=== PATIENT | female | born 1985 | race Caucasian/White ===

== ENCOUNTER 2016-10-22 12:42 | Emergency (ER) | payer OTHER ==
[2016-10-22 13:06] LABS: Hematocrit 39 % (35-47); Hemoglobin 13.3 g/dl (12.0-16.0); Mean Corpuscular HGB Conc 34 g/dl (31-36); Mean Corpuscular Hemoglobin 30 pg (27-31); Mean Corpuscular Volume 87 fL (80-97); Mean Platelet Volume 8 um3 (7.4-10.4); Red Blood Count 4.52 10^6/ul (4.0-5.4); Red Cell Distribution Width 13 % (10.5-15); White Blood Count 6.5 10^3/ul (3.5-10.8)
[2016-10-22 13:23] LABS: ALT 41 U/L (7-52); Albumin 3.9 g/dL (3.2-5.2); Alkaline Phosphatase 49 U/L (34-104); CO2 Carbon Dioxide 25 mmol/L (22-32); Calcium 8.9 mg/dL (8.6-10.3); Chloride 107 mmol/L (101-111); EGFR African American 103.1 (>60); EGFR Non-African American 80.2 (>60); Globulin 3.5 g/dL (2-4); Glucose 86 mg/dL (70-100); Sodium 139 mmol/L (133-145); Total Protein 7.4 g/dL (6.4-8.9)
[2016-10-22 13:35] LABS: Urine Bacteria Absent (Absent); Urine Bilirubin Negative (Negative); Urine Glucose Negative (Negative); Urine Nitrite Negative (Negative)
[2016-10-22 13:41] LABS: Acetaminophen < 15 mcg/mL; Alcohol < 10 mg/dL (<10); Salicylate < 2.50 mg/dL (<30)
[2016-10-22 13:42] LABS: Benzodiazepine Urine Screen None Detected (None Detect)
[2016-10-22 13:51] LABS: TSH (Thyroid Stimulating Horm) 2.15 mcIU/mL (0.34-5.60)
[2016-10-22 14:25] LABS: BUN/Creatinine Ratio 15.5 (8-20); Blood Urea Nitrogen 13 mg/dL (6-24)
[2016-10-22 14:26] LABS: AST 26 U/L (13-39); Anion Gap 7 mmol/L (2-11); Potassium 3.8 mmol/L (3.5-5.0)
--- NOTE | 2016-10-22 14:29 | ED ---
Isis Kyle Matthew, scribed for Uzair Mullen MD on 10/22/16 at 1401 . Altered Mental Status - HPI Summary HPI Summary: A 31 y/o female presents to the ED with altered mental status since last night. She states that she has suicidal ideation and attempted to overdose last night by taking approximately 50 Tylenol and 30 ibuprofen. She was sent by EMS from [facility]. The patient states that her SI stems from flash backs she's having during her hospitalizations at [place]. - History Of Current Complaint Stated Complaint: 945 Time Seen by Provider: 10/22/16 12:47 Hx Obtained From: Patient Hx Last Menstrual Period: irregular, no menses in September Onset/Duration: Still Present Timing: Constant Severity Initially: Moderate Severity Currently: Moderate Aggravating Factor(s): Unknown Alleviating Factor(s): Unknown Associated Signs And Symptoms: Positive: Recently Depressed Has Suicidal: Thoughts, With A Plan, Has Prior Attempt(s) - Allergies/Home Medications Allergies/Adverse Reactions: Allergies Allergy/AdvReac Type Severity Reaction Status Date / Time Haloperidol [From Haldol] Allergy Agitation Verified 03/06/16 22:37 PMH/Surg Hx/FS Hx/Imm Hx GI History: Reports: Hx Irritable Bowel Psychiatric History: Reports: Hx Depression, Hx Post Traumatic Stress Disorder, Hx Inpatient Treatment, Hx Suicide Attempt Denies: Hx Anxiety, Hx Attention Deficit Hyperactivity Disorder, Hx Eating Disorder, Hx Panic Disorder, Hx Community Mental Health Tx, Hx Schizophrenia, Hx Bipolar Disorder, Hx of Violent Episodes Against Others, Hx Substance Abuse, Other Psychiatric Issues/Disorders - Family History Family History: FHx of depression, anxiety disorders, bipolar disorders, mood disorders - Social History Alcohol Use: None Hx Substance Use: No Substance Use Type: Reports: None Hx Tobacco Use: No Smoking Status (MU): Never Smoked Tobacco Review of Systems Constitutional: Negative Negative: Fever, Chills Eyes: Negative Negative: Erythema ENT: Negative Negative: Sore Throat Cardiovascular: Negative Negative: Chest Pain Respiratory: Negative Negative: Shortness Of Breath, Cough Gastrointestinal: Negative Negative: Vomiting, Diarrhea, Nausea Genitourinary: Negative Negative: no symptoms reported, dysuria Musculoskeletal: Negative Negative: Myalgia, Edema Skin: Negative Negative: Rash Neurological: Negative Psychological: Other - SI, Overdose Positive: Depressed All Other Systems Reviewed And Are Negative: Yes Physical Exam Triage Information Reviewed: Yes Vital Signs On Initial Exam: Temp Pulse Resp BP Pulse Ox 97.5 F 75 20 116/74 99 10/22/16 13:21 10/22/16 13:21 10/22/16 13:21 10/22/16 13:21 10/22/16 13:21 Vital Signs Reviewed: Yes Appearance: Positive: Well-Appearing, No Pain Distress Skin: Positive: Warm, Dry Head/Face: Positive: Other - IMPRESSION: RIGHT FRONTAL SCALP HEMATOMA. NO ACUTE INTRACRANIAL PATHOLOGY. Eyes: Positive: Conjunctiva Clear Dental: Negative: Cervical Lymphadenopathy Neck: Positive: Supple, No Lymphadenopathy, Other: - Musculoskeletal ROM normal neck; No JVD Respiratory/Lung Sounds: Positive: Clear to Auscultation, Breath Sounds Present , Other - Normal Effort. Negative: Rales, Rhonchi, Stridor, Tracheal Deviation Cardiovascular: Positive: RRR, Other - Heart sounds normal; Intact distal pulses ; The pedal pulses are 2+ and symmetric. Radial pulses are 2+ and symmetric. Negative: Murmur Abdomen Description: Positive: Nontender, Soft, Other: - No Rebound. Negative: Distended, Guarding Musculoskeletal: Negative: Edema Left, Edema Right Neurological: Positive: Alert, Oriented to Person Place, Time Psychiatric: Positive: Affect/Mood Appropriate Diagnostics - Vital Signs Vital Signs Temp Pulse Resp BP Pulse Ox 10/22/16 13:21 36.4 C 75 20 116/74 99 - Laboratory Lab Results: Lab Results 10/22/16 10/22/16 10/22/16 Range/Units 12:50 12:50 13:05 WBC 6.5 (3.5-10.8) 10^3/ul RBC 4.52 (4.0-5.4) 10^6/ul Hgb 13.3 (12.0-16.0) g/dl Hct 39 (35-47) % MCV 87 (80-97) fL MCH 30 (27-31) pg MCHC 34 (31-36) g/dl RDW 13 (10.5-15) % Plt Count 206 (150-450) 10^3/ul MPV 8 (7.4-10.4) um3 Neut % (Auto) 55.4 (38-83) % Lymph % (Auto) 32.4 (25-47) % [place] % (Auto) 10.1 H (1-9) % Eos % (Auto) 1.5 (0-6) % Baso % (Auto) 0.6 (0-2) % Absolute Neuts (auto) 3.6 (1.5-7.7) 10^3/ul Absolute Lymphs (auto) 2.1 (1.0-4.8) 10^3/ul Absolute Monos (auto) 0.7 (0-0.8) 10^3/ul Absolute Eos (auto) 0.1 (0-0.6) 10^3/ul Absolute Basos (auto) 0 (0-0.2) 10^3/ul Absolute Nucleated RBC 0.02 10^3/ul Nucleated RBC % 0.2 Sodium 139 (133-145) mmol/L Potassium Pending Chloride 107 (101-111) mmol/L Carbon Dioxide 25 (22-32) mmol/L Anion Gap Pending BUN 13 (6-24) mg/dL Creatinine 0.84 (0.51-0.95) mg/dL Est GFR ( Amer) 103.1 (>60) Est GFR (Non-Af Amer) 80.2 (>60) BUN/Creatinine Ratio 15.5 (8-20) Glucose 86 (70-100) mg/dL Calcium 8.9 (8.6-10.3) mg/dL Total Bilirubin 0.40 (0.2-1.0) mg/dL AST Pending ALT 41 (7-52) U/L Alkaline Phosphatase 49 (34-104) U/L Total Protein 7.4 (6.4-8.9) g/dL Albumin 3.9 (3.2-5.2) g/dL Globulin 3.5 (2-4) g/dL Albumin/Globulin Ratio 1.1 (1-3) TSH 2.15 (0.34-5.60) mcIU/mL Urine Color Yellow Urine Appearance Cloudy Urine pH 5.0 (5-9) Ur Specific [place] 1.026 (1.010-1.030) Urine Protein Negative (Negative) Urine Ketones Negative (Negative) Urine Blood Negative (Negative) Urine Nitrate Negative (Negative) Urine Bilirubin Negative (Negative) Urine Urobilinogen Negative (Negative) Ur Leukocyte Esterase 1+ H (Negative) Urine WBC (Auto) 1+(6-10/hpf) H (Absent) Urine RBC (Auto) Absent (Absent) Ur Squamous Epith Cells Present H (Absent) Urine Bacteria Absent (Absent) Urine Glucose Negative (Negative) Salicylates < 2.50 (<30) mg/dL Urine Opiates Screen (None Detect) Acetaminophen < 15 mcg/mL Ur Barbiturates Screen (None Detect) Ur Phencyclidine Scrn (None Detect) Ur Amphetamines Screen (None Detect) U Benzodiazepines Scrn (None Detect) Urine Cocaine Screen (None Detect) U Cannabinoids Screen (None Detect) Serum Alcohol < 10 (<10) mg/dL 10/22/16 Range/Units 13:05 WBC (3.5-10.8) 10^3/ul RBC (4.0-5.4) 10^6/ul Hgb (12.0-16.0) g/dl Hct (35-47) % MCV (80-97) fL MCH (27-31) pg MCHC (31-36) g/dl RDW (10.5-15) % Plt Count (150-450) 10^3/ul MPV (7.4-10.4) um3 Neut % (Auto) (38-83) % Lymph % (Auto) (25-47) % [place] % (Auto) (1-9) % Eos % (Auto) (0-6) % Baso % (Auto) (0-2) % Absolute Neuts (auto) (1.5-7.7) 10^3/ul Absolute Lymphs (auto) (1.0-4.8) 10^3/ul Absolute Monos (auto) (0-0.8) 10^3/ul Absolute Eos (auto) (0-0.6) 10^3/ul Absolute Basos (auto) (0-0.2) 10^3/ul Absolute Nucleated RBC 10^3/ul Nucleated RBC % Sodium (133-145) mmol/L Potassium Chloride (101-111) mmol/L Carbon Dioxide (22-32) mmol/L Anion Gap BUN (6-24) mg/dL Creatinine (0.51-0.95) mg/dL Est GFR ( Amer) (>60) Est GFR (Non-Af Amer) (>60) BUN/Creatinine Ratio (8-20) Glucose (70-100) mg/dL Calcium (8.6-10.3) mg/dL Total Bilirubin (0.2-1.0) mg/dL AST ALT (7-52) U/L Alkaline Phosphatase (34-104) U/L Total Protein (6.4-8.9) g/dL Albumin (3.2-5.2) g/dL Globulin (2-4) g/dL Albumin/Globulin Ratio (1-3) TSH (0.34-5.60) mcIU/mL Urine Color Urine Appearance Urine pH (5-9) Ur Specific [place] (1.010-1.030) Urine Protein (Negative) Urine Ketones (Negative) Urine Blood (Negative) Urine Nitrate (Negative) Urine Bilirubin (Negative) Urine Urobilinogen (Negative) Ur Leukocyte Esterase (Negative) Urine WBC (Auto) (Absent) Urine RBC (Auto) (Absent) Ur Squamous Epith Cells (Absent) Urine Bacteria (Absent) Urine Glucose (Negative) Salicylates (<30) mg/dL Urine Opiates Screen None detected (None Detect) Acetaminophen mcg/mL Ur Barbiturates Screen None detected (None Detect) Ur Phencyclidine Scrn None detected (None Detect) Ur Amphetamines Screen None detected (None Detect) U Benzodiazepines Scrn None detected (None Detect) Urine Cocaine Screen None detected (None Detect) U Cannabinoids Screen None detected (None Detect) Serum Alcohol (<10) mg/dL Result Diagrams: 10/22/16 12:50 10/22/16 12:50 Lab Statement: Any lab studies that have been ordered have been reviewed, and results considered in the medical decision making process. Altered Mental Statu Course/Dx - Diagnoses Discharge Diagnoses: Suicidal behavior Discharge - Discharge Plan Condition: Guarded Disposition: OTHER Discharge Disposition Comment: SIGNED OUT The documentation as recorded by the Isis pino Matthew accurately reflects the service I personally performed and the decisions made by , Uzair Mullen MD.
[2016-10-22 15:08] VITALS: BP 132/82
== END 2016-10-22 16:57 | disposition home or self-care (01) ==
LOC: ED 12:42
DX: R45.851 Suicidal ideations (principal)
CPT/HCPCS: 36415; 80053; 80307; 80320; 80329; 81003; 81015; 84443; 85025; 87086; 99285; G0480

== ENCOUNTER 2017-03-25 11:52 | Inpatient (IN) | payer OTHER ==
[2017-03-25 13:03] LABS: Hematocrit 38 % (35-47); Hemoglobin 12.8 g/dl (12.0-16.0); Mean Corpuscular HGB Conc 34 g/dl (31-36); Mean Corpuscular Hemoglobin 30 pg (27-31); Mean Corpuscular Volume 90 fL (80-97); Mean Platelet Volume 8 um3 (7.4-10.4); Red Blood Count 4.24 10^6/ul (4.0-5.4); Red Cell Distribution Width 13 % (10.5-15)
[2017-03-25 13:03] LABS: Urine Bilirubin Negative (Negative); Urine Glucose Negative (Negative); Urine Nitrite Negative (Negative)
[2017-03-25 13:17] LABS: ALT 52 U/L (7-52); AST 26 U/L (13-39); Albumin 4.2 g/dL (3.2-5.2); Alkaline Phosphatase 51 U/L (34-104); Anion Gap 8 mmol/L (2-11); BUN/Creatinine Ratio 14.1 (8-20); Blood Urea Nitrogen 12 mg/dL (6-24); CO2 Carbon Dioxide 23 mmol/L (22-32); Calcium 9.3 mg/dL (8.6-10.3); Chloride 106 mmol/L (101-111); EGFR African American 101.7 (>60); EGFR Non-African American 79.1 (>60); Globulin 3.1 g/dL (2-4); Glucose 93 mg/dL (70-100); Potassium 3.4 mmol/L (3.5-5.0); Sodium 137 mmol/L (133-145); Total Protein 7.3 g/dL (6.4-8.9)
[2017-03-25 13:21] LABS: Benzodiazepine Urine Screen None Detected (None Detect)
[2017-03-25 13:41] LABS: Acetaminophen < 15 mcg/mL; Alcohol < 10 mg/dL (<10); Salicylate < 2.50 mg/dL (<30)
--- NOTE | 2017-03-25 13:41 | ED ---
Psychiatric Complaint - HPI Summary HPI Summary: Patient presents after recent discharge from [facility] for suicidal ideations with continuing ideation and plan. She has attempted in the past with OD without success. She takes multiple medications for her depression and other psych history, but continues to have these thoughts. Denies HI. Denies pain or health problems. She has felt increasing stress, and PTSD related to her last stay in [facility]. Upon arrival she is requesting a hospital stay for her own safety. Denies ETOH or drug use. She states while she had suicidal thoughts, she did not act upon them today. She is closely followed by therapist and psychiatrist. - History Of Current Complaint Chief Complaint: EDMentalHealth Time Seen by Provider: 03/25/17 12:16 Hx Obtained From: Patient Hx Last Menstrual Period: irregular, no menses in September ?: No Onset/Duration: Gradual Onset Timing: Constant Severity Initially: Severe Severity Currently: Severe Character: Depressed, Fearful, Anxious Aggravating Factor(s): Recent Stress Alleviating Factor(s): Nothing Associated Signs And Symptoms: Positive: Social Withdrawal, Social Isolation Related History: Positive For: Prior Psychiatric Issues Has Suicidal: Reports: Thoughts, With A Plan, Has Prior Attempt(s) - OD - Risk Factor(s) Completed Suicide Risk Factors: Negative - Allergies/Home Medications Allergies/Adverse Reactions: Allergies Allergy/AdvReac Type Severity Reaction Status Date / Time Haloperidol [From Haldol] Allergy Agitation Verified 03/06/16 22:37 Home Medications: Home Medications hydrOXYzine HCL TAB* [Atarax 25 MG TAB*] 75 mg PO BEDTIME 03/25/17 [History Confirmed 03/25/17] PMH/Surg Hx/FS Hx/Imm Hx Previously Healthy: Yes GI History: Reports: Hx Irritable Bowel Psychiatric History: Reports: Hx Depression, Hx Post Traumatic Stress Disorder, Hx Inpatient Treatment, Hx Suicide Attempt Denies: Hx Anxiety, Hx Attention Deficit Hyperactivity Disorder, Hx Eating Disorder, Hx Panic Disorder, Hx Community Mental Health Tx, Hx Schizophrenia, Hx Bipolar Disorder, Hx of Violent Episodes Against Others, Hx Substance Abuse, Other Psychiatric Issues/Disorders - Immunization History Hx Pertussis Vaccination: No Immunizations Up to Date: Unable to Obtain/Confirm Infectious Disease History: No Infectious Disease History: Denies: Traveled Outside the [place] in Last 30 Days - Family History Known Family History: Positive: None Family History: FHx of depression, anxiety disorders, bipolar disorders, mood disorders - Social History Occupation: Unemployed Lives: With Family Alcohol Use: None Hx Substance Use: No Substance Use Type: Reports: None Hx Tobacco Use: No Smoking Status (MU): Never Smoked Tobacco Review of Systems Constitutional: Negative Eyes: Negative Cardiovascular: Negative Respiratory: Negative Positive: no symptoms reported, see HPI Musculoskeletal: Negative Neurological: Negative Positive: Anxious, Depressed All Other Systems Reviewed And Are Negative: Yes Physical Exam Triage Information Reviewed: Yes Vital Signs On Initial Exam: Initial Vitals Temp Pulse Resp BP Pulse Ox 99.1 F 68 18 124/77 95 03/25/17 12:22 03/25/17 12:22 03/25/17 12:22 03/25/17 12:22 03/25/17 12:22 Vital Signs Reviewed: Yes Appearance: Positive: Well-Appearing, Well-Nourished Skin: Positive: Warm, Skin Color Reflects Adequate Perfusion Neck: Positive: Supple, No Lymphadenopathy Respiratory/Lung Sounds: Positive: Clear to Auscultation, Breath Sounds Present Cardiovascular: Positive: Normal, RRR, Pulses are Symmetrical in both Upper and Lower Extremities Musculoskeletal: Positive: Normal, Strength/ROM Intact Neurological: Positive: Sensory/Motor Intact, Alert, Oriented to Person Place, Time Psychiatric: Positive: Anxious, Depressed AVPU Assessment: Alert Diagnostics - Vital Signs Vital Signs Temp Pulse Resp BP Pulse Ox 03/25/17 12:22 99.1 F 68 18 124/77 95 - Laboratory Lab Results: Lab Results 03/25/17 03/25/17 03/25/17 Range/Units 12:10 12:10 12:40 WBC 9.0 (3.5-10.8) 10^3/ul RBC 4.24 (4.0-5.4) 10^6/ul Hgb 12.8 (12.0-16.0) g/dl Hct 38 (35-47) % MCV 90 (80-97) fL MCH 30 (27-31) pg MCHC 34 (31-36) g/dl RDW 13 (10.5-15) % Plt Count 261 (150-450) 10^3/ul MPV 8 (7.4-10.4) um3 Neut % (Auto) 66.0 (38-83) % Lymph % (Auto) 24.6 L (25-47) % [place] % (Auto) 7.8 (1-9) % Eos % (Auto) 1.2 (0-6) % Baso % (Auto) 0.4 (0-2) % Absolute Neuts (auto) 5.9 (1.5-7.7) 10^3/ul Absolute Lymphs (auto) 2.2 (1.0-4.8) 10^3/ul Absolute Monos (auto) 0.7 (0-0.8) 10^3/ul Absolute Eos (auto) 0.1 (0-0.6) 10^3/ul Absolute Basos (auto) 0 (0-0.2) 10^3/ul Absolute Nucleated RBC 0 10^3/ul Nucleated RBC % 0 Sodium (133-145) mmol/L Potassium (3.5-5.0) mmol/L Chloride (101-111) mmol/L Carbon Dioxide (22-32) mmol/L Anion Gap (2-11) mmol/L BUN (6-24) mg/dL Creatinine (0.51-0.95) mg/dL Est GFR ( Amer) (>60) Est GFR (Non-Af Amer) (>60) BUN/Creatinine Ratio (8-20) Glucose (70-100) mg/dL Calcium (8.6-10.3) mg/dL Total Bilirubin (0.2-1.0) mg/dL AST (13-39) U/L ALT (7-52) U/L Alkaline Phosphatase (34-104) U/L Total Protein (6.4-8.9) g/dL Albumin (3.2-5.2) g/dL Globulin (2-4) g/dL Albumin/Globulin Ratio (1-3) TSH Urine Color Yellow Urine Appearance Clear Urine pH 6.0 (5-9) Ur Specific [place] 1.015 (1.010-1.030) Urine Protein Negative (Negative) Urine Ketones Negative (Negative) Urine Blood Negative (Negative) Urine Nitrate Negative (Negative) Urine Bilirubin Negative (Negative) Urine Urobilinogen Negative (Negative) Ur Leukocyte Esterase Negative (Negative) Urine Glucose Negative (Negative) Salicylates Urine Opiates Screen None detected (None Detect) Acetaminophen Ur Barbiturates Screen None detected (None Detect) Ur Phencyclidine Scrn None detected (None Detect) Ur Amphetamines Screen None detected (None Detect) U Benzodiazepines Scrn None detected (None Detect) Urine Cocaine Screen None detected (None Detect) U Cannabinoids Screen None detected (None Detect) Serum Alcohol 03/25/17 Range/Units 12:40 WBC (3.5-10.8) 10^3/ul RBC (4.0-5.4) 10^6/ul Hgb (12.0-16.0) g/dl Hct (35-47) % MCV (80-97) fL MCH (27-31) pg MCHC (31-36) g/dl RDW (10.5-15) % Plt Count (150-450) 10^3/ul MPV (7.4-10.4) um3 Neut % (Auto) (38-83) % Lymph % (Auto) (25-47) % [place] % (Auto) (1-9) % Eos % (Auto) (0-6) % Baso % (Auto) (0-2) % Absolute Neuts (auto) (1.5-7.7) 10^3/ul Absolute Lymphs (auto) (1.0-4.8) 10^3/ul Absolute Monos (auto) (0-0.8) 10^3/ul Absolute Eos (auto) (0-0.6) 10^3/ul Absolute Basos (auto) (0-0.2) 10^3/ul Absolute Nucleated RBC 10^3/ul Nucleated RBC % Sodium 137 (133-145) mmol/L Potassium 3.4 L (3.5-5.0) mmol/L Chloride 106 (101-111) mmol/L Carbon Dioxide 23 (22-32) mmol/L Anion Gap 8 (2-11) mmol/L BUN 12 (6-24) mg/dL Creatinine 0.85 (0.51-0.95) mg/dL Est GFR ( Amer) 101.7 (>60) Est GFR (Non-Af Amer) 79.1 (>60) BUN/Creatinine Ratio 14.1 (8-20) Glucose 93 (70-100) mg/dL Calcium 9.3 (8.6-10.3) mg/dL Total Bilirubin 0.70 (0.2-1.0) mg/dL AST 26 (13-39) U/L ALT 52 (7-52) U/L Alkaline Phosphatase 51 (34-104) U/L Total Protein 7.3 (6.4-8.9) g/dL Albumin 4.2 (3.2-5.2) g/dL Globulin 3.1 (2-4) g/dL Albumin/Globulin Ratio 1.4 (1-3) TSH Pending Urine Color Urine Appearance Urine pH (5-9) Ur Specific [place] (1.010-1.030) Urine Protein (Negative) Urine Ketones (Negative) Urine Blood (Negative) Urine Nitrate (Negative) Urine Bilirubin (Negative) Urine Urobilinogen (Negative) Ur Leukocyte Esterase (Negative) Urine Glucose (Negative) Salicylates Pending Urine Opiates Screen (None Detect) Acetaminophen Pending Ur Barbiturates Screen (None Detect) Ur Phencyclidine Scrn (None Detect) Ur Amphetamines Screen (None Detect) U Benzodiazepines Scrn (None Detect) Urine Cocaine Screen (None Detect) U Cannabinoids Screen (None Detect) Serum Alcohol Pending Result Diagrams: 03/25/17 12:40 03/25/17 12:40 Lab Statement: Any lab studies that have been ordered have been reviewed, and results considered in the medical decision making process. Course/Dx - Course Course Of Treatment: Patient cleared for MHU. See HPI. Here for SI. No other complaints. - Differential Dx/Clinical Impression Differential Diagnosis/HQI/PQRI: Positive: Suicide Attempt, Suicidal Ideation, Suicidal Gesture Provider Diagnosis: Suicidal ideation Discharge - Discharge Plan Condition: Stable Disposition: OTHER Discharge Disposition Comment: Patient cleared for MHU at 1:45pm
[2017-03-25 13:50] LABS: TSH (Thyroid Stimulating Horm) 1.67 mcIU/mL (0.34-5.60)
[2017-03-25] MEDS ORDERED: Nicotine Inhaler* 10 MG AMP INH PRN (15:07)
[2017-03-25] MEDS ORDERED: Nicotine GUM* 2 MG PO PRN (15:07)
[2017-03-25] MEDS ORDERED: Al Hydrox/Mg Hydrox/Simet LIQ* 30 ML UDC PO PRN (15:07)
[2017-03-25] MEDS: Prazosin CAP* 1 MG PO SCH (19:09)
[2017-03-25] MEDS: ARIPiprazole TAB* 5 MG PO SCH (19:09)
[2017-03-25] MEDS ORDERED: Nicotine Patch Removal NOTE PATCH OFF SCH (21:00)
[2017-03-25] MEDS: hydrOXYzine HCL TAB* 25 MG PO SCH (21:21)
[2017-03-25] MEDS: Mirtazapine TAB* 15 MG PO SCH (21:21)
[2017-03-25] MEDS: Zolpidem TAB* 5 MG PO PRN (21:23)
[2017-03-26] MEDS ORDERED: Nicotine PATCH 7 MG/24 HR* PATCH TRANSDERM SCH (08:00)
[2017-03-26] MEDS ORDERED: Nicotine PATCH 14 MG/24 HR* PATCH TRANSDERM SCH (08:00)
[2017-03-26] MEDS ORDERED: Nicotine PATCH 21 MG/24 HR* PATCH TRANSDERM SCH (08:00)
[2017-03-26] MEDS: ARIPiprazole TAB* 5 MG PO SCH (09:54)
[2017-03-26] MEDS: Prazosin CAP* 1 MG PO SCH (09:54)
[2017-03-26] MEDS: Omeprazole CAP* 20 MG PO SCH (09:54)
[2017-03-26] MEDS: Vitamin THERAPEUTIC TAB PO SCH (09:54)
[2017-03-26] MEDS: FLUoxetine CAP* 20 MG PO SCH (09:54)
[2017-03-26] MEDS: Acetaminophen TAB* 325 MG PO PRN (12:50)
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
[2017-03-26] MEDS: hydrOXYzine HCL TAB* 25 MG PO SCH (21:52)
[2017-03-26] MEDS: Mirtazapine TAB* 15 MG PO SCH (21:52)
[2017-03-26] MEDS: Zolpidem TAB* 5 MG PO PRN (21:54)
[2017-03-27] MEDS: Omeprazole CAP* 20 MG PO SCH (09:46)
[2017-03-27] MEDS: Prazosin CAP* 1 MG PO SCH (09:46)
[2017-03-27] MEDS: ARIPiprazole TAB* 5 MG PO SCH (09:46)
[2017-03-27] MEDS: FLUoxetine CAP* 20 MG PO SCH (09:46)
[2017-03-27] MEDS: Vitamin THERAPEUTIC TAB PO SCH (09:46)
[2017-03-27] MEDS: hydrOXYzine HCL TAB* 25 MG PO SCH (20:20)
[2017-03-27] MEDS: Mirtazapine TAB* 15 MG PO SCH (20:20)
[2017-03-27] MEDS: Zolpidem TAB* 5 MG PO PRN (20:21)
[2017-03-28] MEDS: ARIPiprazole TAB* 5 MG PO SCH (10:05)
[2017-03-28] MEDS: Omeprazole CAP* 20 MG PO SCH (10:05)
[2017-03-28] MEDS: FLUoxetine CAP* 20 MG PO SCH (10:05)
[2017-03-28] MEDS: Vitamin THERAPEUTIC TAB PO SCH (10:06)
[2017-03-28] MEDS: hydrOXYzine HCL TAB* 50 MG PO PRN ×2 (10:06→17:06)
[2017-03-28] MEDS: Prazosin CAP* 1 MG PO SCH ×2 (10:06→21:34)
--- NOTE | 2017-03-28 13:51 | PN ---
[facility]: Group Therapy Note - Service Type Service Type: 54353 Group Psychotherapy - Cognitive Behavioral Group Therapy ( CBT):Patient was attentive and participatory in CBT programming this morning, and remained in good behavioral control. Patient expressed positive insights regarding relevant treatment interventions and goals.
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
[2017-03-28] MEDS: Mirtazapine TAB* 15 MG PO SCH (21:34)
[2017-03-28] MEDS: hydrOXYzine HCL TAB* 25 MG PO SCH (21:34)
[2017-03-28] MEDS: Zolpidem TAB* 5 MG PO PRN (21:35)
[2017-03-29] MEDS: Omeprazole CAP* 20 MG PO SCH (10:09)
[2017-03-29] MEDS: hydrOXYzine HCL TAB* 50 MG PO PRN (10:09)
[2017-03-29] MEDS: Vitamin THERAPEUTIC TAB PO SCH (10:09)
[2017-03-29] MEDS: ARIPiprazole TAB* 15 MG PO SCH (10:09)
[2017-03-29] MEDS: FLUoxetine CAP* 20 MG PO SCH (10:09)
--- NOTE | 2017-03-29 12:27 | PN ---
Subjective - Subjective Service Type: 00393 Hosp care 25 min moderate complexity Subjective: Patient's , Maikol, called and lead technical writer returned call at [phone]. He reports "serious concerns" in regards to patient's mental health. He states that he is concerned due to 18 hospitalizations in the last 3 years and that last week was her 5th overdose attempt. He states concern that her lethality is worsening. He reports that her OD attempts have been with mildly lethal substances such as motrin or tylenol. He confirms that she only has a week supply of prescribed medications. He states that he also concerned that she is "obsessed with having another child" and has been discussing this for several years. Maikol states he told his on Tuesday during visiting hours that he does not think she is in a stable mental health condition to have a child, if ever. He also expressed concern to her about continuing their marriage. He states that he would like her to be honest with him and others about her self- harm thoughts and urges. Maikol goes on to describe that he sees her actions as manipulative for attention or sympathy. He has done research on dissociative disorder and that she meets criteria for this as well as borderline personality d/o. Maikol states that Saul's hospitalizations and mental health have impacted him and their son's relationships. He denies active concern for Florin' s well-being. [facility]. She is writing in a notebook and states she is working on a "family tree assignment" given to her by staff. She reports her mood this morning is "pretty good." She is dysphoric with flat affect, good eye contact, speech soft and articulate. She states she is having thoughts of SIB but denies doing so since last evening. She states these thoughts are more infrequent. She reports sleep was difficult in that she awoke once and felt "out of it" and saw people standing around her. She states she coped with this by "banging my head a lot" then returning to sleep for a couple more hours. She states her discussion with her on Tuesday was stressful. She recalls that she "jumped to the conclusion that we wouldn't be together" in regards to him not wanting to have more children and he does. Saul denies side effects of increase in aripiprazole. She states she has taken prn hydroxyzine twice with good effect. She noticed she is able to calm more quickly in the context of triggers, such as security present on the unit for other patients. Objective - Appearance Appearance: Well Developed/Nourished, Obese Dysmorphic Features: Yes Hygiene: Normal Grooming: Disheveled - Behavior Psychomotor Activities: Normal Exhibits Abnormal Movement: No - Attitude and Relatedness Attitude and Relatedness: Cooperative Eye Contact: Good - Speech Quality: Unpressured Latencies: Normal Quantity: Appropriate - Mood Patient's Decription of Mood: "Good" - Affect Observed Affect: Depressed Affect Consistent with: Dysphoria - Thought Process Patient's Thought Process: Coherent, Goal Directed Thought Content: Yes Passive Wish, Yes Suicidal Planning, No Homicidal Ideation, No Paranoid Ideation - Sensorium Experiencing Hallucinations: Yes Type of Hallucinations: Visual: Yes - see above, Auditory: No, Command: No - Level of Consciousness Level of Consciousness: Alert Orientation: Yes Intact, Yes Orientated to Time, Yes Orientated to Place, Yes Orientated to Person - Impulse Control Impulse Control: Tenuous - Insight and Judgement Insight and Judgement: Fair - Medication Management Medication Management Adherence: Yes Assessment - Assessment Merits Inpatient Hospitalization: For Immediate Safety, For Stabilization, Pending Safe DC Plan Inpatient DSM-IV Dx: major depressive d/o; PTSD; borderline personality d/o Clinical Impression: 31yo female with active suicidal ideation and SIB urges who presented to [facility] less than one week after discharge from another hospital. She has an extensive trauma history and reports recent triggers. Will continue increase in antipsychotic and increase fluoxetine for improved PTSD symptoms. Encouraged increase in group and milieu presence. Plan - Plan Treatment Plan: Name: SAUL UGARTE Birthdate: 1985 [id number] Saul continues to endorse risk for self harm and active intrusive thoughts. She is agreeable to medication changes and participation in therapeutic milieu. Discharge planning will include family involvement. Continued Medication Management: Different Medication Medications: Current Medications Acetaminophen (Tylenol Tab*) 650 mg PO Q4H PRN PRN Reason: for pain; or Temp >101 F Last Admin: 03/26/17 12:50 Dose: 650 mg Al Hydrox/Mg Hydrox/Simethicone (Maalox Plus*) 30 ml PO Q4H PRN PRN Reason: INDIGESTION Aripiprazole (Abilify Tab*) 15 mg PO DAILY MARYA Last Admin: 03/29/17 10:09 Dose: 15 mg Fluoxetine HCl (Prozac Cap*) 60 mg PO DAILY MARYA Last Admin: 03/29/17 10:09 Dose: 60 mg Hydroxyzine HCl (Atarax Tab*) 75 mg PO BEDTIME MARYA Last Admin: 03/28/17 21:34 Dose: 75 mg Hydroxyzine HCl (Atarax Tab*) 50 mg PO Q6H PRN PRN Reason: ANXIETY/ AGITATION Last Admin: 03/29/17 10:09 Dose: 50 mg Mirtazapine (Remeron Tab*) 15 mg PO BEDTIME MARYA Last Admin: 03/28/17 21:34 Dose: 15 mg Multivitamins (Theragran Tab*) 1 tab PO DAILY MARYA Last Admin: 03/29/17 10:09 Dose: 1 tab Nicotine (Nicotine Inhaler*) 10 mg INH Q2H PRN PRN Reason: CRAVING Nicotine Polacrilex (Nicotine Gum*) 2 mg PO Q2H PRN PRN Reason: CRAVING Omeprazole (Prilosec Cap*) 20 mg PO DAILY MARYA Last Admin: 03/29/17 10:09 Dose: 20 mg Prazosin HCl (Minipress Cap*) 3 mg PO BEDTIME MARYA Last Admin: 03/28/17 21:34 Dose: 3 mg Zolpidem Tartrate (Ambien Tab*) 5 mg PO BEDTIME PRN PRN Reason: SLEEP Last Admin: 03/28/17 21:35 Dose: 5 mg - Discharge Plan Discharge Plan: Outpatient Follow Up Outpatient Program: [facility]
[2017-03-29] MEDS: Mirtazapine TAB* 15 MG PO SCH (22:04)
[2017-03-29] MEDS: hydrOXYzine HCL TAB* 25 MG PO SCH (22:04)
[2017-03-29] MEDS: Prazosin CAP* 1 MG PO SCH (22:04)
[2017-03-29] MEDS: Zolpidem TAB* 5 MG PO PRN (22:05)
[2017-03-30 09:17] LABS: HDL Cholesterol 30.1 mg/dL
[2017-03-30] MEDS: Omeprazole CAP* 20 MG PO SCH (10:05)
[2017-03-30] MEDS: ARIPiprazole TAB* 15 MG PO SCH (10:05)
[2017-03-30] MEDS: FLUoxetine CAP* 20 MG PO SCH (10:05)
[2017-03-30] MEDS: Vitamin THERAPEUTIC TAB PO SCH (10:05)
--- NOTE | 2017-03-30 12:42 | PN ---
Subjective - Subjective Service Type: 75132 Hosp care 15 min low complexity Subjective: Saul presents as dysphoric with blunted affect. She states "I'm not having suicidal thoughts." She expresses confusion as to why she has not been allowed to change into her own clothing. She states she expected to do so as she expressed herself to staff when upset last evening. She recalls engaging in head-banging on the overnight shift. Patient is notified of behavioral intervention plan to promote safety. She agrees to items and states that she is motivated to be able to wear her own clothing. She states she would prefer not to have access to toiletry/personal items due to temptation to self harm. Patient agrees to family meeting for discharge planning. She states she wants to be able to return to outpatient counseling and Seeking Safety group. She is planning to be able to arrange her work schedule in able to do so. Objective - Appearance Appearance: Obese Dysmorphic Features: Yes Hygiene: Normal Grooming: Disheveled - Behavior Psychomotor Activities: Normal Exhibits Abnormal Movement: No - Attitude and Relatedness Attitude and Relatedness: Withdrawn Eye Contact: Good - Speech Quality: Unpressured Latencies: Normal Quantity: Appropriate - Mood Patient's Decription of Mood: "confused" - Affect Observed Affect: Depressed Affect Consistent with: Euthymia - Thought Process Patient's Thought Process: Coherent, Impoverished Thought Content: No Passive Wish, No Suicidal Planning, No Homicidal Ideation, No Paranoid Ideation - Sensorium Experiencing Hallucinations: No, Sensorium is Clear Type of Hallucinations: Visual: No, Auditory: No, Command: No - Level of Consciousness Level of Consciousness: Alert Orientation: Yes Intact, Yes Orientated to Time, Yes Orientated to Place, Yes Orientated to Person - Impulse Control Impulse Control: Impaired - Insight and Judgement Insight and Judgement: Fair - Group Participation Particating in Group Activities: Yes - Medication Management Medication Management Adherence: Yes Assessment - Assessment Merits Inpatient Hospitalization: For Immediate Safety, For Stabilization, Pending Safe DC Plan Inpatient DSM-IV Dx: major depressive d/o; PTSD; borderline personality d/o Clinical Impression: 31yo female with active suicidal ideation and SIB urges who presented to [facility] less than one week after discharge from another hospital. She has an extensive trauma history and reports recent triggers. Will continue increase in antipsychotic and fluoxetine for improved PTSD symptoms. Encouraged increase in group and milieu presence. Fasting Lipid panel and [id number] obtained, WNL. Behavior modification plan implemented to promote safety and healthy coping skills. Plan - Plan Treatment Plan: Name: SAUL UGARTE Birthdate: 1985 [id number] Saul continues to endorse risk for self harm. She denies suicidal ideation. She is agreeable to behavior modification plan and participation in therapeutic milieu. Discharge planning will include family involvement and increase in outpatient treatment, including group therapy. Continued Medication Management: Continue Outpt Medication Medications: Current Medications Acetaminophen (Tylenol Tab*) 650 mg PO Q4H PRN PRN Reason: for pain; or Temp >101 F Last Admin: 03/26/17 12:50 Dose: 650 mg Al Hydrox/Mg Hydrox/Simethicone (Maalox Plus*) 30 ml PO Q4H PRN PRN Reason: INDIGESTION Aripiprazole (Abilify Tab*) 15 mg PO DAILY [facility] Last Admin: 03/30/17 10:05 Dose: 15 mg Fluoxetine HCl (Prozac Cap*) 80 mg PO DAILY MARYA Last Admin: 03/30/17 10:05 Dose: 80 mg Hydroxyzine HCl (Atarax Tab*) 75 mg PO BEDTIME MARYA Last Admin: 03/29/17 22:04 Dose: 75 mg Hydroxyzine HCl (Atarax Tab*) 50 mg PO Q6H PRN PRN Reason: ANXIETY/ AGITATION Last Admin: 03/29/17 10:09 Dose: 50 mg Mirtazapine (Remeron Tab*) 15 mg PO BEDTIME MARYA Last Admin: 03/29/17 22:04 Dose: 15 mg Multivitamins (Theragran Tab*) 1 tab PO DAILY MARYA Last Admin: 03/30/17 10:05 Dose: 1 tab Nicotine (Nicotine Inhaler*) 10 mg INH Q2H PRN PRN Reason: CRAVING Nicotine Polacrilex (Nicotine Gum*) 2 mg PO Q2H PRN PRN Reason: CRAVING Omeprazole (Prilosec Cap*) 20 mg PO DAILY [facility] Last Admin: 03/30/17 10:05 Dose: 20 mg Prazosin HCl (Minipress Cap*) 3 mg PO BEDTIME MARYA Last Admin: 03/29/17 22:04 Dose: 3 mg Zolpidem Tartrate (Ambien Tab*) 5 mg PO BEDTIME PRN PRN Reason: SLEEP Last Admin: 03/29/17 22:05 Dose: 5 mg - Discharge Plan Discharge Plan: Outpatient Follow Up Outpatient Program: [facility]
[2017-03-30] MEDS: hydrOXYzine HCL TAB* 25 MG PO SCH (21:16)
[2017-03-30] MEDS: Mirtazapine TAB* 15 MG PO SCH (21:16)
[2017-03-30] MEDS: Prazosin CAP* 1 MG PO SCH (21:17)
[2017-03-30] MEDS: Zolpidem TAB* 5 MG PO PRN (21:17)
[2017-03-31] MEDS: Acetaminophen TAB* 325 MG PO PRN ×2 (09:42→19:27)
[2017-03-31] MEDS: FLUoxetine CAP* 20 MG PO SCH (09:42)
[2017-03-31] MEDS: Vitamin THERAPEUTIC TAB PO SCH (09:43)
[2017-03-31] MEDS: ARIPiprazole TAB* 15 MG PO SCH (09:43)
[2017-03-31] MEDS: Omeprazole CAP* 20 MG PO SCH (09:43)
--- NOTE | 2017-03-31 13:38 | PN ---
Subjective - Subjective Service Type: 16437 Hosp care 15 min low complexity Subjective: Patient presents as dysphoric with blunted affect. She is sitting on the floor in the corner of her room. She states "I was doing good until a couple minutes ago." She endorses racing thoughts about memories of recent hospitalization at [facility]. She states she also misses her horse who was euthanized 6-8 years ago. She states that has had thoughts of wanting to head bang but denies self harm in the past 24 hours. She has been participating in programming and completed a behavioral chain analysis in regards to SIB the previous night. She is completing ADLs, eating meals and reports sleeping well through the night. Patient reports she spoke with both her and her mother via phone last evening and that these were positive interactions. She reports desire to "come up with ways to be safe and feel safe" when home. She has utilized books from for researching this. She denies suicidal ideation. Objective - Appearance Appearance: Well Developed/Nourished, Obese Dysmorphic Features: Yes Hygiene: Normal Grooming: Well Kept - Behavior Psychomotor Activities: Normal Exhibits Abnormal Movement: Yes - Attitude and Relatedness Attitude and Relatedness: Cooperative Eye Contact: Good - Speech Quality: Unpressured Latencies: Normal Quantity: Appropriate - Mood Patient's Decription of Mood: "Sad" - Affect Observed Affect: Depressed Affect Consistent with: Euthymia - Thought Process Patient's Thought Process: Coherent, Goal Directed Thought Content: No Passive Wish, No Suicidal Planning, No Homicidal Ideation, No Paranoid Ideation - Sensorium Experiencing Hallucinations: No, Sensorium is Clear Type of Hallucinations: Visual: No, Auditory: No, Command: No - Level of Consciousness Level of Consciousness: Alert Orientation: Yes Intact, Yes Orientated to Time, Yes Orientated to Place, Yes Orientated to Person - Impulse Control Impulse Control: Intact - Insight and Judgement Insight and Judgement: Fair - Group Participation Particating in Group Activities: Yes - Medication Management Medication Management Adherence: Yes Assessment - Assessment Merits Inpatient Hospitalization: For Immediate Safety, Pending Safe DC Plan Inpatient DSM-IV Dx: major depressive d/o; PTSD; borderline personality d/o Clinical Impression: 31yo female with improved suicidal ideation and SIB urges. She presented to [facility] less than one week after discharge from another hospital. She has an extensive trauma history and reports recent triggers. Will continue current medications and group and milieu presence. Behavior modification plan intact. Discharge planning will include family involvement. Plan - Plan Treatment Plan: Name: LULY UGARTE Birthdate: 1985 [id number] Luly continues to endorse risk for self harm. She denies suicidal ideation. She is agreeable to behavior modification plan and participation in therapeutic milieu. Discharge planning will include family involvement and increase in outpatient treatment, including group therapy. Continued Medication Management: Continue Outpt Medication Medications: Current Medications Acetaminophen (Tylenol Tab*) 650 mg PO Q4H PRN PRN Reason: for pain; or Temp >101 F Last Admin: 03/31/17 09:42 Dose: 650 mg Al Hydrox/Mg Hydrox/Simethicone (Maalox Plus*) 30 ml PO Q4H PRN PRN Reason: INDIGESTION Aripiprazole (Abilify Tab*) 15 mg PO DAILY [facility] Last Admin: 03/31/17 09:43 Dose: 15 mg Fluoxetine HCl (Prozac Cap*) 80 mg PO DAILY [facility]ARYA Last Admin: 03/31/17 09:42 Dose: 80 mg Hydroxyzine HCl (Atarax Tab*) 75 mg PO BEDTIME MARYA Last Admin: 03/30/17 21:16 Dose: 75 mg Hydroxyzine HCl (Atarax Tab*) 50 mg PO Q6H PRN PRN Reason: ANXIETY/ AGITATION Last Admin: 03/29/17 10:09 Dose: 50 mg Mirtazapine (Remeron Tab*) 15 mg PO BEDTIME MARYA Last Admin: 03/30/17 21:16 Dose: 15 mg Multivitamins (Theragran Tab*) 1 tab PO DAILY MARYA Last Admin: 03/31/17 09:43 Dose: 1 tab Nicotine (Nicotine Inhaler*) 10 mg INH Q2H PRN PRN Reason: CRAVING Nicotine Polacrilex (Nicotine Gum*) 2 mg PO Q2H PRN PRN Reason: CRAVING Omeprazole (Prilosec Cap*) 20 mg PO DAILY MARYA Last Admin: 03/31/17 09:43 Dose: 20 mg Prazosin HCl (Minipress Cap*) 3 mg PO BEDTIME MARYA Last Admin: 03/30/17 21:17 Dose: 3 mg Zolpidem Tartrate (Ambien Tab*) 5 mg PO BEDTIME PRN PRN Reason: SLEEP Last Admin: 03/30/17 21:17 Dose: 5 mg - Discharge Plan Discharge Plan: Outpatient Follow Up Outpatient Program: [facility]
[2017-03-31] MEDS ORDERED: chlorproMAZINE TAB* 50 MG PO ONE (17:38)
[2017-03-31] MEDS ORDERED: chlorproMAZINE TAB* 50 MG ONE (17:39)
[2017-03-31] MEDS: Zolpidem TAB* 5 MG PO PRN (21:12)
[2017-03-31] MEDS: Mirtazapine TAB* 15 MG PO SCH (21:12)
[2017-03-31] MEDS: hydrOXYzine HCL TAB* 25 MG PO SCH (21:12)
[2017-03-31] MEDS: Prazosin CAP* 1 MG PO SCH (21:13)
[2017-04-01] MEDS: FLUoxetine CAP* 20 MG PO SCH ×2 (10:02→13:42)
[2017-04-01] MEDS: Vitamin THERAPEUTIC TAB PO SCH ×2 (10:02→13:43)
[2017-04-01] MEDS: Omeprazole CAP* 20 MG PO SCH ×2 (10:02→13:42)
[2017-04-01] MEDS: ARIPiprazole TAB* 15 MG PO SCH ×2 (10:02→13:42)
--- NOTE | 2017-04-01 13:47 | PN ---
Subjective - Subjective Service Type: 02700 Hosp care 15 min low complexity Subjective: Saul presents as dysphoric with blunted affect. She has refused her morning medications and states "What's the point?" She has been group compliant and showered this morning. 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 No other apparent self injury. She endorses SI, hopelessness and urges of SIB. We review the family meeting and Saul's perception of events. She states fear of not seeing her son, not reuniting with Maikol. She agrees to continue prn thorazine over the weekend for severe agitation/ anxiety and prn hydroxyzine for mild/moderate anxiety. Objective - Appearance Appearance: Well Developed/Nourished Dysmorphic Features: Yes Hygiene: Normal Grooming: Well Kept - Behavior Psychomotor Activities: Normal Exhibits Abnormal Movement: No - Attitude and Relatedness Attitude and Relatedness: Needy Eye Contact: Good - Speech Quality: Unpressured Latencies: Normal Quantity: Appropriate - Mood Patient's Decription of Mood: "not the greatest" - Affect Observed Affect: Depressed Affect Consistent with: Dysphoria - Thought Process Patient's Thought Process: Coherent, Circumstantial Thought Content: Yes Passive Wish, Yes Suicidal Planning, No Homicidal Ideation, No Paranoid Ideation - Sensorium Experiencing Hallucinations: No, Sensorium is Clear Type of Hallucinations: Visual: No, Auditory: No, Command: No - Level of Consciousness Level of Consciousness: Alert Orientation: Yes Intact, Yes Orientated to Time, Yes Orientated to Place, Yes Orientated to Person - Impulse Control Impulse Control: Poor - Group Participation Particating in Group Activities: Yes - Medication Management Medication Management Adherence: Partial - took am medications after prompting from provider Assessment - Assessment Inpatient DSM-IV Dx: major depressive d/o; PTSD; borderline personality d/o Clinical Impression: 31yo female with improved suicidal ideation and SIB urges. She presented to [facility] less than one week after discharge from another hospital. She has an extensive trauma history and reports recent triggers. Will continue current medications and group and milieu presence. Behavior modification plan intact. Discharge planning will include family involvement. Plan - Plan Treatment Plan: Name: SAUL UGARTE Birthdate: 1985 [id number] Saul continues to endorse risk for self harm. She denies suicidal ideation. She is agreeable to behavior modification plan and participation in therapeutic milieu. Discharge planning will include family involvement and increase in outpatient treatment, including group therapy. Medications: Current Medications Acetaminophen (Tylenol Tab*) 650 mg PO Q4H PRN PRN Reason: for pain; or Temp >101 F Last Admin: 03/31/17 19:27 Dose: 650 mg Al Hydrox/Mg Hydrox/Simethicone (Maalox Plus*) 30 ml PO Q4H PRN PRN Reason: INDIGESTION Aripiprazole (Abilify Tab*) 15 mg PO DAILY MARYA Last Admin: 04/01/17 10:02 Dose: Not Given Fluoxetine HCl (Prozac Cap*) 80 mg PO DAILY MARYA Last Admin: 04/01/17 10:02 Dose: Not Given Hydroxyzine HCl (Atarax Tab*) 75 mg PO BEDTIME MARYA Last Admin: 03/31/17 21:12 Dose: 75 mg Hydroxyzine HCl (Atarax Tab*) 50 mg PO Q6H PRN PRN Reason: ANXIETY/ AGITATION Last Admin: 03/29/17 10:09 Dose: 50 mg Mirtazapine (Remeron Tab*) 15 mg PO BEDTIME MARYA Last Admin: 03/31/17 21:12 Dose: 15 mg Multivitamins (Theragran Tab*) 1 tab PO DAILY MARYA Last Admin: 04/01/17 10:02 Dose: Not Given Nicotine (Nicotine Inhaler*) 10 mg INH Q2H PRN PRN Reason: CRAVING Nicotine Polacrilex (Nicotine Gum*) 2 mg PO Q2H PRN PRN Reason: CRAVING Omeprazole (Prilosec Cap*) 20 mg PO DAILY MARYA Last Admin: 04/01/17 10:02 Dose: Not Given Prazosin HCl (Minipress Cap*) 3 mg PO BEDTIME MARYA Last Admin: 03/31/17 21:13 Dose: 3 mg Zolpidem Tartrate (Ambien Tab*) 5 mg PO BEDTIME PRN PRN Reason: SLEEP Last Admin: 03/31/17 21:12 Dose: 5 mg
[2017-04-01] MEDS: Mirtazapine TAB* 15 MG PO SCH (21:56)
[2017-04-01] MEDS: hydrOXYzine HCL TAB* 25 MG PO SCH (21:56)
[2017-04-01] MEDS: Prazosin CAP* 1 MG PO SCH (21:56)
[2017-04-01] MEDS: Zolpidem TAB* 5 MG PO PRN (21:57)
[2017-04-02] MEDS: Vitamin THERAPEUTIC TAB PO SCH (09:30)
[2017-04-02] MEDS: Omeprazole CAP* 20 MG PO SCH (09:30)
[2017-04-02] MEDS: FLUoxetine CAP* 20 MG PO SCH (09:30)
[2017-04-02] MEDS: ARIPiprazole TAB* 15 MG PO SCH (09:30)
[2017-04-02] MEDS: hydrOXYzine HCL TAB* 50 MG PO PRN (13:50)
[2017-04-02] MEDS: hydrOXYzine HCL TAB* 25 MG PO SCH (20:41)
[2017-04-02] MEDS: Mirtazapine TAB* 15 MG PO SCH (20:41)
[2017-04-02] MEDS: Prazosin CAP* 1 MG PO SCH (20:41)
[2017-04-02] MEDS: Zolpidem TAB* 5 MG PO PRN (20:42)
[2017-04-03] MEDS: ARIPiprazole TAB* 15 MG PO SCH (09:06)
[2017-04-03] MEDS: Omeprazole CAP* 20 MG PO SCH (09:06)
[2017-04-03] MEDS: Vitamin THERAPEUTIC TAB PO SCH (09:06)
[2017-04-03] MEDS: FLUoxetine CAP* 20 MG PO SCH (09:06)
[2017-04-03] MEDS: Mirtazapine TAB* 15 MG PO SCH (20:28)
[2017-04-03] MEDS: hydrOXYzine HCL TAB* 25 MG PO SCH (20:28)
[2017-04-03] MEDS: Prazosin CAP* 1 MG PO SCH (20:28)
[2017-04-03] MEDS: Zolpidem TAB* 5 MG PO PRN (20:29)
[2017-04-04 07:39] VITALS: BP 123/72
[2017-04-04] MEDS: ARIPiprazole TAB* 15 MG PO SCH (08:51)
[2017-04-04] MEDS: Vitamin THERAPEUTIC TAB PO SCH (08:51)
[2017-04-04] MEDS: Acetaminophen TAB* 325 MG PO PRN (08:51)
[2017-04-04] MEDS: FLUoxetine CAP* 20 MG PO SCH (08:51)
[2017-04-04] MEDS: Omeprazole CAP* 20 MG PO SCH (08:51)
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
== END 2017-04-04 16:18 | disposition home or self-care (01) | DRG 882 ==
LOC: ED 11:52 → BSU 15:07
PROVIDERS: ADMIT Psychiatry & Neurology Psychiatry; ATTEND Psychiatry & Neurology Psychiatry
PROC: GZHZZZZ Group Psychotherapy (ICD-10-PCS; principal; 2017-03-28)
DX: F43.10 Post-traumatic stress disorder, unspecified (principal); F33.2 Major depressive disorder, recurrent severe without psychotic features; F60.3 Borderline personality disorder; E66.9 Obesity, unspecified; F41.9 Anxiety disorder, unspecified; Z88.8 Allergy status to other drugs, medicaments and biological substances; K58.9 Irritable bowel syndrome, unspecified; Z81.8 Family history of other mental and behavioral disorders; Z91.5 Personal history of self-harm; Z62.810 Personal history of physical and sexual abuse in childhood; K21.9 Gastro-esophageal reflux disease without esophagitis; Z68.38 Body mass index [BMI] 38.0-38.9, adult
CPT/HCPCS: 36415; 80053; 80061; 80307; 80320; 80329; 81003; 83036; 84443; 85025; 90853; 99222; 99231; 99232; 99238; A9270-GY; G0480

== ENCOUNTER 2018-05-30 12:27 | Inpatient (IN) | payer OTHER ==
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
[2018-05-30] MEDS ORDERED: ACETYLCYSTEINE IVPB ONE ×5 (12:45→18:00)
[2018-05-30] MEDS ORDERED: D5W IVPB ONE ×5 (12:45→18:00)
[2018-05-30] MEDS ORDERED: Ziprasidone IM INJ* 20 MG/ML VIAL IM ONE (13:03)
[2018-05-30] MEDS ORDERED: LORazepam INJ* 2 MG/ML 1 ML VIAL IM ONE (13:03)
[2018-05-30] MEDS ORDERED: diPHENhydraMINE IV* 50 MG/ML 1 ml VIAL (BENADRYL) IM ONE (13:03)
[2018-05-30] MEDS ORDERED: D5W 250 ML BAG* 250 ML ONE (13:04)
[2018-05-30] MEDS ORDERED: Ziprasidone IM INJ* 20 MG/ML VIAL ONE (13:52)
[2018-05-30 14:20] LABS: ABS Basophils 0 10^3/ul (0-0.2); ABS Eosinophils 0 10^3/ul (0-0.6); ABS Lymphocytes 1.6 10^3/ul (1.0-4.8); ABS Monocytes 0.5 10^3/ul (0-0.8); ABS Nucleated RBC 0 10^3/ul; Eosinophil % 0.4 % (0-6); Hematocrit 40 % (35-47); Hemoglobin 13.7 g/dl (12.0-16.0); Mean Corpuscular HGB Conc 34 g/dl (31-36); Mean Corpuscular Hemoglobin 30 pg (27-31); Mean Corpuscular Volume 88 fL (80-97); Mean Platelet Volume 7.4 um3 (7.4-10.4); Nucleated Red Blood Cells % 0.1; Platelet Count 282 10^3/ul (150-450); Red Blood Count 4.58 10^6/ul (4.00-5.40); Red Cell Distribution Width 13 % (10.5-15); White Blood Count 7.2 10^3/ul (3.5-10.8)
[2018-05-30 14:43] LABS: EGFR Non-African American 65.9 (>60)
[2018-05-30] MEDS ORDERED: LORazepam INJ* 2 MG/ML 1 ML VIAL IV ONE (16:15)
[2018-05-30] MEDS ORDERED: LORazepam INJ* 2 MG/ML 1 ML VIAL ONE (16:17)
--- NOTE | 2018-05-30 16:21 | ED ---
Progress - Results/Orders Results/Orders: EKG at 17:00 NSR at [address], no ectopy, no STEMI. Course/Dx - Diagnoses Provider Diagnoses: Overdose - Provider Notifications Discussed Care Of Patient With: Brisa Trejo Time Discussed With Above Provider: 17:00 Instructed by Provider To: Admit As Inpatient Discharge - Sign-Out/Discharge Documenting (check all that apply): Patient Departure - admit patient - Discharge Plan Condition: Stable Disposition: ADMITTED TO [facility] - Billing Disposition and Condition Condition: STABLE Disposition: Admitted to [facility] - Attestation Statements Document Initiated by Scribe: Yes Documenting Scribe: Ainsley Sanderson Provider For Whom Scribe is Documenting (Include Credential): Hermilo Long MD Scribe Attestation: Ainsley Kyle, scribed for Hermilo Long MD on 05/30/18 at 2002. Scribe Documentation Reviewed: Yes Provider Attestation: The documentation as recorded by the scribeAinsley accurately reflects the service I personally performed and the decisions made by Hermilo king MD
[2018-05-30 17:14] LABS: Urine Appearance Clear; Urine Blood Negative (Negative); Urine Color Yellow; Urine Ketones 2+ (Negative); Urine Protein Negative (Negative); Urine Specific Gravity 1.025 (1.010-1.030); Urine Urobilinogen Negative (Negative)
[2018-05-30] MEDS ORDERED: LORazepam INJ* 2 MG/ML 1 ML VIAL IV PUSH PRN (19:26)
--- NOTE | 2018-05-31 01:31 | HP ---
CC: Dr. Maikol Izaguirre * HISTORY AND PHYSICAL: DATE OF ADMISSION: 05/30/18 PRIMARY CARE PROVIDER: Dr. Maikol Izaguirre. ATTENDING PHYSICIAN: Dr. Tiffanie Harmon * (dictated by Prisca Nelson NP). CHIEF COMPLAINT: Intentional Tylenol overdose. HISTORY OF PRESENT ILLNESS: Ms. Peralta is a 32-year-old female with past medical history significant for depression, PTSD, OCD, IBS, GERD, and previous suicide attempt who presented to the emergency room after an intentional Tylenol overdose. The patient states that she has been feeling suicidal and depressed for approximately 6 days due to life circumstances. She is unwilling to elaborate on these issues. She states that she has been also cutting, this is not a new action for her. She presented to [facility] where she reported her overdose and was brought to the emergency room as a 9.49. While in the emergency room, the patient was agitated and received Ativan, Benadryl, and Geodon. Poison Control was contacted. She was started on the Mucomyst protocol. Initially, the patient was not admitting to how much Tylenol she took or when she took it, but upon my evaluation, she reports taking 70 to 80 tablets around 9 a.m. Per the emergency room staff, they talked with her who states that it is unusual for her to take Tylenol during the day. She generally takes Tylenol at night. He also reports that she has a significant mental health history and has had numerous hospitalizations. The patient reports cutting on her right wrist, but at this time is declining on my examination of the area. Due to her Tylenol overdose, the hospitalists were asked to evaluate the patient for admission. PAST MEDICAL HISTORY: 1. Depression. 2. PTSD. 3. OCD. 4. IBS. 5. GERD. PAST SURGICAL HISTORY: None. MEDICATIONS: Home Medications include: 1. Prozac 60 mg oral every morning. 2. Abilify 10 mg oral daily in the morning. 3. Hydroxyzine 25 mg oral 3 times daily as needed for anxiety. 4. Norethindrone 0.35 mg oral daily. ALLERGIES: HALDOL causes agitation. Silver. FAMILY HISTORY: She denies any family history of coronary artery disease, diabetes, or cancer. Her mother has a history of factor V deficiency. SOCIAL HISTORY: She denies tobacco or recreational drug use. She occasionally drinks alcohol. Her , Maikol Peralta will be her surrogate decision maker in the event she is unable to make decisions for herself. REVIEW OF SYSTEMS: I performed an 11-point review of systems. All the pertinent positives and negatives are mentioned in the history of present illness, remaining review of systems are negative. PHYSICAL EXAMINATION GENERAL APPEARANCE: The patient is alert, pleasant, and appears to be in no acute distress. VITAL SIGNS: Temperature 98.4, heart rate 82, respiratory rate 20, O2 sat 98% on room air, blood pressure 115/84. HEENT: Normocephalic and atraumatic. Pupils are equal and reactive to light. Extraocular movements are intact. RESPIRATORY: There is no accessory muscles use. The lungs are clear to auscultation bilaterally. CARDIOVASCULAR: Regular rate and rhythm. S1 and S2 present. There are no murmurs, rubs, or gallops heard. ABDOMEN: Soft and nondistended. She has some tenderness in her right upper quadrant. Bowel sounds present x4. EXTREMITIES: No lower extremity edema. DP and PT pulses 2+ and symmetric. MUSCULOSKELETAL: There is no clubbing or cyanosis noted. The patient exhibits good strength in all extremities. NEUROLOGIC: The patient is alert and oriented x4. Cranial nerves II through XII are grossly intact. PSYCHOLOGICAL: The patient is calm and cooperative at this time. SKIN: There are no rashes or abnormalities seen. DIAGNOSTIC STUDIES/LABORATORY DATA: Sodium 139, potassium 3.6, chloride 107, CO2 of 19, BUN 13, creatinine 0.99, glucose 111. White blood cell count 7.2, hemoglobin 13.7, hematocrit 40, platelet count 282. Acetaminophen level 65. EtOH less than 10. AST 17, ALT 23. Toxicology negative. IMPRESSION: Ms. Peralta is a 32-year-old female with past medical history significant for depression, posttraumatic stress disorder, obsessive compulsive disorder, irritable bowel syndrome, and gastroesophageal reflux disease who presents to the emergency room after an intentional acetaminophen overdose. She will be admitted as an inpatient for intentional overdose and suicidal ideation. ASSESSMENT/PLAN: 1. Intentional acetaminophen overdose with suicidal ideation. At this time, the patient's acetaminophen level is 63. Poison Control has been contacted. She was placed on a Mucomyst protocol. We will repeat liver function tests 8 hours after the initial ones and follow directions per Poison Control's recommendation. The patient will be on a one-to- one. We will ask Psychiatry to see her. I presume she will potentially need a behavioral service admission due to her continued active suicidal ideations. 2. Depression and Posttraumatic stress disorder. I am going to hold the patient's Prozac, Abilify, and hydroxyzine until she is seen by Psychiatry and they can adjust her meds accordingly. 3. Morbid obesity. BMI approximately 38. 4. Fluids, electrolytes, and nutrition. The patient will be on a regular diet. 5. Code status. Full code. 6. DVT prophylaxis. She is at low risk. Will be encouraged to ambulate. 7. Disposition. Inpatient. TIME SPENT: Time for this admission was approximately 60 minutes, greater than half of that was spent with the patient discussing medications, past medical history, events leading to arrival today, performing the physical examination. The case has been reviewed with the attending, Dr. Harmon, who agrees with the plan of care. Reviewed by LISSY SEAY 05/31/18 1514 [id number]/[facility] #: [id number] NUNU
[2018-05-31] MEDS ORDERED: hydrOXYzine HCL TAB* 25 MG PO PRN (09:25)
--- NOTE | 2018-05-31 13:16 | DS ---
CC: Dr. Harmon; Dr. Hermilo Long; Dr. Huizar; Dr. Almanza; Dr. Jack Olivia; Dr. Montalvo * DATE OF ADMISSION: 05/30/2018. DATE OF DISCHARGE: 05/31/2018. DISCHARGE DIAGNOSES: 1. Intentional Tylenol overdose. 2. Depression with suicidal attempt and ideation. 3. Morbid obesity. HISTORY OF PRESENT ILLNESS/HOSPITAL COURSE: The patient is a 32-year-old, lady with a history of depression, PTSD, and OCD who has had a previous suicide attempt in the past who presented to the emergency room on after an intentional Tylenol overdose. She mentions that she has been feeling suicidal and depressed for approximately six days due to her life circumstances, but did not want to elaborate on this issue, both during admission and during my visit on discharge. She mentions that she has already spoken to her psychiatrist earlier on. She mentioned that she took 70 to 80 tabs of [id number]-[id number] Tylenol a few hours prior to her admission. She was admitted and was found to have an elevated Tylenol level of 63. The therapeutic concentration being less than 50 and the toxic concentration considered to be greater than 120. During her admission, Poison Control was consulted who recommended Mucomyst which she has just recently finished. The following morning, her review of systems is otherwise unremarkable. Her LFT's were found to be normal. She was hemodynamically stable and her Tylenol level is now less than 15. She will be discharged upon evaluation to the Psychiatry team to the [facility]. She has been advised to follow-up and recall her PCP within three days post discharge from the [facility]. She was informed that she will be going to the [facility]. She has been advised to take her medications as prescribed and to refrain from using excessive amounts of Tylenol as this can lead to liver damage, failure, and/or cirrhosis if not . REVIEW OF SYSTEMS: The patient denied any recent headaches, dizziness, fevers, chills, nausea, vomiting, chest pain, shortness of breath, increased cough nor sputum production, abdominal pain, diarrhea, constipation, pain and/or increased frequency on urination, myalgias, arthralgias, throat pain or new skin lesions. The rest of the 14 point review of systems are otherwise unremarkable. PHYSICAL EXAMINATION: General appearance: The patient is awake and oriented with a blunt affect. Vital Signs reveal a blood pressure of 105/66, saturating at 100 percent at room air, a heart rate of 100 per minute, respiratory rate of 17 per minute. HEENT: Normocephalic, atraumatic. PERRLA. Extraocular muscles intact. Negative for icterus. Moist oral mucosa. Negative throat erythema. Neck: Soft, subtle with no cervical lymphadenopathy. No JVD. Heart: S1, S2 within normal limits. Regular rate and rhythm. No murmurs, rubs, or gallops. Chest: Clear to auscultation bilaterally. Good air entry. No wheezes, rales or rhonchi. Abdomen: Soft, nondistended, nontender. Normoactive bowel sounds times four. Extremities: No cyanosis, clubbing, or edema. Psychiatric: No active psychoses. She is depressed with recent suicidal ideation and suicidal attempt as discussed. No homicidal intent. Meds on D/C: Will defer re-starting psychiatric meds to inpatient psych Dept The total time spent evaluating the patient, reviewing the pertinent data, and appropriate documentation is 40 minutes. [id number]/[facility] #: [id number] MTDD
[2018-05-31 14:14] VITALS: BP 111/80
== END 2018-05-31 12:35 | DRG 918 ==
LOC: ED 12:27 → ICU 16:54
PROVIDERS: ADMIT Internal Medicine; ATTEND Student in an Organized Health Care Education/Training Program
DX: T39.1X2A Poisoning by 4-Aminophenol derivatives, intentional self-harm, initial encounter (principal); F32.9 Major depressive disorder, single episode, unspecified; E66.01 Morbid (severe) obesity due to excess calories; F43.10 Post-traumatic stress disorder, unspecified; F42.9 Obsessive-compulsive disorder, unspecified; R78.89 Finding of other specified substances, not normally found in blood; K58.9 Irritable bowel syndrome, unspecified; F41.9 Anxiety disorder, unspecified; Y92.009 Unspecified place in unspecified non-institutional (private) residence as the place of occurrence of the external cause; Z68.38 Body mass index [BMI] 38.0-38.9, adult; Z91.5 Personal history of self-harm; Z88.8 Allergy status to other drugs, medicaments and biological substances; Z91.048 Other nonmedicinal substance allergy status; Z83.2 Family history of diseases of the blood and blood-forming organs and certain disorders involving the immune mechanism; Z72.89 Other problems related to lifestyle; Z81.8 Family history of other mental and behavioral disorders
CPT/HCPCS: 36415; 80053; 80307; 80320; 80329; 81003; 84443; 85025; 87641; 93005; 99285; A9270-GY; G0480; J0132; J1200; J2060; J3486; J7060

== ENCOUNTER 2018-05-31 11:47 | Inpatient (IN) | payer OTHER ==
[2018-05-31] MEDS ORDERED: Al Hydrox/Mg Hydrox/Simet LIQ* 30 ML UDC PO PRN (12:17)
[2018-05-31] MEDS ORDERED: Acetaminophen TAB* 325 MG PO PRN (12:17)
[2018-05-31] MEDS ORDERED: FLUoxetine CAP* 20 MG PO SCH ×3 (14:00→15:48)
--- OUTSIDE RECORDS SUMMARY | 2018-05-31 14:46 | XMS REPORT ---
:1985 External Reference #:[id number] Demographics Phone Unavailable Preferred Language Unknown Marital Status Unknown Adventist Affiliation Unknown Race Unknown Ethnic Group Unknown Author Organization [facility] Address [address] [place] [id number] Phone [phone] Care Team Providers Name Role Phone Cristian Wills M.D. Care Team Information Inspector [employer]ating [employer] Unavailable Problems Description No Information Social History Description No Information Available Allergies, Adverse Reactions, Alerts Description No Information Medications Description No Information Results Description No Information Procedures Description No Information Plan of Care No Information Available
[2018-05-31] MEDS: ARIPiprazole TAB* 5 MG PO SCH (16:32)
[2018-05-31] MEDS: FLUoxetine CAP* 20 MG PO SCH (16:33)
[2018-05-31] MEDS: hydrOXYzine HCL TAB* 25 MG PO SCH (22:24)
[2018-05-31] MEDS: Mirtazapine TAB* 15 MG PO SCH (22:25)
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
[2018-06-01] MEDS: ARIPiprazole TAB* 5 MG PO SCH (09:45)
[2018-06-01] MEDS: PTO:Norethindrone (NF) 0.35 MG TAB PO SCH (09:45)
[2018-06-01] MEDS: Vitamin THERAPEUTIC TAB PO SCH (09:46)
[2018-06-01] MEDS: FLUoxetine CAP* 20 MG PO SCH (09:46)
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
[2018-06-01] MEDS: Mirtazapine TAB* 15 MG PO SCH (20:28)
[2018-06-01] MEDS: Prazosin CAP* 1 MG PO SCH (20:28)
[2018-06-01] MEDS: hydrOXYzine HCL TAB* 25 MG PO SCH (20:28)
[2018-06-02] MEDS: Ibuprofen TAB* 600 MG PO PRN (04:13)
[2018-06-02] MEDS: ARIPiprazole TAB* 5 MG PO SCH (10:09)
[2018-06-02] MEDS: FLUoxetine CAP* 20 MG PO SCH (10:09)
[2018-06-02] MEDS: Vitamin THERAPEUTIC TAB PO SCH (10:09)
[2018-06-02] MEDS: PTO:Norethindrone (NF) 0.35 MG TAB PO SCH (10:12)
[2018-06-02] MEDS: chlorproMAZINE TAB* 50 MG PO PRN (21:00)
[2018-06-02] MEDS: hydrOXYzine HCL TAB* 25 MG PO SCH (21:01)
[2018-06-02] MEDS: Mirtazapine TAB* 15 MG PO SCH (21:01)
[2018-06-02] MEDS: Prazosin CAP* 1 MG PO SCH (21:01)
--- NOTE | 2018-06-02 23:56 | PN ---
Subjective - Subjective Date of Service: 06/02/18 Service Type: [id number] Hosp care 25 min moderate complexity Subjective: Patient spoke with her over the phone last evening. After the call, Maikol called the nursing station to notify staff that she may be upset. She was overheard banging head and was receptive to therapeutic interventions. Today, patient is participating in programming. She reports that Maikol told her "if I can't gurantee that I won't [attempt suicide] again, then we won't be together. " Patient states that this is difficult as she cannot completely predict suicidality. Patient wants both she and her to identify realistic expectations. She expresses fear that she will not be able to function without her . Patient states that a behavior modification plan would assist in refraining from self harm while hospitalized. Objective - Appearance Appearance: Well Developed/Nourished Dysmorphic Features: Yes Hygiene: Normal Grooming: Well Kept - Behavior Psychomotor Activities: Normal Exhibits Abnormal Movement: No - Attitude and Relatedness Attitude and Relatedness: Cooperative Eye Contact: Good - Speech Quality: Unpressured Latencies: Short Quantity: Appropriate - Mood Patient's Decription of Mood: "Anxious" - Affect Observed Affect: Depressed Affect Consistent with: Dysphoria - Thought Process Patient's Thought Process: Coherent, Goal Directed, Circumstantial Thought Content: Yes Passive Wish, No Suicidal Planning, No Homicidal Ideation, No Paranoid Ideation - Sensorium Experiencing Hallucinations: No, Sensorium is Clear Type of Hallucinations: Visual: No, Auditory: No, Command: No - Level of Consciousness Level of Consciousness: Alert Orientation: Yes Intact, Yes Orientated to Time, Yes Orientated to Place, Yes Orientated to Person - Impulse Control Impulse Control: Tenuous - Insight and Judgement Insight and Judgement: Fair - Group Participation Particating in Group Activities: Yes - Medication Management Medication Management Adherence: Yes Assessment - Assessment Merits Inpatient Hospitalization: For Immediate Safety, For Stabilization Inpatient DSM-V Dx: F43.12 - PTSD Clinical Impression: 32yo female with known PTSD, MDD and Borderline PD. She presented to ED from [facility] after disclosing intentional Tylenol overdose. While in the ED, she was agitated and chemically restrained. She was admitted to ICU for mucomyst IV and while there, attempted to dislodge IV due to wish. She continues to endorse SI. She merits hospitalization for immediate safety and stabilization. Plan - Plan Treatment Plan: Name: SAUL UGARTE Birthdate: 1985 [id number] continue acute intensive psychiatric treatment. increase abilify to 15mg daily. utilize behavior modification contract for self harm behaviors. Continued Medication Management: Continue Outpt Medication Medications: Current Medications Al Hydrox/Mg Hydrox/Simethicone (Maalox Plus*) 30 ml PO Q4H PRN PRN Reason: INDIGESTION Aripiprazole (Abilify Tab*) 10 mg PO DAILY [facility] Last Admin: 06/02/18 10:09 Dose: 10 mg Chlorpromazine HCl (Thorazine Tab*) 50 mg PO Q6H PRN PRN Reason: AGITATION Last Admin: 06/02/18 21:00 Dose: 50 mg Fluoxetine HCl (Prozac Cap*) 60 mg PO QAM MARYA Last Admin: 06/02/18 10:09 Dose: 60 mg Hydroxyzine HCl (Atarax Tab*) 50 mg PO TID PRN PRN Reason: ANXIETY Hydroxyzine HCl (Atarax Tab*) 75 mg PO BEDTIME [facility] Last Admin: 06/02/18 21:01 Dose: 75 mg Ibuprofen (Motrin Tab*) 600 mg PO Q4H PRN PRN Reason: PAIN Last Admin: 06/02/18 04:13 Dose: 600 mg Mirtazapine (Remeron Tab*) 15 mg PO BEDTIME MARYA Last Admin: 06/02/18 21:01 Dose: 15 mg Multivitamins (Theragran Tab*) 1 tab PO DAILY [facility]ARYA Last Admin: 06/02/18 10:09 Dose: 1 tab Norethindrone (Shannon (Nf)) 0.35 mg PO DAILY MARYA Last Admin: 06/02/18 10:12 Dose: 0.35 mg Prazosin HCl (Minipress Cap*) 3 mg PO BEDTIME MARYA Last Admin: 06/02/18 21:01 Dose: 3 mg - Discharge Plan Discharge Plan: Outpatient Follow Up Outpatient Program: [facility]
[2018-06-03] MEDS: FLUoxetine CAP* 20 MG PO SCH (09:52)
[2018-06-03] MEDS: ARIPiprazole TAB* 15 MG PO SCH (09:52)
[2018-06-03] MEDS: Vitamin THERAPEUTIC TAB PO SCH (09:52)
[2018-06-03] MEDS: PTO:Norethindrone (NF) 0.35 MG TAB PO SCH (09:53)
[2018-06-03] MEDS: Prazosin CAP* 1 MG PO SCH (21:04)
[2018-06-03] MEDS: hydrOXYzine HCL TAB* 25 MG PO SCH (21:04)
[2018-06-03] MEDS: Mirtazapine TAB* 15 MG PO SCH (21:05)
[2018-06-04] MEDS: FLUoxetine CAP* 20 MG PO SCH (09:00)
[2018-06-04] MEDS: ARIPiprazole TAB* 15 MG PO SCH (09:00)
[2018-06-04] MEDS: Vitamin THERAPEUTIC TAB PO SCH (09:00)
[2018-06-04] MEDS: PTO:Norethindrone (NF) 0.35 MG TAB PO SCH (09:01)
[2018-06-04] MEDS: hydrOXYzine HCL TAB* 50 MG PO PRN ×2 (11:48→23:24)
--- NOTE | 2018-06-04 18:31 | PN ---
Subjective - Subjective Date of Service: 06/04/18 Service Type: [id number] Hosp care 15 min low complexity Subjective: Saul continues to report depression and suicidal ideation and a plan to strangulate self with bed sheet. Nursing was alerted and patient placed on constant obs. Objective - Appearance Appearance: Healthy Appearing, Obese Dysmorphic Features: No Hygiene: Normal Grooming: Fairly Well Kept - Behavior Psychomotor Activities: Abnormal-Decreased Exhibits Abnormal Movement: No - Attitude and Relatedness Attitude and Relatedness: Cooperative Eye Contact: Fair - Speech Quality: Unpressured Latencies: Normal Quantity: Appropriate - Mood Patient's Decription of Mood: "Sad" - Affect Observed Affect: Depressed Affect Consistent with: Dysphoria - Thought Process Patient's Thought Process: Coherent, Goal Directed Thought Content: Yes Passive Wish, Yes Suicidal Planning, No Homicidal Ideation, No Paranoid Ideation - Sensorium Experiencing Hallucinations: No, Sensorium is Clear Type of Hallucinations: Visual: No, Auditory: No, Command: No - Level of Consciousness Level of Consciousness: Alert Orientation: Yes Intact, Yes Orientated to Time, Yes Orientated to Place, Yes Orientated to Person - Impulse Control Impulse Control: Impaired - Insight and Judgement Insight and Judgement: Impaired - Group Participation Particating in Group Activities: No - Medication Management Medication Management Adherence: Yes Assessment - Assessment Merits Inpatient Hospitalization: For Immediate Safety, For Stabilization, Pending Safe DC Plan Inpatient DSM-V Dx: F43.12 - PTSD Clinical Impression: 32yo female with known PTSD, MDD and Borderline PD. She presented to ED from [facility] after disclosing intentional Tylenol overdose. While in the ED, she was agitated and chemically restrained. She was admitted to ICU for mucomyst IV and while there, attempted to dislodge IV due to wish. She continues to endorse SI. She merits hospitalization for immediate safety and stabilization. Plan - Plan Treatment Plan: Name: SAUL UGARTE Birthdate: 1985 [id number] Continued Medication Management: Continue Outpt Medication Medications: Current Medications Al Hydrox/Mg Hydrox/Simethicone (Maalox Plus*) 30 ml PO Q4H PRN PRN Reason: INDIGESTION Aripiprazole (Abilify Tab*) 15 mg PO DAILY [facility]A Last Admin: 06/04/18 09:00 Dose: 15 mg Chlorpromazine HCl (Thorazine Tab*) 50 mg PO Q6H PRN PRN Reason: AGITATION Last Admin: 06/02/18 21:00 Dose: 50 mg Fluoxetine HCl (Prozac Cap*) 60 mg PO QAM MARYA Last Admin: 06/04/18 09:00 Dose: 60 mg Hydroxyzine HCl (Atarax Tab*) 50 mg PO TID PRN PRN Reason: ANXIETY Last Admin: 06/04/18 11:48 Dose: 50 mg Hydroxyzine HCl (Atarax Tab*) 75 mg PO BEDTIME [facility]ARYA Last Admin: 06/03/18 21:04 Dose: 75 mg Ibuprofen (Motrin Tab*) 600 mg PO Q4H PRN PRN Reason: PAIN Last Admin: 06/02/18 04:13 Dose: 600 mg Mirtazapine (Remeron Tab*) 15 mg PO BEDTIME [facility]ARYA Last Admin: 06/03/18 21:05 Dose: 15 mg Multivitamins (Theragran Tab*) 1 tab PO DAILY [facility] Last Admin: 06/04/18 09:00 Dose: 1 tab Norethindrone (Shannon (Nf)) 0.35 mg PO DAILY [facility]ARYA Last Admin: 06/04/18 09:01 Dose: 0.35 mg Prazosin HCl (Minipress Cap*) 3 mg PO BEDTIME [facility]ARYA Last Admin: 06/03/18 21:04 Dose: 3 mg - Discharge Plan Discharge Plan: Outpatient Follow Up Outpatient Program: Maurizio Aceves [facility]
[2018-06-04] MEDS: Mirtazapine TAB* 15 MG PO SCH (21:08)
[2018-06-04] MEDS: hydrOXYzine HCL TAB* 25 MG PO SCH (21:08)
[2018-06-04] MEDS: Prazosin CAP* 1 MG PO SCH (21:09)
[2018-06-05] MEDS: ARIPiprazole TAB* 15 MG PO SCH (08:50)
[2018-06-05] MEDS: PTO:Norethindrone (NF) 0.35 MG TAB PO SCH (08:51)
[2018-06-05] MEDS: FLUoxetine CAP* 20 MG PO SCH (08:51)
[2018-06-05] MEDS: Vitamin THERAPEUTIC TAB PO SCH (08:51)
--- NOTE | 2018-06-05 16:39 | PN ---
Subjective - Subjective Date of Service: 06/05/18 Service Type: 67017 Hosp care 25 min moderate complexity Subjective: Patient states that the weekend was "rough" and that she had difficulty with emotional regulation. She states she was triggered by peers, a group and a movie on each day. She states she "freaked out" and went to her room to engage in headbanging and scratching self with lotion bottle. Patient identifies that head-banging helps to numb her emotions, as well as reorient to reality during dissociative episodes. We discuss ways to reward her when she asks for prn medications or utilizes healthy tools when upset. She states that use of comfort room and staff pass are mildly motivating. Vp Delivery proposes starting with a more immediate reward and patient identifies that she likes caffeinated beverages. Patient states she is "worried" about pending family meeting. Notified of scheduled time, tomorrow at 2pm. Patient is encouraged to journal bullet points she would like to discuss. Objective - Appearance Appearance: Obese Dysmorphic Features: Yes Hygiene: Normal Grooming: Fairly Well Kept - Behavior Psychomotor Activities: Abnormal-Decreased Exhibits Abnormal Movement: Yes - Attitude and Relatedness Attitude and Relatedness: Regressed Eye Contact: Good - Speech Quality: Unpressured Latencies: Short Quantity: Appropriate - Mood Patient's Decription of Mood: "worried" - Affect Observed Affect: Depressed Affect Consistent with: Dysphoria - Thought Process Patient's Thought Process: Circumstantial, Impoverished Thought Content: Yes Passive Wish, No Suicidal Planning, No Homicidal Ideation, No Paranoid Ideation - Sensorium Experiencing Hallucinations: No, Sensorium is Clear Type of Hallucinations: Visual: No, Auditory: No, Command: No - Level of Consciousness Level of Consciousness: Alert Orientation: Yes Intact, Yes Orientated to Time, Yes Orientated to Place, Yes Orientated to Person - Impulse Control Impulse Control: Impaired - Insight and Judgement Insight and Judgement: Poor - Group Participation Particating in Group Activities: Yes - Medication Management Medication Management Adherence: Yes Assessment - Assessment Merits Inpatient Hospitalization: For Immediate Safety, For Stabilization Inpatient DSM-V Dx: F43.12 - PTSD Clinical Impression: 32yo female with known PTSD, MDD and Borderline PD. She presented to ED from [facility] after disclosing intentional Tylenol overdose. While in the ED, she was agitated and chemically restrained. She was admitted to ICU for mucomyst IV and while there, attempted to dislodge IV due to wish. She continues to endorse SI and engages in self harm behaviors. She merits hospitalization for immediate safety and stabilization. Plan - Plan Treatment Plan: Name: SAUL UGARTE Birthdate: 1985 [id number] continue acute intensive psychiatric treatment. continue medications. utilize behavior modification contract for self harm behaviors. family meeting scheduled for 06/06/18 at 2pm. Continued Medication Management: Different Medication Medications: Current Medications Al Hydrox/Mg Hydrox/Simethicone (Maalox Plus*) 30 ml PO Q4H PRN PRN Reason: INDIGESTION Aripiprazole (Abilify Tab*) 15 mg PO DAILY [facility] Last Admin: 06/05/18 08:50 Dose: 15 mg Chlorpromazine HCl (Thorazine Tab*) 50 mg PO Q6H PRN PRN Reason: AGITATION Last Admin: 06/02/18 21:00 Dose: 50 mg Fluoxetine HCl (Prozac Cap*) 60 mg PO QAM MARYA Last Admin: 06/05/18 08:51 Dose: 60 mg Hydroxyzine HCl (Atarax Tab*) 50 mg PO TID PRN PRN Reason: ANXIETY Last Admin: 06/04/18 23:24 Dose: 50 mg Hydroxyzine HCl (Atarax Tab*) 75 mg PO BEDTIME MARYA Last Admin: 06/04/18 21:08 Dose: 75 mg Ibuprofen (Motrin Tab*) 600 mg PO Q4H PRN PRN Reason: PAIN Last Admin: 06/02/18 04:13 Dose: 600 mg Mirtazapine (Remeron Tab*) 15 mg PO BEDTIME MARYA Last Admin: 06/04/18 21:08 Dose: 15 mg Multivitamins (Theragran Tab*) 1 tab PO DAILY [facility]ARYA Last Admin: 06/05/18 08:51 Dose: 1 tab Norethindrone (Shannon (Nf)) 0.35 mg PO DAILY [facility]ARYA Last Admin: 06/05/18 08:51 Dose: 0.35 mg Prazosin HCl (Minipress Cap*) 3 mg PO BEDTIME [facility]ARYA Last Admin: 06/04/18 21:09 Dose: 3 mg - Discharge Plan Discharge Plan: Outpatient Follow Up Outpatient Program: [facility]
[2018-06-05] MEDS: hydrOXYzine HCL TAB* 50 MG PO PRN (18:17)
[2018-06-05] MEDS: hydrOXYzine HCL TAB* 25 MG PO SCH (20:38)
[2018-06-05] MEDS: Prazosin CAP* 1 MG PO SCH (20:39)
[2018-06-05] MEDS: Mirtazapine TAB* 15 MG PO SCH (20:39)
[2018-06-06] MEDS: PTO:Norethindrone (NF) 0.35 MG TAB PO SCH (09:01)
[2018-06-06] MEDS: hydrOXYzine HCL TAB* 50 MG PO PRN (09:01)
[2018-06-06] MEDS: FLUoxetine CAP* 20 MG PO SCH (09:01)
[2018-06-06] MEDS: Vitamin THERAPEUTIC TAB PO SCH (09:01)
[2018-06-06] MEDS: ARIPiprazole TAB* 15 MG PO SCH (09:01)
[2018-06-06] MEDS: chlorproMAZINE TAB* 50 MG PO PRN (14:55)
--- NOTE | 2018-06-06 15:25 | PN ---
Subjective - Subjective Date of Service: 06/06/18 Service Type: [id number] Hosp care 35 min high complexity Subjective: Family meeting held with patient, her , lyric writer and Joanne Sol LMSW. Maikol discussed that he is pursuing separation and that he needs to focus on his and their son's well-being. He validate's Saul's efforts at therapy. He is clear that he is not upset or angry with her. He states that his mental health is affected by Saul's multiple hospitalizations and overdose attempts. He iterates that he wants to continue to work together to co-parent and be as supportive as he can. During conversation, Saul presents as flat and despondent. She states her perception of the above is "It's done." She is unable to vocabalize anything further. Meeting was adjourned and Joanne escorted Maikol to exit. Molder Labels sat with patient in her room and provided therapeutic presence. She periodically banged her head on wall a few times in a row. Patient accepted offer of prn thorazine. She was increasingly verbal and stated "I've lost the one thing I had to live for." After more time and discussion, patient asked to go for a walk. Molder Labels paced with her while she talked. She reported feeling tired and requested to lie down. Staff observed until she fell asleep. Objective - Appearance Appearance: Obese Dysmorphic Features: Yes Hygiene: Normal Grooming: Fairly Well Kept - Behavior Psychomotor Activities: Normal Exhibits Abnormal Movement: No - Attitude and Relatedness Attitude and Relatedness: Guarded Eye Contact: Fair - Speech Quality: Unpressured Latencies: Long Quantity: Terse - Mood Patient's Decription of Mood: "not safe" - Affect Observed Affect: Depressed Affect Consistent with: Dysphoria - Thought Process Patient's Thought Process: Impoverished Thought Content: Yes Passive Wish, No Suicidal Planning, No Homicidal Ideation, No Paranoid Ideation - Sensorium Experiencing Hallucinations: No, Sensorium is Clear Type of Hallucinations: Visual: No, Auditory: No, Command: No - Level of Consciousness Level of Consciousness: Alert Orientation: Yes Intact, Yes Orientated to Time, Yes Orientated to Place, Yes Orientated to Person - Impulse Control Impulse Control: Impaired - Insight and Judgement Insight and Judgement: Impaired - Group Participation Particating in Group Activities: Yes - Medication Management Medication Management Adherence: Yes Assessment - Assessment Merits Inpatient Hospitalization: For Immediate Safety, For Stabilization, Pending Safe DC Plan Inpatient DSM-V Dx: F43.12 - PTSD Clinical Impression: 32yo female with known PTSD, MDD and Borderline PD. She presented to ED from [facility] after disclosing intentional Tylenol overdose. While in the ED, she was agitated and chemically restrained. She was admitted to ICU for mucomyst IV and while there, attempted to dislodge IV due to wish. Since admission, her notified her of plan to pursue separation. She continues to endorse SI and engages in self harm behaviors. She merits hospitalization for immediate safety and stabilization. Plan - Plan Treatment Plan: Name: SAUL UGARTE Birthdate: 1985 [id number] continue acute intensive psychiatric treatment. continue medications. Offer prn thorazine for agitation and self harm. utilize behavior modification contract for self harm behaviors. Medications: Current Medications Al Hydrox/Mg Hydrox/Simethicone (Maalox Plus*) 30 ml PO Q4H PRN PRN Reason: INDIGESTION Aripiprazole (Abilify Tab*) 15 mg PO DAILY [facility] Last Admin: 06/06/18 09:01 Dose: 15 mg Chlorpromazine HCl (Thorazine Tab*) 50 mg PO Q6H PRN PRN Reason: AGITATION Last Admin: 06/06/18 14:55 Dose: 50 mg Fluoxetine HCl (Prozac Cap*) 60 mg PO QAM MARYA Last Admin: 06/06/18 09:01 Dose: 60 mg Hydroxyzine HCl (Atarax Tab*) 50 mg PO TID PRN PRN Reason: ANXIETY Last Admin: 06/06/18 09:01 Dose: 50 mg Hydroxyzine HCl (Atarax Tab*) 75 mg PO BEDTIME [facility]ARYA Last Admin: 06/05/18 20:38 Dose: 75 mg Ibuprofen (Motrin Tab*) 600 mg PO Q4H PRN PRN Reason: PAIN Last Admin: 06/02/18 04:13 Dose: 600 mg Mirtazapine (Remeron Tab*) 15 mg PO BEDTIME [facility]ARYA Last Admin: 06/05/18 20:39 Dose: 15 mg Multivitamins (Theragran Tab*) 1 tab PO DAILY [facility]A Last Admin: 06/06/18 09:01 Dose: 1 tab Norethindrone (Shannon (Nf)) 0.35 mg PO DAILY [facility] Last Admin: 06/06/18 09:01 Dose: 0.35 mg Prazosin HCl (Minipress Cap*) 3 mg PO BEDTIME [facility] Last Admin: 06/05/18 20:39 Dose: 3 mg - Discharge Plan Discharge Plan: Outpatient Follow Up Outpatient Program: Maurizio Aceves [facility]
[2018-06-06] MEDS: Mirtazapine TAB* 15 MG PO SCH (21:58)
[2018-06-06] MEDS: Prazosin CAP* 1 MG PO SCH (21:58)
[2018-06-06] MEDS: hydrOXYzine HCL TAB* 25 MG PO SCH (21:58)
[2018-06-07] MEDS: Vitamin THERAPEUTIC TAB PO SCH (12:27)
[2018-06-07] MEDS: FLUoxetine CAP* 20 MG PO SCH (12:27)
[2018-06-07] MEDS: PTO:Norethindrone (NF) 0.35 MG TAB PO SCH (12:27)
[2018-06-07] MEDS: ARIPiprazole TAB* 15 MG PO SCH (12:27)
--- NOTE | 2018-06-07 16:44 | PN ---
[facility]: Group Therapy Note - Service Type Service Type: [id number] Group Psychotherapy - Medication Education Group: Patient attended group and presented with flat affect that did not vary with discussion. Although responsive to direct prompts to respond to questions, patient did not engage in spontaneous conversation.
[2018-06-08] MEDS: Mirtazapine TAB* 15 MG PO SCH ×2 (02:56→19:35)
[2018-06-08] MEDS: hydrOXYzine HCL TAB* 25 MG PO SCH ×2 (02:56→19:35)
[2018-06-08] MEDS: Prazosin CAP* 1 MG PO SCH ×2 (02:56→19:35)
[2018-06-08] MEDS: PTO:Norethindrone (NF) 0.35 MG TAB PO SCH (10:35)
[2018-06-08] MEDS: Vitamin THERAPEUTIC TAB PO SCH (10:35)
[2018-06-08] MEDS: ARIPiprazole TAB* 15 MG PO SCH (10:35)
[2018-06-08] MEDS: FLUoxetine CAP* 20 MG PO SCH (10:35)
[2018-06-08] MEDS: chlorproMAZINE TAB* 50 MG PO PRN (12:42)
--- NOTE | 2018-06-08 13:57 | PN ---
Subjective - Subjective Date of Service: 06/08/18 Service Type: [id number] Hosp care 25 min moderate complexity Subjective: Patient reports much distress today. She states that she wakes up and realizes that she is not dreaming and reality of separation is startling. Patient continues to engage in head-banging and superficial scratching. She states that she is dissociating when doing so. With prompting, patient identifies that she would be receptive to a light shoulder touch or asking to "walk and talk." Patient has been declining scheduled medications and meals. She states "i don't know why people don't let me ." She inquires about being sent to [facility]. Director Of [employer] informs her that could be an option if she needs further stabilization, and that she is empowered to be the lead in regard to discharge planning. Assessment - Assessment Merits Inpatient Hospitalization: For Immediate Safety, For Stabilization Inpatient DSM-V Dx: F43.12 - PTSD Clinical Impression: 32yo female with known PTSD, MDD and Borderline PD. She presented to ED from [facility] after disclosing intentional Tylenol overdose. While in the ED, she was agitated and chemically restrained. She was admitted to ICU for mucomyst IV and while there, attempted to dislodge IV due to wish. Since admission, her notified her of plan to pursue separation. She continues to endorse SI and engages in self harm behaviors. She merits hospitalization for immediate safety and stabilization. Plan - Plan Treatment Plan: Name: SAUL UGARTE Birthdate: 1985 [id number] continue acute intensive psychiatric treatment. continue medications. Offer prn thorazine for agitation and self harm. utilize behavior modification contract for self harm behaviors. consider state referral if no improvement. Continued Medication Management: Different Medication Medications: Current Medications Al Hydrox/Mg Hydrox/Simethicone (Maalox Plus*) 30 ml PO Q4H PRN PRN Reason: INDIGESTION Aripiprazole (Abilify Tab*) 15 mg PO DAILY [facility] Last Admin: 06/08/18 10:35 Dose: Not Given Chlorpromazine HCl (Thorazine Tab*) 50 mg PO Q6H PRN PRN Reason: AGITATION Last Admin: 06/08/18 12:42 Dose: 50 mg Fluoxetine HCl (Prozac Cap*) 60 mg PO QAM [facility] Last Admin: 06/08/18 10:35 Dose: Not Given Hydroxyzine HCl (Atarax Tab*) 50 mg PO TID PRN PRN Reason: ANXIETY Last Admin: 06/06/18 09:01 Dose: 50 mg Hydroxyzine HCl (Atarax Tab*) 75 mg PO BEDTIME MARYA Last Admin: 06/08/18 02:56 Dose: Not Given Ibuprofen (Motrin Tab*) 600 mg PO Q4H PRN PRN Reason: PAIN Last Admin: 06/02/18 04:13 Dose: 600 mg Mirtazapine (Remeron Tab*) 15 mg PO BEDTIME MARYA Last Admin: 06/08/18 02:56 Dose: Not Given Multivitamins (Theragran Tab*) 1 tab PO DAILY [facility]ARYA Last Admin: 06/08/18 10:35 Dose: Not Given Norethindrone (Shannon (Nf)) 0.35 mg PO DAILY MARYA Last Admin: 06/08/18 10:35 Dose: Not Given Prazosin HCl (Minipress Cap*) 3 mg PO BEDTIME MARYA Last Admin: 06/08/18 02:56 Dose: Not Given - Discharge Plan Discharge Plan: Outpatient Follow Up Outpatient Program: [facility]io Aceves [facility]
[2018-06-08] MEDS: hydrOXYzine HCL TAB* 50 MG PO PRN (18:19)
[2018-06-08] MEDS: Ibuprofen TAB* 600 MG PO PRN (21:49)
[2018-06-09] MEDS: hydrOXYzine HCL TAB* 50 MG PO PRN (04:57)
[2018-06-09] MEDS: ARIPiprazole TAB* 15 MG PO SCH (08:25)
[2018-06-09] MEDS: Vitamin THERAPEUTIC TAB PO SCH (08:25)
[2018-06-09] MEDS: FLUoxetine CAP* 20 MG PO SCH (08:26)
[2018-06-09] MEDS: PTO:Norethindrone (NF) 0.35 MG TAB PO SCH (08:27)
--- NOTE | 2018-06-09 14:44 | PN ---
Subjective - Subjective Date of Service: 06/09/18 Service Type: 07156 Hosp care 25 min moderate complexity Subjective: Patient presents as dysphoric with blunted affect. She states she slept for approx 5 hours, which is an improvement. However, she woke due to nightmares. She endorses flashbacks and rumination of being restrained in the ED and is working diligently on journaling about this. Patient states she is not ready to process marital separation yet. She asks if she should read the separation papers. After some discussion, display card writer offered to make copy available in nursing station for patient to read then return to staff. Patient praised for taking medications and refraining from self injury. We discussed behavior modification plan and rewards such as comfort room and staff pass. Objective - Appearance Appearance: Well Developed/Nourished, Obese Dysmorphic Features: Yes Hygiene: Normal Grooming: Fairly Well Kept - Behavior Psychomotor Activities: Normal Exhibits Abnormal Movement: No - Attitude and Relatedness Attitude and Relatedness: Guarded Eye Contact: Fair - Speech Quality: Unpressured Latencies: Short Quantity: Appropriate - Mood Patient's Decription of Mood: "Okay" - Affect Observed Affect: Depressed Affect Consistent with: Dysphoria - Thought Process Patient's Thought Process: Circumstantial, Impoverished Thought Content: Yes Passive Wish, No Suicidal Planning, No Homicidal Ideation, No Paranoid Ideation - Sensorium Experiencing Hallucinations: No, Sensorium is Clear Type of Hallucinations: Visual: No, Auditory: No, Command: No - Level of Consciousness Level of Consciousness: Alert Orientation: Yes Intact, Yes Orientated to Time, Yes Orientated to Place, Yes Orientated to Person - Impulse Control Impulse Control: Tenuous - Insight and Judgement Insight and Judgement: Poor - Group Participation Particating in Group Activities: Yes - Medication Management Medication Management Adherence: Yes Assessment - Assessment Merits Inpatient Hospitalization: For Immediate Safety, For Stabilization, Consolidate Improvements Inpatient DSM-V Dx: F43.12 - PTSD Clinical Impression: 32yo female with known PTSD, MDD and Borderline PD. She presented to ED from [facility] after disclosing intentional Tylenol overdose. While in the ED, she was agitated and chemically restrained. She was admitted to ICU for mucomyst IV and while there, attempted to dislodge IV due to wish. Since admission, her notified her of plan to pursue separation. She continues to endorse SI and engages in self harm behaviors. She merits hospitalization for immediate safety and stabilization. Plan - Plan Treatment Plan: Name: SAUL UGARTE Birthdate: 1985 [id number] continue acute intensive psychiatric treatment. increase prazosin to 5mg, continue other medications. Offer prn thorazine for agitation and self harm. utilize behavior modification contract for self harm behaviors. consider state referral if no improvement. Continued Medication Management: Consider Medication Medications: Current Medications Al Hydrox/Mg Hydrox/Simethicone (Maalox Plus*) 30 ml PO Q4H PRN PRN Reason: INDIGESTION Aripiprazole (Abilify Tab*) 15 mg PO DAILY MARYA Last Admin: 06/09/18 08:25 Dose: 15 mg Chlorpromazine HCl (Thorazine Tab*) 50 mg PO Q6H PRN PRN Reason: AGITATION Last Admin: 06/08/18 12:42 Dose: 50 mg Fluoxetine HCl (Prozac Cap*) 60 mg PO QAM MARYA Last Admin: 06/09/18 08:26 Dose: 60 mg Hydroxyzine HCl (Atarax Tab*) 50 mg PO TID PRN PRN Reason: ANXIETY Last Admin: 06/09/18 04:57 Dose: 50 mg Hydroxyzine HCl (Atarax Tab*) 75 mg PO BEDTIME MARYA Last Admin: 06/08/18 19:35 Dose: 75 mg Ibuprofen (Motrin Tab*) 600 mg PO Q4H PRN PRN Reason: PAIN Last Admin: 06/08/18 21:49 Dose: 600 mg Mirtazapine (Remeron Tab*) 15 mg PO BEDTIME MARYA Last Admin: 06/08/18 19:35 Dose: 15 mg Multivitamins (Theragran Tab*) 1 tab PO DAILY MARYA Last Admin: 06/09/18 08:25 Dose: 1 tab Norethindrone (Shannon (Nf)) 0.35 mg PO DAILY MARYA Last Admin: 06/09/18 08:27 Dose: 0.35 mg Prazosin HCl (Minipress Cap*) 5 mg PO BEDTIME MARYA Last Admin: 06/08/18 19:35 Dose: 3 mg - Discharge Plan Discharge Plan: Outpatient Follow Up Outpatient Program: [facility]
[2018-06-09] MEDS: Prazosin CAP* 5 MG PO SCH (20:42)
[2018-06-09] MEDS: Mirtazapine TAB* 15 MG PO SCH (20:43)
[2018-06-09] MEDS: hydrOXYzine HCL TAB* 25 MG PO SCH (20:43)
[2018-06-09] MEDS: Ibuprofen TAB* 600 MG PO PRN (23:05)
[2018-06-10] MEDS: PTO:Norethindrone (NF) 0.35 MG TAB PO SCH (09:01)
[2018-06-10] MEDS: Vitamin THERAPEUTIC TAB PO SCH (09:01)
[2018-06-10] MEDS: ARIPiprazole TAB* 15 MG PO SCH (09:01)
[2018-06-10] MEDS: FLUoxetine CAP* 20 MG PO SCH (09:01)
[2018-06-10] MEDS: hydrOXYzine HCL TAB* 50 MG PO PRN ×2 (13:52→17:56)
[2018-06-10] MEDS: Mirtazapine TAB* 15 MG PO SCH (19:59)
[2018-06-10] MEDS: hydrOXYzine HCL TAB* 25 MG PO SCH (19:59)
[2018-06-10] MEDS: Prazosin CAP* 5 MG PO SCH (20:15)
[2018-06-10] MEDS: chlorproMAZINE TAB* 50 MG PO PRN (23:56)
[2018-06-11] MEDS: hydrOXYzine HCL TAB* 50 MG PO PRN (03:57)
[2018-06-11] MEDS: PTO:Norethindrone (NF) 0.35 MG TAB PO SCH (08:53)
[2018-06-11] MEDS: FLUoxetine CAP* 20 MG PO SCH (08:54)
[2018-06-11] MEDS: ARIPiprazole TAB* 15 MG PO SCH (08:54)
[2018-06-11] MEDS: Vitamin THERAPEUTIC TAB PO SCH (08:55)
[2018-06-11] MEDS: Mirtazapine TAB* 15 MG PO SCH (20:25)
[2018-06-11] MEDS: hydrOXYzine HCL TAB* 25 MG PO SCH (20:25)
[2018-06-11] MEDS: Prazosin CAP* 5 MG PO SCH (20:26)
[2018-06-12] MEDS: hydrOXYzine HCL TAB* 50 MG PO PRN (02:11)
[2018-06-12] MEDS: FLUoxetine CAP* 20 MG PO SCH (08:57)
[2018-06-12] MEDS: ARIPiprazole TAB* 15 MG PO SCH (08:57)
[2018-06-12] MEDS: Vitamin THERAPEUTIC TAB PO SCH (08:58)
[2018-06-12] MEDS: PTO:Norethindrone (NF) 0.35 MG TAB PO SCH (08:58)
--- NOTE | 2018-06-12 13:58 | PN ---
MHU: Group Therapy Note - Service Type Service Type: [id number] Group Psychotherapy - Cognitive Behavioral Group Therapy ( CBT):Patient was attentive and participatory in CBT programming this morning, and remained in good behavioral control. Patient expressed positive insights regarding relevant treatment interventions and goals.
[2018-06-12] MEDS ORDERED: hydrOXYzine HCL TAB* 25 MG PO PRN (14:55)
--- NOTE | 2018-06-12 16:07 | PN ---
Subjective - Subjective Date of Service: 06/12/18 Service Type: 40140 Hosp care 25 min moderate complexity Subjective: Patient reports mentally processing much over the weekend. She endorses guilt that she isn't helping with moving her belongings to her mother's home. She read the separation papers and called Maikol to discuss changing visitation times. She states it was difficult to close the phone conversation with something other than "I love you." She reports utilizing the comfort room, which is triggering due to multiple prior family meetings. Patient states she was able to use the comfort room and is proud of herself. She states her mood is less fragile. She reports frequent waking and inquires about ambien, which has been effective in the past. She brightens when discussing a conversation she had with her son over the weekend. Pharmacy Director phoned patient's mother, Reema, and arranged for a family/potential discharge meeting for 06/14 at 1pm. Objective - Appearance Appearance: Obese Dysmorphic Features: No Hygiene: Normal Grooming: Well Kept - Behavior Psychomotor Activities: Normal Exhibits Abnormal Movement: No - Attitude and Relatedness Attitude and Relatedness: Cooperative Eye Contact: Good - Speech Quality: Unpressured Latencies: Normal Quantity: Appropriate - Mood Patient's Decription of Mood: "Good" - Affect Observed Affect: Good Affect Consistent with: Euthymia - Thought Process Patient's Thought Process: Coherent, Goal Directed, Circumstantial Thought Content: No Passive Wish, No Suicidal Planning, No Homicidal Ideation, No Paranoid Ideation - Sensorium Experiencing Hallucinations: No, Sensorium is Clear Type of Hallucinations: Visual: No, Auditory: No, Command: No - Level of Consciousness Level of Consciousness: Alert Orientation: Yes Intact, Yes Orientated to Time, Yes Orientated to Place, Yes Orientated to Person - Impulse Control Impulse Control: Tenuous - Insight and Judgement Insight and Judgement: Fair - Group Participation Particating in Group Activities: Yes - Medication Management Medication Management Adherence: Yes Assessment - Assessment Merits Inpatient Hospitalization: For Immediate Safety, For Stabilization, Consolidate Improvements, For Discharge Planning Inpatient DSM-V Dx: F43.12 - PTSD Clinical Impression: 32yo female with known PTSD, MDD and Borderline PD. She presented to ED from [facility] after disclosing intentional Tylenol overdose. While in the ED, she was agitated and chemically restrained. She was admitted to ICU for mucomyst IV and while there, attempted to dislodge IV due to wish. Since admission, her notified her of plan to pursue separation. She continues to endorse urges for self harm behaviors. She merits hospitalization for immediate safety and stabilization. Plan - Plan Treatment Plan: Name: SAUL UGARTE Birthdate: 1985 [id number] continue acute intensive psychiatric treatment. continue q30min observation, allow computer use and staff pass per RN discretion. change hydroxyzine HS dose to prn, trial zolpidem. continue other medications. discharge tentative for 06/14/18 after meeting with patient's mother. Continued Medication Management: Start Medication Medications: Current Medications Al Hydrox/Mg Hydrox/Simethicone (Maalox Plus*) 30 ml PO Q4H PRN PRN Reason: INDIGESTION Aripiprazole (Abilify Tab*) 15 mg PO DAILY MARYA Last Admin: 06/12/18 08:57 Dose: 15 mg Chlorpromazine HCl (Thorazine Tab*) 50 mg PO Q6H PRN PRN Reason: AGITATION Last Admin: 06/10/18 23:56 Dose: 50 mg Fluoxetine HCl (Prozac Cap*) 60 mg PO QAM MARYA Last Admin: 06/12/18 08:57 Dose: 60 mg Hydroxyzine HCl (Atarax Tab*) 50 mg PO TID PRN PRN Reason: ANXIETY Last Admin: 06/12/18 02:11 Dose: 50 mg Hydroxyzine HCl (Atarax Tab*) 75 mg PO BEDTIME PRN PRN Reason: INSOMNIA Ibuprofen (Motrin Tab*) 600 mg PO Q4H PRN PRN Reason: PAIN Last Admin: 06/09/18 23:05 Dose: 600 mg Mirtazapine (Remeron Tab*) 15 mg PO BEDTIME MARYA Last Admin: 06/11/18 20:25 Dose: 15 mg Multivitamins (Theragran Tab*) 1 tab PO DAILY MARYA Last Admin: 06/12/18 08:58 Dose: 1 tab Norethindrone (Shannon (Nf)) 0.35 mg PO DAILY MARYA Last Admin: 06/12/18 08:58 Dose: 0.35 mg Prazosin HCl (Minipress Cap*) 5 mg PO BEDTIME MARYA Last Admin: 09/30/18 20:26 Dose: 5 mg Zolpidem Tartrate (Ambien Tab*) 5 mg PO BEDTIME PRN PRN Reason: INSOMNIA - Discharge Plan Discharge Plan: Outpatient Follow Up Outpatient Program: [facility]
[2018-06-12] MEDS: Mirtazapine TAB* 15 MG PO SCH (20:31)
[2018-06-12] MEDS: Zolpidem TAB* 5 MG PO PRN (20:31)
[2018-06-12] MEDS: Prazosin CAP* 5 MG PO SCH (20:31)
[2018-06-13] MEDS: PTO:Norethindrone (NF) 0.35 MG TAB PO SCH (08:19)
[2018-06-13] MEDS: FLUoxetine CAP* 20 MG PO SCH (08:19)
[2018-06-13] MEDS: Vitamin THERAPEUTIC TAB PO SCH (08:19)
[2018-06-13] MEDS: ARIPiprazole TAB* 15 MG PO SCH (08:19)
[2018-06-13] MEDS: hydrOXYzine HCL TAB* 50 MG PO PRN (12:15)
--- NOTE | 2018-06-13 14:18 | PN ---
MHU: Group Therapy Note - Service Type Service Type: [id number] Group Psychotherapy - Cognitive Behavioral Group Therapy ( CBT):Patient was attentive and participatory in CBT programming this morning, and remained in good behavioral control. Patient expressed positive insights regarding relevant treatment interventions and goals.
[2018-06-13] MEDS: chlorproMAZINE TAB* 50 MG PO PRN (17:34)
[2018-06-13] MEDS: Mirtazapine TAB* 15 MG PO SCH (20:22)
[2018-06-13] MEDS: Zolpidem TAB* 5 MG PO PRN (20:22)
[2018-06-13] MEDS: Prazosin CAP* 5 MG PO SCH (20:22)
[2018-06-14] MEDS: FLUoxetine CAP* 20 MG PO SCH (08:30)
[2018-06-14] MEDS: hydrOXYzine HCL TAB* 50 MG PO PRN (08:31)
[2018-06-14 08:46] VITALS: BP 109/74
[2018-06-14] MEDS: Vitamin THERAPEUTIC TAB PO SCH (09:08)
[2018-06-14] MEDS: PTO:Norethindrone (NF) 0.35 MG TAB PO SCH (09:08)
[2018-06-14] MEDS: ARIPiprazole TAB* 15 MG PO SCH (09:08)
--- NOTE | 2018-06-15 08:39 | DS ---
CC: [facility]; Maikol Izaguirre MD * DISCHARGE SUMMARY: DATE OF ADMISSION: 05/31/18 DATE OF DISCHARGE: 06/14/18 SUPERVISING PSYCHIATRIST: Tarik Montalvo MD * (DICTATED BY AMELIA RAPHAEL NP) DISCHARGE DIAGNOSES: 1. Posttraumatic stress disorder. 2. Borderline personality disorder. CONDITION AT THE TIME OF DISCHARGE: Improved. The patient is euthymic with bright affect. She reports mild anxiety in regards to being discharged from the hospital. This is validated and normalized. The patient met with her mother , this rewriter, and nursing home social worker, Joanne Sol to discuss discharge and safety planning. Mother reports she has firearms in the home, but is going to remove these and does not have ammunition. We discussed medication safety including having limited supplies of medications available to the patient. The patient reports her mood is good and she is agreeable to discharge plan. She intends to stay with her mother and continue separation from her . The patient speaks of looking forward to spending time with her son and eventually returning to work when she feels ready to do so. MENTAL STATUS EXAM: Luly is a 32-year-old white female, who appears stated age. She is well groomed and wearing her own clothing. She is euthymic with bright affect upon approach. She is alert and oriented x3. Good eye contact. Speech is soft and articulate. Her mood is good with some anxiety. Thought process is logical, goal directed and coherent. Thought content is negative for SI or SIB urges, negative for paranoia or passive wish. She denies urges for self harm. Insight and judgment are good. Her fund of knowledge is good. INSTRUCTIONS GIVEN TO THE PATIENT: A. Medications: 1. Aripiprazole 15 mg p.o. daily. 2. Thorazine 50 mg p.o. daily p.r.n. agitation. 3. Fluoxetine 60 mg p.o. q.a.m. 4. Hydroxyzine 50 mg p.o. t.i.d. p.r.n. anxiety. 5. Mirtazapine 15 mg p.o. q.h.s. 6. Prazosin 5 mg p.o. q.h.s. 7. Zolpidem 5 mg p.o. q.h.s. p.r.n. insomnia. B. Diet: Regular. C: Activity: Ambulation as tolerated. Tobacco cessation is not applicable. There are no pending labs or diagnostic studies at the time of discharge. D. Followup care: The patient will follow up with [facility] and has an appointment with her therapist, Yaritza lee and has an appointment with psychiatrist, Dr. Baldwin on June 20. She can follow up with her primary care provider as needed. E. Substance use followup: Not applicable. Multiple antipsychotic justification. The patient is utilizing Thorazine as a p.r.n. medication for agitation and urges for self-harm. She will likely use this sparingly and only temporarily. HOSPITAL COURSE: Part A: Reason for admission: The patient presented to the emergency department after an appointment with her therapist in which she disclosed attempting an overdose on Tylenol earlier in the day. She was admitted to ICU and treated for Tylenol overdose. While in the ER in ICU, she was agitated and refusing medical treatment. She made statements that she just wants people to let her . She was medically stabilized and admitted to the Adult Behavioral Services Unit on status. Part B: Psychiatric treatment rendered. The patient was admitted to the Adult Behavioral Services Unit on May 31. She presented as dysphoric, agitated, and engaged frequently in head banging and superficial scratching. The patient reported periods of dissociation and was receptive to therapeutic suggestions including behavior modification contract. While on the unit, the patient's notified her of plans for separation. Initially, the patient was unable to discuss this and focused on the memory of "being held down" in the emergency department. The patient continued to endorse passive wish. She refused medications and made statements that "we would just let her ". However, the patient was receptive to staff intervention and therapeutic presence. She engaged in assignments given to her by rec therapist among other staff members. She was encouraged to restart taking medications and she did so. The patient started to read the separation papers and journal about the ending of her marriage. She was increasingly euthymic and did not engage in self-injurious behavior. The patient's mother was helpful in discharge planning. She helped the patient's pack her belongings and move them to her own home. The patient and her mother have also been in contact with the patient's in regards to sharing custody of their son. The patient denies suicidal, homicidal or violent ideation. She has shown much improvement in mood and thought content. She has utilized hospitalization fully. She states understanding of ways to contact this unit crisis line or to return to the ED if not feeling safe. During family meeting as mentioned above, we discussed ways that she can express the need for assistance and being safe with her mother. Generally, Luly has been a pleasure to work with and has shown great motivation in treating mental health. We wish her the very best and I hope that she chooses to utilize us again if need be. AMELIA RAPHAEL, SILVIA [id number]/CPS #: [id number] NUNU
== END 2018-06-14 15:15 | disposition home or self-care (01) | DRG 755 ==
LOC: BSU 13:00
PROVIDERS: ADMIT Psychiatry & Neurology Psychiatry; ATTEND Psychiatry & Neurology Psychiatry
PROC: GZHZZZZ Group Psychotherapy (ICD-10-PCS; principal; 2018-06-07)
DX: F43.12 Post-traumatic stress disorder, chronic (principal); F32.2 Major depressive disorder, single episode, severe without psychotic features; R45.851 Suicidal ideations; F60.3 Borderline personality disorder; Z62.810 Personal history of physical and sexual abuse in childhood; K58.9 Irritable bowel syndrome, unspecified; K21.9 Gastro-esophageal reflux disease without esophagitis; F32.9 Major depressive disorder, single episode, unspecified; E66.9 Obesity, unspecified; Z68.35 Body mass index [BMI] 35.0-35.9, adult; Z91.5 Personal history of self-harm; Z88.8 Allergy status to other drugs, medicaments and biological substances; Z81.8 Family history of other mental and behavioral disorders
CPT/HCPCS: 36415; 80061; 83036; 90853; 99222; 99231; 99232; 99233; 99238; A9270-GY

== ENCOUNTER 2018-06-22 17:00 | Inpatient (IN) | payer OTHER ==
[2018-06-22] MEDS ORDERED: NS 0.9% 1000 ML* 1,000 ML IV ONE (17:05)
--- NOTE | 2018-06-22 17:11 | ED ---
Substance Abuse/Use - HPI Summary HPI Summary: 32 y/o female brought in by ambulance to the ED c/o SI for several days. SI attempt today - pt took one full bottle of extra strength Tylenol - pt states she took close to the whole bottle, which was 100x 500mg tablets at around 11: 00 this morning. Pt states her left her a couple of weeks ago. Pt c/o sleep disturbance. - History Of Current Complaint Stated Complaint: 941 Time Seen by Provider: 06/22/18 17:05 Hx Obtained From: Patient Hx Last Menstrual Period: irregular, no menses in September Ingestion History: Type/Name Of Drug - Tylenol Overdose Characteristics: Oral Aggravating Factor(s): Recent Stress - left her Alleviating Factor(s): Nothing Associated Signs And Symptoms: Sleep Disturbance Related Hx: Suicidal - Allergies/Home Medications Allergies/Adverse Reactions: Allergies Allergy/AdvReac Type Severity Reaction Status Date / Time haloperidol Allergy Agitation Verified 05/30/18 13:15 silver Allergy Hives/Diff. Verified 05/31/18 21:06 Breathing/I tching PMH/Surg Hx/FS Hx/Imm Hx Previously Healthy: No Endocrine/Hematology History: Denies: Hx Diabetes, Hx Anemia Cardiovascular History: Denies: Hx Hypertension, Hx Pacemaker/ICD Respiratory History: Denies: Hx Asthma, Hx Chronic Bronchitis, Hx Pneumonia, Hx Pulmonary Embolism GI History: Reports: Hx Irritable Bowel Denies: Hx Crohn's Disease, Hx Diverticulosis History: Denies: Hx Acute Renal Failure, Hx Kidney Stones Musculoskeletal History: Reports: Hx Scoliosis Denies: Hx Arthritis Comment Only: Other Musculoskeletal History - Right sprained ankle Sensory History: Reports: Hx Contacts or Glasses Denies: Hx Hearing Aid Opthamlomology History: Reports: Hx Contacts or Glasses Neurological History: Denies: Hx Headaches, Hx Seizures Psychiatric History: Reports: Hx Anxiety, Hx Depression, Hx Post Traumatic Stress Disorder, Hx [place] [facility], Hx Community Mental Health Tx, Hx Suicide Attempt Denies: Hx Attention Deficit Hyperactivity Disorder, Hx Eating Disorder, Hx Panic Disorder, Hx Schizophrenia, Hx Bipolar Disorder, Hx of Violent Episodes Against Others, Hx Substance Abuse, Other Psychiatric Issues/Disorders - Family History Known Family History: Positive: Other Family History: FHx of depression, anxiety disorders, bipolar disorders, mood disorders - Social History Alcohol Use: Rare Alcohol Amount: unable to assess. pt unwilling to state. Hx Substance Use: No Substance Use Type: Reports: None Hx Tobacco Use: No Smoking Status (MU): Former Smoker Type: Cigarettes Review of Systems Constitutional: Negative Eyes: Negative ENT: Negative Cardiovascular: Negative Respiratory: Negative Gastrointestinal: Negative Genitourinary: Negative Musculoskeletal: Negative Skin: Negative Neurological: Negative Positive: Depressed - SI, Other - sleep disturbance All Other Systems Reviewed And Are Negative: Yes Physical Exam - Summary Physical Exam Summary: VITAL SIGNS: Reviewed. GENERAL: Patient is an obese female who is lying comfortable in the stretcher. Patient is not in any acute respiratory distress. HEAD AND FACE: No signs of trauma. No ecchymosis, hematomas or skull depressions. No sinus tenderness. EYES: PERRLA, EOMI x 2, No injected conjunctiva, no nystagmus. EARS: Hearing grossly intact. Ear canals and tympanic membranes are within normal limits. MOUTH: Oropharynx within normal limits. NECK: Supple, trachea is midline, no adenopathy, no JVD, no carotid bruit, no c- spine tenderness, neck with full ROM. CHEST: Symmetric, no tenderness at palpation LUNGS: Clear to auscultation bilaterally. No wheezing or crackles. CVS: Regular rate and rhythm, S1 and S2 present, no murmurs or gallops appreciated. ABDOMEN: Soft, non-tender. No signs of distention. No rebound no guarding, and no masses palpated. Bowel sounds are normal. EXTREMITIES: FROM in all major joints, no edema, no cyanosis or clubbing. NEURO: Alert and oriented x 3. No acute neurological deficits. Speech is normal and follows commands. SKIN: Dry and warm PSYCH: Stoic, soft-spoken, and sad. Triage Information Reviewed: Yes Vital Signs Reviewed: Yes Diagnostics - Laboratory Result Diagrams: 06/23/18 04:38 06/23/18 04:38 Lab Statement: Any lab studies that have been ordered have been reviewed, and results considered in the medical decision making process. - Radiology CXR Xray Interpretation: No Acute Changes - No radiographic evidence for acute cardiopulmonary abnormality on this portable x-ray. Radiology Interpretation Completed By: Radiologist - ed physician reviews and agrees - EKG 1 EKG Interpretation: SR @ [address] elevations, normal axis. Course/Dx - Course Assessment/Plan: 32 y/o female brought in by ambulance to the ED c/o SI for several days. SI attempt today - pt took one full bottle of extra strength Tylenol - pt states she took close to the whole bottle, which was 100x 500mg tablets at around 11:00 this morning. Pt states her left her a couple of weeks ago. Pt c/o sleep disturbance. Blood test results without any significant abnormality except for carbon dioxide of 20 and a lap is 12 and glucose 102. EKG without any significant abnormality. No ST elevations. Poison control was contacted by the nurse and they recommend the Tylenol level and after the results were called back for further recommendation. Initially the patient was not cooperative, did not allow us to do any blood work therefore the patient was given Geodon and Ativan. IV access was obtained, the patient is in the electronic device monitor pain she is hemodynamically stable. At this time is awaiting for the acetaminophen level. The patient was signed out to Dr. Scanlon at shift change. He will follow-up the acetaminophen level, and further assessment and disposition for this patient. - Diagnoses Provider Diagnoses: Tylenol toxicity Discharge - Sign-Out/Discharge Documenting (check all that apply): Sign-Out Patient Signing out patient TO: Chavez Scanlon Receiving patient FROM: Donal Rowe - Discharge Plan Disposition: ADMITTED TO [facility] - Attestation Statements Document Initiated by Sherin: Yes Documenting Scribe: Ravindra Vaughan Provider For Whom Sherin is Documenting (Include Credential): Donal Rowe MD Scribe Attestation: Ravindra Kyle, scribed for Donal Rowe MD on 06/23/18 at 0728. Scribe Documentation Reviewed: Yes Provider Attestation: The documentation as recorded by the Ravindra pino accurately reflects the service I personally performed and the decisions made by me, Donal Rowe MD
[2018-06-22] MEDS ORDERED: LORazepam TAB(*) 1 MG PO ONE (17:25)
[2018-06-22] MEDS ORDERED: Ziprasidone IM INJ* 20 MG/ML VIAL IM ONE (17:25)
[2018-06-22] MEDS ORDERED: LORazepam INJ* 2 MG/ML 1 ML VIAL IV PUSH ONE (17:26)
--- NOTE | 2018-06-22 17:35 | RAD ---
INDICATION: Drug overdose COMPARISON: Chest x-ray November 17, 2006 TECHNIQUE: Single AP portable view of the chest was obtained. FINDINGS: Image quality is compromised due to the relative inferiority of a portable chest x-ray. The heart and mediastinum exhibit normal size and contour. The lungs are grossly clear. There is no evidence of a large pleural effusion. Visualized bones are normal for the patient's age. IMPRESSION: No radiographic evidence for acute cardiopulmonary abnormality on this portable chest x-ray.
[2018-06-22] MEDS ORDERED: LORazepam INJ* 2 MG/ML 1 ML VIAL ONE (17:51)
[2018-06-22] MEDS ORDERED: LORazepam INJ* 2 MG/ML 1 ML VIAL IM ONE (18:10)
[2018-06-22 18:17] LABS: ABS Basophils 0 10^3/ul (0-0.2); ABS Eosinophils 0.1 10^3/ul (0-0.6); ABS Monocytes 0.7 10^3/ul (0-0.8); ABS Neutrophils 5.3 10^3/ul (1.5-7.7); ABS Nucleated RBC 0 10^3/ul; Hematocrit 41 % (35-47); Hemoglobin 13.6 g/dl (12.0-16.0); Lymphocyte % 24.3 % (25-47); Mean Corpuscular HGB Conc 33 g/dl (31-36); Mean Corpuscular Hemoglobin 30 pg (27-31); Mean Corpuscular Volume 89 fL (80-97); Mean Platelet Volume 7.5 um3 (7.4-10.4); Nucleated Red Blood Cells % 0.1; Platelet Count 283 10^3/ul (150-450); Red Blood Count 4.59 10^6/ul (4.00-5.40); Red Cell Distribution Width 13 % (10.5-15); White Blood Count 8.1 10^3/ul (3.5-10.8)
[2018-06-22 18:35] LABS: EGFR Non-African American 64.4 (>60)
--- NOTE | 2018-06-22 19:24 | ED ---
Progress - Progress Note Progress Note: Patient was signed out from Dr. Rowe to Dr. Scanlon upon physician shift change pending mental health evaluation and toxicology. Course/Dx - Course Course Of Treatment: Patient was signed out from Dr. Rowe to Dr. Scanlon pending MHE and toxicology results. Test results with no significant abnormalities except for elevated tylenol levels. Hospitalist was paged at 19:20. Patient care was discussed with Dr. Jones at 19:52 and patient [place] be [place] [facility] - Diagnoses Provider Diagnoses: Tylenol toxicity - Provider Notifications Discussed Care Of Patient With: Brittany Jones Time Discussed With Above Provider: 19:52 Instructed by Provider To: Admit As Inpatient Discharge - Sign-Out/Discharge Documenting (check all that apply): Patient Departure - admission Receiving patient FROM: Donal Rowe - Discharge Plan Disposition: ADMITTED TO [facility] Referrals: Maikol Izaguirre MD [Primary Care Provider] - - Attestation Statements Document Initiated by Scribe: Yes Documenting Scribe: Ainsley Sanderson Provider For Whom Scribe is Documenting (Include Credential): Chavez Scanlon MD Scribe Attestation: Ainsley Kyle, scribed for Chavez Scanlon MD on 06/22/18 at 2005.
[2018-06-22] MEDS ORDERED: D5W 250 ML BAG* 250 ML ONE (19:25)
[2018-06-22 19:32] LABS: Urine Appearance Cloudy; Urine Blood 1+ (Negative); Urine Color Yellow; Urine Ketones Negative (Negative); Urine Protein Negative (Negative); Urine Red Blood Cell Trace(0-2/hpf) (Absent); Urine Specific Gravity 1.023 (1.010-1.030); Urine Urobilinogen Negative (Negative); Urine White Blood Cell Trace(0-5/hpf) (Absent)
[2018-06-22] MEDS ORDERED: Acetylcysteine IV* 15,000 MG in D5W 250 ML BAG* 200 ML IVPB ONE (20:00)
[2018-06-22] MEDS ORDERED: Ondansetron INJ* 2 MG/ML VIAL IV PRN (20:52)
[2018-06-22] MEDS ORDERED: Pantoprazole TAB (NF) 40 MG TAB PO ONE (21:00)
[2018-06-22] MEDS ORDERED: Acetylcysteine IV* 5,000 MG in D5W 500 ML BAG* 500 ML IVPB ONE (21:00)
[2018-06-22 21:12] LABS: Hematocrit 38 % (35-47); Hemoglobin 12.7 g/dl (12.0-16.0); Mean Corpuscular HGB Conc 34 g/dl (31-36); Mean Corpuscular Hemoglobin 30 pg (27-31); Mean Corpuscular Volume 89 fL (80-97); Mean Platelet Volume 7.6 um3 (7.4-10.4); Platelet Count 261 10^3/ul (150-450); Red Blood Count 4.26 10^6/ul (4.00-5.40); Red Cell Distribution Width 13 % (10.5-15); White Blood Count 7.6 10^3/ul (3.5-10.8)
[2018-06-22] MEDS ORDERED: Zolpidem TAB* 5 MG PO PRN (21:12)
[2018-06-22] MEDS ORDERED: hydrOXYzine HCL TAB* 50 MG PO PRN (21:12)
[2018-06-22 21:28] LABS: EGFR Non-African American 77.5 (>60)
[2018-06-22] MEDS ORDERED: ACETYLCYSTEINE IVPB SCH (22:00)
[2018-06-22] MEDS ORDERED: D5W IVPB SCH (22:00)
[2018-06-23] MEDS ORDERED: Acetylcysteine IV* 10,000 MG in D5W 1000 ML BAG* 1,000 ML IVPB ONE ×2 (01:00→01:15)
[2018-06-23 04:57] LABS: ABS Basophils 0 10^3/ul (0-0.2); ABS Eosinophils 0.1 10^3/ul (0-0.6); ABS Lymphocytes 2.2 10^3/ul (1.0-4.8); ABS Monocytes 0.8 10^3/ul (0-0.8); ABS Nucleated RBC 0 10^3/ul; Hematocrit 41 % (35-47); Hemoglobin 13.8 g/dl (12.0-16.0); Lymphocyte % 23.8 % (25-47); Mean Corpuscular HGB Conc 34 g/dl (31-36); Mean Corpuscular Hemoglobin 30 pg (27-31); Mean Corpuscular Volume 88 fL (80-97); Mean Platelet Volume 7.6 um3 (7.4-10.4); Nucleated Red Blood Cells % 0; Platelet Count 277 10^3/ul (150-450); Red Blood Count 4.64 10^6/ul (4.00-5.40); Red Cell Distribution Width 13 % (10.5-15); White Blood Count 9.1 10^3/ul (3.5-10.8)
[2018-06-23 05:08] LABS: EGFR Non-African American 75.4 (>60)
[2018-06-23] MEDS: FLUoxetine CAP* 20 MG PO SCH (08:15)
[2018-06-23] MEDS: Multivitamins/Minerals TAB PO SCH (08:15)
[2018-06-23] MEDS: Thiamine TAB* 100 MG TAB PO SCH (08:15)
[2018-06-23] MEDS: ARIPiprazole TAB* 15 MG PO SCH (08:15)
[2018-06-23] MEDS: Folic Acid TAB* 1 MG PO SCH (08:15)
[2018-06-23] MEDS: Norethindrone (NF) 0.35 MG TAB PO SCH (08:22)
[2018-06-23] MEDS ORDERED: NS 0.9% 1000 ML* 1,000 ML IV SCH (09:00)
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
--- NOTE | 2018-06-23 14:38 | PN ---
Subjective Date of Service: 06/23/18 Interval History: HOSPITALIST PROGRESS NOTE Patient seen and examined at bedside. Care reviewed and d/w Nidia Dozier RN. She's very depressed, speaking in a very soft voice, flat affect. Confirms she still has SI. Gets teary eyed when asked about motive and doesn't want to talk about it. Family History: Unchanged from Admission Social History: Unchanged from Admission Past Medical History: Unchanged from Admission Objective Active Medications: Aripiprazole (Abilify Tab*) 15 mg PO DAILY [facility] Last Admin: 06/23/18 08:15 Dose: 15 mg Fluoxetine HCl (Prozac Cap*) 60 mg PO QAM [facility] Last Admin: 06/23/18 08:15 Dose: 60 mg Folic Acid (Folvite Tab*) 1 mg PO DAILY [facility] Last Admin: 06/23/18 08:15 Dose: 1 mg Heparin Sodium (Porcine) (Heparin Vial(*)) 5,000 units SUBCUT Q8HR [facility] Hydroxyzine HCl (Atarax Tab*) 50 mg PO TID PRN PRN Reason: ANXIETY Acetylcysteine 10,000 mg/ (Dextrose) 1,050 mls @ 65.625 mls/hr IVPB ONCE ONE Stop: 06/23/18 17:14 Last Admin: 06/23/18 01:01 Dose: 65.625 mls/hr Sodium Chloride (Ns 0.9% 1000 Ml*) 1,000 mls @ 100 mls/hr IV PER RATE [facility] Last Admin: 06/23/18 10:01 Dose: 100 mls/hr Mirtazapine (Remeron Tab*) 15 mg PO BEDTIME [facility] Multivitamins/Minerals (Theragran/Minerals Tab*) 1 tab PO DAILY [facility] Last Admin: 06/23/18 08:15 Dose: 1 tab Norethindrone (Shannon (Nf)) 0.35 mg PO DAILY [facility] Last Admin: 06/23/18 08:22 Dose: Not Given Ondansetron HCl (Zofran Inj*) 4 mg IV Q4H PRN PRN Reason: NAUSEA/VOMITING Thiamine HCl (Vitamin B-1 Tab*) 100 mg PO DAILY [facility] Last Admin: 06/23/18 08:15 Dose: 100 mg Vital Signs - 8 hr 10/12/18 10/12/18 10/12/18 07:00 07:51 08:00 Temperature 98.0 F Pulse Rate 70 69 Respiratory 17 20 Rate Blood Pressure 104/74 (mmHg) O2 Sat by Pulse 94 95 Oximetry 06/23/18 06/23/18 06/23/18 09:00 09:02 09:04 Temperature Pulse Rate 76 65 Respiratory 23 23 13 Rate Blood Pressure 124/87 (mmHg) O2 Sat by Pulse 96 95 Oximetry 06/23/18 06/23/18 06/23/18 10:00 10:24 11:00 Temperature Pulse Rate 101 83 Respiratory 19 21 Rate Blood Pressure 113/93 119/79 (mmHg) O2 Sat by Pulse 96 96 Oximetry 06/23/18 06/23/18 12:00 13:00 Temperature Pulse Rate 84 75 Respiratory 13 21 Rate Blood Pressure 112/72 129/90 (mmHg) O2 Sat by Pulse 95 94 Oximetry Oxygen Devices in Use Now: None Appearance: Young obese lady lying in bed in NAD. Eyes: No Scleral Icterus Ears/Nose/Mouth/Throat: Mucous Membranes Moist Neck: Trachea Midline Respiratory: Symmetrical Chest Expansion and Respiratory Effort, Clear to Auscultation Cardiovascular: NL Sounds; No Murmurs; No JVD, RRR Neurological: Alert and Oriented x 3, NL Muscle Strength and Tone Result Diagrams: 06/23/18 04:38 06/23/18 04:38 Assess/Plan/Problems-Billing Assessment: Mrs Peralta is a 32 yo F with PMH of PTSD, depression, who presented to ED as 945 for intentional Tylenol OD. - Patient Problems (1) Acetaminophen overdose Comment: - Patient confirms suicidal ideation. - APAP level continues to trend down. If 1500 level is lower, will complete Acetodate infusion and transfer to medical floor. - Psych evaluation appreciated - plan to transfer to [facility] when stable. - Continue 1:1. (2) Depressive disorder Comment: - Continue Abilify, Fluoxetine, Remeron. (3) DVT prophylaxis Comment: - SQ heparin. (4) Full code status Status and Disposition: Inpatient.
[2018-06-23] MEDS: Heparin VIAL(*) 5000 UNITS/ML VIAL (FIVE THOUSAND) SUBCUT SCH ×2 (15:48→21:21)
[2018-06-23] MEDS ORDERED: Mirtazapine TAB* 15 MG PO SCH (21:00)
[2018-06-23] MEDS ORDERED: PRAZOSIN 5 MG PO SCH (21:00)
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
[2018-06-24] MEDS: Heparin VIAL(*) 5000 UNITS/ML VIAL (FIVE THOUSAND) SUBCUT SCH ×2 (06:06→14:40)
[2018-06-24] MEDS: Norethindrone (NF) 0.35 MG TAB PO SCH (08:19)
--- NOTE | 2018-06-24 09:08 | PN ---
Subjective Date of Service: 06/24/18 Interval History: HOSPITALIST PROGRESS NOTE Patient seen and examined at bedside. Care reviewed and d/w Tre Lopez RN. She offers no complaints. Was able to sleep a little last night, had breakfast, although appetite is still poor. Family History: Unchanged from Admission Social History: Unchanged from Admission Past Medical History: Unchanged from Admission Objective Active Medications: Aripiprazole (Abilify Tab*) 15 mg PO DAILY [facility] Last Admin: 06/23/18 08:15 Dose: 15 mg Fluoxetine HCl (Prozac Cap*) 60 mg PO QAM [facility] Last Admin: 06/23/18 08:15 Dose: 60 mg Folic Acid (Folvite Tab*) 1 mg PO DAILY [facility] Last Admin: 06/23/18 08:15 Dose: 1 mg Heparin Sodium (Porcine) (Heparin Vial(*)) 5,000 units SUBCUT Q8HR [facility] Last Admin: 06/24/18 06:06 Dose: 5,000 units Hydroxyzine HCl (Atarax Tab*) 50 mg PO TID PRN PRN Reason: ANXIETY Sodium Chloride (Ns 0.9% 1000 Ml*) 1,000 mls @ 100 mls/hr IV PER RATE [facility] Last Admin: 06/23/18 10:01 Dose: 100 mls/hr Mirtazapine (Remeron Tab*) 15 mg PO BEDTIME [facility] Last Admin: 06/23/18 21:21 Dose: 15 mg Multivitamins/Minerals (Theragran/Minerals Tab*) 1 tab PO DAILY [facility] Last Admin: 06/23/18 08:15 Dose: 1 tab Norethindrone (Shannon (Nf)) 0.35 mg PO DAILY [facility] Last Admin: 06/24/18 08:19 Dose: Not Given Ondansetron HCl (Zofran Inj*) 4 mg IV Q4H PRN PRN Reason: NAUSEA/VOMITING Thiamine HCl (Vitamin B-1 Tab*) 100 mg PO DAILY [facility] Last Admin: 06/23/18 08:15 Dose: 100 mg Vital Signs - 8 hr 06/24/18 06/24/18 01:58 03:34 Temperature 98.0 F Pulse Rate 89 Respiratory 15 16 Rate Blood Pressure 122/76 (mmHg) O2 Sat by Pulse 96 Oximetry Oxygen Devices in Use Now: None Appearance: Young lady lying in bed in NAD Eyes: No Scleral Icterus Ears/Nose/Mouth/Throat: Mucous Membranes Moist Neck: Trachea Midline Neurological: Alert and Oriented x 3, NL Muscle Strength and Tone Result Diagrams: 06/23/18 04:38 06/23/18 04:38 Assess/Plan/Problems-Billing Assessment: Mrs Peralta is a 32 yo F with PMH of PTSD, depression, who presented to ED as 945 for intentional Tylenol OD. - Patient Problems (1) Acetaminophen overdose Comment: - Patient confirms suicidal ideation. - APAP level is negative and Acetadote infusion was completed. - Psych evaluation appreciated - stable to transfer to [facility]. - Continue 1:1. (2) Depressive disorder Comment: - Continue Abilify, Fluoxetine, Remeron. (3) DVT prophylaxis Comment: - SQ heparin. (4) Full code status Status and Disposition: Inpatient.
[2018-06-24] MEDS: Multivitamins/Minerals TAB PO SCH (09:16)
[2018-06-24] MEDS: Folic Acid TAB* 1 MG PO SCH (09:16)
[2018-06-24] MEDS: ARIPiprazole TAB* 15 MG PO SCH (09:16)
[2018-06-24] MEDS: Thiamine TAB* 100 MG TAB PO SCH (09:16)
[2018-06-24] MEDS: FLUoxetine CAP* 20 MG PO SCH (09:16)
[2018-06-24] MEDS ORDERED: LORazepam INJ* 2 MG/ML 1 ML VIAL IV PUSH PRN (10:04)
[2018-06-24 16:54] VITALS: BP 117/72
--- NOTE | 2018-06-26 04:55 | TRS ---
CC: Dr. Maikol Izaguirre; Dr. Perez, Mental Health Unit TRANSFER SUMMARY: DATE OF ADMISSION: 06/22/18 DATE OF TRANSFER: To the mental health unit, 06/24/18. PRIMARY CARE PROVIDER: Dr. Maikol Izaguirre. DISCHARGE DIAGNOSIS: Intentional acetaminophen overdose with suicidal ideation. SECONDARY DIAGNOSES: 1. Posttraumatic stress disorder. 2. Depression. MEDICATIONS AT THE TIME OF TRANSFER: 1. Maalox Plus 30 mL p.o. q.4 hours p.r.n. indigestion. 2. Abilify 15 mg p.o. daily. 3. Junel one tablet p.o. daily. 4. Fluoxetine 60 mg p.o. daily. 5. Hydroxyzine 50 mg p.o. t.i.d. as needed for anxiety. 6. Ibuprofen 400 mg p.o. q.6 hours p.r.n. pain. 7. Multivitamin 1 tablet p.o. daily. 8. Prazosin 5 mg p.o. at bedtime. HOSPITAL COURSE: Ms. Peralta is a 32-year-old lady with past medical history as stated above that presented to the emergency room as a 9.45 for intentional acetaminophen overdose. The patient was admitted to the intensive care unit initially with acetaminophen level of 94. She was started on Acetadote infusion, her acetaminophen levels decreased until they became negative. Her LFTs were normal throughout. The patient was seen in consultation by Psychiatry (Ramona Lares NP) and her impression is that the patient has a known history of depression, PTSD, borderline personality disorder, presented to ED under 9.45 with same presentation as most recent admission. The patient additionally overdosed on acetaminophen as well as hydroxyzine and Thorazine, being treated for acetaminophen toxicity in the ICU. Her recommendation was for the patient to be admitted to the adult behavioral services unit on a 9.27 status. The patient was thought to be medically stable and transferred to the unit on . DIET: Regular diet. ACTIVITIES: As tolerated. DISPOSITION: To the mental health unit. STATUS IN THE HOSPITAL: Inpatient. Please keep in mind that this is a summarized version of this patient's hospital stay. If you need more information, please feel free to call me at [phone] or please obtain the full medical records. TIME SPENT: Approximately 40 minutes was spent to complete this discharge. [id number]/CPS #: [id number]
== END 2018-06-24 18:04 | DRG 812 ==
LOC: ED 17:00 → ICU 20:52 → MED 06-23 16:37
PROVIDERS: ADMIT Internal Medicine; ATTEND Internal Medicine
DX: T39.1X2A Poisoning by 4-Aminophenol derivatives, intentional self-harm, initial encounter (principal); F33.2 Major depressive disorder, recurrent severe without psychotic features; T43.592A Poisoning by other antipsychotics and neuroleptics, intentional self-harm, initial encounter; T43.3X2A Poisoning by phenothiazine antipsychotics and neuroleptics, intentional self-harm, initial encounter; F43.10 Post-traumatic stress disorder, unspecified; Z62.810 Personal history of physical and sexual abuse in childhood; F60.3 Borderline personality disorder; E66.9 Obesity, unspecified; K58.9 Irritable bowel syndrome, unspecified; K21.9 Gastro-esophageal reflux disease without esophagitis; Y92.9 Unspecified place or not applicable; Z79.899 Other long term (current) drug therapy; Z68.37 Body mass index [BMI] 37.0-37.9, adult; Z88.8 Allergy status to other drugs, medicaments and biological substances; Z91.048 Other nonmedicinal substance allergy status; Z81.8 Family history of other mental and behavioral disorders
CPT/HCPCS: 36415; 71045; 80053; 80061; 80307; 80320; 80329; 81003; 81015; 82248; 82550; 83605; 83735; 84100; 84443; 84450; 84460; 84702; 85025; 85027; 87086; 87641; 90686; 93005; 99285; A9270-GY; G0480; J0132; J1644; J2060; J3486; J7060

== ENCOUNTER 2018-06-24 18:10 | Inpatient (IN) | payer OTHER ==
[2018-06-24] MEDS ORDERED: Al Hydrox/Mg Hydrox/Simet LIQ* 30 ML UDC PO PRN (21:01)
[2018-06-24] MEDS: hydrOXYzine HCL TAB* 50 MG PO PRN (21:10)
[2018-06-24] MEDS: Prazosin CAP* 5 MG PO SCH (21:31)
[2018-06-25] MEDS ORDERED: Ibuprofen TAB* 400 MG ONE (03:26)
[2018-06-25] MEDS: FLUoxetine CAP* 20 MG PO SCH (10:52)
[2018-06-25] MEDS: Vitamin THERAPEUTIC TAB PO SCH (10:53)
[2018-06-25] MEDS: ARIPiprazole TAB* 15 MG PO SCH (10:53)
[2018-06-25] MEDS: NORETHINDRONE PO SCH (10:54)
[2018-06-25] MEDS: ETH EST PO SCH (10:54)
--- NOTE | 2018-06-25 20:25 | PN ---
Subjective - Subjective Date of Service: 06/25/18 Service Type: [id number] Hosp care 15 min low complexity Subjective: Saul was transferred from medical floor Last evening. She continues to verbalize depression with ongoing suicidal ideation and plan to hang herself if she gets a chance. She stays in her room laying on the floor, her yes closed. Extremely flat with moderate psychomotor retardation. Please refer to H&P done by Ramona for details. Objective - Appearance Appearance: Obese Dysmorphic Features: No Hygiene: Mal-odorous Grooming: Disheveled - Behavior Psychomotor Activities: Abnormal-Decreased Exhibits Abnormal Movement: No - Attitude and Relatedness Attitude and Relatedness: Appropriate Eye Contact: Fair - Speech Quality: Unpressured Latencies: Long Quantity: Terse - Mood Patient's Decription of Mood: "Terrible" - Affect Observed Affect: Depressed Affect Consistent with: Dysphoria - Thought Process Patient's Thought Process: Coherent, Goal Directed Thought Content: Yes Passive Wish, Yes Suicidal Planning - Hanging, No Homicidal Ideation, No Paranoid Ideation - Sensorium Experiencing Hallucinations: No, Sensorium is Clear Type of Hallucinations: Visual: No, Auditory: No, Command: No - Level of Consciousness Level of Consciousness: Alert Orientation: Yes Intact, Yes Orientated to Time, Yes Orientated to Place, Yes Orientated to Person - Impulse Control Impulse Control: Poor - Insight and Judgement Insight and Judgement: Impaired - Group Participation Particating in Group Activities: No - Medication Management Medication Management Adherence: Yes Assessment - Assessment Merits Inpatient Hospitalization: For Immediate Safety, For Stabilization, For Discharge Planning Clinical Impression: Patient is extremely depressed and suicidal. High risk for discharge at this time. Consider ECT. Patient is agreable. Plan - Plan Treatment Plan: Name: SAUL UGARTE Birthdate: 1985 [id number] Continued Medication Management: Continue Outpt Medication Medications: Current Medications Al Hydrox/Mg Hydrox/Simethicone (Maalox Plus*) 30 ml PO Q4H PRN PRN Reason: INDIGESTION Aripiprazole (Abilify Tab*) 15 mg PO DAILY [facility] Last Admin: 06/25/18 10:53 Dose: 15 mg Ethinyl Estradiol/Norethindrone ( (Nf)) 1 tab PO DAILY [facility] Last Admin: 06/25/18 10:54 Dose: Not Given Fluoxetine HCl (Prozac Cap*) 60 mg PO DAILY [facility] Last Admin: 06/25/18 10:52 Dose: 60 mg Hydroxyzine HCl (Atarax Tab*) 50 mg PO TID PRN PRN Reason: ANXIETY Last Admin: 06/24/18 21:10 Dose: 50 mg Ibuprofen (Motrin Tab*) 400 mg PO Q6H PRN PRN Reason: PAIN Multivitamins (Theragran Tab*) 1 tab PO DAILY [facility] Last Admin: 06/25/18 10:53 Dose: 1 tab Prazosin HCl (Minipress Cap*) 5 mg PO BEDTIME [facility] Last Admin: 06/24/18 21:31 Dose: 5 mg - Discharge Plan Discharge Plan: Consider Longer Term Tx - Consider ECT Outpatient [facility]
[2018-06-25] MEDS: hydrOXYzine HCL TAB* 50 MG PO PRN (21:13)
[2018-06-25] MEDS: Prazosin CAP* 5 MG PO SCH (21:13)
[2018-06-26] MEDS: FLUoxetine CAP* 20 MG PO SCH (08:50)
[2018-06-26] MEDS: Vitamin THERAPEUTIC TAB PO SCH (08:50)
[2018-06-26] MEDS: ARIPiprazole TAB* 15 MG PO SCH (08:50)
[2018-06-26] MEDS: ETH EST PO SCH (09:05)
[2018-06-26] MEDS: NORETHINDRONE PO SCH (09:05)
--- NOTE | 2018-06-26 15:52 | PN ---
Subjective - Subjective Date of Service: 06/26/18 Service Type: [id number] Hosp care 15 min low complexity Subjective: Saul is feeling depressed. She says it feels like being sucked down. She believes if she were at home, she would be overdosing or cutting herself. Her most recent overdose was accompanied by some cutting. She worries about [facility] and ECT and what the plan going forward is. Objective - Appearance Appearance: Obese Dysmorphic Features: No Hygiene: Normal Grooming: Well Kept - Behavior Psychomotor Activities: Normal Exhibits Abnormal Movement: No - Attitude and Relatedness Attitude and Relatedness: Needy Eye Contact: Good - Speech Quality: Unpressured Latencies: Short Quantity: Terse - Mood Patient's Decription of Mood: "Sad" - Affect Observed Affect: Depressed Affect Consistent with: Dysphoria - Thought Process Patient's Thought Process: Coherent Thought Content: Yes Passive Wish, Yes Suicidal Planning, No Homicidal Ideation, No Paranoid Ideation - Sensorium Experiencing Hallucinations: No, Sensorium is Clear Type of Hallucinations: Visual: No, Auditory: No, Command: No - Level of Consciousness Level of Consciousness: Alert Orientation: Yes Intact, Yes Orientated to Time, Yes Orientated to Place, Yes Orientated to Person - Impulse Control Impulse Control: Poor - Insight and Judgement Insight and Judgement: Impaired - Group Participation Particating in Group Activities: Yes - Medication Management Medication Management Adherence: Yes - Additional Observations Comments: Saul is doing her best to adhere to treatment guidelines. She is also absorbed in thoughts of suicide and plans. Assessment - Assessment Merits Inpatient Hospitalization: For Immediate Safety Clinical Impression: Patient is extremely depressed and suicidal. High risk for discharge at this time. When asked what she would be doing if she were at home, she states, "Probably things I shouldn't be doing." She remains a high risk for discharge. Plan - Plan Treatment Plan: Name: SAUL UGARTE Birthdate: 1985 [id number] Medications: Current Medications Al Hydrox/Mg Hydrox/Simethicone (Maalox Plus*) 30 ml PO Q4H PRN PRN Reason: INDIGESTION Aripiprazole (Abilify Tab*) 15 mg PO DAILY [facility] Last Admin: 06/26/18 08:50 Dose: 15 mg Ethinyl Estradiol/Norethindrone ( (Nf)) 1 tab PO DAILY [facility] Last Admin: 06/26/18 09:05 Dose: Not Given Fluoxetine HCl (Prozac Cap*) 60 mg PO DAILY [facility] Last Admin: 06/26/18 08:50 Dose: 60 mg Hydroxyzine HCl (Atarax Tab*) 50 mg PO TID PRN PRN Reason: ANXIETY Last Admin: 06/25/18 21:13 Dose: 50 mg Ibuprofen (Motrin Tab*) 400 mg PO Q6H PRN PRN Reason: PAIN Multivitamins (Theragran Tab*) 1 tab PO DAILY [facility] Last Admin: 06/26/18 08:50 Dose: 1 tab Prazosin HCl (Minipress Cap*) 5 mg PO BEDTIME [facility] Last Admin: 06/25/18 21:13 Dose: 5 mg - Discharge Plan Additional Comments: Dr. Perez discussed ECT with her. Martha Acevedo will be supplying Saul with DVDs about ECT. Saul would like to know what the next plan will be and does not know what her future will hold, which is causing some anxiety.
[2018-06-26] MEDS: hydrOXYzine HCL TAB* 50 MG PO PRN (20:10)
[2018-06-26] MEDS: Prazosin CAP* 5 MG PO SCH (20:10)
[2018-06-27] MEDS: Vitamin THERAPEUTIC TAB PO SCH (08:39)
[2018-06-27] MEDS: ARIPiprazole TAB* 15 MG PO SCH (08:39)
[2018-06-27] MEDS: FLUoxetine CAP* 20 MG PO SCH (08:39)
[2018-06-27] MEDS: ETH EST PO SCH (08:40)
[2018-06-27] MEDS: NORETHINDRONE PO SCH (08:40)
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
[2018-06-27] MEDS: hydrOXYzine HCL TAB* 50 MG PO PRN ×3 (16:43→20:44)
[2018-06-27] MEDS: Prazosin CAP* 5 MG PO SCH (20:44)
[2018-06-28] MEDS: Ibuprofen TAB* 400 MG PO PRN (02:46)
[2018-06-28] MEDS: FLUoxetine CAP* 20 MG PO SCH (08:29)
[2018-06-28] MEDS: NORETHINDRONE PO SCH (08:29)
[2018-06-28] MEDS: Vitamin THERAPEUTIC TAB PO SCH (08:29)
[2018-06-28] MEDS: ARIPiprazole TAB* 15 MG PO SCH (08:29)
[2018-06-28] MEDS: ETH EST PO SCH (08:29)
[2018-06-28] MEDS: LORazepam TAB(*) 0.5 MG PO PRN (13:29)
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
[2018-06-28] MEDS: Prazosin CAP* 5 MG PO SCH (20:23)
[2018-06-28] MEDS: hydrOXYzine HCL TAB* 50 MG PO PRN (20:24)
[2018-06-29] MEDS: Vitamin THERAPEUTIC TAB PO SCH (08:42)
[2018-06-29] MEDS: ETH EST PO SCH (08:42)
[2018-06-29] MEDS: NORETHINDRONE PO SCH (08:42)
[2018-06-29] MEDS: FLUoxetine CAP* 20 MG PO SCH (08:43)
[2018-06-29] MEDS: ARIPiprazole TAB* 15 MG PO SCH (08:43)
--- NOTE | 2018-06-29 15:30 | PN ---
Subjective - Subjective Date of Service: 06/29/18 Service Type: [id number] Hosp care 25 min moderate complexity Subjective: Patient reports waking in the middle of night and utilized pacing, journaling and talking with staff. She states her mood today is "not good." She expresses frustration that she may not be appropriate for ECT treatment. She states that she now feels hopeless. Computer Operations Specialist explained rationale and potential other options such as state hospitalization. Patient reports some relief. She endorses frequent agitation with peer who is manic. With prompting, patient identifies grounding techniques she can attempt. Objective - Appearance Appearance: Obese Dysmorphic Features: Yes Hygiene: Normal Grooming: Well Kept - Behavior Psychomotor Activities: Normal Exhibits Abnormal Movement: No - Attitude and Relatedness Attitude and Relatedness: Withdrawn Eye Contact: Good - Speech Quality: Unpressured Latencies: Long Quantity: Terse - Mood Patient's Decription of Mood: "not good" - Affect Observed Affect: Depressed Affect Consistent with: Dysphoria - Thought Process Patient's Thought Process: Impoverished Thought Content: Yes Passive Wish, No Suicidal Planning, No Homicidal Ideation, No Paranoid Ideation - Sensorium Experiencing Hallucinations: No, Sensorium is Clear Type of Hallucinations: Visual: No, Auditory: No, Command: No - Level of Consciousness Level of Consciousness: Alert Orientation: Yes Intact, Yes Orientated to Time, Yes Orientated to Place, Yes Orientated to Person - Impulse Control Impulse Control: Poor - Insight and Judgement Insight and Judgement: Poor - Group Participation Particating in Group Activities: Yes - Medication Management Medication Management Adherence: Yes Assessment - Assessment Merits Inpatient Hospitalization: For Immediate Safety, For Stabilization Inpatient DSM-V Dx: F33.2 - MDD, severe w/o psychotic features Clinical Impression: 32yo white female, , domiciled with known history of PTSD, MDD and borderline personality d/o who presented to ED after intentional overdose with hydroxyzine, thorazine and acetaminophen. She was admitted one month ago with similar presentation, during which her notified her of plans for separation. Patient continues to struggle with suicidality, passive wish , self injurious behavior and emotional dysregulation. Patient merits hospitalization for immediate safety and stabilization. Plan - Plan Treatment Plan: Name: SAUL UGARTE Birthdate: 1985 [id number] continue acute intensive psychiatric treatment. convert to voluntary status. remain on q15min observation due to SI and SIB urges. referred for ECT, pending. continue lorazepam prn anxiety/agitation Continued Medication Management: Different Medication Medications: Current Medications Al Hydrox/Mg Hydrox/Simethicone (Maalox Plus*) 30 ml PO Q4H PRN PRN Reason: INDIGESTION Aripiprazole (Abilify Tab*) 15 mg PO DAILY [facility] Last Admin: 06/29/18 08:43 Dose: 15 mg Ethinyl Estradiol/Norethindrone (Junel (Nf)) 1 tab PO DAILY [facility] Last Admin: 06/29/18 08:42 Dose: 1 tab Fluoxetine HCl (Prozac Cap*) 60 mg PO DAILY [facility] Last Admin: 06/29/18 08:43 Dose: 60 mg Hydroxyzine HCl (Atarax Tab*) 50 mg PO TID PRN PRN Reason: ANXIETY Last Admin: 06/28/18 20:24 Dose: 50 mg Ibuprofen (Motrin Tab*) 400 mg PO Q6H PRN PRN Reason: PAIN Last Admin: 06/28/18 02:46 Dose: 400 mg Lorazepam (Ativan Tab(*)) 0.5 mg PO Q6H PRN PRN Reason: Anxiety/agitation Last Admin: 06/28/18 13:29 Dose: 0.5 mg Multivitamins (Theragran Tab*) 1 tab PO DAILY [facility] Last Admin: 06/29/18 08:42 Dose: 1 tab Prazosin HCl (Minipress Cap*) 5 mg PO BEDTIME [facility] Last Admin: 06/28/18 20:23 Dose: 5 mg - Discharge Plan Discharge Plan: Consider Longer Term Tx
[2018-06-29] MEDS: hydrOXYzine HCL TAB* 50 MG PO PRN (20:11)
[2018-06-29] MEDS: Prazosin CAP* 5 MG PO SCH (20:12)
[2018-06-30] MEDS: hydrOXYzine HCL TAB* 50 MG PO PRN (09:10)
[2018-06-30] MEDS: NORETHINDRONE PO SCH (09:11)
[2018-06-30] MEDS: ETH EST PO SCH (09:11)
[2018-06-30] MEDS: Vitamin THERAPEUTIC TAB PO SCH (09:11)
[2018-06-30] MEDS: FLUoxetine CAP* 20 MG PO SCH (09:12)
[2018-06-30] MEDS: ARIPiprazole TAB* 15 MG PO SCH (09:12)
--- NOTE | 2018-06-30 15:44 | PN ---
Subjective - Subjective Date of Service: 06/30/18 Service Type: [id number] Hosp care 25 min moderate complexity Subjective: Patient continues to have difficulty with hopelessness, passive wish and urges for self harm. She reports waking early, approx 0415 and inability to fall asleep. We review an entry on her thought log and cognitive distortions. Patient met with principal technical writer and Joanne Sol LMSW and informed of plan to convert legal status to 2PC to refer for state hospitalization. Objective - Appearance Appearance: Obese Dysmorphic Features: Yes Hygiene: Normal Grooming: Well Kept - Behavior Psychomotor Activities: Normal Exhibits Abnormal Movement: No - Attitude and Relatedness Attitude and Relatedness: Cooperative Eye Contact: Good - Speech Quality: Unpressured Latencies: Long Quantity: Terse - Mood Patient's Decription of Mood: "not good" - Affect Observed Affect: Depressed Affect Consistent with: Dysphoria - Thought Process Patient's Thought Process: Circumstantial, Impoverished Thought Content: Yes Passive Wish, No Suicidal Planning, No Homicidal Ideation, No Paranoid Ideation - Sensorium Experiencing Hallucinations: No, Sensorium is Clear Type of Hallucinations: Visual: No, Auditory: No, Command: No - Level of Consciousness Level of Consciousness: Alert Orientation: Yes Intact, Yes Orientated to Time, Yes Orientated to Place, Yes Orientated to Person - Impulse Control Impulse Control: Tenuous - Insight and Judgement Insight and Judgement: Poor - Group Participation Particating in Group Activities: Yes - Medication Management Medication Management Adherence: Yes Assessment - Assessment Merits Inpatient Hospitalization: For Immediate Safety, For Stabilization, Consolidate Improvements, For Discharge Planning Inpatient DSM-V Dx: F33.2 - MDD, severe w/o psychotic features Clinical Impression: 32yo white female, , domiciled with known history of PTSD, MDD and borderline personality d/o who presented to ED after intentional overdose with hydroxyzine, thorazine and acetaminophen. She was admitted one month ago with similar presentation, during which her notified her of plans for separation. Patient continues to struggle with suicidality, passive wish , self injurious behavior and emotional dysregulation. Patient merits hospitalization for immediate safety and stabilization. Plan - Plan Treatment Plan: Name: SAUL UGARTE Birthdate: 1985 [id number] continue acute intensive psychiatric treatment. convert to 2pc. remain on q15min observation due to SI and SIB urges. allow staff pass and may use computer per RN discretion medication changes: increase aripiprazole, add mirtazipine 15mg qhs. refer to [facility]. Continued Medication Management: Start Medication Medications: Current Medications Al Hydrox/Mg Hydrox/Simethicone (Maalox Plus*) 30 ml PO Q4H PRN PRN Reason: INDIGESTION Aripiprazole (Abilify Tab*) 20 mg PO DAILY [facility] Ethinyl Estradiol/Norethindrone ( (Nf)) 1 tab PO DAILY [facility] Last Admin: 06/30/18 09:11 Dose: 1 tab Fluoxetine HCl (Prozac Cap*) 60 mg PO DAILY [facility] Last Admin: 06/30/18 09:12 Dose: 60 mg Hydroxyzine HCl (Atarax Tab*) 50 mg PO TID PRN PRN Reason: ANXIETY Last Admin: 06/30/18 09:10 Dose: 50 mg Ibuprofen (Motrin Tab*) 400 mg PO Q6H PRN PRN Reason: PAIN Last Admin: 06/28/18 02:46 Dose: 400 mg Lorazepam (Ativan Tab(*)) 0.5 mg PO Q6H PRN PRN Reason: Anxiety/agitation Last Admin: 06/28/18 13:29 Dose: 0.5 mg Mirtazapine (Remeron Tab*) 15 mg PO BEDTIME [facility]ARYA Multivitamins (Theragran Tab*) 1 tab PO DAILY [facility] Last Admin: 06/30/18 09:11 Dose: 1 tab Prazosin HCl (Minipress Cap*) 5 mg PO BEDTIME [facility] Last Admin: 06/29/18 20:12 Dose: 5 mg - Discharge Plan Discharge Plan: Consider Longer Term Tx
[2018-06-30] MEDS: LORazepam TAB(*) 0.5 MG PO PRN (19:44)
[2018-06-30] MEDS: Prazosin CAP* 5 MG PO SCH (21:02)
[2018-06-30] MEDS: Mirtazapine TAB* 15 MG PO SCH (21:02)
[2018-07-01] MEDS: ARIPiprazole TAB* 20 MG PO SCH (08:34)
[2018-07-01] MEDS: FLUoxetine CAP* 20 MG PO SCH (08:35)
[2018-07-01] MEDS: Vitamin THERAPEUTIC TAB PO SCH (08:35)
[2018-07-01] MEDS: NORETHINDRONE PO SCH (08:36)
[2018-07-01] MEDS: ETH EST PO SCH (08:36)
[2018-07-01] MEDS: Prazosin CAP* 5 MG PO SCH (20:34)
[2018-07-01] MEDS: Mirtazapine TAB* 15 MG PO SCH (20:34)
[2018-07-01] MEDS: hydrOXYzine HCL TAB* 50 MG PO PRN (20:34)
[2018-07-02] MEDS: Vitamin THERAPEUTIC TAB PO SCH (09:16)
[2018-07-02] MEDS: NORETHINDRONE PO SCH (09:16)
[2018-07-02] MEDS: ARIPiprazole TAB* 20 MG PO SCH (09:16)
[2018-07-02] MEDS: FLUoxetine CAP* 20 MG PO SCH (09:16)
[2018-07-02] MEDS: ETH EST PO SCH (09:16)
[2018-07-02] MEDS: hydrOXYzine HCL TAB* 50 MG PO PRN (20:29)
[2018-07-02] MEDS: Prazosin CAP* 5 MG PO SCH (20:29)
[2018-07-02] MEDS: Mirtazapine TAB* 15 MG PO SCH (20:29)
[2018-07-02] MEDS: Nystatin TOP POWDER* 15 GM BTL TOPICAL PRN (20:55)
[2018-07-03] MEDS: ETH EST PO SCH (09:26)
[2018-07-03] MEDS: FLUoxetine CAP* 20 MG PO SCH (09:26)
[2018-07-03] MEDS: NORETHINDRONE PO SCH (09:26)
[2018-07-03] MEDS: ARIPiprazole TAB* 20 MG PO SCH (09:26)
[2018-07-03] MEDS: Vitamin THERAPEUTIC TAB PO SCH (09:26)
--- NOTE | 2018-07-03 13:42 | PN ---
[facility]: Group Therapy Note - Service Type Service Type: [id number] Group Psychotherapy - Cognitive Behavioral Group Therapy ( CBT):Patient was attentive and participatory in CBT programming this morning, and remained in good behavioral control. Patient expressed positive insights regarding relevant treatment interventions and goals.
[2018-07-03] MEDS: LORazepam TAB(*) 0.5 MG PO PRN ×2 (14:11→20:12)
[2018-07-03] MEDS: hydrOXYzine HCL TAB* 50 MG PO PRN ×2 (18:27→21:45)
[2018-07-03] MEDS: Prazosin CAP* 5 MG PO SCH (20:05)
[2018-07-03] MEDS: Mirtazapine TAB* 15 MG PO SCH (20:05)
[2018-07-04] MEDS: LORazepam TAB(*) 0.5 MG PO PRN (01:45)
[2018-07-04] MEDS: Ibuprofen TAB* 400 MG PO PRN (04:04)
[2018-07-04] MEDS: hydrOXYzine HCL TAB* 50 MG PO PRN ×2 (04:30→20:14)
[2018-07-04] MEDS: NORETHINDRONE PO SCH (09:13)
[2018-07-04] MEDS: ETH EST PO SCH (09:13)
[2018-07-04] MEDS: Vitamin THERAPEUTIC TAB PO SCH (09:13)
[2018-07-04] MEDS: FLUoxetine CAP* 20 MG PO SCH (09:13)
[2018-07-04] MEDS: ARIPiprazole TAB* 20 MG PO SCH (09:13)
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
[2018-07-04] MEDS: Nystatin TOP POWDER* 15 GM BTL TOPICAL PRN (18:01)
[2018-07-04] MEDS: Mirtazapine TAB* 15 MG PO SCH (20:12)
[2018-07-04] MEDS: Prazosin CAP* 5 MG PO SCH (20:12)
[2018-07-05] MEDS: Ibuprofen TAB* 400 MG PO PRN (05:20)
[2018-07-05] MEDS: Vitamin THERAPEUTIC TAB PO SCH (09:02)
[2018-07-05] MEDS: FLUoxetine CAP* 20 MG PO SCH (09:02)
[2018-07-05] MEDS: ARIPiprazole TAB* 20 MG PO SCH (09:02)
[2018-07-05] MEDS: NORETHINDRONE PO SCH (09:03)
[2018-07-05] MEDS: ETH EST PO SCH (09:03)
--- NOTE | 2018-07-05 15:04 | PN ---
MHU: Group Therapy Note - Service Type Service Type: 01051 Group Psychotherapy - Medication Education Group: Patient was attentive and participatory in group, and remained in good behavioral control. Patient expressed positive insights regarding relevant treatment interventions. Patient stated understanding of material discussed and had appropriate questions.
[2018-07-05] MEDS ORDERED: Lithium Carbonate CAP 150 MG ** CAPSULE PO SCH (21:00)
[2018-07-05] MEDS: Prazosin CAP* 5 MG PO SCH (21:03)
[2018-07-05] MEDS: Mirtazapine TAB* 15 MG PO SCH (21:03)
[2018-07-05] MEDS: Nystatin TOP POWDER* 15 GM BTL TOPICAL PRN (22:12)
[2018-07-06] MEDS: FLUoxetine CAP* 20 MG PO SCH (08:36)
[2018-07-06] MEDS: ARIPiprazole TAB* 20 MG PO SCH (08:36)
[2018-07-06] MEDS: Vitamin THERAPEUTIC TAB PO SCH (08:36)
[2018-07-06] MEDS: NORETHINDRONE PO SCH (08:38)
[2018-07-06] MEDS: ETH EST PO SCH (08:38)
--- NOTE | 2018-07-06 11:00 | PN ---
MHU: Group Therapy Note - Service Type Service Type: 09918 Group Psychotherapy - Cognitive Behavioral Group Therapy ( CBT):Patient was attentive and participatory in CBT programming this morning, and remained in good behavioral control. Patient expressed positive insights regarding relevant treatment interventions and goals.
--- NOTE | 2018-07-06 13:26 | PN ---
Subjective - Subjective Date of Service: 07/06/18 Service Type: 01892 Hosp care 15 min low complexity Subjective: Patient tolerated initial dose of lithium, denies sedation or side effects. She reports having a phone call with her son last night and endorses personalizing his brevity. She is receptive to suggestions of reframing. She inquires about information re: effects of PTSD on brain. She is given a workbook for trauma-informed activities to choose assignments from. Objective - Appearance Appearance: Well Developed/Nourished Dysmorphic Features: Yes Hygiene: Normal Grooming: Well Kept - Behavior Psychomotor Activities: Normal Exhibits Abnormal Movement: No - Attitude and Relatedness Attitude and Relatedness: Regressed Eye Contact: Good - Speech Quality: Unpressured Latencies: Normal Quantity: Appropriate - Mood Patient's Decription of Mood: "Upset" - Affect Observed Affect: Expansive - Thought Process Patient's Thought Process: Circumstantial Thought Content: Yes Passive Wish, Yes Paranoid Ideation, No Suicidal Planning, No Homicidal Ideation - Sensorium Experiencing Hallucinations: No, Sensorium is Clear Type of Hallucinations: Visual: No, Auditory: No, Command: No - Level of Consciousness Level of Consciousness: Alert Orientation: Yes Intact, Yes Orientated to Time, Yes Orientated to Place, Yes Orientated to Person - Impulse Control Impulse Control: Poor - Insight and Judgement Insight and Judgement: Poor - Group Participation Particating in Group Activities: Yes - Medication Management Medication Management Adherence: Yes Assessment - Assessment Merits Inpatient Hospitalization: For Immediate Safety, For Stabilization Inpatient DSM-V Dx: F33.2 - MDD, severe w/o psychotic features Clinical Impression: 32yo white female, , domiciled with known history of PTSD, MDD and borderline personality d/o who presented to ED after intentional overdose with hydroxyzine, thorazine and acetaminophen. She was admitted one month ago with similar presentation. Patient continues to struggle with suicidality, passive wish, self injurious behavior and emotional dysregulation. Patient merits hospitalization for immediate safety and stabilization. Plan - Plan Treatment Plan: Name: SAUL UGARTE Birthdate: 1985 [id number] continue acute intensive psychiatric treatment. convert to 2pc. may decrease to q30min observation and allow unit privileges per RN discretion. titrate lithium and monitor level in 3-5 days. refer to [facility]. Continued Medication Management: Start Medication Medications: Current Medications Al Hydrox/Mg Hydrox/Simethicone (Maalox Plus*) 30 ml PO Q4H PRN PRN Reason: INDIGESTION Aripiprazole (Abilify Tab*) 20 mg PO DAILY MARYA Last Admin: 07/06/18 08:36 Dose: 20 mg Ethinyl Estradiol/Norethindrone (Junel (Nf)) 1 tab PO DAILY MARYA Last Admin: 07/06/18 08:38 Dose: 1 tab Fluoxetine HCl (Prozac Cap*) 60 mg PO DAILY MARYA Last Admin: 07/06/18 08:36 Dose: 60 mg Hydroxyzine HCl (Atarax Tab*) 50 mg PO TID PRN PRN Reason: ANXIETY Last Admin: 07/04/18 20:14 Dose: 50 mg Ibuprofen (Motrin Tab*) 400 mg PO Q6H PRN PRN Reason: PAIN Last Admin: 07/05/18 05:20 Dose: 400 mg [place] Carbonate ([place] Carbonate Er Tab*) 450 mg PO BEDTIME MARYA Lorazepam (Ativan Tab(*)) 0.5 mg PO Q6H PRN PRN Reason: Anxiety/agitation Last Admin: 07/04/18 01:45 Dose: 0.5 mg Mirtazapine (Remeron Tab*) 15 mg PO BEDTIME MARYA Last Admin: 07/05/18 21:03 Dose: 15 mg Multivitamins (Theragran Tab*) 1 tab PO DAILY MARYA Last Admin: 07/06/18 08:36 Dose: 1 tab Nystatin (Nystatin Top Powder*) 1 applic TOPICAL TID PRN PRN Reason: BREAST REDNESS Last Admin: 07/05/18 22:12 Dose: 1 applic Prazosin HCl (Minipress Cap*) 5 mg PO BEDTIME MARYA Last Admin: 07/05/18 21:03 Dose: 5 mg - Discharge Plan Discharge Plan: Consider Longer Term Tx
[2018-07-06] MEDS: Nystatin TOP POWDER* 15 GM BTL TOPICAL PRN (15:33)
[2018-07-06] MEDS: LORazepam TAB(*) 0.5 MG PO PRN (18:39)
[2018-07-06] MEDS: hydrOXYzine HCL TAB* 50 MG PO PRN (20:33)
[2018-07-06] MEDS: Prazosin CAP* 5 MG PO SCH (20:33)
[2018-07-06] MEDS: Mirtazapine TAB* 15 MG PO SCH (20:33)
[2018-07-06] MEDS: Lithium Carbonate ER* 450 MG TAB.ER PO SCH (20:33)
[2018-07-07] MEDS: NORETHINDRONE PO SCH (08:35)
[2018-07-07] MEDS: ETH EST PO SCH (08:35)
[2018-07-07] MEDS: Ibuprofen TAB* 400 MG PO PRN ×2 (08:36→20:30)
[2018-07-07] MEDS: ARIPiprazole TAB* 20 MG PO SCH (08:36)
[2018-07-07] MEDS: FLUoxetine CAP* 20 MG PO SCH (08:37)
[2018-07-07] MEDS: Vitamin THERAPEUTIC TAB PO SCH (08:37)
--- NOTE | 2018-07-07 13:45 | PN ---
Subjective - Subjective Date of Service: 07/07/18 Service Type: 78630 Hosp care 15 min low complexity Subjective: Patient reports feeling "non-existent" in her son's life due to change in family dynamics. She states frustration that her son's father is not taking Aren to hockey practices because of his automobile detailer duties. We discuss emotions and thoughts that are triggered and ways to reframe. Patient states her mother is marrying her longtime boyfriend on july 21, when his brother is here from [place]. She acknowledges conflicting emotions. Granite Cutter encourages patient to start to address emotions/thoughts r/t marital separation. She agrees she has been avoidant of doing so. Objective - Appearance Appearance: Well Developed/Nourished Dysmorphic Features: Yes Hygiene: Normal Grooming: Well Kept - Behavior Psychomotor Activities: Normal Exhibits Abnormal Movement: No - Attitude and Relatedness Attitude and Relatedness: Cooperative Eye Contact: Good - Speech Quality: Unpressured Latencies: Short Quantity: Appropriate - Mood Patient's Decription of Mood: "Upset" - Affect Observed Affect: Expansive Affect Consistent with: Dysphoria - Thought Process Patient's Thought Process: Circumstantial, Impoverished Thought Content: Yes Passive Wish, No Suicidal Planning, No Homicidal Ideation, No Paranoid Ideation - Sensorium Experiencing Hallucinations: No, Sensorium is Clear Type of Hallucinations: Visual: No, Auditory: No, Command: No - Level of Consciousness Level of Consciousness: Alert Orientation: Yes Intact, Yes Orientated to Time, Yes Orientated to Place, Yes Orientated to Person - Impulse Control Impulse Control: Impaired - Insight and Judgement Insight and Judgement: Poor - Group Participation Particating in Group Activities: Yes - Medication Management Medication Management Adherence: Yes Assessment - Assessment Merits Inpatient Hospitalization: For Immediate Safety, For Stabilization, For Ongoing Evaluation Inpatient DSM-V Dx: F33.2 - MDD, severe w/o psychotic features Clinical Impression: 32yo white female, , domiciled with known history of PTSD, MDD and borderline personality d/o who presented to ED after intentional overdose with hydroxyzine, thorazine and acetaminophen. She was admitted one month ago with similar presentation. Patient continues to struggle with suicidality, passive wish, self injurious behavior and emotional dysregulation. Patient merits hospitalization for immediate safety and stabilization. Plan - Plan Treatment Plan: Name: SAUL UGARTE Birthdate: 1985 [id number] continue acute intensive psychiatric treatment. convert to 2pc. may decrease to q30min observation and allow unit privileges per RN discretion. continue lithium and monitor trough level on 07/09/18. pending acceptance to [facility]. Continued Medication Management: Start Medication Medications: Current Medications Al Hydrox/Mg Hydrox/Simethicone (Maalox Plus*) 30 ml PO Q4H PRN PRN Reason: INDIGESTION Aripiprazole (Abilify Tab*) 20 mg PO DAILY MARYA Last Admin: 07/07/18 08:36 Dose: 20 mg Ethinyl Estradiol/Norethindrone (Junel (Nf)) 1 tab PO DAILY MARYA Last Admin: 07/07/18 08:35 Dose: 1 tab Fluoxetine HCl (Prozac Cap*) 60 mg PO DAILY MARYA Last Admin: 07/07/18 08:37 Dose: 60 mg Hydroxyzine HCl (Atarax Tab*) 50 mg PO TID PRN PRN Reason: ANXIETY Last Admin: 07/06/18 20:33 Dose: 50 mg Ibuprofen (Motrin Tab*) 400 mg PO Q6H PRN PRN Reason: PAIN Last Admin: 07/07/18 08:36 Dose: 400 mg [place] Carbonate ([place] Carbonate Er Tab*) 450 mg PO BEDTIME MARYA Last Admin: 07/06/18 20:33 Dose: 450 mg Lorazepam (Ativan Tab(*)) 0.5 mg PO Q6H PRN PRN Reason: Anxiety/agitation Last Admin: 07/06/18 18:39 Dose: 0.5 mg Mirtazapine (Remeron Tab*) 15 mg PO BEDTIME MARYA Last Admin: 07/06/18 20:33 Dose: 15 mg Multivitamins (Theragran Tab*) 1 tab PO DAILY MARYA Last Admin: 07/07/18 08:37 Dose: 1 tab Nystatin (Nystatin Top Powder*) 1 applic TOPICAL TID PRN PRN Reason: BREAST REDNESS Last Admin: 07/06/18 15:33 Dose: 1 applic Prazosin HCl (Minipress Cap*) 5 mg PO BEDTIME MARYA Last Admin: 07/06/18 20:33 Dose: 5 mg - Discharge Plan Discharge Plan: Consider Longer Term Tx
[2018-07-07] MEDS: LORazepam TAB(*) 0.5 MG PO PRN (18:34)
[2018-07-07] MEDS: hydrOXYzine HCL TAB* 50 MG PO PRN ×2 (18:34→20:31)
[2018-07-07] MEDS: Lithium Carbonate ER* 450 MG TAB.ER PO SCH (20:30)
[2018-07-07] MEDS: Prazosin CAP* 5 MG PO SCH (20:31)
[2018-07-07] MEDS: Mirtazapine TAB* 15 MG PO SCH (20:31)
[2018-07-08] MEDS: ARIPiprazole TAB* 20 MG PO SCH (08:31)
[2018-07-08] MEDS: Vitamin THERAPEUTIC TAB PO SCH (08:33)
[2018-07-08] MEDS: NORETHINDRONE PO SCH (08:33)
[2018-07-08] MEDS: FLUoxetine CAP* 20 MG PO SCH (08:33)
[2018-07-08] MEDS: ETH EST PO SCH (08:33)
[2018-07-08] MEDS: Ibuprofen TAB* 400 MG PO PRN (17:40)
[2018-07-08] MEDS: LORazepam TAB(*) 0.5 MG PO PRN (21:03)
[2018-07-08] MEDS: Lithium Carbonate ER* 450 MG TAB.ER PO SCH (21:04)
[2018-07-08] MEDS: Mirtazapine TAB* 15 MG PO SCH (21:04)
[2018-07-08] MEDS: Prazosin CAP* 5 MG PO SCH (21:04)
[2018-07-08] MEDS: hydrOXYzine HCL TAB* 50 MG PO PRN (21:06)
[2018-07-09] MEDS: ARIPiprazole TAB* 20 MG PO SCH (08:46)
[2018-07-09] MEDS: FLUoxetine CAP* 20 MG PO SCH (08:47)
[2018-07-09] MEDS: NORETHINDRONE PO SCH (08:47)
[2018-07-09] MEDS: ETH EST PO SCH (08:47)
[2018-07-09] MEDS: Vitamin THERAPEUTIC TAB PO SCH (08:48)
[2018-07-09] MEDS: Ibuprofen TAB* 400 MG PO PRN ×2 (10:54→17:53)
[2018-07-09] MEDS: hydrOXYzine HCL TAB* 50 MG PO PRN (17:53)
[2018-07-09] MEDS: Mirtazapine TAB* 15 MG PO SCH (20:43)
[2018-07-09] MEDS: Lithium Carbonate ER* 450 MG TAB.ER PO SCH (20:43)
[2018-07-09] MEDS: Prazosin CAP* 5 MG PO SCH (20:44)
[2018-07-09] MEDS: LORazepam TAB(*) 0.5 MG PO PRN (20:44)
[2018-07-10] MEDS: Ibuprofen TAB* 400 MG PO PRN ×2 (06:40→12:42)
[2018-07-10] MEDS: NORETHINDRONE PO SCH (08:43)
[2018-07-10] MEDS: ETH EST PO SCH (08:43)
[2018-07-10] MEDS: ARIPiprazole TAB* 20 MG PO SCH (08:43)
[2018-07-10] MEDS: FLUoxetine CAP* 20 MG PO SCH (08:44)
[2018-07-10] MEDS: Vitamin THERAPEUTIC TAB PO SCH (08:44)
[2018-07-10] MEDS: hydrOXYzine HCL TAB* 50 MG PO PRN ×2 (11:05→20:25)
[2018-07-10] MEDS ORDERED: Ibuprofen TAB* 400 MG PO PRN (12:45)
[2018-07-10] MEDS ORDERED: Ibuprofen TAB* 400 MG PO ONE (12:45)
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
[2018-07-10] MEDS: Ibuprofen TAB* 600 MG PO PRN ×2 (16:47→21:13)
[2018-07-10] MEDS: Prazosin CAP* 5 MG PO SCH (20:25)
[2018-07-10] MEDS: Mirtazapine TAB* 15 MG PO SCH (20:25)
[2018-07-10] MEDS: Lithium Carbonate ER* 450 MG TAB.ER PO SCH (22:14)
[2018-07-11] MEDS: Ibuprofen TAB* 600 MG PO PRN ×3 (06:35→14:36)
[2018-07-11] MEDS: NORETHINDRONE PO SCH (08:56)
[2018-07-11] MEDS: FLUoxetine CAP* 20 MG PO SCH (08:56)
[2018-07-11] MEDS: Vitamin THERAPEUTIC TAB PO SCH (08:56)
[2018-07-11] MEDS: ETH EST PO SCH (08:56)
[2018-07-11] MEDS: ARIPiprazole TAB* 20 MG PO SCH (08:56)
[2018-07-11] MEDS: hydrOXYzine HCL TAB* 50 MG PO PRN ×2 (14:36→20:17)
[2018-07-11] MEDS: Lithium Carbonate ER* 450 MG TAB.ER PO SCH (20:16)
[2018-07-11] MEDS: Prazosin CAP* 5 MG PO SCH (20:16)
[2018-07-11] MEDS: Mirtazapine TAB* 15 MG PO SCH (20:17)
[2018-07-11] MEDS: Nystatin TOP POWDER* 15 GM BTL TOPICAL PRN (20:19)
[2018-07-12] MEDS: Ibuprofen TAB* 600 MG PO PRN ×4 (06:25→20:26)
[2018-07-12] MEDS: ARIPiprazole TAB* 20 MG PO SCH (08:32)
[2018-07-12] MEDS: Vitamin THERAPEUTIC TAB PO SCH (08:32)
[2018-07-12] MEDS: FLUoxetine CAP* 20 MG PO SCH (08:32)
[2018-07-12] MEDS: ETH EST PO SCH (08:34)
[2018-07-12] MEDS: NORETHINDRONE PO SCH (08:34)
[2018-07-12] MEDS: Nystatin TOP POWDER* 15 GM BTL TOPICAL PRN (10:13)
[2018-07-12] MEDS: hydrOXYzine HCL TAB* 50 MG PO PRN (11:05)
--- NOTE | 2018-07-12 11:30 | PN ---
MHU: Group Therapy Note - Service Type Service Type: [id number] Group Psychotherapy - Cognitive Behavioral Group Therapy ( CBT):Patient was attentive and participatory in CBT programming this morning, and remained in good behavioral control. Patient expressed positive insights regarding relevant treatment interventions and goals.
--- NOTE | 2018-07-12 14:03 | PN ---
Subjective - Subjective Date of Service: 07/12/18 Service Type: 92089 Hosp care 15 min low complexity Subjective: Patient continues to have difficulty with SIB urges and SI. She reports foot pain, which is likely due to exorbitant amount of pacing. Encouraged to continue to exercise utilizing equipment and to ask family to bring sneakers. Bradley Linebacker Crewmember left message with [facility] to inquire about status of referral. Objective - Appearance Appearance: Well Developed/Nourished Dysmorphic Features: Yes Hygiene: Normal Grooming: Well Kept - Behavior Psychomotor Activities: Normal - Attitude and Relatedness Attitude and Relatedness: Guarded Eye Contact: Good - Speech Quality: Unpressured Latencies: Normal Quantity: Appropriate - Mood Patient's Decription of Mood: "Anxious" - Affect Observed Affect: Tense Affect Consistent with: Dysphoria - Thought Process Patient's Thought Process: Circumstantial, Impoverished Thought Content: Yes Passive Wish, Yes Suicidal Planning, No Homicidal Ideation, No Paranoid Ideation - Sensorium Experiencing Hallucinations: No, Sensorium is Clear Type of Hallucinations: Visual: No, Auditory: No, Command: No - Level of Consciousness Level of Consciousness: Alert Orientation: Yes Intact, Yes Orientated to Time, Yes Orientated to Place, Yes Orientated to Person - Impulse Control Impulse Control: Impaired - Insight and Judgement Insight and Judgement: Impaired - Group Participation Particating in Group Activities: Yes - Medication Management Medication Management Adherence: Yes Assessment - Assessment Merits Inpatient Hospitalization: For Immediate Safety, For Stabilization Inpatient DSM-V Dx: F33.2 - MDD, severe w/o psychotic features Clinical Impression: 32yo white female, , domiciled with known history of PTSD, MDD and borderline personality d/o who presented to ED after intentional overdose with hydroxyzine, thorazine and acetaminophen. She was admitted one month ago with similar presentation. Patient continues to struggle with suicidality, passive wish, self injurious behavior and emotional dysregulation. Patient merits hospitalization for immediate safety and stabilization. MHU: Problem List - Patient Problems (1) PTSD (post-traumatic stress disorder) Current Visit: No Status: Chronic Priority: High Onset Date: 01/13/16 Code(s): F43.10 - POST-TRAUMATIC STRESS DISORDER, UNSPECIFIED SNOMED Code(s): 70759377 Comment: continue to utilize trauma-informed interventions (2) Borderline personality disorder Current Visit: No Status: Acute Code(s): F60.3 - BORDERLINE PERSONALITY DISORDER SNOMED Code(s): 68058221 Comment: continue DBT education and skills practice Plan - Plan Treatment Plan: Name: SAUL UGARTE Birthdate: 1985 [id number] continue acute intensive psychiatric treatment. convert to 2pc. may decrease to q30min observation and allow unit privileges per RN discretion. continue medications. pending acceptance to [facility]. Medications: Current Medications Al Hydrox/Mg Hydrox/Simethicone (Maalox Plus*) 30 ml PO Q4H PRN PRN Reason: INDIGESTION Aripiprazole (Abilify Tab*) 20 mg PO DAILY MARYA Last Admin: 07/12/18 08:32 Dose: 20 mg Ethinyl Estradiol/Norethindrone (Junel (Nf)) 1 tab PO DAILY MARYA Last Admin: 07/12/18 08:34 Dose: 1 tab Fluoxetine HCl (Prozac Cap*) 60 mg PO DAILY MARYA Last Admin: 07/12/18 08:32 Dose: 60 mg Hydroxyzine HCl (Atarax Tab*) 50 mg PO TID PRN PRN Reason: ANXIETY Last Admin: 07/12/18 11:05 Dose: 50 mg Ibuprofen (Motrin Tab*) 600 mg PO Q4HR PRN PRN Reason: Pain Last Admin: 07/12/18 11:05 Dose: 600 mg [place] Carbonate ([place] Carbonate Er Tab*) 450 mg PO BEDTIME MARYA Last Admin: 07/11/18 20:16 Dose: 450 mg Lorazepam (Ativan Tab(*)) 0.5 mg PO Q6H PRN PRN Reason: Anxiety/agitation Last Admin: 07/09/18 20:44 Dose: 0.5 mg Mirtazapine (Remeron Tab*) 15 mg PO BEDTIME MARYA Last Admin: 07/11/18 20:17 Dose: 15 mg Multivitamins (Theragran Tab*) 1 tab PO DAILY MARYA Last Admin: 07/12/18 08:32 Dose: 1 tab Nystatin (Nystatin Top Powder*) 1 applic TOPICAL TID PRN PRN Reason: BREAST REDNESS Last Admin: 07/12/18 10:13 Dose: 1 applic Prazosin HCl (Minipress Cap*) 5 mg PO BEDTIME MARYA Last Admin: 07/11/18 20:16 Dose: 5 mg - Discharge Plan Discharge Plan: Consider Longer Term Tx
--- NOTE | 2018-07-12 16:13 | PN ---
MHU: Group Therapy Note - Service Type Service Type: [id number] Group Psychotherapy - Group Participation Patient Participating in Group: Yes Level of Group Participation: Attentive, Spontaneously Participate Relatedness to Group: Well Related - Luly participated well and was pleasant during group. She offered on-topic answers that furthered the group and encouraged others to participate.
[2018-07-12] MEDS: LORazepam TAB(*) 0.5 MG PO PRN (17:06)
[2018-07-12] MEDS: Lithium Carbonate ER* 450 MG TAB.ER PO SCH (20:29)
[2018-07-12] MEDS: Mirtazapine TAB* 15 MG PO SCH (20:30)
[2018-07-12] MEDS: Prazosin CAP* 5 MG PO SCH (22:41)
[2018-07-13] MEDS: Ibuprofen TAB* 600 MG PO PRN ×5 (00:36→20:08)
[2018-07-13] MEDS: Prazosin CAP* 5 MG PO SCH ×3 (00:44→20:22)
[2018-07-13] MEDS: Vitamin THERAPEUTIC TAB PO SCH (08:30)
[2018-07-13] MEDS: FLUoxetine CAP* 20 MG PO SCH (08:30)
[2018-07-13] MEDS: ARIPiprazole TAB* 20 MG PO SCH (08:30)
[2018-07-13] MEDS: ETH EST PO SCH (08:31)
[2018-07-13] MEDS: NORETHINDRONE PO SCH (08:31)
[2018-07-13] MEDS: hydrOXYzine HCL TAB* 50 MG PO PRN ×3 (10:55→20:08)
[2018-07-13] MEDS: Lithium Carbonate ER* 450 MG TAB.ER PO SCH (20:08)
[2018-07-13] MEDS: Mirtazapine TAB* 15 MG PO SCH (20:08)
[2018-07-14] MEDS: Ibuprofen TAB* 600 MG PO PRN ×5 (04:50→21:09)
[2018-07-14] MEDS: FLUoxetine CAP* 20 MG PO SCH (08:46)
[2018-07-14] MEDS: Vitamin THERAPEUTIC TAB PO SCH (08:46)
[2018-07-14] MEDS: ARIPiprazole TAB* 20 MG PO SCH (08:46)
[2018-07-14] MEDS: ETH EST PO SCH (08:48)
[2018-07-14] MEDS: NORETHINDRONE PO SCH (08:48)
--- NOTE | 2018-07-14 11:40 | PN ---
Subjective - Subjective Date of Service: 07/14/18 Service Type: [id number] Hosp care 25 min moderate complexity Subjective: Patient reports SIB urges and passive wish. She shared journal entry with telegraphic typewriter installer, denoting interpersonal conflict with peers. She is also working diligently on trauma-informed assignments. Patient reports increased lethargy and depressed mood, attributes this to lithium. She agrees to decrease dose versus discontinue, to target suicidality and self-harm. Patient reports talking with her mother and son, Florin, last evening. Per telegraphic typewriter installer 's instruction, they discussed plans to bring Florin for visits and obtained Florin' s father's permission. Objective - Appearance Appearance: Well Developed/Nourished Dysmorphic Features: Yes Hygiene: Normal Grooming: Well Kept - Behavior Psychomotor Activities: Normal Exhibits Abnormal Movement: No - Attitude and Relatedness Attitude and Relatedness: Cooperative Eye Contact: Good - Speech Quality: Unpressured Latencies: Short Quantity: Appropriate - Mood Patient's Decription of Mood: "Anxious" - Affect Affect Consistent with: Dysphoria - Thought Process Patient's Thought Process: Coherent, Circumstantial Thought Content: Yes Passive Wish, No Suicidal Planning, No Homicidal Ideation, No Paranoid Ideation - Sensorium Experiencing Hallucinations: No, Sensorium is Clear Type of Hallucinations: Visual: No, Auditory: No, Command: No - Level of Consciousness Level of Consciousness: Alert Orientation: Yes Intact, Yes Orientated to Time, Yes Orientated to Place, Yes Orientated to Person - Impulse Control Impulse Control: Impaired - Insight and Judgement Insight and Judgement: Poor - Group Participation Particating in Group Activities: Yes - Medication Management Medication Management Adherence: Yes Assessment - Assessment Merits Inpatient Hospitalization: For Immediate Safety, For Stabilization Inpatient DSM-V Dx: F33.2 - MDD, severe w/o psychotic features Clinical Impression: 32yo white female, , domiciled with known history of PTSD, MDD and borderline personality d/o who presented to ED after intentional overdose with hydroxyzine, thorazine and acetaminophen. She was admitted one month ago with similar presentation. Patient continues to struggle with suicidality, passive wish, self injurious behavior and emotional dysregulation. Patient merits hospitalization for immediate safety and stabilization. MHU: Problem List - Patient Problems (1) PTSD (post-traumatic stress disorder) Current Visit: No Status: Chronic Priority: High Onset Date: 01/13/16 Code(s): F43.10 - POST-TRAUMATIC STRESS DISORDER, UNSPECIFIED SNOMED Code(s): 58026468 Comment: continue to utilize trauma-informed interventions (2) Borderline personality disorder Current Visit: No Status: Acute Code(s): F60.3 - BORDERLINE PERSONALITY DISORDER SNOMED Code(s): 46636664 Comment: continue DBT education and skills practice Plan - Plan Treatment Plan: Name: SAUL UGARTE Birthdate: 1985 [id number] continue acute intensive psychiatric treatment. convert to 2pc. may decrease to q30min observation and allow unit privileges per RN discretion. decrease lithium dose. obtain Left foot XR due to pain pending acceptance to [facility]. Continued Medication Management: Different Medication Medications: Current Medications Al Hydrox/Mg Hydrox/Simethicone (Maalox Plus*) 30 ml PO Q4H PRN PRN Reason: INDIGESTION Aripiprazole (Abilify Tab*) 20 mg PO DAILY [facility] Last Admin: 07/14/18 08:46 Dose: 20 mg Ethinyl Estradiol/Norethindrone (Junel (Nf)) 1 tab PO DAILY MARYA Last Admin: 07/14/18 08:48 Dose: 1 tab Fluoxetine HCl (Prozac Cap*) 60 mg PO DAILY MARYA Last Admin: 07/14/18 08:46 Dose: 60 mg Hydroxyzine HCl (Atarax Tab*) 50 mg PO TID PRN PRN Reason: ANXIETY Last Admin: 07/13/18 20:08 Dose: 50 mg Ibuprofen (Motrin Tab*) 600 mg PO Q4HR PRN PRN Reason: Pain Last Admin: 07/14/18 08:46 Dose: 600 mg [place] Carbonate ([place] Carbonate Tab*) 300 mg PO BEDTIME MARYA Lorazepam (Ativan Tab(*)) 0.5 mg PO Q6H PRN PRN Reason: Anxiety/agitation Last Admin: 07/12/18 17:06 Dose: 0.5 mg Mirtazapine (Remeron Tab*) 15 mg PO BEDTIME MARYA Last Admin: 07/13/18 20:08 Dose: 15 mg Multivitamins (Theragran Tab*) 1 tab PO DAILY [facility] Last Admin: 07/14/18 08:46 Dose: 1 tab Nystatin (Nystatin Top Powder*) 1 applic TOPICAL TID PRN PRN Reason: BREAST REDNESS Last Admin: 07/12/18 10:13 Dose: 1 applic Prazosin HCl (Minipress Cap*) 5 mg PO BEDTIME MARYA Last Admin: 07/13/18 20:22 Dose: 5 mg - Discharge Plan Discharge Plan: Consider Longer Term Tx
--- NOTE | 2018-07-14 12:08 | RAD ---
Indication: Left foot pain. 2 views of left foot demonstrates no fracture or dislocation. No other bone or joint abnormality is identified. IMPRESSION: No fracture of the left foot is identified.
[2018-07-14] MEDS: Nystatin TOP POWDER* 15 GM BTL TOPICAL PRN (12:55)
[2018-07-14] MEDS: hydrOXYzine HCL TAB* 50 MG PO PRN (17:57)
[2018-07-14] MEDS: Lithium Carbonate TAB* 300 MG PO SCH (20:22)
[2018-07-14] MEDS: LORazepam TAB(*) 0.5 MG PO PRN (20:22)
[2018-07-14] MEDS: Mirtazapine TAB* 15 MG PO SCH (20:22)
[2018-07-14] MEDS: Prazosin CAP* 5 MG PO SCH (20:22)
[2018-07-15] MEDS: Ibuprofen TAB* 600 MG PO PRN ×5 (00:42→20:18)
[2018-07-15] MEDS: hydrOXYzine HCL TAB* 50 MG PO PRN ×4 (01:35→20:18)
[2018-07-15] MEDS: LORazepam TAB(*) 0.5 MG PO PRN (01:45)
[2018-07-15] MEDS: NORETHINDRONE PO SCH (08:06)
[2018-07-15] MEDS: ARIPiprazole TAB* 20 MG PO SCH (08:06)
[2018-07-15] MEDS: FLUoxetine CAP* 20 MG PO SCH (08:06)
[2018-07-15] MEDS: ETH EST PO SCH (08:06)
[2018-07-15] MEDS: Vitamin THERAPEUTIC TAB PO SCH (08:06)
[2018-07-15] MEDS ORDERED: Fluconazole 100 MG TAB* TAB PO ONE (20:00)
[2018-07-15] MEDS: Mirtazapine TAB* 15 MG PO SCH (20:18)
[2018-07-15] MEDS: Lithium Carbonate TAB* 300 MG PO SCH (20:18)
[2018-07-15] MEDS: Prazosin CAP* 5 MG PO SCH (20:18)
[2018-07-16] MEDS: Ibuprofen TAB* 600 MG PO PRN ×6 (01:10→21:40)
[2018-07-16] MEDS: LORazepam TAB(*) 0.5 MG PO PRN ×3 (02:27→21:40)
[2018-07-16] MEDS: ETH EST PO SCH (08:43)
[2018-07-16] MEDS: NORETHINDRONE PO SCH (08:43)
[2018-07-16] MEDS: ARIPiprazole TAB* 20 MG PO SCH (08:44)
[2018-07-16] MEDS: Vitamin THERAPEUTIC TAB PO SCH (08:44)
[2018-07-16] MEDS: FLUoxetine CAP* 20 MG PO SCH (08:44)
[2018-07-16] MEDS: hydrOXYzine HCL TAB* 50 MG PO PRN ×2 (08:44→21:41)
[2018-07-16] MEDS: Prazosin CAP* 5 MG PO SCH (21:40)
[2018-07-16] MEDS: Lithium Carbonate TAB* 300 MG PO SCH (21:41)
[2018-07-16] MEDS: Mirtazapine TAB* 15 MG PO SCH (21:41)
[2018-07-17] MEDS: Ibuprofen TAB* 600 MG PO PRN ×4 (04:32→20:33)
[2018-07-17] MEDS: ARIPiprazole TAB* 20 MG PO SCH (09:25)
[2018-07-17] MEDS: FLUoxetine CAP* 20 MG PO SCH (09:25)
[2018-07-17] MEDS: Vitamin THERAPEUTIC TAB PO SCH (09:25)
[2018-07-17] MEDS: hydrOXYzine HCL TAB* 50 MG PO PRN ×2 (09:25→20:33)
[2018-07-17] MEDS: ETH EST PO SCH (09:27)
[2018-07-17] MEDS: NORETHINDRONE PO SCH (09:27)
[2018-07-17] MEDS: LORazepam TAB(*) 0.5 MG PO PRN (11:10)
--- NOTE | 2018-07-17 11:26 | PN ---
Subjective - Subjective Date of Service: 07/17/18 Service Type: [id number] Hosp care 25 min moderate complexity Subjective: Patient periodically engages in self-harm via superficially scratching her arm. Afterwards, she completes a behavioral chain analysis per policy. Patient identifies precursors for self harm: flashbacks, dissociation, perceived abandonment or rejection. Log Grader spoke with Dr Matt Lucas at [facility]. He accepts the referral and due to wait list, gives permission for referral to [facility], as well. SW and patient notified. Objective - Appearance Appearance: Well Developed/Nourished Dysmorphic Features: Yes Hygiene: Normal Grooming: Well Kept - Behavior Psychomotor Activities: Normal Exhibits Abnormal Movement: No - Attitude and Relatedness Attitude and Relatedness: Guarded Eye Contact: Good - Speech Quality: Unpressured Latencies: Normal Quantity: Appropriate - Mood Patient's Decription of Mood: "not good" - Affect Observed Affect: Tense Affect Consistent with: Dysphoria - Thought Process Patient's Thought Process: Coherent, Impoverished Thought Content: Yes Passive Wish, Yes Suicidal Planning, No Homicidal Ideation, No Paranoid Ideation - Sensorium Experiencing Hallucinations: No, Sensorium is Clear Type of Hallucinations: Visual: No, Auditory: No, Command: No - Level of Consciousness Level of Consciousness: Alert Orientation: Yes Intact, Yes Orientated to Time, Yes Orientated to Place, Yes Orientated to Person - Impulse Control Impulse Control: Impaired - Insight and Judgement Insight and Judgement: Impaired - Group Participation Particating in Group Activities: Yes - Medication Management Medication Management Adherence: Yes Assessment - Assessment Merits Inpatient Hospitalization: For Immediate Safety, For Stabilization, For Ongoing Evaluation, Consolidate Improvements Inpatient DSM-V Dx: F33.2 - MDD, severe w/o psychotic features Clinical Impression: 32yo white female, , domiciled with known history of PTSD, MDD and borderline personality d/o who presented to ED after intentional overdose with hydroxyzine, thorazine and acetaminophen. She was admitted one month ago with similar presentation. Patient continues to struggle with suicidality, passive wish, self injurious behavior and emotional dysregulation. Patient merits hospitalization for immediate safety and stabilization. MHU: Problem List - Patient Problems (1) PTSD (post-traumatic stress disorder) Current Visit: No Status: Chronic Priority: High Onset Date: 01/13/16 Code(s): F43.10 - POST-TRAUMATIC STRESS DISORDER, UNSPECIFIED SNOMED Code(s): 35144844 Comment: continue to utilize trauma-informed interventions (2) Borderline personality disorder Current Visit: No Status: Acute Code(s): F60.3 - BORDERLINE PERSONALITY DISORDER SNOMED Code(s): 19734182 Comment: continue DBT education and skills practice Plan - Plan Treatment Plan: Name: SAUL UGARTE Birthdate: 1985 [id number] continue acute intensive psychiatric treatment. convert to 2pc. may decrease to q30min observation and allow unit privileges per RN discretion. continue current medications. patient accepted by [facility], which is at capacity; referral to [facility] pending. Medications: Current Medications Al Hydrox/Mg Hydrox/Simethicone (Maalox Plus*) 30 ml PO Q4H PRN PRN Reason: INDIGESTION Aripiprazole (Abilify Tab*) 20 mg PO DAILY [facility] Last Admin: 07/17/18 09:25 Dose: 20 mg Ethinyl Estradiol/Norethindrone (Junel (Nf)) 1 tab PO DAILY MARYA Last Admin: 07/17/18 09:27 Dose: 1 tab Fluoxetine HCl (Prozac Cap*) 60 mg PO DAILY MARYA Last Admin: 07/17/18 09:25 Dose: 60 mg Hydroxyzine HCl (Atarax Tab*) 50 mg PO TID PRN PRN Reason: ANXIETY Last Admin: 07/17/18 09:25 Dose: 50 mg Ibuprofen (Motrin Tab*) 600 mg PO Q4HR PRN PRN Reason: Pain Last Admin: 07/17/18 09:25 Dose: 600 mg [place] Carbonate ([place] Carbonate Tab*) 300 mg PO BEDTIME MARYA Last Admin: 07/16/18 21:41 Dose: 300 mg Lorazepam (Ativan Tab(*)) 0.5 mg PO Q6H PRN PRN Reason: Anxiety/agitation Last Admin: 07/17/18 11:10 Dose: 0.5 mg Mirtazapine (Remeron Tab*) 15 mg PO BEDTIME MARYA Last Admin: 07/16/18 21:41 Dose: 15 mg Multivitamins (Theragran Tab*) 1 tab PO DAILY MARYA Last Admin: 07/17/18 09:25 Dose: 1 tab Nystatin (Nystatin Top Powder*) 1 applic TOPICAL TID PRN PRN Reason: BREAST REDNESS Last Admin: 07/14/18 12:55 Dose: 1 applic Prazosin HCl (Minipress Cap*) 5 mg PO BEDTIME MARYA Last Admin: 07/16/18 21:40 Dose: 5 mg - Discharge Plan Discharge Plan: Consider Longer Term Tx
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
[2018-07-17] MEDS: Nystatin TOP POWDER* 15 GM BTL TOPICAL PRN (12:42)
[2018-07-17] MEDS: Prazosin CAP* 5 MG PO SCH (20:36)
[2018-07-17] MEDS: Mirtazapine TAB* 15 MG PO SCH (20:36)
[2018-07-17] MEDS: Lithium Carbonate TAB* 300 MG PO SCH (20:37)
[2018-07-18] MEDS: Ibuprofen TAB* 600 MG PO PRN ×5 (01:32→21:54)
[2018-07-18] MEDS: Vitamin THERAPEUTIC TAB PO SCH (08:40)
[2018-07-18] MEDS: ARIPiprazole TAB* 20 MG PO SCH (08:41)
[2018-07-18] MEDS: FLUoxetine CAP* 20 MG PO SCH (08:41)
[2018-07-18] MEDS: NORETHINDRONE PO SCH (08:42)
[2018-07-18] MEDS: ETH EST PO SCH (08:42)
[2018-07-18] MEDS: Lithium Carbonate TAB* 300 MG PO SCH (20:40)
[2018-07-18] MEDS: Mirtazapine TAB* 15 MG PO SCH (20:40)
[2018-07-18] MEDS: Prazosin CAP* 5 MG PO SCH (20:41)
[2018-07-18] MEDS: hydrOXYzine HCL TAB* 50 MG PO PRN (20:41)
[2018-07-19] MEDS: Ibuprofen TAB* 600 MG PO PRN ×5 (02:30→22:26)
[2018-07-19] MEDS: FLUoxetine CAP* 20 MG PO SCH (08:44)
[2018-07-19] MEDS: Vitamin THERAPEUTIC TAB PO SCH (08:44)
[2018-07-19] MEDS: ETH EST PO SCH (08:44)
[2018-07-19] MEDS: ARIPiprazole TAB* 20 MG PO SCH (08:44)
[2018-07-19] MEDS: NORETHINDRONE PO SCH (08:44)
[2018-07-19] MEDS: hydrOXYzine HCL TAB* 50 MG PO PRN ×2 (12:57→22:07)
--- NOTE | 2018-07-19 17:06 | PN ---
Subjective - Subjective Date of Service: 07/19/18 Service Type: [id number] Hosp care 15 min low complexity Subjective: Patient reports increased difficulty managing anxiety and mood in the afternoons and evenings. She states she is anxious today due to thinking of missing her mother's marriage ceremony this weekend. She is noted to have positive interactions with peers and staff. Objective - Appearance Appearance: Obese Dysmorphic Features: No Hygiene: Normal Grooming: Well Kept - Behavior Psychomotor Activities: Normal Exhibits Abnormal Movement: No - Attitude and Relatedness Attitude and Relatedness: Cooperative Eye Contact: Good - Speech Quality: Unpressured Latencies: Normal Quantity: Appropriate - Mood Patient's Decription of Mood: "falling apart, as usual" - Affect Observed Affect: Good Affect Consistent with: Euthymia - Thought Process Patient's Thought Process: Coherent, Goal Directed, Circumstantial Thought Content: No Passive Wish, No Suicidal Planning, No Homicidal Ideation, No Paranoid Ideation - Sensorium Experiencing Hallucinations: No, Sensorium is Clear Type of Hallucinations: Visual: No, Auditory: No, Command: No - Level of Consciousness Level of Consciousness: Alert Orientation: Yes Intact, Yes Orientated to Time, Yes Orientated to Place, Yes Orientated to Person - Impulse Control Impulse Control: Intact - Insight and Judgement Insight and Judgement: Fair - Group Participation Group Participation Comments: working on individual assignments during groups, at times - Medication Management Medication Management Adherence: Yes Assessment - Assessment Merits Inpatient Hospitalization: For Immediate Safety, For Ongoing Evaluation, For Discharge Planning Inpatient DSM-V Dx: F33.2 - MDD, severe w/o psychotic features Clinical Impression: 32yo white female, , domiciled with known history of PTSD, MDD and borderline personality d/o who presented to ED after intentional overdose with hydroxyzine, thorazine and acetaminophen. She was admitted one month ago with similar presentation. Patient continues to struggle with suicidality, passive wish, self injurious behavior and emotional dysregulation. Patient merits hospitalization for immediate safety and stabilization. MHU: Problem List - Patient Problems (1) PTSD (post-traumatic stress disorder) Status: Chronic Priority: High Onset Date: 01/13/16 Code(s): F43.10 - POST -TRAUMATIC STRESS DISORDER, UNSPECIFIED SNOMED Code(s): 38655089 Comment: continue to utilize trauma-informed interventions (2) Borderline personality disorder Status: Acute Code(s): F60.3 - BORDERLINE PERSONALITY DISORDER SNOMED Code(s ): 82219776 Comment: continue DBT education and skills practice Plan - Plan Treatment Plan: Name: SAUL UGARTE Birthdate: 1985 [id number] continue acute intensive psychiatric treatment. convert to 2pc. may decrease to q30min observation and allow unit privileges per RN discretion. continue current medications. patient accepted by [facility], which is at capacity; referral to [facility] declined. Medications: Current Medications Al Hydrox/Mg Hydrox/Simethicone (Maalox Plus*) 30 ml PO Q4H PRN PRN Reason: INDIGESTION Aripiprazole (Abilify Tab*) 20 mg PO DAILY [facility] Last Admin: 07/19/18 08:44 Dose: 20 mg Ethinyl Estradiol/Norethindrone (Junel (Nf)) 1 tab PO DAILY MARYA Last Admin: 07/19/18 08:44 Dose: 1 tab Fluoxetine HCl (Prozac Cap*) 60 mg PO DAILY MARYA Last Admin: 07/19/18 08:44 Dose: 60 mg Hydroxyzine HCl (Atarax Tab*) 50 mg PO TID PRN PRN Reason: ANXIETY Last Admin: 07/19/18 12:57 Dose: 50 mg Ibuprofen (Motrin Tab*) 600 mg PO Q4HR PRN PRN Reason: Pain Last Admin: 07/19/18 12:55 Dose: 600 mg [place] Carbonate ([place] Carbonate Tab*) 300 mg PO BEDTIME MARYA Last Admin: 07/18/18 20:40 Dose: 300 mg Lorazepam (Ativan Tab(*)) 0.5 mg PO Q6H PRN PRN Reason: Anxiety/agitation Last Admin: 07/17/18 11:10 Dose: 0.5 mg Mirtazapine (Remeron Tab*) 15 mg PO BEDTIME MARYA Last Admin: 07/18/18 20:40 Dose: 15 mg Multivitamins (Theragran Tab*) 1 tab PO DAILY MARYA Last Admin: 07/19/18 08:44 Dose: 1 tab Nystatin (Nystatin Top Powder*) 1 applic TOPICAL TID PRN PRN Reason: BREAST REDNESS Last Admin: 07/17/18 12:42 Dose: 1 applic Prazosin HCl (Minipress Cap*) 5 mg PO BEDTIME [facility] Last Admin: 07/18/18 20:41 Dose: 5 mg - Discharge Plan Discharge Plan: Inpatient Hospitalization
[2018-07-19] MEDS: LORazepam TAB(*) 0.5 MG PO PRN (18:19)
[2018-07-19] MEDS: Lithium Carbonate TAB* 300 MG PO SCH (22:07)
[2018-07-19] MEDS: Prazosin CAP* 5 MG PO SCH (22:08)
[2018-07-19] MEDS: Mirtazapine TAB* 15 MG PO SCH (22:11)
[2018-07-20] MEDS: Ibuprofen TAB* 600 MG PO PRN ×4 (03:10→20:45)
[2018-07-20] MEDS: FLUoxetine CAP* 20 MG PO SCH (08:52)
[2018-07-20] MEDS: Vitamin THERAPEUTIC TAB PO SCH (08:53)
[2018-07-20] MEDS: ARIPiprazole TAB* 20 MG PO SCH (08:53)
[2018-07-20] MEDS: ETH EST PO SCH (08:54)
[2018-07-20] MEDS: NORETHINDRONE PO SCH (08:54)
[2018-07-20] MEDS: hydrOXYzine HCL TAB* 50 MG PO PRN ×3 (11:36→20:45)
[2018-07-20] MEDS: LORazepam TAB(*) 0.5 MG PO PRN ×2 (14:45→20:45)
[2018-07-20] MEDS: Lithium Carbonate TAB* 300 MG PO SCH (20:45)
[2018-07-20] MEDS: Mirtazapine TAB* 15 MG PO SCH (20:45)
[2018-07-20] MEDS: Prazosin CAP* 5 MG PO SCH (20:45)
[2018-07-21] MEDS: Ibuprofen TAB* 600 MG PO PRN ×2 (07:20→18:12)
[2018-07-21] MEDS: FLUoxetine CAP* 20 MG PO SCH (08:32)
[2018-07-21] MEDS: ARIPiprazole TAB* 20 MG PO SCH (08:32)
[2018-07-21] MEDS: hydrOXYzine HCL TAB* 50 MG PO PRN ×4 (08:33→21:16)
[2018-07-21] MEDS: Vitamin THERAPEUTIC TAB PO SCH (08:33)
[2018-07-21] MEDS: NORETHINDRONE PO SCH (08:33)
[2018-07-21] MEDS: ETH EST PO SCH (08:33)
--- NOTE | 2018-07-21 11:42 | PN ---
MHU: Group Therapy Note - Service Type Service Type: [id number] Group Psychotherapy - Cognitive Behavioral Group Therapy ( CBT):Patient was attentive and participatory in CBT programming this morning, and remained in good behavioral control. Patient expressed positive insights regarding relevant treatment interventions and goals.
--- NOTE | 2018-07-21 16:06 | PN ---
Subjective - Subjective Date of Service: 07/21/18 Service Type: [id number] Hosp care 15 min low complexity Subjective: yesterday, patient notified of change in treatment plan from state hospitalization to discharge home. Discussed risks of worsening decompensation in longer hospitalizations r/t borderline personality d/o. patient encouraged to continue effort shown on BSU in outpatient treatment. patient able to identify emotions r/t above. she asked appropriate questions and is beginning to exhibit insight into triggers for SIB urges and underlying emotions. Objective - Appearance Appearance: Well Developed/Nourished Dysmorphic Features: No Hygiene: Normal Grooming: Well Kept - Behavior Psychomotor Activities: Normal - Attitude and Relatedness Attitude and Relatedness: Cooperative Eye Contact: Good - Speech Quality: Unpressured Latencies: Normal Quantity: Appropriate - Mood Patient's Decription of Mood: "Okay" - Affect Observed Affect: Good Affect Consistent with: Euthymia - Thought Process Patient's Thought Process: Coherent, Goal Directed Thought Content: No Passive Wish, No Suicidal Planning, No Homicidal Ideation, No Paranoid Ideation - Sensorium Experiencing Hallucinations: No, Sensorium is Clear Type of Hallucinations: Visual: No, Auditory: No, Command: No - Level of Consciousness Level of Consciousness: Alert Orientation: Yes Intact, Yes Orientated to Time, Yes Orientated to Place, Yes Orientated to Person - Impulse Control Impulse Control: Intact - Insight and Judgement Insight and Judgement: Good - Group Participation Particating in Group Activities: Yes - Medication Management Medication Management Adherence: Yes Assessment - Assessment Merits Inpatient Hospitalization: For Immediate Safety, Pending Safe DC Plan Inpatient DSM-V Dx: F33.2 - MDD, severe w/o psychotic features Clinical Impression: 32yo white female, , domiciled with known history of PTSD, MDD and borderline personality d/o who presented to ED after intentional overdose with hydroxyzine, thorazine and acetaminophen. She was admitted one month ago with similar presentation. She has participated fully in programming and individual assignments. Due to improvement since admission, plan changed from state hospitalization referral to discharge home, tentative for 07/24/18. MHU: Problem List - Patient Problems (1) PTSD (post-traumatic stress disorder) Current Visit: No Status: Chronic Priority: Medium Onset Date: 01/13/16 Code(s): F43.10 - POST-TRAUMATIC STRESS DISORDER, UNSPECIFIED SNOMED Code(s): 56357407 Comment: continue to utilize trauma-informed interventions (2) Borderline personality disorder Current Visit: No Status: Acute Priority: Medium Code(s): F60.3 - BORDERLINE PERSONALITY DISORDER SNOMED Code(s): 40634342 Comment: continue DBT education and skills practice Plan - Plan Treatment Plan: Name: SAUL UGARTE Birthdate: 1985 [id number] continue acute intensive psychiatric treatment. may decrease to q30min observation and allow unit privileges per RN discretion. continue current medications. tentative discharge 07/24/18 Medications: Current Medications Al Hydrox/Mg Hydrox/Simethicone (Maalox Plus*) 30 ml PO Q4H PRN PRN Reason: INDIGESTION Aripiprazole (Abilify Tab*) 20 mg PO DAILY [facility] Last Admin: 07/21/18 08:32 Dose: 20 mg Ethinyl Estradiol/Norethindrone (Junel (Nf)) 1 tab PO DAILY MARYA Last Admin: 07/21/18 08:33 Dose: 1 tab Fluoxetine HCl (Prozac Cap*) 60 mg PO DAILY MARYA Last Admin: 07/21/18 08:32 Dose: 60 mg Hydroxyzine HCl (Atarax Tab*) 50 mg PO TID PRN PRN Reason: ANXIETY Last Admin: 07/21/18 13:37 Dose: 50 mg Ibuprofen (Motrin Tab*) 600 mg PO Q4HR PRN PRN Reason: Pain Last Admin: 07/21/18 07:20 Dose: 600 mg [place] Carbonate ([place] Carbonate Tab*) 300 mg PO BEDTIME MARYA Last Admin: 07/20/18 20:45 Dose: 300 mg Lorazepam (Ativan Tab(*)) 0.5 mg PO Q6H PRN PRN Reason: Anxiety/agitation Last Admin: 07/20/18 20:45 Dose: 0.5 mg Mirtazapine (Remeron Tab*) 15 mg PO BEDTIME MARYA Last Admin: 07/20/18 20:45 Dose: 15 mg Multivitamins (Theragran Tab*) 1 tab PO DAILY MARYA Last Admin: 07/21/18 08:33 Dose: 1 tab Nystatin (Nystatin Top Powder*) 1 applic TOPICAL TID PRN PRN Reason: BREAST REDNESS Last Admin: 07/17/18 12:42 Dose: 1 applic Prazosin HCl (Minipress Cap*) 5 mg PO BEDTIME MARYA Last Admin: 07/20/18 20:45 Dose: 5 mg - Discharge Plan Discharge Plan: Outpatient Follow Up Outpatient Program: Maurizio Aceves [facility]
[2018-07-21] MEDS: LORazepam TAB(*) 0.5 MG PO PRN (18:12)
[2018-07-21] MEDS: Lithium Carbonate TAB* 300 MG PO SCH (20:23)
[2018-07-21] MEDS: Mirtazapine TAB* 15 MG PO SCH (20:23)
[2018-07-21] MEDS: Prazosin CAP* 5 MG PO SCH (20:23)
[2018-07-22] MEDS: Ibuprofen TAB* 600 MG PO PRN ×3 (00:51→13:30)
[2018-07-22] MEDS: LORazepam TAB(*) 0.5 MG PO PRN ×3 (00:51→20:25)
[2018-07-22] MEDS: ARIPiprazole TAB* 20 MG PO SCH (08:54)
[2018-07-22] MEDS: ETH EST PO SCH (08:55)
[2018-07-22] MEDS: Vitamin THERAPEUTIC TAB PO SCH (08:55)
[2018-07-22] MEDS: FLUoxetine CAP* 20 MG PO SCH (08:55)
[2018-07-22] MEDS: NORETHINDRONE PO SCH (08:55)
[2018-07-22] MEDS: Lithium Carbonate TAB* 300 MG PO SCH (20:25)
[2018-07-22] MEDS: hydrOXYzine HCL TAB* 50 MG PO PRN (20:25)
[2018-07-22] MEDS: Prazosin CAP* 5 MG PO SCH (20:25)
[2018-07-22] MEDS: Mirtazapine TAB* 15 MG PO SCH (20:25)
[2018-07-23] MEDS: hydrOXYzine HCL TAB* 50 MG PO PRN ×3 (04:20→20:39)
[2018-07-23] MEDS: Ibuprofen TAB* 600 MG PO PRN ×3 (04:20→17:37)
[2018-07-23] MEDS: ARIPiprazole TAB* 20 MG PO SCH (08:51)
[2018-07-23] MEDS: Vitamin THERAPEUTIC TAB PO SCH (08:51)
[2018-07-23] MEDS: FLUoxetine CAP* 20 MG PO SCH (08:51)
[2018-07-23] MEDS: NORETHINDRONE PO SCH (08:52)
[2018-07-23] MEDS: ETH EST PO SCH (08:52)
[2018-07-23] MEDS: LORazepam TAB(*) 0.5 MG PO PRN (17:37)
[2018-07-23] MEDS: Mirtazapine TAB* 15 MG PO SCH (20:37)
[2018-07-23] MEDS: Lithium Carbonate TAB* 300 MG PO SCH (20:37)
[2018-07-23] MEDS: Prazosin CAP* 5 MG PO SCH (20:37)
[2018-07-23] MEDS: Nystatin TOP POWDER* 15 GM BTL TOPICAL PRN (22:14)
[2018-07-24] MEDS: Ibuprofen TAB* 600 MG PO PRN (06:25)
[2018-07-24] MEDS: FLUoxetine CAP* 20 MG PO SCH (08:35)
[2018-07-24] MEDS: ARIPiprazole TAB* 20 MG PO SCH (08:35)
[2018-07-24] MEDS: NORETHINDRONE PO SCH (08:36)
[2018-07-24] MEDS: ETH EST PO SCH (08:36)
[2018-07-24] MEDS: Vitamin THERAPEUTIC TAB PO SCH (08:36)
[2018-07-24 08:39] VITALS: BP 124/79
[2018-07-24] MEDS: hydrOXYzine HCL TAB* 50 MG PO PRN (12:35)
--- NOTE | 2018-07-26 10:18 | DS ---
CC: [facility]; Dr. Maikol Izaguirre. DISCHARGE SUMMARY: DATE OF ADMISSION: 06/22/18 DATE OF DISCHARGE: 07/24/18 SUPERVISING PSYCHIATRIST: Dr. Tarik Montalvo. DISCHARGE DIAGNOSES: 1. Posttraumatic stress disorder. 2. Borderline personality disorder. CONDITION AT THE TIME OF DISCHARGE: Improved. The patient has demonstrated significant improvement in mood and distress tolerance. She is no longer voicing suicidal ideation or passive wish. She has participated fully in unit programming and individual assignments which were assigned to her specifically for borderline personality disorder. The patient has been safe on all checks and has been decreased to 30-minute observation and allowed staff pass. She has also been allowed to join our recreation therapist on campus outings as well. The patient was originally referred to Dr. Sen for ECT therapy, but did not meet criteria for this. [facility]. [facility] released the referral due to significant wait list. The patient was referred to [facility] and declined due to primary diagnosis of borderline personality disorder. The patient was notified of the above and explained the rationale. She tolerated this information well and social work identified opportunities for increased treatment in the community. Due to the patient's improvement while on the unit and risk for further decompensation, discharge planning was initiated. The patient was in agreement. Her mother was involved and agreeable with the plan. MENTAL STATUS EXAM: Luly is a 32-year-old white female who appears the stated age. She is well groomed and wearing her own clothing. She is euthymic with bright affect upon approach. The patient is alert and oriented x3, good eye contact. Speech is soft and articulate. Mood is "good" with mild anxiety. Affect is full range. Thought process is logical and goal directed and coherent. Thought content is negative SI or SIB urges, negative for paranoia or passive wish. Insight and judgement are good. Fund of knowledge is excellent. DISCHARGE INSTRUCTIONS GIVEN TO THE PATIENT: A. Medications: 1. Aripiprazole 20 mg p.o. daily. 2. Fluoxetine 60 mg p.o. daily. 3. Hydroxyzine 50 mg p.o. t.i.d. p.r.n. anxiety. 4. [place] carbonate 300 mg at bedtime. 5. Mirtazapine 15 mg at bedtime. 6. Prazosin 3 mg p.o. at bedtime. B. Diet is regular. C. Activity as tolerated. Tobacco cessation is not applicable. There are no pending labs or diagnostic studies at the time of discharge. D. Followup care. The patient will follow up with [facility]. She has an appointment with DEVANG on 07/25/18. She has an appointment with psychiatrist, Dr. Baldwin on , 07/27/18 and her therapist Yaritza on 08/08/18. The patient will follow up with her primary care provider, Dr. Maikol Izaguirre as needed. E. Substance use followup is not applicable. HOSPITAL COURSE: PART A: Reason for admission - The patient presented to the emergency department on , 06/22/18 after an intentional Tylenol overdose. This was a similar presentation to her most recent admission in May of 2018. Both admissions, she attempted an overdose on Tylenol, was stabilized in ICU, and admitted to the adult behavioral services unit. She was notified in May during her admission to the [facility] that her was pursuing marriage separation. She was discharged on the 06/14/18 and then returned a week later and admitted to the ICU. PART B: Psychiatric treatment rendered: After stabilization on the ICU, the patient was admitted to the adult behavioral services unit on 2PC status. Code status is full. She was placed on 15-minute checks for safety. The patient reported increased difficulty with being able to cope with the marriage ending. She stated it had been increasingly difficult not to see her son on a daily basis and having to live away from him and her estranged . She noted that it was a particularly difficult week prior to this admission, that was her son's birthday. She noted that her was socializing more and she was easily emotionally triggered when her son asked why she was not living with him anymore. This is a typical presentation for Luly. In the past, she had significant latencies and a very flat affect. While in the emergency room and in the ICU, she required physical restraints to keep from intervening in treatment due to wish. Once on the behavioral services unit, the patient was guarded, but cooperative with treatment. She also engaged in head banging during dissociative episodes. She responded well to therapeutic intervention and behavior modification efforts. Staff was encouraged to utilize p.r.n. medications liberally when the patient was engaging in self-injurious behavior. The patient was referred to [facility]. While awaiting an answer from [facility], we increased aripiprazole to 20 mg, which the patient tolerated well. As stated above, the patient was referred for ECT, but declined due to not meeting criteria. The patient struggled with significant suicidal ideation and urges for self harm. We trialed lithium to target these symptoms. The patient reported lethargy and increased depressed mood while taking lithium 450 XR at bedtime. This was decreased to 300 mg at bedtime with no untoward effects. The patient utilized p.r.n. medications less so. She was receptive to suggestions for therapeutic coping skills and worked diligently on individual assignments given to her. Once we received notification from [facility] that she was acceptable for referral, but there was an extended wait period, the patient was referred to [facility] for [facility] hospitalization. While awaiting answers from [facility], the patient began to improve. She had decreasing frequency of self harm. She was noted to use different and more healthy coping skills as the weeks progressed. On the approximate 4th week of her admission, the patient was declined by [facility] and given this information. As stated above, due to her improvement on the unit and risk for increased dependence if hospitalization continued, treatment team discussed discharge options with the patient. She was agreeable to remain over the weekend to emotionally prepare for discharge. On 07/24/18, the patient reported readiness for discharge. She identified some anxiety in regards to transitioning to outpatient services and this was validated by her treatment providers. The patient was given much information about local resources in the community, both professional and peer-run to assist in scheduling her time. She reported improved mood, future orientation. She identified protective factors including her 7-year- old son. At the time of discharge, self-harm risk was lessened due to extended stabilization in the hospital. AMELIA RAPHAEL, SILVIA [id number]/[facility] #: [id number] NUNU
== END 2018-07-24 16:56 | disposition home or self-care (01) | DRG 885 ==
LOC: BSU 18:10
PROVIDERS: ADMIT Psychiatry & Neurology Psychiatry; ATTEND Psychiatry & Neurology Psychiatry
PROC: GZHZZZZ Group Psychotherapy (ICD-10-PCS; principal; 2018-07-03)
DX: F33.2 Major depressive disorder, recurrent severe without psychotic features (principal); F60.3 Borderline personality disorder; F43.10 Post-traumatic stress disorder, unspecified; T39.1X2A Poisoning by 4-Aminophenol derivatives, intentional self-harm, initial encounter; T43.3X2A Poisoning by phenothiazine antipsychotics and neuroleptics, intentional self-harm, initial encounter; T43.592A Poisoning by other antipsychotics and neuroleptics, intentional self-harm, initial encounter; K21.9 Gastro-esophageal reflux disease without esophagitis; K58.9 Irritable bowel syndrome, unspecified; Z62.810 Personal history of physical and sexual abuse in childhood; Z88.8 Allergy status to other drugs, medicaments and biological substances; Z81.8 Family history of other mental and behavioral disorders; Y92.009 Unspecified place in unspecified non-institutional (private) residence as the place of occurrence of the external cause
CPT/HCPCS: 36415; 80178; 90853; 99222; 99231; 99232; 99238; A9270-GY

== ENCOUNTER 2018-07-30 12:55 | Emergency (ER) | payer OTHER ==
[2018-07-30 14:46] VITALS: BP 117/69
--- NOTE | 2018-07-30 15:14 | UC ---
Lower Extremity/Ankle HPI - HPI Summary HPI Summary: C/O left foot pain x 3 weeks after extensive walking while on the psychiatric floor in the hospital. Had a negative xray in the hospital and diagnosed with plantar fasciitis - History of Current Complaint Chief Complaint: UCLowerExtremity Stated Complaint: LEFT FOOT COMPLAINT Time Seen by Provider: 07/30/18 15:04 Hx Obtained From: Patient Hx Last Menstrual Period: 07/09/18 ?: No Onset/Duration: Gradual Onset, Lasting Weeks - 3, Still Present Severity Initially: Mild Severity Currently: Moderate Pain Intensity: 5 Aggravating Factor(s): Standing, Ambulation Alleviating Factor(s): Rest, Elevation Able to Bear Weight: Yes - Allergies/Home Medications Allergies/Adverse Reactions: Allergies Allergy/AdvReac Type Severity Reaction Status Date / Time silver Allergy Hives/Diff. Verified 07/30/18 14:47 Breathing/I tching haloperidol AdvReac Agitation Verified 07/30/18 14:47 PMH/Surg Hx/FS Hx/Imm Hx Psychological History: Bipolar Disorder, Post Traumatic Stress Disorder - Surgical History Surgical History: Yes Surgery Procedure, Year, and Place: T & A - Family History Known Family History: Positive: Other Negative: Cardiac Disease, Hypertension, Diabetes Family History: FHx of depression, anxiety disorders, bipolar disorders, mood disorders - Social History Occupation: Unemployed Lives: With Family Alcohol Use: None Alcohol Amount: unable to assess. pt unwilling to state. Substance Use Type: None Smoking Status (MU): Never Smoked Tobacco Type: Cigarettes - Immunization History Most Recent Influenza Vaccination: 06/23/18 Most Recent Tetanus Shot: Unknown Most Recent Pneumonia Vaccination: n/a Review of Systems All Other Systems Reviewed And Are Negative: Yes Musculoskeletal: Positive: Arthralgia - left foot Is Patient Immunocompromised?: No Physical Exam Triage Information Reviewed: Yes Appearance: Well-Appearing, No Pain Distress, Obese Vital Signs: Initial Vital Signs Temp 98 F 07/30/18 14:38 Pulse 65 07/30/18 14:38 Resp 16 07/30/18 14:38 BP 117/69 07/30/18 14:38 Pulse Ox 100 07/30/18 14:38 Vital Signs Reviewed: Yes Eyes: Positive: Conjunctiva Clear Neck exam: Normal Respiratory Exam: Normal Cardiovascular Exam: Normal Musculoskeletal: Positive: Strength Intact - Left foot/ LE, ROM Intact - Left foot/ LE, Other: - Tenderness left plantar foot over the distal first and second metatarsal Neurological Exam: Normal Psychological Exam: Normal Skin Exam: Normal Diagnostics - Radiology No standard instances Radiology Interpretation Completed By: ED Physician Summary of Radiographic Findings: mimimally displaced distal left 2nd metatarsal fracture Lower Extremity Course/Dx - Differential Dx/Diagnosis Differential Diagnosis/HQI/PQRI: Arthritis, Fracture (Closed), Fracture (Open), Sprain, Strain Provider Diagnoses: Non-displaced left 2nd metatarsal stress fracture. Discharge - Sign-Out/Discharge Documenting (check all that apply): Patient Departure All imaging exams completed and their final reports reviewed: No - Discharge Plan Condition: Stable Disposition: HOME Patient Education Materials: Foot Fracture in Adults (ED) Referrals: Maikol Izaguirre MD [Primary Care Provider] - Edgardo Reid MD [Medical Doctor] - 1 Day (for evaluation and follow up left foot stress fracture.) - Billing Disposition and Condition Condition: STABLE Disposition: Home
--- NOTE | 2018-07-31 08:59 | UC ---
- Progress Note Progress Note: Patient Name: SAUL UGARTE Medical Record#: [id number] Ordering Physician: Maikol Izaguirre MD Acct.#: [id number] : 1985 Age: 32 Sex: F Location: [facility] Exam Date: 07/30/181511 ADM Status: [facility] ER Order Information: FOOT LEFT 3+ VWS Accession Number: [id number] CPT: 43771 Indication: LEFT forefoot pain for 3 weeks. Question stress fracture. Comparison: July 14, 2018 radiographs. Technique: AP, lateral, and oblique views LEFT foot. Report: Nondisplaced stress fracture at the distal diaphysis of the second metatarsal, new compared with the prior exam, with callus formation indicating early healing response. No additional fracture or articular malalignment. Mild osteoarthritis at the first metatarsal phalangeal joint. IMPRESSION: #. Stress fracture distal diaphysis second metatarsal with early healing response. <Electronically signed by Donal Burks MD in OV> 07/30/181547 Dictated By: Donal Burks MD Dictated Date/Time: 07/30/181547 Transcribed Date/Time: 07/30/181546 Copy to: CC:Maikol Izaguirre MD Imaging - [facility] Imaging [facility] [address] [place] [address] ph ([phone]) ph ([phone]) ph ([phone]) This report is only to be considered final once signed by the Provider(s) as displayed in the "<Electronically Signed by >" field (s). Absence of a signature indicates the report is in a draft status and still needs to be finalized. In the event this document was created by someone other than the signing Provider, the individual initiating the document will be listed in the "Entered by:" or "Dictated by:" bull. 1 of 1 Discharge - Sign-Out/Discharge Documenting (check all that apply): Post-Discharge Follow Up All imaging exams completed and their final reports reviewed: Yes - Discharge Plan Condition: Stable Disposition: HOME Patient Education Materials: Foot Fracture in Adults (ED) Referrals: Edgardo Reid MD [Medical Doctor] - 1 Day (for evaluation and follow up left foot stress fracture.) Maikol Izaguirre MD [Primary Care Provider] - - Billing Disposition and Condition Condition: STABLE Disposition: Home
== END 2018-07-30 15:38 | disposition home or self-care (01) ==
LOC: UCCORT 12:55
DX: M84.375A Stress fracture, left foot, initial encounter for fracture (principal); Z91.048 Other nonmedicinal substance allergy status; Z88.8 Allergy status to other drugs, medicaments and biological substances; X50.9XXA Other and unspecified overexertion or strenuous movements or postures, initial encounter; Y93.01 Activity, walking, marching and hiking; Y92.9 Unspecified place or not applicable
CPT/HCPCS: 99212; G0463

== ENCOUNTER 2018-09-07 13:55 | Inpatient (IN) | payer OTHER ==
[2018-09-07] MEDS ORDERED: Nicotine Inhaler* 10 MG AMP INH PRN ×2 (14:15→20:31)
[2018-09-07 14:37] LABS: ABS Basophils 0.1 10^3/ul (0-0.2); ABS Eosinophils 0.2 10^3/ul (0-0.6); ABS Lymphocytes 2.1 10^3/ul (1.0-4.8); ABS Monocytes 0.6 10^3/ul (0-0.8); ABS Neutrophils 5.8 10^3/ul (1.5-7.7); ABS Nucleated RBC 0 10^3/ul; Eosinophil % 2.7 %; Hematocrit 40 % (35-47); Hemoglobin 13.2 g/dl (12.0-16.0); Lymphocyte % 23.8 %; Mean Corpuscular HGB Conc 33 g/dl (31-36); Mean Corpuscular Hemoglobin 29 pg (27-31); Mean Corpuscular Volume 88 fL (80-97); Mean Platelet Volume 7.6 fL (7.4-10.4); Nucleated Red Blood Cells % 0; Platelet Count 296 10^3/ul (150-450); Red Blood Count 4.53 10^6/ul (4.00-5.40); Red Cell Distribution Width 13 % (10.5-15); White Blood Count 8.8 10^3/ul (3.5-10.8)
--- OUTSIDE RECORDS SUMMARY | 2018-09-07 14:37 | XMS REPORT | Continuity of Care Document ---
:1985 External Reference #:[id number] Author Name Patricia Luu Care Team Providers Name Role Phone Maikol Izaguirre MD Primary Care Physician Unavailable Payers Type Date Identification Numbers Payment Provider Subscriber Policy Number: [id number] [facility] ([facility]) Luly Peralta PayID: [id number] [address] [place] [address] Policy Number: [id number] [facility] Luly Peralta PayID: [id number] [address] [address] [place] [address] Advance Directives Description No Information Available Problems Date Description Provider Status Onset: 05/30/2018 Injury due to suicide attempt Prisca Nelson NP Active Onset: 05/30/2018 Posttraumatic stress disorder Prisca Nelson NP Active Onset: 05/30/2018 Obesity Prisca Nelson NP Active Onset: 05/30/2018 Body mass index 30+ - obesity Prisca Nelson NP Active Onset: 05/31/2018 Major depressive disorder, Eric Crump MD Active single episode, unspecified Family History Date Family Member(s) Problem(s) Comments General Factor 5 Leiden,DVTS bilateral maternal grandfather-lung legs cancer maternal agipwubsdgq-Kfbztc-pkht MIs General younger brother-factor 5 leiden Social History Type Date Description Comments Sex Unknown Lives With Family Occupation Disabled ETOH Use Never used alcohol Tobacco Use Start: Unknown Patient has never smoked Smoking Status Reviewed: 08/30/18 Patient has never smoked Exercise Type/Frequency Does not exercise Allergies, Adverse Reactions, Alerts Date Description Reaction Status Severity Comments 08/02/2018 Haldol Active becomes more aggressive 08/02/2018 Silver Active hives and rash Medications Medication Date Status Form Strength Qnty SIG Indications Ordering Provider Prozac Active Capsules 20mg 3 by mouth Unknown 000 every day Abilify Active Tablets 20mg 1 by mouth Unknown 000 every day Remeron Active Tablets 15mg take 1 Unknown 000 tablet every day at bedtime Prazosin HCL Active Capsules 1mg 3 tabs by Unknown 000 mouth daily Hydroxyzine HCL Active Tablets 50mg 1 tablets Unknown 000 3 times daily. Vitamin D-3 Active Tablets 50,000 take 1 tab Unknown 000 by mouth once a week [place] Active Capsules 300mg 1 by mouth Unknown Carbonate 000 daily Ibuprofen Active Tablets 200mg 3 tabs by Unknown 000 mouth once daily Immunizations Description No Information Available Vital Signs Date Vital Result Comment 08/30/2018 11:45am Heart Rate 72 /min BP Systolic Sitting 104 mmHg BP Diastolic Sitting 84 mmHg Respiratory Rate 16 /min Pain Level 0 08/02/2018 1:34pm Weight 251.00 lb Heart Rate 72 /min BP Systolic Sitting 102 mmHg BP Diastolic Sitting 78 mmHg Respiratory Rate 16 /min Pain Level 5 Results Description No Information Available Procedures Date Code Description Status 05/30/2018 04443 EKG, Interpretation Only Completed Encounters Type Date Location Provider Dx Diagnosis Office Visit 08/02/2018 [facility] Eduardo Julian, M84.375A Stress fracture, 1:30p [employer] [facility].. left foot, initial encounter for fracture Office Visit 06/24/2018 [facility] Ambika Lamar T39.1x2A Poisoning by 9:07a brynn eBdoya M.D. 4-Aminophenol Hospitalists derivatives, self-harm, init F43.10 Post-traumatic stress disorder, unspecified F32.9 Major depressive disorder, single episode, unspecified Office Visit 06/22/2018 [facility] Ambika T39.1x2A Poisoning by 9:05a brynn Bedoya M.D. 4-Aminophenol Hospitalists derivatives, self-harm, init F32.9 Major depressive disorder, single episode, unspecified F43.10 Post-traumatic stress disorder, unspecified Office Visit 05/31/2018 [facility] Eric Vazquez T39.1x2A Poisoning by 9:51a Assoc,brynn Crump MD 4-Aminophenol Hospitalists derivatives, self-harm, init F43.10 Post-traumatic stress disorder, unspecified E66.9 Obesity, unspecified F32.9 Major depressive disorder, single episode, unspecified Z68.38 Body mass index (BMI) 38.0-38.9, adult Office 05/30/2018 [facility] T39.1x2A Poisoning by Visit 9:51a Assoc,brynn Nelson NP 4-Aminophenol Hospitalists derivatives, self-harm, init F43.10 Post-traumatic stress disorder, unspecified E66.9 Obesity, unspecified Z68.38 Body mass index (BMI) 38.0-38.9, adult Plan of Treatment 08/30/2018 - Carlos Eduardo Jordan M.D.M84.375D Stress fracture, left foot, subsequent encounter for fracturNew Xrays:Foot Left 3+ VWS, Ordered: ollow up:As needed
[2018-09-07 14:40] LABS: Urine Appearance Cloudy; Urine Bacteria Absent (Absent); Urine Bilirubin Negative (Negative); Urine Blood 3+ (Negative); Urine Color Yellow; Urine Glucose Negative (Negative); Urine Ketones Negative (Negative); Urine Nitrite Negative (Negative); Urine Protein Negative (Negative); Urine Red Blood Cell 3+(>10/hpf) (Absent); Urine Specific Gravity 1.009 (1.010-1.030); Urine Urobilinogen Negative (Negative); Urine White Blood Cell 1+(6-10/hpf) (Absent)
[2018-09-07 14:58] LABS: ALT 18 U/L (7-52); AST 13 U/L (13-39); Albumin 4.2 g/dL (3.2-5.2); Albumin/Globulin Ratio 1.3 (1-3); Alkaline Phosphatase 62 U/L (34-104); Anion Gap 7 mmol/L (2-11); BUN/Creatinine Ratio 13.1 (8-20); Blood Urea Nitrogen 13 mg/dL (6-24); CO2 Carbon Dioxide 26 mmol/L (22-32); Calcium 9.5 mg/dL (8.6-10.3); Chloride 105 mmol/L (101-111); EGFR Non-African American 65.4 (>60); Globulin 3.3 g/dL (2-4); Glucose 93 mg/dL (70-100); Sodium 138 mmol/L (135-145); Total Protein 7.5 g/dL (6.4-8.9)
[2018-09-07 14:59] LABS: Barbiturates Urine Screen None Detected (None Detect); Benzodiazepine Urine Screen None Detected (None Detect); Urine Cannabinoids Screen None Detected (None Detect)
[2018-09-07 15:35] LABS: Acetaminophen < 15 mcg/mL; Alcohol < 10 mg/dL (<10); Lithium 0.14 mmol/L (0.6-1.2); Salicylate < 2.50 mg/dL (<30)
[2018-09-07 15:40] LABS: TSH (Thyroid Stimulating Horm) 2.14 mcIU/mL (0.34-5.60)
[2018-09-07] MEDS ORDERED: Al Hydrox/Mg Hydrox/Simet LIQ* 30 ML UDC PO PRN (20:31)
[2018-09-07] MEDS ORDERED: Nicotine GUM* 2 MG PO PRN (20:31)
[2018-09-07] MEDS ORDERED: Acetaminophen TAB* 325 MG PO PRN (20:31)
[2018-09-07] MEDS ORDERED: Mouth Piece, Nicotine* 1 EACH CARTRIDGE INH SCH (20:31)
[2018-09-07] MEDS: Lithium Carbonate TAB* 300 MG PO SCH (20:55)
[2018-09-07] MEDS: Mirtazapine TAB* 15 MG PO SCH (20:55)
[2018-09-07] MEDS: Prazosin CAP* 1 MG PO SCH (20:55)
--- NOTE | 2018-09-08 05:56 | ED ---
Psychiatric Complaint - HPI Summary HPI Summary: Patient is a 33-year-old female with history of depression and anxiety presenting to the ED if worsening depression and suicidal ideation. Denies any homicidal ideation. She takes lithium daily 300 mg and states today she took 900 mg. She was able to go to group today and spoke with a counselor who referred her here to the ED for further evaluation. She states her plan to commit suicide includes cutting herself and overdosing. She has attempted overdose in the past. She also states she has self-harm which occurs almost weekly. She denies any specific instigating incident for concern which increased her depression over the past week. She states she has been suicidal since last night. She states she continues to feel suicidal at this time. - History Of Current Complaint Chief Complaint: EDMentalHealth Time Seen by Provider: 09/07/18 14:00 Hx Obtained From: Patient Hx Last Menstrual Period: 07/09/18 ?: No Onset/Duration: Sudden Onset Timing: Constant Severity Initially: Severe Severity Currently: Severe Character: Depressed Aggravating Factor(s): Nothing Alleviating Factor(s): Nothing Associated Signs And Symptoms: Positive: Negative Related History: Positive For: Prior Psychiatric Issues Has Suicidal: Reports: Demonstrates Gesture - lithium OD - took 900mg, Has Prior Attempt(s) Ingestion History: Type/Name Of Drug - lithium, Amount Ingested - 900mg, Approximate Time Of Ingestion - last evening, unknown time - Risk Factor(s) Completed Suicide Risk Factors: Negative - Allergies/Home Medications Allergies/Adverse Reactions: Allergies Allergy/AdvReac Type Severity Reaction Status Date / Time silver Allergy Hives/Diff. Verified 07/30/18 14:47 Breathing/I tching haloperidol AdvReac Agitation Verified 07/30/18 14:47 PMH/Surg Hx/FS Hx/Imm Hx Previously Healthy: Yes Endocrine/Hematology History: Denies: Hx Diabetes, Hx Anemia Cardiovascular History: Denies: Hx Hypertension, Hx Pacemaker/ICD Respiratory History: Denies: Hx Asthma, Hx Chronic Bronchitis, Hx Pneumonia, Hx Pulmonary Embolism GI History: Reports: Hx Irritable Bowel Denies: Hx Crohn's Disease, Hx Diverticulosis History: Denies: Hx Acute Renal Failure, Hx Kidney Stones Musculoskeletal History: Reports: Hx Scoliosis Denies: Hx Arthritis Comment Only: Other Musculoskeletal History - Right sprained ankle Sensory History: Reports: Hx Contacts or Glasses Denies: Hx Hearing Aid Opthamlomology History: Reports: Hx Contacts or Glasses Neurological History: Denies: Hx Headaches, Hx Seizures Psychiatric History: Reports: Hx Anxiety, Hx Depression, Hx Post Traumatic Stress Disorder, Hx Inpatient Treatment - [facility] last 02/2017, Hx Community Mental Health Tx, Hx Suicide Attempt Denies: Hx Attention Deficit Hyperactivity Disorder, Hx Eating Disorder, Hx Panic Disorder, Hx Schizophrenia, Hx Bipolar Disorder, Hx of Violent Episodes Against Others, Hx Substance Abuse, Other Psychiatric Issues/Disorders - Surgical History Surgery Procedure, Year, and Place: T & A - Immunization History Hx Pertussis Vaccination: No Immunizations Up to Date: Yes Infectious Disease History: No Infectious Disease History: Denies: Traveled Outside the [place] in Last 30 Days - Family History Known Family History: Positive: None, Other Negative: Cardiac Disease, Hypertension, Diabetes Family History: FHx of depression, anxiety disorders, bipolar disorders, mood disorders - Social History Occupation: Unemployed Lives: Alone Alcohol Use: None Alcohol Amount: unable to assess. pt unwilling to state. Hx Substance Use: No Substance Use Type: Reports: None Hx Tobacco Use: No Smoking Status (MU): Never Smoked Tobacco Type: Cigarettes Review of Systems Constitutional: Negative Negative: Fever, Chills, Fatigue, Skin Diaphoresis Negative: Palpitations, Chest Pain Negative: Shortness Of Breath, Cough Genitourinary: Negative Positive: no symptoms reported, see HPI Negative: Arthralgia, Myalgia Skin: Negative Neurological: Negative Positive: Depressed All Other Systems Reviewed And Are Negative: Yes Physical Exam Triage Information Reviewed: Yes Vital Signs On Initial Exam: Initial Vitals Temp Pulse Resp BP Pulse Ox 98.3 F 87 17 121/78 98 09/07/18 14:04 09/07/18 14:04 09/07/18 14:04 09/07/18 14:04 09/07/18 14:04 Vital Signs Reviewed: Yes Appearance: Positive: Well-Appearing, Well-Nourished Skin: Positive: Warm, Skin Color Reflects Adequate Perfusion Neck: Positive: Supple, No Lymphadenopathy Respiratory/Lung Sounds: Positive: Clear to Auscultation, Breath Sounds Present Cardiovascular: Positive: RRR Musculoskeletal: Positive: Strength/ROM Intact Neurological: Positive: Sensory/Motor Intact, Alert, Oriented to Person Place, Time, Speech Normal Psychiatric: Positive: Anxious, Depressed AVPU Assessment: Alert Diagnostics - Vital Signs Vital Signs Temp Pulse Resp BP Pulse Ox 12/27/18 18:32 98.1 F 66 16 107/81 99 09/07/18 16:39 98.4 F 64 16 130/76 100 09/07/18 14:04 98.3 F 87 17 121/78 98 - Laboratory Lab Results: Lab Results 09/07/18 09/07/18 09/07/18 Range/Units 14:22 14:22 14:25 WBC 8.8 (3.5-10.8) 10^3/ul RBC 4.53 (4.00-5.40) 10^6/ul Hgb 13.2 (12.0-16.0) g/dl Hct 40 (35-47) % MCV 88 (80-97) fL MCH 29 (27-31) pg MCHC 33 (31-36) g/dl RDW 13 (10.5-15) % Plt Count 296 (150-450) 10^3/ul MPV 7.6 (7.4-10.4) fL Neut % (Auto) 65.7 % Lymph % (Auto) 23.8 % [place] % (Auto) 7.2 % Eos % (Auto) 2.7 % Baso % (Auto) 0.6 % Absolute Neuts (auto) 5.8 (1.5-7.7) 10^3/ul Absolute Lymphs (auto) 2.1 (1.0-4.8) 10^3/ul Absolute Monos (auto) 0.6 (0-0.8) 10^3/ul Absolute Eos (auto) 0.2 (0-0.6) 10^3/ul Absolute Basos (auto) 0.1 (0-0.2) 10^3/ul Absolute Nucleated RBC 0 10^3/ul Nucleated RBC % 0 Sodium (135-145) mmol/L Potassium (3.5-5.0) mmol/L Chloride (101-111) mmol/L Carbon Dioxide (22-32) mmol/L Anion Gap (2-11) mmol/L BUN (6-24) mg/dL Creatinine (0.51-0.95) mg/dL Est GFR ( Amer) (>60) Est GFR (Non-Af Amer) (>60) BUN/Creatinine Ratio (8-20) Glucose (70-100) mg/dL Calcium (8.6-10.3) mg/dL Total Bilirubin (0.2-1.0) mg/dL AST (13-39) U/L ALT (7-52) U/L Alkaline Phosphatase (34-104) U/L Total Protein (6.4-8.9) g/dL Albumin (3.2-5.2) g/dL Globulin (2-4) g/dL Albumin/Globulin Ratio (1-3) TSH (0.34-5.60) mcIU/mL Urine Color Yellow Urine Appearance Cloudy Urine pH 6.0 (5-9) Ur Specific [place] 1.009 L (1.010-1.030) Urine Protein Negative (Negative) Urine Ketones Negative (Negative) Urine Blood 3+ A (Negative) Urine Nitrate Negative (Negative) Urine Bilirubin Negative (Negative) Urine Urobilinogen Negative (Negative) Ur Leukocyte Esterase Negative (Negative) Urine WBC (Auto) 1+(6-10/hpf) A (Absent) Urine RBC (Auto) 3+(>10/hpf) A (Absent) Ur Squamous Epith Cells Present A (Absent) Urine Bacteria Absent (Absent) Urine Glucose Negative (Negative) Salicylates (<30) mg/dL Urine Opiates Screen None detected (None Detect) Acetaminophen mcg/mL Ur Barbiturates Screen None detected (None Detect) Ur Phencyclidine Scrn None detected (None Detect) Ur Amphetamines Screen None detected (None Detect) U Benzodiazepines Scrn None detected (None Detect) Croom (0.6-1.2) mmol/L Urine Cocaine Screen None detected (None Detect) U Cannabinoids Screen None detected (None Detect) Serum Alcohol (<10) mg/dL 09/07/18 Range/Units 14:25 WBC (3.5-10.8) 10^3/ul RBC (4.00-5.40) 10^6/ul Hgb (12.0-16.0) g/dl Hct (35-47) % MCV (80-97) fL MCH (27-31) pg MCHC (31-36) g/dl RDW (10.5-15) % Plt Count (150-450) 10^3/ul MPV (7.4-10.4) fL Neut % (Auto) % Lymph % (Auto) % [place] % (Auto) % Eos % (Auto) % Baso % (Auto) % Absolute Neuts (auto) (1.5-7.7) 10^3/ul Absolute Lymphs (auto) (1.0-4.8) 10^3/ul Absolute Monos (auto) (0-0.8) 10^3/ul Absolute Eos (auto) (0-0.6) 10^3/ul Absolute Basos (auto) (0-0.2) 10^3/ul Absolute Nucleated RBC 10^3/ul Nucleated RBC % Sodium 138 (135-145) mmol/L Potassium 4.0 (3.5-5.0) mmol/L Chloride 105 (101-111) mmol/L Carbon Dioxide 26 (22-32) mmol/L Anion Gap 7 (2-11) mmol/L BUN 13 (6-24) mg/dL Creatinine 0.99 H (0.51-0.95) mg/dL Est GFR ( Amer) 79.2 (>60) Est GFR (Non-Af Amer) 65.4 (>60) BUN/Creatinine Ratio 13.1 (8-20) Glucose 93 (70-100) mg/dL Calcium 9.5 (8.6-10.3) mg/dL Total Bilirubin 0.50 (0.2-1.0) mg/dL AST 13 (13-39) U/L ALT 18 (7-52) U/L Alkaline Phosphatase 62 (34-104) U/L Total Protein 7.5 (6.4-8.9) g/dL Albumin 4.2 (3.2-5.2) g/dL Globulin 3.3 (2-4) g/dL Albumin/Globulin Ratio 1.3 (1-3) TSH 2.14 (0.34-5.60) mcIU/mL Urine Color Urine Appearance Urine pH (5-9) Ur Specific [place] (1.010-1.030) Urine Protein (Negative) Urine Ketones (Negative) Urine Blood (Negative) Urine Nitrate (Negative) Urine Bilirubin (Negative) Urine Urobilinogen (Negative) Ur Leukocyte Esterase (Negative) Urine WBC (Auto) (Absent) Urine RBC (Auto) (Absent) Ur Squamous Epith Cells (Absent) Urine Bacteria (Absent) Urine Glucose (Negative) Salicylates < 2.50 (<30) mg/dL Urine Opiates Screen (None Detect) Acetaminophen < 15 mcg/mL Ur Barbiturates Screen (None Detect) Ur Phencyclidine Scrn (None Detect) Ur Amphetamines Screen (None Detect) U Benzodiazepines Scrn (None Detect) Croom 0.14 L (0.6-1.2) mmol/L Urine Cocaine Screen (None Detect) U Cannabinoids Screen (None Detect) Serum Alcohol < 10 (<10) mg/dL Result Diagrams: 09/07/18 14:25 09/07/18 14:25 Lab Statement: Any lab studies that have been ordered have been reviewed, and results considered in the medical decision making process. Course/Dx - Course Course Of Treatment: Labs obtained and patient was placed on a every 15 check. Discussed situation with mental health unit. Croom level is low and patient states she took this yesterday. No further evaluation of lithium toxicity required. Labs showed no alcohol, acetaminophen or other drugs of abuse. She is cleared for mental health evaluation. - Differential Dx/Clinical Impression Differential Diagnosis/HQI/PQRI: Positive: Anxiety, Depression, Suicide Attempt , Suicidal Ideation, Suicidal Gesture Provider Diagnosis: Depression, Suicidal intent Discharge - Sign-Out/Discharge Documenting (check all that apply): Patient Departure All imaging exams completed and their final reports reviewed: No Studies - Discharge Plan Condition: Fair Disposition: PSYCHIATRIC FACILITY-[facility] - Billing Disposition and Condition Condition: FAIR Disposition: Psychiatric Facility [facility]
[2018-09-08 07:13] LABS: HDL Cholesterol 36.8 mg/dL
[2018-09-08] MEDS: ARIPiprazole TAB* 20 MG PO SCH (08:34)
[2018-09-08] MEDS: FLUoxetine CAP* 20 MG PO SCH (08:35)
[2018-09-08] MEDS: Norethindrone/Eth Est 1.5/30NF 1 TAB TAB PO SCH (08:35)
[2018-09-08] MEDS: Vitamin THERAPEUTIC TAB PO SCH (08:35)
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
[2018-09-08] MEDS: Ibuprofen TAB* 600 MG PO PRN (20:50)
[2018-09-08] MEDS: Prazosin CAP* 1 MG PO SCH (20:50)
[2018-09-08] MEDS: Lithium Carbonate TAB* 300 MG PO SCH (20:51)
[2018-09-08] MEDS: Mirtazapine TAB* 15 MG PO SCH (20:51)
[2018-09-09] MEDS: ARIPiprazole TAB* 20 MG PO SCH (08:25)
[2018-09-09] MEDS: Vitamin THERAPEUTIC TAB PO SCH (08:25)
[2018-09-09] MEDS: FLUoxetine CAP* 20 MG PO SCH (08:25)
[2018-09-09] MEDS: PTO:Norethindrone (NF) 0.35 MG TAB PO SCH (11:20)
[2018-09-09] MEDS: Ibuprofen TAB* 600 MG PO PRN (11:21)
[2018-09-09] MEDS: Norethindrone/Eth Est 1.5/30NF 1 TAB TAB PO SCH (11:54)
[2018-09-09] MEDS: Nystatin TOP POWDER* 15 GM BTL TOPICAL PRN (15:57)
--- NOTE | 2018-09-09 18:19 | PN ---
Subjective - Subjective Date of Service: 09/09/18 Service Type: 56117 Hosp care 15 min low complexity Subjective: Saul says she is having a better day today with better mood and no suicidal thoughts. Reading a book and appeared to be comfortable in the day room. Denies hallucinations or delusions. Objective - Appearance Appearance: Healthy Appearing, Obese Dysmorphic Features: No Hygiene: Normal Grooming: Well Kept - Behavior Psychomotor Activities: Normal Exhibits Abnormal Movement: No - Attitude and Relatedness Attitude and Relatedness: Appropriate Eye Contact: Good - Speech Quality: Unpressured Latencies: Normal Quantity: Appropriate - Mood Patient's Decription of Mood: "Good" - Affect Observed Affect: Non-labile - Thought Process Patient's Thought Process: Coherent, Goal Directed Thought Content: No Passive Wish, No Suicidal Planning, No Homicidal Ideation, No Paranoid Ideation - Sensorium Experiencing Hallucinations: No, Sensorium is Clear Type of Hallucinations: Visual: No, Auditory: No, Command: No - Level of Consciousness Level of Consciousness: Alert Orientation: Yes Intact, Yes Orientated to Time, Yes Orientated to Place, Yes Orientated to Person - Impulse Control Impulse Control: Tenuous - Insight and Judgement Insight and Judgement: Fair - Group Participation Particating in Group Activities: No - Medication Management Medication Management Adherence: Yes Assessment - Assessment Merits Inpatient Hospitalization: For Immediate Safety, For Stabilization, Pending Safe DC Plan Plan - Plan Treatment Plan: Name: SAUL UGARTE Birthdate: 1985 [id number] Continued Medication Management: Continue Outpt Medication Medications: Current Medications Acetaminophen (Tylenol Tab*) 650 mg PO Q4H PRN PRN Reason: PAIN or TEMP > 101 F Al Hydrox/Mg Hydrox/Simethicone (Maalox Plus*) 30 ml PO Q4H PRN PRN Reason: INDIGESTION Aripiprazole (Abilify Tab*) 20 mg PO DAILY MARYA Last Admin: 09/09/18 08:25 Dose: 20 mg Device (Nicotine Mouth Piece*) 1 each INH .CARTRIDGE MARYA Fluoxetine HCl (Prozac Cap*) 60 mg PO DAILY MARYA Last Admin: 09/09/18 08:25 Dose: 60 mg Ibuprofen (Motrin Tab*) 600 mg PO Q4H PRN PRN Reason: PAIN Last Admin: 09/09/18 11:21 Dose: 600 mg Kelayres Carbonate (Kelayres Carbonate Tab*) 300 mg PO BEDTIME MARYA Last Admin: 09/08/18 20:51 Dose: 300 mg Mirtazapine (Remeron Tab*) 15 mg PO BEDTIME MARYA Last Admin: 09/08/18 20:51 Dose: 15 mg Multivitamins (Theragran Tab*) 1 tab PO DAILY MARYA Last Admin: 09/09/18 08:25 Dose: 1 tab Norethindrone (Shannon (Nf)) 0.35 mg PO DAILY MARYA Last Admin: 09/09/18 11:20 Dose: 0.35 mg Nystatin (Nystatin Top Powder*) 1 applic TOPICAL TID PRN PRN Reason: BREAST REDNESS Last Admin: 09/09/18 15:57 Dose: 1 applic Prazosin HCl (Minipress Cap*) 3 mg PO BEDTIME MARYA Last Admin: 09/08/18 20:50 Dose: 3 mg - Discharge Plan Discharge Plan: Outpatient [facility]
[2018-09-09] MEDS: Lithium Carbonate TAB* 300 MG PO SCH (20:29)
[2018-09-09] MEDS: Mirtazapine TAB* 15 MG PO SCH (20:29)
[2018-09-09] MEDS: Prazosin CAP* 1 MG PO SCH (20:29)
[2018-09-10] MEDS: Ibuprofen TAB* 600 MG PO PRN ×3 (05:03→21:08)
[2018-09-10] MEDS: ARIPiprazole TAB* 20 MG PO SCH (08:21)
[2018-09-10] MEDS: FLUoxetine CAP* 20 MG PO SCH (08:21)
[2018-09-10] MEDS: Vitamin THERAPEUTIC TAB PO SCH (08:21)
[2018-09-10] MEDS: PTO:Norethindrone (NF) 0.35 MG TAB PO SCH (08:21)
[2018-09-10] MEDS: Nystatin TOP POWDER* 15 GM BTL TOPICAL PRN (09:53)
[2018-09-10] MEDS: Mirtazapine TAB* 15 MG PO SCH (21:08)
[2018-09-10] MEDS: Lithium Carbonate TAB* 300 MG PO SCH (21:08)
[2018-09-10] MEDS: Prazosin CAP* 1 MG PO SCH (21:09)
[2018-09-11] MEDS: Ibuprofen TAB* 600 MG PO PRN ×3 (04:19→20:57)
[2018-09-11] MEDS: PTO:Norethindrone (NF) 0.35 MG TAB PO SCH (08:49)
[2018-09-11] MEDS: Vitamin THERAPEUTIC TAB PO SCH (08:50)
[2018-09-11] MEDS: FLUoxetine CAP* 20 MG PO SCH (08:50)
[2018-09-11] MEDS: ARIPiprazole TAB* 20 MG PO SCH (08:50)
[2018-09-11] MEDS: Nystatin TOP POWDER* 15 GM BTL TOPICAL PRN (09:15)
--- NOTE | 2018-09-11 12:49 | PN ---
Subjective - Subjective Date of Service: 09/11/18 Service Type: 10591 Hosp care 15 min low complexity Subjective: The patient was seen in Holiday coverage for NPP, Ramona Lares. Saul states that she feels well and ready for discharge. Staff notes indicate that she woke up at 04:00 this morning and was crying and banging her head against the wall. She attributes this to the Holiday season, which is increasingly tough now that she perceives she has lost her family. She's agreeable to staying the additional iday day here on the unit and discussing discharge with Ramona tomorrow. She denies SI or current thoughts of self-harm. Objective - Appearance Appearance: Well Developed/Nourished Dysmorphic Features: No Hygiene: Normal Grooming: Well Kept - Behavior Psychomotor Activities: Normal Exhibits Abnormal Movement: No - Attitude and Relatedness Attitude and Relatedness: Cooperative Eye Contact: Fair - Speech Quality: Unpressured Latencies: Normal Quantity: Appropriate - Mood Patient's Decription of Mood: "Okay" - Affect Observed Affect: Fair Affect Consistent with: Euthymia - Thought Process Patient's Thought Process: Coherent Thought Content: No Passive Wish, No Suicidal Planning, No Homicidal Ideation, No Paranoid Ideation - Sensorium Experiencing Hallucinations: No, Sensorium is Clear Type of Hallucinations: Visual: No, Auditory: No, Command: No - Level of Consciousness Level of Consciousness: Alert Orientation: Yes Intact, Yes Orientated to Time, Yes Orientated to Place, Yes Orientated to Person - Impulse Control Impulse Control: Tenuous - Insight and Judgement Insight and Judgement: Fair - Group Participation Particating in Group Activities: Yes - Medication Management Medication Management Adherence: Yes Assessment - Assessment Merits Inpatient Hospitalization: Consolidate Improvements, Pending Safe DC Plan Inpatient DSM-V Dx: F43.10 Clinical Impression: 33 y.o. , white female with a history of PTSD and borderline PD admitted voluntarily following an overdose on lithium and hydroxyzine. MHU: Problem List - Patient Problems (1) PTSD (post-traumatic stress disorder) Current Visit: Yes Status: Acute Code(s): F43.10 - POST-TRAUMATIC STRESS DISORDER, UNSPECIFIED SNOMED Code(s): 09279114 Plan - Plan Treatment Plan: Name: SAUL UGARTE Birthdate: 1985 [id number] The patient has been kept on her outpatient medication regimen of lithium, hydroxyzine, aripiprazole, fluoxetine, prazosin and mirtazapine. Continue inpatient care. Continued Medication Management: Continue Outpt Medication Medications: Current Medications Acetaminophen (Tylenol Tab*) 650 mg PO Q4H PRN PRN Reason: PAIN or TEMP > 101 F Al Hydrox/Mg Hydrox/Simethicone (Maalox Plus*) 30 ml PO Q4H PRN PRN Reason: INDIGESTION Aripiprazole (Abilify Tab*) 20 mg PO DAILY [facility] Last Admin: 09/11/18 08:50 Dose: 20 mg Device (Nicotine Mouth Piece*) 1 each INH .[place] [facility] Fluoxetine HCl (Prozac Cap*) 60 mg PO DAILY [facility] Last Admin: 09/11/18 08:50 Dose: 60 mg Ibuprofen (Motrin Tab*) 600 mg PO Q4H PRN PRN Reason: PAIN Last Admin: 09/11/18 04:19 Dose: 600 mg [place] Carbonate ([place] Carbonate Tab*) 300 mg PO BEDTIME MARYA Last Admin: 09/10/18 21:08 Dose: 300 mg Mirtazapine (Remeron Tab*) 15 mg PO BEDTIME MARYA Last Admin: 09/10/18 21:08 Dose: 15 mg Multivitamins (Theragran Tab*) 1 tab PO DAILY [facility] Last Admin: 09/11/18 08:50 Dose: 1 tab Norethindrone ([place] (Nf)) 0.35 mg PO DAILY [facility] Last Admin: 09/11/18 08:49 Dose: 0.35 mg Nystatin (Nystatin Top Powder*) 1 applic TOPICAL TID PRN PRN Reason: BREAST REDNESS Last Admin: 09/11/18 09:15 Dose: 1 applic Prazosin HCl (Minipress Cap*) 3 mg PO BEDTIME MARYA Last Admin: 09/10/18 21:09 Dose: 3 mg - Discharge Plan Discharge Plan: Outpatient Follow Up Outpatient Program: [facility]
[2018-09-11] MEDS: Mirtazapine TAB* 15 MG PO SCH (20:54)
[2018-09-11] MEDS: Lithium Carbonate TAB* 300 MG PO SCH (20:54)
[2018-09-11] MEDS: Prazosin CAP* 1 MG PO SCH (20:55)
[2018-09-12] MEDS: Ibuprofen TAB* 600 MG PO PRN (08:49)
[2018-09-12] MEDS: PTO:Norethindrone (NF) 0.35 MG TAB PO SCH (08:49)
[2018-09-12] MEDS: ARIPiprazole TAB* 20 MG PO SCH (08:49)
[2018-09-12] MEDS: Vitamin THERAPEUTIC TAB PO SCH (08:50)
[2018-09-12] MEDS: FLUoxetine CAP* 20 MG PO SCH (08:50)
[2018-09-12] MEDS: Nystatin TOP POWDER* 15 GM BTL TOPICAL PRN (08:51)
[2018-09-12 10:05] VITALS: BP 121/79
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
== END 2018-09-12 13:30 | disposition home or self-care (01) | DRG 882 ==
LOC: ED 13:55 → BSU 19:05
PROVIDERS: ADMIT Psychiatry & Neurology Psychiatry; ATTEND Psychiatry & Neurology Psychiatry
DX: F43.10 Post-traumatic stress disorder, unspecified (principal); R45.851 Suicidal ideations; F60.3 Borderline personality disorder; K58.9 Irritable bowel syndrome, unspecified; K21.9 Gastro-esophageal reflux disease without esophagitis; Z79.899 Other long term (current) drug therapy; Z88.8 Allergy status to other drugs, medicaments and biological substances; Z91.048 Other nonmedicinal substance allergy status; Z81.8 Family history of other mental and behavioral disorders
CPT/HCPCS: 36415; 80053; 80061; 80178; 80307; 80320; 80329; 81003; 81015; 83036; 84443; 85025; 87077; 87086; 87186; 99222; 99231; 99238; 99284; A9270-GY; G0480

== ENCOUNTER 2018-09-14 14:15 | Emergency (ER) | payer OTHER ==
[2018-09-14] MEDS ORDERED: Nicotine Inhaler* 10 MG AMP INH PRN (14:45)
--- NOTE | 2018-09-14 14:59 | ED ---
Psychiatric Complaint - HPI Summary HPI Summary: This pt is a 33 y/o female presenting to [facility] c/o depression and SI for the past 3 days. Pt reports she has SI thoughts and plan to cut herself. She states she has done this in the past. Pt states currently feeing unsafe. She notes a couple of triggers, including something that happened in the hospital last time she was here. Pt reports that while in the hospital she had a roommate "who kept playing with herself a lot" and this reminded her of her past traumatic experience. She states "this" keeps playing in her head over and over. She has been hospitalized in the past for mental health. Pt is on Prozac, Abilify, Remeron, [place], Hydroxyzine. She states she has not missed any doses. She notes her periods are late. Denies probability of as she has been abstinence for 2 years. Denies drug or alcohol use. - History Of Current Complaint Chief Complaint: EDMentalHealth Time Seen by Provider: 09/14/18 14:45 Hx Obtained From: Patient Hx Last Menstrual Period: 07/09/18 Onset/Duration: Lasting Days, Still Present Timing: Days Severity Currently: Moderate Character: Depressed Aggravating Factor(s): Nothing Alleviating Factor(s): Nothing Related History: Positive For: Prior Psychiatric Issues Has Suicidal: Reports: Thoughts, With A Plan, Has Prior Attempt(s) Has Homicidal: Denies: Thoughts, With A Plan Recent Stressor(s): traumatic experience - Allergies/Home Medications Allergies/Adverse Reactions: Allergies Allergy/AdvReac Type Severity Reaction Status Date / Time silver Allergy Hives/Diff. Verified 07/30/18 14:47 Breathing/I tching haloperidol AdvReac Agitation Verified 07/30/18 14:47 Home Medications: Home Medications Nystatin TOP POWDER* 1 applic TOPICAL TID PRN 09/14/18 [History Confirmed ] PMH/Surg Hx/FS Hx/Imm Hx Endocrine/Hematology History: Denies: Hx Diabetes, Hx Anemia Cardiovascular History: Denies: Hx Hypertension, Hx Pacemaker/ICD Respiratory History: Denies: Hx Asthma, Hx Chronic Bronchitis, Hx Pneumonia, Hx Pulmonary Embolism GI History: Reports: Hx Irritable Bowel Denies: Hx Crohn's Disease, Hx Diverticulosis History: Denies: Hx Acute Renal Failure, Hx Kidney Stones Musculoskeletal History: Reports: Hx Scoliosis Denies: Hx Arthritis Comment Only: Other Musculoskeletal History - Right sprained ankle Sensory History: Reports: Hx Contacts or Glasses Denies: Hx Hearing Aid Opthamlomology History: Reports: Hx Contacts or Glasses Neurological History: Denies: Hx Headaches, Hx Seizures Psychiatric History: Reports: Hx Anxiety, Hx Depression, Hx Post Traumatic Stress Disorder, Hx Inpatient Treatment - [facility] 02/2017, Hx Community Mental Health Tx, Hx Suicide Attempt Denies: Hx Attention Deficit Hyperactivity Disorder, Hx Eating Disorder, Hx Panic Disorder, Hx Schizophrenia, Hx Bipolar Disorder, Hx of Violent Episodes Against Others, Hx Substance Abuse, Other Psychiatric Issues/Disorders - Surgical History Surgery Procedure, Year, and Place: T & A Infectious Disease History: No Infectious Disease History: Denies: Traveled Outside the [place] in Last 30 Days - Family History Known Family History: Negative: Cardiac Disease, Hypertension, Diabetes Family History: FHx of depression, anxiety disorders, bipolar disorders, mood disorders - Social History Alcohol Use: None Alcohol Amount: unable to assess. pt unwilling to state. Hx Substance Use: No Substance Use Type: Reports: None Hx Tobacco Use: No Smoking Status (MU): Never Smoked Tobacco Type: Cigarettes Review of Systems Negative: Fever, Chills Negative: Erythema Negative: Sore Throat Negative: Chest Pain Negative: Shortness Of Breath, Cough Negative: Abdominal Pain, Vomiting, Nausea Negative: dysuria, hematuria Negative: Myalgia, Edema Negative: Rash Neurological: Other - NEGATIVE: dizziness Psychological: Other - POS: SI thoughts, SI plan Positive: Depressed. Negative: Other - NEG: HI All Other Systems Reviewed And Are Negative: Yes Physical Exam - Summary Physical Exam Summary: Constitutional: Well-developed, Well-nourished, Alert. (-) Distressed Skin: Warm, Dry HENT: Normocephalic; Atraumatic Eyes: Conjunctiva normal Neck: Musculoskeletal ROM normal neck. (-) JVD, (-) Stridor, (-) Tracheal deviation Cardio: Rhythm regular, rate normal, Heart sounds normal; Intact distal pulses; The pedal pulses are 2+ and symmetric. Radial pulses are 2+ and symmetric. (-) Murmur Pulmonary/Chest wall: Effort normal. (-) Respiratory distress, (-) Wheezes, (-) Rales Abd: Soft, (-) Tenderness, (-) Distension, (-) Guarding, (-) Rebound Musculoskeletal: (-) Edema Lymph: (-) Cervical adenopathy Neuro: Alert, Oriented x3 Psych: Mood and affect Normal Triage Information Reviewed: Yes Vital Signs On Initial Exam: Initial Vitals Temp Pulse Resp BP Pulse Ox 97.7 F 88 18 122/81 98 09/14/18 14:23 09/14/18 14:23 09/14/18 14:23 09/14/18 14:23 09/14/18 14:23 Vital Signs Reviewed: Yes Diagnostics - Vital Signs Vital Signs Temp Pulse Resp BP Pulse Ox 09/14/18 14:23 97.7 F 88 18 122/81 98 - Laboratory Result Diagrams: 09/14/18 15:18 09/14/18 15:18 Lab Statement: Any lab studies that have been ordered have been reviewed, and results considered in the medical decision making process. Re-Evaluation - Re-Evaluation First Eval Re-Evaluation Time: 14:52 Comment: Pt is medically cleared. Course/Dx - Course Assessment/Plan: Pt is a 33 y/o female who presents to the ED c/o depression and SI for the past 3 days. Pt reports she has SI thoughts and plan to cut herself. She states she has done this in the past. Pt states currently feeing unsafe. She notes a couple of triggers, one includes something that reminds her of her past traumatic experience. Pt is medically cleared at 14:52. She is waiting for a mental health evaluation. MHE is still pending. Pt will be signed out to Dr. Hernandez at shift change pending MHE and dispo. - Differential Dx/Clinical Impression Provider Diagnosis: Suicidal ideation Discharge - Sign-Out/Discharge Documenting (check all that apply): Sign-Out Patient Signing out patient TO: Hermilo Hernandez - pending MHE and dispo - Discharge Plan Condition: Stable Referrals: Maikol Izaguirre MD [Primary Care Provider] - - Attestation Statements Document Initiated by Scribe: Yes Documenting Scribe: Anabel Quesada Provider For Whom Scribe is Documenting (Include Credential): Uzair Mullen MD Scribe Attestation: Anabel Kyle, scribed for Uzair Mullen MD on 09/14/18 at 1923. Status of Scribe Document: Ready
[2018-09-14 15:07] LABS: Urine Appearance Cloudy; Urine Bacteria Absent (Absent); Urine Bilirubin Negative (Negative); Urine Blood Negative (Negative); Urine Color Yellow; Urine Glucose Negative (Negative); Urine Ketones Negative (Negative); Urine Nitrite Negative (Negative); Urine Protein Negative (Negative); Urine Red Blood Cell Trace(0-2/hpf) (Absent); Urine Specific Gravity 1.014 (1.010-1.030); Urine Squamous Epithelial Cell Present (Absent); Urine Urobilinogen Negative (Negative); Urine White Blood Cell Trace(0-5/hpf) (Absent)
[2018-09-14 15:13] LABS: Barbiturates Urine Screen None Detected (None Detect); Benzodiazepine Urine Screen None Detected (None Detect); Urine Cannabinoids Screen None Detected (None Detect)
[2018-09-14 15:25] LABS: ABS Basophils 0.1 10^3/ul (0-0.2); ABS Eosinophils 0.1 10^3/ul (0-0.6); ABS Monocytes 0.8 10^3/ul (0-0.8); ABS Neutrophils 8.3 10^3/ul (1.5-7.7); ABS Nucleated RBC 0 10^3/ul; Eosinophil % 1.2 %; Hematocrit 39 % (35-47); Hemoglobin 13.4 g/dl (12.0-16.0); Lymphocyte % 17.8 %; Mean Corpuscular HGB Conc 34 g/dl (31-36); Mean Corpuscular Hemoglobin 30 pg (27-31); Mean Corpuscular Volume 87 fL (80-97); Mean Platelet Volume 7.3 fL (7.4-10.4); Nucleated Red Blood Cells % 0.1; Platelet Count 300 10^3/ul (150-450); Red Blood Count 4.54 10^6/ul (4.00-5.40); Red Cell Distribution Width 13 % (10.5-15); White Blood Count 11.3 10^3/ul (3.5-10.8)
[2018-09-14 15:44] LABS: ALT 22 U/L (7-52); AST 14 U/L (13-39); Albumin 4.6 g/dL (3.2-5.2); Albumin/Globulin Ratio 1.4 (1-3); Alkaline Phosphatase 53 U/L (34-104); Anion Gap 8 mmol/L (2-11); BUN/Creatinine Ratio 15.5 (8-20); Blood Urea Nitrogen 15 mg/dL (6-24); CO2 Carbon Dioxide 26 mmol/L (22-32); Chloride 105 mmol/L (101-111); Globulin 3.2 g/dL (2-4); Glucose 96 mg/dL (70-100); Sodium 139 mmol/L (135-145); Total Protein 7.8 g/dL (6.4-8.9)
[2018-09-14 15:49] LABS: Acetaminophen < 15 mcg/mL; Alcohol < 10 mg/dL (<10); Salicylate < 2.50 mg/dL (<30)
[2018-09-14 16:02] LABS: TSH (Thyroid Stimulating Horm) 1.55 mcIU/mL (0.34-5.60)
[2018-09-14 16:26] VITALS: BP 118/78
--- NOTE | 2018-09-14 19:48 | ED ---
Progress - Progress Note Progress Note: The patient was signed out by Dr. Mullen to Dr. Hernandez, awaiting mental health evaluation. Re-Evaluation - Re-Evaluation First Eval Re-Evaluation Time: 14:52 Comment: Pt is medically cleared. Course/Dx - Course Course Of Treatment: The patient was signed out by Dr. Mullen to Dr. Hernandez, awaiting mental health evaluation. The patient will be signed out by Dr. Hernandez to Dr. Marroquin, awaiting disposition - Diagnoses Provider Diagnoses: Suicidal ideation Discharge - Sign-Out/Discharge Documenting (check all that apply): Sign-Out Patient, Receiving Sign-Out Signing out patient TO: Nathan Marroquin Receiving patient FROM: Uzair Mullen - Discharge Plan Condition: Stable Referrals: Maikol Izaguirre MD [Primary Care Provider] - - Attestation Statements Document Initiated by Scribe: Yes Documenting Scribe: Giancarlo Armenta Provider For Whom Scribe is Documenting (Include Credential): Hermilo Hernandez MD Scribe Attestation: I, Giancarlo Armenta, scribed for Hermilo Hernandez MD on 09/15/18 at 0628. Status of Scribe Document: Ready
--- NOTE | 2018-09-15 07:10 | ED ---
Progress - Progress Note Progress Note: Patient is received as a mental health hold sign out from Dr. Hernandez to Dr. Marroquin at 09/15/2018 0700 shift change pending disposition. 0901 - GHOST WRITER Ramona Lares has reviewed the patient's case. Patient will be discharged to home after receiving her home medications and patient's mother comes to chicken picker patient. Dr. Marroquin is agreeable with this plan. - Consult/PCP Time Called: 19:30 Re-Evaluation - Re-Evaluation First Eval Re-Evaluation Time: 14:52 Comment: Pt is medically cleared. Course/Dx - Diagnoses Provider Diagnoses: Depression - Provider Notifications Discussed Care Of Patient With: Ramona Lares Time Discussed With Above Provider: 09:01 Instructed by Provider To: Other - 0901 - GHOST WRITER Ramona Lares has reviewed the patient's case. Patient will be discharged to home after receiving her home medications and patient's mother comes to chicken picker patient. Dr. Marroquin is agreeable with this plan. Discharge - Sign-Out/Discharge Documenting (check all that apply): Patient Departure - discharge - Discharge Plan Condition: Stable Disposition: HOME Referrals: Maikol Izaguirre MD [Primary Care Provider] - - Attestation Statements Document Initiated by Scribe: Yes Documenting Scribe: KURT MCKENZIE Provider For Whom Scribe is Documenting (Include Credential): MAGGIE MARROQUIN MD Scribe Attestation: KURT Kyle , scribed for MAGGIE MARROQUIN MD on 09/15/18 at 0909. Status of Scribe Document: Ready
[2018-09-15] MEDS ORDERED: ARIPiprazole TAB* 5 MG PO ONE (09:01)
[2018-09-15] MEDS ORDERED: FLUoxetine CAP* 20 MG PO ONE (09:01)
--- NOTE | 2018-09-15 09:53 | PN ---
Subjective - Subjective Date of Service: 09/15/18 Service Type: 39799 Hosp care 25 min moderate complexity Subjective: Patient reports flashbacks of feeling held down. She expresses frustration that multiple coping skills have not been effective, which leads her to feeling hopeless. She engages in discussion regarding stressors and expectations of herself. Noted to have improved mood and affect. Patient reports desire to be discharged from ED and gives typewriter tester permission to contact her mother, Reema, to discuss safety planning. Picker And Packer spoke with Reema in regards to means restriction, specifically locking all medications and leaving one day supply out at a time. We discuss ways in which Reema wants to assist in caring for Saul and her son, including co- parenting when Saul is overwhelmed. Objective - Appearance Appearance: Obese Dysmorphic Features: Yes Hygiene: Normal Grooming: Fairly Well Kept - Behavior Psychomotor Activities: Normal Exhibits Abnormal Movement: No - Attitude and Relatedness Attitude and Relatedness: Cooperative Eye Contact: Good - Speech Quality: Unpressured Latencies: Normal Quantity: Appropriate - Mood Patient's Decription of Mood: "Okay" - Affect Observed Affect: Good Affect Consistent with: Euthymia - Thought Process Patient's Thought Process: Coherent, Goal Directed Thought Content: No Passive Wish, No Suicidal Planning, No Homicidal Ideation, No Paranoid Ideation - Sensorium Experiencing Hallucinations: No, Sensorium is Clear Type of Hallucinations: Visual: No, Auditory: No, Command: No - Level of Consciousness Level of Consciousness: Alert Orientation: Yes Intact, Yes Orientated to Time, Yes Orientated to Place, Yes Orientated to Person - Impulse Control Impulse Control: Tenuous - Insight and Judgement Insight and Judgement: Good Plan - Plan Treatment Plan: Name: SAUL UGARTE Birthdate: 1985 [id number] patient to discharge with her mother and follow up with [facility]. patient states understanding to return to ED if symptoms worsen. Continued Medication Management: Continue Outpt Medication Medications: Current Medications Nicotine (Nicotine Inhaler*) 10 mg INH Q2H PRN PRN Reason: CRAVING - Discharge Plan Discharge Plan: Outpatient Follow Up Outpatient Program: [facility]
== END 2018-09-15 13:02 | disposition home or self-care (01) ==
LOC: ED 14:15
DX: R45.851 Suicidal ideations (principal); F32.9 Major depressive disorder, single episode, unspecified
CPT/HCPCS: 36415; 80053; 80307; 80320; 80329; 81003; 81015; 84443; 85025; 87086; 99284; A9270-GY; G0480

== ENCOUNTER 2018-09-26 15:10 | Inpatient (IN) | payer OTHER ==
--- NOTE | 2018-09-26 15:55 | ED ---
Psychiatric Complaint - HPI Summary HPI Summary: This patient is a 33 year old F [facility] after she attempted to OD on tylenol at 1315. She also took 150 mg of hydroxyzine along with of a bottle of 500mg tylenol. She has done this in the past and she states she has been in pre crisis mode the last couple of days. She took it then told someone at [facility], they told her to come here. - History Of Current Complaint Chief Complaint: EDOverdose Time Seen by Provider: 09/26/18 15:29 Hx Obtained From: Patient Hx Last Menstrual Period: 07/09/18 Onset/Duration: Still Present Timing: Constant Severity Initially: Moderate Severity Currently: Moderate Aggravating Factor(s): Recent Stress Related History: Positive For: Prior Psychiatric Issues Has Suicidal: Reports: Thoughts, With A Plan, Demonstrates Gesture - Allergies/Home Medications Allergies/Adverse Reactions: Allergies Allergy/AdvReac Type Severity Reaction Status Date / Time silver Allergy Hives/Diff. Verified 09/26/18 15:19 Breathing/I tching haloperidol AdvReac Agitation Verified 09/26/18 15:19 PMH/Surg Hx/FS Hx/Imm Hx Endocrine/Hematology History: Denies: Hx Diabetes, Hx Anemia Cardiovascular History: Denies: Hx Hypertension, Hx Pacemaker/ICD Respiratory History: Denies: Hx Asthma, Hx Chronic Bronchitis, Hx Pneumonia, Hx Pulmonary Embolism GI History: Reports: Hx Irritable Bowel Denies: Hx Crohn's Disease, Hx Diverticulosis History: Denies: Hx Acute Renal Failure, Hx Kidney Stones Musculoskeletal History: Reports: Hx Scoliosis Denies: Hx Arthritis Comment Only: Other Musculoskeletal History - Right sprained ankle Sensory History: Reports: Hx Contacts or Glasses Denies: Hx Hearing Aid Opthamlomology History: Reports: Hx Contacts or Glasses Neurological History: Denies: Hx Headaches, Hx Seizures Psychiatric History: Reports: Hx Anxiety, Hx Depression, Hx Post Traumatic Stress Disorder, Hx Inpatient Treatment - [facility] last 02/2017, Hx Community Mental Health Tx, Hx Suicide Attempt Denies: Hx Attention Deficit Hyperactivity Disorder, Hx Eating Disorder, Hx Panic Disorder, Hx Schizophrenia, Hx Bipolar Disorder, Hx of Violent Episodes Against Others, Hx Substance Abuse, Other Psychiatric Issues/Disorders - Surgical History Surgery Procedure, Year, and Place: T & A Infectious Disease History: No Infectious Disease History: Denies: Traveled Outside the [place] in Last 30 Days - Family History Known Family History: Positive: Other Negative: Cardiac Disease, Hypertension, Diabetes Family History: FHx of depression, anxiety disorders, bipolar disorders, mood disorders - Social History Alcohol Use: None Alcohol Amount: unable to assess. pt unwilling to state. Hx Substance Use: No Substance Use Type: Reports: None Hx Tobacco Use: No Smoking Status (MU): Never Smoked Tobacco Type: Cigarettes Review of Systems Negative: Fever Positive: Other - SI All Other Systems Reviewed And Are Negative: Yes Physical Exam - Summary Physical Exam Summary: Appearance: The patient is well-nourished in no acute distress and in no acute pain. Skin: The skin is warm and dry and skin color reflects adequate perfusion. HEENT: The head is normocephalic and atraumatic. The pupils are equal and reactive. The conjunctivae are clear and without drainage. Nares are patent and without drainage. Mouth reveals moist mucous membranes and the throat is without erythema and exudate. The external ears are intact. The ear canals are patent and without drainage. The tympanic membranes are intact. Neck: The neck is supple with full range of motion and non-tender. There are no carotid bruits. There is no neck vein distension. Respiratory: Chest is non-tender. Lungs are clear to auscultation and breath sounds are symmetrical and equal. Cardiovascular: Heart is regular rate and rhythm. There is no murmur or rub auscultated. There is no peripheral edema and pulses are symmetrical and equal. Abdomen: The abdomen is soft and non-tender. There are normal bowel sounds heard in all four quadrants and there is no organomegaly palpated. Musculoskeletal: There is no back tenderness noted. Extremities are non-tender with full range of motion. There is good capillary refill. There is no peripheral edema or calf tenderness elicited. Neurological: Patient is alert and oriented to person, place and time. The patient has symmetrical motor strength in all four extremities. Cranial nerves are grossly intact. Deep tendon reflexes are symmetrical and equal in all four extremities. Psychiatric: The patient has an appropriate affect and does not exhibit any anxiety or depression Triage Information Reviewed: Yes Vital Signs On Initial Exam: Initial Vitals Temp Pulse Resp BP Pulse Ox 97.7 F 95 16 120/83 100 09/26/18 15:15 09/26/18 15:15 09/26/18 15:15 09/26/18 15:15 09/26/18 15:15 Vital Signs Reviewed: Yes Diagnostics - Vital Signs Vital Signs Temp Pulse Resp BP Pulse Ox 09/26/18 15:15 97.7 F 95 16 120/83 100 - Laboratory Result Diagrams: 09/26/18 15:01 09/26/18 15:01 Lab Statement: Any lab studies that have been ordered have been reviewed, and results considered in the medical decision making process. Re-Evaluation - Re-Evaluation First Eval Re-Evaluation Time: 20:06 Comment: The patient will be medically cleared at 2100 Course/Dx - Course Course Of Treatment: Ms. Peralta presented for mental health eval having told someone that she took an overdose of 3 handfuls of Tylenol. She says she did it to hurt herself. She was evaluated for 6 hours in the emergency department and medically cleared. She is currently awaiting mental health eval in the [place] [facility]. - Differential Dx/Clinical Impression Provider Diagnosis: Acetaminophen overdose, Depressive disorder Discharge - Sign-Out/Discharge Documenting (check all that apply): Sign-Out Patient Signing out patient TO: Chavez Scanlon - Discharge Plan Condition: Stable Referrals: Maikol Izaguirre MD [Primary Care Provider] - - Billing Disposition and Condition Condition: STABLE - Attestation Statements Document Initiated by Sherin: Yes Documenting Scribe: Enoc Del Rio Provider For Whom Sherin is Documenting (Include Credential): Hermilo Long MD Scribe Attestation: Enoc Kyle , scribed for Hermilo Long MD on 09/26/18 at 2107. Scribe Documentation Reviewed: Yes Provider Attestation: The documentation as recorded by the Enoc pino accurately reflects the service I personally performed and the decisions made by me, Hermilo Long MD Status of Scribe Document: Viewed
[2018-09-26 16:08] LABS: ABS Basophils 0 10^3/ul (0-0.2); ABS Eosinophils 0.2 10^3/ul (0-0.6); ABS Lymphocytes 2.5 10^3/ul (1.0-4.8); ABS Monocytes 0.8 10^3/ul (0-0.8); ABS Neutrophils 6.5 10^3/ul (1.5-7.7); ABS Nucleated RBC 0 10^3/ul; Eosinophil % 1.9 %; Hematocrit 40 % (35-47); Hemoglobin 13.6 g/dl (12.0-16.0); Lymphocyte % 24.7 %; Mean Corpuscular HGB Conc 34 g/dl (31-36); Mean Corpuscular Hemoglobin 30 pg (27-31); Mean Corpuscular Volume 88 fL (80-97); Mean Platelet Volume 7.6 fL (7.4-10.4); Nucleated Red Blood Cells % 0; Platelet Count 282 10^3/ul (150-450); Red Blood Count 4.55 10^6/ul (4.00-5.40); Red Cell Distribution Width 13 % (10.5-15)
[2018-09-26 16:21] LABS: Urine Appearance Cloudy; Urine Bacteria Absent (Absent); Urine Bilirubin Negative (Negative); Urine Blood Negative (Negative); Urine Color Yellow; Urine Glucose Negative (Negative); Urine Ketones Negative (Negative); Urine Nitrite Negative (Negative); Urine Protein Negative (Negative); Urine Red Blood Cell Trace(0-2/hpf) (Absent); Urine Specific Gravity 1.012 (1.010-1.030); Urine Urobilinogen Negative (Negative); Urine White Blood Cell Trace(0-5/hpf) (Absent)
[2018-09-26 16:25] LABS: ALT 24 U/L (7-52); AST 14 U/L (13-39); Albumin 4.5 g/dL (3.2-5.2); Albumin/Globulin Ratio 1.4 (1-3); Alkaline Phosphatase 55 U/L (34-104); Anion Gap 7 mmol/L (2-11); BUN/Creatinine Ratio 18.4 (8-20); Blood Urea Nitrogen 18 mg/dL (6-24); CO2 Carbon Dioxide 26 mmol/L (22-32); Calcium 9.7 mg/dL (8.6-10.3); Chloride 105 mmol/L (101-111); EGFR Non-African American 66.2 (>60); Globulin 3.2 g/dL (2-4); Glucose 102 mg/dL (70-100); Potassium 3.8 mmol/L (3.5-5.0); Sodium 138 mmol/L (135-145); Total Protein 7.7 g/dL (6.4-8.9)
[2018-09-26 16:31] LABS: HCG Pregnancy < 0.60 mIU/mL
[2018-09-26 16:50] LABS: Barbiturates Urine Screen None Detected (None Detect); Benzodiazepine Urine Screen None Detected (None Detect); Urine Cannabinoids Screen None Detected (None Detect)
[2018-09-26 17:01] LABS: Alcohol < 10 mg/dL (<10); Salicylate < 2.50 mg/dL (<30)
[2018-09-26 17:10] LABS: Acetaminophen 72 mcg/mL
[2018-09-26 19:36] LABS: Lithium < 0.10 mmol/L (0.6-1.2)
--- NOTE | 2018-09-26 21:39 | ED ---
Progress - Progress Note Progress Note: This patient was signed out from Dr. Long to Dr. Scanlon at 22:00 09/26/18 pending MHE. Per employee services manager, Dr. Perez has decided that the patient will be a voluntary admit to [facility]. Dx: borderline personality disorder. Re-Evaluation - Re-Evaluation First Eval Re-Evaluation Time: 20:06 Comment: The patient will be medically cleared at 2100 Course/Dx - Course Course Of Treatment: This patient was signed out from Dr. Long to Dr. Scanlon at 22:00 09/26/18 pending MHE. Per employee services manager, Dr. Perez has decided that the patient will be a voluntary admit to [facility]. Dx: borderline personality disorder. - Diagnoses Provider Diagnoses: Borderline personality disorder - Provider Notifications Discussed Care Of Patient With: Dominick Perez Time Discussed With Above Provider: 01:55 Instructed by Provider To: Other - Per employee services manager, Dr. Perez has decided that the patient will be a voluntary admit to [facility]. Dx: borderline personality disorder. Discharge - Sign-Out/Discharge Documenting (check all that apply): Patient Departure - Admit, Receiving Sign- Out Receiving patient FROM: Hermilo Long - Discharge Plan Condition: Stable Disposition: PSYCHIATRIC FACILITY-[facility] - Billing Disposition and Condition Condition: STABLE Disposition: Psychiatric Facility [facility] - Attestation Statements Document Initiated by Sherin: Yes Documenting Scribe: Cliff Biggs Provider For Whom Sherin is Documenting (Include Credential): Chavez Scanlon MD Scribe Attestation: Cliff Kyle scribed for Chavez Scanlon MD on 09/27/18 at 0420. Scribe Documentation Reviewed: Yes Provider Attestation: The documentation as recorded by the Cliff pino accurately reflects the service I personally performed and the decisions made by me, Chavez Scanlon MD Status of Scribe Document: Viewed
[2018-09-27] MEDS ORDERED: Al Hydrox/Mg Hydrox/Simet LIQ* 30 ML UDC PO PRN (03:55)
[2018-09-27] MEDS: Multivitamins/Minerals TAB PO SCH ×2 (10:58→13:29)
[2018-09-27] MEDS ORDERED: hydrOXYzine HCL TAB* 50 MG ONE (13:27)
[2018-09-27] MEDS ORDERED: hydrOXYzine HCL TAB* 50 MG PO PRN (18:28)
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
[2018-09-27] MEDS ORDERED: Prazosin CAP* 1 MG PO SCH ×2 (21:00)
[2018-09-27] MEDS: Mirtazapine TAB* 15 MG PO SCH (21:33)
[2018-09-27] MEDS: Lithium Carbonate TAB* 300 MG PO SCH (21:33)
[2018-09-28 08:11] LABS: HDL Cholesterol 35.5 mg/dL
[2018-09-28] MEDS ORDERED: Norethindrone/Eth Est 1.5/30NF 1 TAB TAB PO SCH (09:00)
[2018-09-28] MEDS: ARIPiprazole TAB* 20 MG PO SCH (09:28)
[2018-09-28] MEDS: Multivitamins/Minerals TAB PO SCH (09:28)
[2018-09-28] MEDS: FLUoxetine CAP* 20 MG PO SCH (09:28)
--- NOTE | 2018-09-28 16:02 | PN ---
Subjective - Subjective Date of Service: 09/28/18 Service Type: 10004 Hosp care 25 min moderate complexity Subjective: Patient endorses "a lot of urges" to self injure and that she is having a lot of feelings similar to experiencing trauma. She reports being fearful of peers but trying to avoid isolation. She states that she had a solid sleep last night , which was the first in over a week. We discuss utilizing prompting events worksheets and identifying specific emotions, rather than "feeling triggered." Pt notified of behavior mod plan and encouraged to identify how to continue to use a similar plan at home. She reports looking forward to having custody of her son the next two weekends, including a day trip with her parents. Objective - Appearance Appearance: Well Developed/Nourished, Obese Dysmorphic Features: Yes Hygiene: Normal Grooming: Fairly Well Kept - Behavior Psychomotor Activities: Normal Exhibits Abnormal Movement: No - Attitude and Relatedness Attitude and Relatedness: Cooperative Eye Contact: Good - Speech Quality: Unpressured Latencies: Normal Quantity: Appropriate - Mood Patient's Decription of Mood: "Okay" - Affect Observed Affect: Depressed Affect Consistent with: Dysphoria - Thought Process Patient's Thought Process: Coherent, Goal Directed, Circumstantial Thought Content: No Passive Wish, No Suicidal Planning, No Homicidal Ideation, No Paranoid Ideation - Sensorium Experiencing Hallucinations: No, Sensorium is Clear Type of Hallucinations: Visual: No, Auditory: No, Command: No - Level of Consciousness Level of Consciousness: Alert Orientation: Yes Intact, Yes Orientated to Time, Yes Orientated to Place, Yes Orientated to Person - Impulse Control Impulse Control: Poor - Insight and Judgement Insight and Judgement: Fair - Group Participation Particating in Group Activities: Yes - Medication Management Medication Management Adherence: Yes Assessment - Assessment Merits Inpatient Hospitalization: For Immediate Safety, For Stabilization Inpatient DSM-V Dx: F43.12 Clinical Impression: 33yo wf with history of PTSD and borderline personality d/o who presented to ED after appt with therapist due to suicidal ideation with plan to overdose on OTC medications. Brief hospitalization and stabilization are warranted for patient' s safety. Plan - Plan Treatment Plan: Name: SAUL UGARTE Birthdate: 1985 [id number] continue acute intensive psychiatric treatment. start behavior modification plan. increase prazosin. discharge tentative 09/29/18. Continued Medication Management: Continue Outpt Medication Medications: Current Medications Al Hydrox/Mg Hydrox/Simethicone (Maalox Plus*) 30 ml PO Q4H PRN PRN Reason: INDIGESTION Aripiprazole (Abilify Tab*) 20 mg PO DAILY [facility] Last Admin: 09/28/18 09:28 Dose: 20 mg Ethinyl Estradiol/Norethindrone (Junel (Nf)) 1 tab PO DAILY [facility] Last Admin: 09/28/18 09:28 Dose: Not Given Fluoxetine HCl (Prozac Cap*) 60 mg PO DAILY MARYA Last Admin: 09/28/18 09:28 Dose: 60 mg Hydroxyzine HCl (Atarax Tab*) 50 mg PO Q6H PRN PRN Reason: ANXIETY Last Admin: 09/27/18 21:34 Dose: 50 mg [place] Carbonate (S[place] Carbonate Tab*) 300 mg PO BEDTIME MARYA Last Admin: 09/27/18 21:33 Dose: 300 mg Mirtazapine (Remeron Tab*) 15 mg PO BEDTIME MARYA Last Admin: 09/27/18 21:33 Dose: 15 mg Multivitamins/Minerals (Theragran/Minerals Tab*) 1 tab PO DAILY MARYA Last Admin: 09/28/18 09:28 Dose: 1 tab Prazosin HCl (Minipress Cap*) 3 mg PO BEDTIME MARYA Last Admin: 09/27/18 21:34 Dose: 3 mg - Discharge Plan Discharge Plan: Outpatient Follow Up Outpatient Program: Maurizio Aceves [facility]
[2018-09-28] MEDS ORDERED: Ibuprofen TAB* 400 MG PO PRN (16:33)
[2018-09-28] MEDS: Mirtazapine TAB* 15 MG PO SCH (20:42)
[2018-09-28] MEDS: Lithium Carbonate TAB* 300 MG PO SCH (20:42)
[2018-09-28] MEDS ORDERED: Prazosin CAP* 1 MG PO SCH (21:00)
[2018-09-28] MEDS ORDERED: NORETHINDRONE 0.35 MG PO SCH (22:00)
[2018-09-29 08:34] VITALS: BP 117/74
[2018-09-29] MEDS: ARIPiprazole TAB* 20 MG PO SCH (08:35)
[2018-09-29] MEDS: Multivitamins/Minerals TAB PO SCH (08:35)
[2018-09-29] MEDS: FLUoxetine CAP* 20 MG PO SCH (08:35)
--- NOTE | 2018-09-29 21:26 | DS ---
CC: Maikol Izaguirre MD; [facility] * DISCHARGE SUMMARY: DATE OF ADMISSION: 09/27/18 DATE OF DISCHARGE: 09/29/18 SUPERVISING PSYCHIATRIST: Tarik Montalov MD.* (DICTATED BY AMELIA RAPHAEL NP) DISCHARGE DIAGNOSIS: Posttraumatic stress disorder, borderline personality disorder. CONDITION AT TIME OF DISCHARGE: Improved. The patient is euthymic with bright affect. She denies suicidal ideation. She reports mild urges for self-harm and is able to identify and demonstrate healthy coping skills. She reports desire to be discharged and is future-oriented. She is expecting to have custody of her son this weekend and has identified safety planning with her mother with whom she lives. The patient is calm and in behavioral control. She has not engaged in self- harm over the past 2 days. MENTAL STATUS EXAM: Luly is a 33-year-old white female, tall, mildly obese with red hair wrapped into a bun. She is well groomed and dressed in her own clothing. She is alert and oriented x3. Eye contact is good. Concentration is good. Memory is 3/3. Speech is soft and articulate. Mood described as "good. " Affect is bright. Thought process is logical, coherent, and goal directed. Thought content is negative for suicidal ideation or passive wish. She denies auditory or visual hallucinations. There are no perceptual disturbances observed. Insight and judgment are good. Fund of knowledge is excellent. INSTRUCTIONS GIVEN TO THE PATIENT: A. Medications. 1. The only medication change we made during this hospitalization was an increase of Prazosin to 4 mg at bedtime. 2. She will resume Abilify 20 mg daily. 3. Fluoxetine 60 mg daily. 4. [place] 300 mg at bedtime. 5. Mirtazapine 15 mg at bedtime. 6. control pill. 7. Nystatin topical powder. B. Diet: Regular. C. Activity: Ambulation as tolerated. Tobacco cessation is not applicable. There are no pending labs or diagnostic studies. D. Followup care: The patient will follow up with her primary care provider, Dr. Maikol Izaguirre. She will follow up with Dr. Baldwin and Yaritza Donahue at [facility]. HOSPITAL COURSE: Part A: Reason for admission: The patient presented to the emergency department from [facility] due to suicidal ideation with a plan to overdose on Tylenol. Her acetaminophen level was elevated at presentation and this turned down to normal prior to admission to the [facility]. Luly has been hospitalized multiple times this year due to significant overdose attempts. Part B: Psychiatric treatment rendered: The patient was admitted on voluntary status and her code status was full. She reported a difficult few days prior to presentation. She endorsed flashbacks and nightmares. She endorsed excessive guilt and self-injurious behavior. She stated she had been cutting and took a Tylenol overdose after PROS was over. Her mom found her because people were looking for her. The patient states she had been working on an assignment from [employer] wherein she was supposed to write about her trauma for 15 minutes for 3 days and she also reported she had been sharing snippets of her traumatic background to her therapist recently. The patient agreed to an increase in Prazosin. She reported improved sleep on the unit. We identified that a brief hospitalization is warranted due to borderline personality disorder and the patient agreed. She was given a behavior modification plan which included group activities and refraining from self-harm. She was encouraged to utilize a similar plan at home. As stated above, on day of admission, she was agreeable to discharge and reported desire to return home. The patient remains at chronic risk due to borderline personality disorder and PTSD. At this time, risk is ameliorated and the patient reports readiness for discharge. Her mother has been involved in discharge planning and safety planning as well. AMELIA RAPHAEL NP [id number]/CPS #: [id number] NUNU
== END 2018-09-29 12:31 | disposition home or self-care (01) | DRG 882 ==
LOC: ED 15:10 → BSU 09-27 03:38
PROVIDERS: ADMIT Psychiatry & Neurology Psychiatry; ATTEND Psychiatry & Neurology Psychiatry
DX: F43.10 Post-traumatic stress disorder, unspecified (principal); F60.3 Borderline personality disorder; E66.9 Obesity, unspecified; T39.1X2A Poisoning by 4-Aminophenol derivatives, intentional self-harm, initial encounter; K58.9 Irritable bowel syndrome, unspecified; M41.9 Scoliosis, unspecified; F41.9 Anxiety disorder, unspecified; F32.9 Major depressive disorder, single episode, unspecified; Y92.9 Unspecified place or not applicable; Z91.5 Personal history of self-harm; Z88.8 Allergy status to other drugs, medicaments and biological substances; Z91.048 Other nonmedicinal substance allergy status; Z68.38 Body mass index [BMI] 38.0-38.9, adult
CPT/HCPCS: 36415; 80053; 80061; 80178; 80307; 80320; 80329; 81003; 81015; 83036; 83605; 84702; 85025; 87086; 93005; 99222; 99232; 99283; A9270-GY; G0480

== ENCOUNTER 2018-12-06 02:03 | Observation (INO) | payer MEDICAID, OTHER ==
[2018-12-06] MEDS ORDERED: Nicotine Inhaler* 10 MG AMP INH PRN (02:13)
[2018-12-06] MEDS ORDERED: NS 0.9% 1000 ML** 1,000 ML IV ONE (02:13)
--- NOTE | 2018-12-06 02:44 | ED ---
Substance Abuse/Use - HPI Summary HPI Summary: Patient is a 33 y/o female brought in by EMS and police who presents to the ED s /p overdose. As per EMS, she took 10 300 mg Mayer pills and 10 Melatonin pills at 00:00. This was done in an attempt for self-harm. Patient does not reply when asked if she wants to . Patient denies any SOB, blurred vision, diplopia, numbness, weakness, N/V, fatigue, or abdominal pain. EMS notes lacerations to her right wrist. She has a number of other medications with her but states that she does not take them. PMHx anxiety, depression, PTSD, borderline personality disorder. She has a hx of prior psychiatric admissions, self-harm, overdoses, and suicide attempts. She sees both a counselor and a psychiatrist. Patient is unsure if her tetanus vaccination is UTD. She denies any chance of being . She denies any smoking, alcohol use, or illicit drug use. FHx psychiatric issues. - History Of Current Complaint Stated Complaint: OD PER EMS Hx Obtained From: Patient, EMS, Medical Records Hx Last Menstrual Period: 07/09/18 Ingestion History: Type/Name Of Drug - 300 mg Mayer, Melatonin, Amount Ingested - 10 pills each, Approximate Time Of Ingestion - 00:00 Overdose Characteristics: Oral Aggravating Factor(s): Nothing Alleviating Factor(s): Nothing Associated Signs And Symptoms: Negative Related Hx: Suicidal, Suicidal: Prior Attempt(s), Prior Psych Admission - Allergies/Home Medications Allergies/Adverse Reactions: Allergies Allergy/AdvReac Type Severity Reaction Status Date / Time silver Allergy Hives/Diff. Verified 09/26/18 15:19 Breathing/I tching haloperidol AdvReac Agitation Verified 09/26/18 15:19 Home Medications: Home Medications Cholecalciferol (Vitamin D3) [D 5000] 5,000 unit PO DAILY 12/06/18 [History Confirmed 12/06/18] Mayer Carbonate TAB* 300 mg PO DAILY 12/06/18 [History Confirmed 12/06/18] Mayer Carbonate TAB* 600 mg PO BEDTIME 12/06/18 [History Confirmed 12/06/18] Melatonin 5 mg PO DAILY 12/06/18 [History Confirmed 12/06/18] Prazosin CAP* [Minipress CAP*] 2 mg PO DAILY 12/06/18 [History Confirmed ] hydrOXYzine HCL TAB* [Atarax TAB 50 MG *] 50 mg PO TID PRN 12/06/18 [History Confirmed 12/06/18] PMH/Surg Hx/FS Hx/Imm Hx Endocrine/Hematology History: Denies: Hx Diabetes, Hx Anemia Cardiovascular History: Denies: Hx Hypertension, Hx Pacemaker/ICD Respiratory History: Denies: Hx Asthma, Hx Chronic Bronchitis, Hx Pneumonia, Hx Pulmonary Embolism GI History: Reports: Hx Gastroesophageal Reflux Disease, Hx Irritable Bowel Denies: Hx Crohn's Disease, Hx Diverticulosis History: Denies: Hx Acute Renal Failure, Hx Kidney Stones Musculoskeletal History: Reports: Hx Scoliosis Denies: Hx Arthritis Comment Only: Other Musculoskeletal History - Right sprained ankle Sensory History: Reports: Hx Contacts or Glasses Denies: Hx Hearing Aid Opthamlomology History: Reports: Hx Contacts or Glasses Neurological History: Denies: Hx Headaches, Hx Seizures Psychiatric History: Reports: Hx Anxiety, Hx Depression, Hx Post Traumatic Stress Disorder, Hx Inpatient Treatment, Hx Community Mental Health Tx, Hx Suicide Attempt, Other Psychiatric Issues/Disorders - borderline personality d/o Denies: Hx Attention Deficit Hyperactivity Disorder, Hx Eating Disorder, Hx Panic Disorder, Hx Schizophrenia, Hx Bipolar Disorder, Hx of Violent Episodes Against Others, Hx Substance Abuse - Surgical History Surgery Procedure, Year, and Place: T & A - Immunization History Date of Tetanus Vaccine: UTD Date of Influenza Vaccine: NO Infectious Disease History: No Infectious Disease History: Denies: Traveled Outside the [place] in Last 30 Days - Family History Known Family History: Positive: Other Negative: Cardiac Disease, Hypertension, Diabetes Family History: FHx of depression, anxiety disorders, bipolar disorders, mood disorders - Social History Alcohol Use: None Alcohol Amount: unable to assess. pt unwilling to state. Hx Substance Use: No Substance Use Type: Reports: None Hx Tobacco Use: No Smoking Status (MU): Never Smoked Tobacco Type: Cigarettes Review of Systems Negative: Fatigue Negative: Blurred Vision, Diplopia Negative: Shortness Of Breath Negative: Abdominal Pain, Vomiting, Nausea Positive: Other - lacerations wrist Negative: Weakness, Numbness Positive: Other - SI All Other Systems Reviewed And Are Negative: Yes Physical Exam - Summary Physical Exam Summary: Appearance: well appearing, no pain distress, obese Skin: warm, dry, reflects adequate perfusion, superficial linear abrasions on right wrist Head/face: normal Eyes: EOMI, ALEXANDRA, pinpoint pupils ENT: mucous membranes moist Neck: supple, non-tender Respiratory: CTA, breath sounds present Cardiovascular: RRR, pulses symmetrical Abdomen: non-tender, soft Bowel Sounds: present Musculoskeletal: normal, strength/ROM intact Neuro: normal, sensory motor intact, A&Ox3 Psych: very flat affect Triage Information Reviewed: Yes Vital Signs On Initial Exam: Initial Vitals Resp 20 12/06/18 02:13 Vital Signs Reviewed: Yes Diagnostics - Vital Signs Vital Signs Temp Pulse Resp BP Pulse Ox 12/06/18 02:14 98.2 F 81 21 124/75 97 12/06/18 02:13 20 - Laboratory Result Diagrams: 12/06/18 02:27 12/06/18 04:35 Lab Statement: Any lab studies that have been ordered have been reviewed, and results considered in the medical decision making process. - EKG 2:28 Cardiac Rate: NL - 78 bpm EKG Rhythm: Sinus Rhythm Summary of EKG Findings: Nl axis, QTc 499, QRS 114 Course/Dx - Course Course Of Treatment: Nurses notes reviewed. Pt with hx of MH/SI and attempts in past px with ingestion/OD of lithium and melatonin. Initial lithium level 1.86 with nl renal fxn. Discussed with Poison Control -- want Na 140-142 and K around 4. Pt received 2L IV NS bolus then 250cc/hr to help renally clear. After 2hr observation pt had no further neuro sx or nausea and repeat lithium level is 2.06. Renal fxn is unchanged with Na 138 and K 3.8. Pt will require q4hr repeat lithium levels until levels are falling and maintained in a range of ~ 1.2. Discussed this with hospitalist who will admit to ICU. - Diagnoses Differential Diagnosis/HQI/PQRI: Positive: Metabolic Disorder, Suicidal Risk, Other - lithium toxicity, coingestants Provider Diagnoses: Mayer overdose, Suicide attempt, Depressive disorder, Borderline personality disorder - Physician Notifications Discussed Care Of Patient With: Poison Control Time Discussed With Above Provider: 03:12 Instructed by Provider To: Other - Give pt more fluids and oral potassium. Redo Mayer and chemistry in 2 hours. Pt will potentially be cleared for a MHE in 6 hours. At 5:23 spoke to Poison Control, who recommends admission and two more Mayer and chemistry tests at two hour intervals. At 5:[address] Barakat who accepts pt for admission. - Critical Care Time Critical Care Time: 30-74 min - CCT is EXCLUSIVE of separately billable procedures. Discharge - Sign-Out/Discharge Documenting (check all that apply): Patient Departure - Admit Patient Received Moderate/Deep Sedation with Procedure: No - Discharge Plan Condition: Guarded Disposition: ADMITTED TO [facility] Referrals: Maikol Izaguirre MD [Primary Care Provider] - - Billing Disposition and Condition Condition: GUARDED Disposition: Admitted to [facility] - Attestation Statements Document Initiated by Scribe: Yes Documenting Scribe: China House Provider For Whom Scribe is Documenting (Include Credential): Nathan Marroquin MD Scribe Attestation: China Kyle scribed for Nathan Marroquin MD on 12/06/18 at 0533. Scribe Documentation Reviewed: Yes Provider Attestation: The documentation as recorded by the China pino accurately reflects the service I personally performed and the decisions made by Nathan king MD Status of Scribe Document: Viewed
[2018-12-06 02:51] LABS: ABS Basophils 0 10^3/ul (0-0.2); ABS Eosinophils 0.1 10^3/ul (0-0.6); ABS Lymphocytes 2.1 10^3/ul (1.0-4.8); ABS Monocytes 0.6 10^3/ul (0-0.8); ABS Neutrophils 6.5 10^3/ul (1.5-7.7); ABS Nucleated RBC 0 10^3/ul; Eosinophil % 1.4 %; Hematocrit 38 % (33-41); Hemoglobin 12.5 g/dL (12.0-16.0); Lymphocyte % 22.3 %; Mean Corpuscular HGB Conc 33 g/dL (31-36); Mean Corpuscular Hemoglobin 30 pg (27-31); Mean Corpuscular Volume 91 fL (80-97); Mean Platelet Volume 7.3 fL (7.4-10.4); Nucleated Red Blood Cells % 0.1; Platelet Count 284 10^3/uL (150-450); Red Blood Count 4.14 10^6 /uL (3.70-4.87); Red Cell Distribution Width 13 % (10.5-15); White Blood Count 9.5 10^3/uL (3.5-10.8)
[2018-12-06 02:54] LABS: Acetaminophen < 15 mcg/mL; Alcohol < 10 mg/dL (<10); Salicylate < 2.50 mg/dL (<30)
[2018-12-06 02:55] LABS: ALT 18 U/L (7-52); AST 16 U/L (13-39); Albumin 4.1 g/dL (3.2-5.2); Albumin/Globulin Ratio 1.3 (1-3); Alkaline Phosphatase 43 U/L (34-104); Anion Gap 7 mmol/L (2-11); BUN/Creatinine Ratio 16.3 (8-20); Blood Urea Nitrogen 16 mg/dL (6-24); CO2 Carbon Dioxide 23 mmol/L (22-32); Calcium 9.2 mg/dL (8.6-10.3); Chloride 107 mmol/L (101-111); EGFR African American 80.1 (>60); EGFR Non-African American 66.2 (>60); Globulin 3.1 g/dL (2-4); Glucose 102 mg/dL (70-100); Potassium 3.5 mmol/L (3.5-5.0); Sodium 137 mmol/L (135-145); Total Protein 7.2 g/dL (6.4-8.9)
[2018-12-06 02:59] LABS: Lithium 1.86 mmol/L (0.6-1.2)
[2018-12-06 03:03] LABS: HCG Pregnancy < 0.60 mIU/mL
[2018-12-06 03:09] LABS: TSH (Thyroid Stimulating Horm) 5.87 mcIU/mL (0.34-5.60)
[2018-12-06] MEDS ORDERED: NS 0.9% 1000 ML** 1,000 ML IV SCH (03:15)
[2018-12-06] MEDS ORDERED: Potassium Chlor TAB* 20 MEQ TAB.ER PO ONE (03:19)
[2018-12-06 03:38] LABS: Urine Appearance Clear; Urine Bilirubin Negative (Negative); Urine Blood Negative (Negative); Urine Color Colorless; Urine Glucose Negative (Negative); Urine Ketones Negative (Negative); Urine Nitrite Negative (Negative); Urine Protein Negative (Negative); Urine Specific Gravity 1.005 (1.010-1.030); Urine Urobilinogen Negative (Negative)
[2018-12-06 03:50] LABS: Barbiturates Urine Screen None Detected (None Detect); Benzodiazepine Urine Screen None Detected (None Detect); Urine Cannabinoids Screen None Detected (None Detect)
[2018-12-06 05:11] LABS: BUN/Creatinine Ratio 14.3 (8-20); EGFR African American 80.1 (>60); EGFR Non-African American 66.2 (>60); Potassium 3.8 mmol/L (3.5-5.0)
[2018-12-06 05:23] LABS: Lithium 2.06 mmol/L (0.6-1.2)
[2018-12-06] MEDS ORDERED: NS 0.9% w/ 20 Meq KCL 1000 ML* 1,000 ML IV SCH (06:00)
[2018-12-06] MEDS ORDERED: hydrOXYzine HCL TAB* 50 MG PO PRN (06:11)
--- NOTE | 2018-12-06 07:31 | ADMNOTE ---
Subjective Date of Service: 12/06/18 Interval History: HISTORY AND PHYSICAL PCP: Maikol Izaguirre in [facility] CC: overdose HPI: Patient is a 33 year old woman with history of depression w/ suicide attempts who states she took ten tabs of 300 mg lithium around midnight, intending self-harm. She was not sure she wanted to , she wanted to "hurt herself." She also took several tabs of melatonin. She was brought to ER by police, it is unclear how they were alerted. ER spoke with poison control, who advised checking BMP, lithium every 4 hours, maintaining potassium above 4 and sodium around 140, until lithium has peaked. Most recent suicide attempt was in September. Sees Dr. Baldwin at [facility]. 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, , one 6-yo child , denies tobacco, alcohol, or drug use Past Medical History: Findings - PMH: major depression, PTSD, IBS; PSH none Review of Systems - Measurements Intake and Output: Intake and Output Last 24 Hours 12/04/18 12/05/18 12/06/18 12/07/18 06:59 06:59 06:59 06:59 Intake Total 1000 Balance 1000 Weight 113.398 kg Intake: IV Fluids 1000 - Review of Systems Constitutional Symptoms: Positive: Weight Gain, Fatigue Dermatology: Positive: Normal HEENT: Positive: Normal Eyes: Positive: Normal Thyroid: Positive: Normal Negative: Goiter, Primary Hypothyroidism Pulmonary: Positive: Normal Cardiology: Positive: Normal Gastroenterology: Positive: Indigestion, Constipation, Diarrhea, Change in Bowel Habits Genital - Urinary: Positive: Normal Genitourinay - Female: Positive: Menses Normal Endocrinology: Positive: Obesity Negative: Thyroid Problems Hematologic/Lymphatic: Negative: Easy Brusing Neurology: Positive: Normal Psychiatry: Positive: Depression, Depressed Mood, Weight Change, Suicidal Ideation Objective Active Medications: Home Medications: Aripiprazole (Abilify Tab*) 20 mg PO DAILY MARYA Cholecalciferol (Vitamin D3 Cap/Tab (Nf)) cap PO DAILY MARYA Fluoxetine HCl (Prozac Cap*) 60 mg PO DAILY MARYA Hydroxyzine HCl (Atarax Tab*) 50 mg PO TID PRN PRN Reason: ANXIETY Mirtazapine (Remeron Tab*) 15 mg PO BEDTIME MARYA Norethindrone (Shannon (Nf)) 0.35 mg PO DAILY MARYA Prazosin HCl (Minipress Cap*) 2 mg PO DAILY MARYA Elkins Carbonate TAB* 300 mg PO QAM 12/06/18 Elkins Carbonate TAB* 600 mg PO BEDTIME 12/06/18 Vital Signs - 8 hr 12/06/18 12/06/18 12/06/18 02:13 02:14 02:44 Temperature 36.8 C Pulse Rate 81 67 Respiratory 20 21 15 Rate Blood Pressure 124/75 107/70 (mmHg) O2 Sat by Pulse 97 100 Oximetry 12/06/18 12/06/18 07:00 07:14 Temperature Pulse Rate 68 74 Respiratory 16 18 Rate Blood Pressure 112/69 (mmHg) O2 Sat by Pulse 98 97 Oximetry Oxygen Devices in Use Now: None Appearance: alert, staring ahead Eyes: No Scleral Icterus Ears/Nose/Mouth/Throat: NL Teeth, Lips, Gums Neck: NL Appearance and Movements; NL JVP Respiratory: Symmetrical Chest Expansion and Respiratory Effort, Clear to Auscultation Cardiovascular: NL Sounds; No Murmurs; No JVD, RRR Abdominal: NL Sounds; No Tenderness; No Distention, No Hepatosplenomegaly Lymphatic: No Cervical Adenopathy Extremities: No Edema Skin: No Rash or Ulcers Neurological: Alert and Oriented x 3, - - constricted affect Lines/Tubes/Other Access: Clean, Dry and Intact Peripheral IV Nutrition: Taking PO's Result Diagrams: 12/06/18 02:27 12/06/18 04:35 Additional Lab and Data: Laboratory Tests 12/06/18 12/06/18 12/06/18 02:27 03:25 04:35 Creatinine 0.98 H 0.98 H Glucose 102 H 103 H AST 16 ALT 18 TSH 5.87 H Beta HCG, Quant < 0.60 Salicylates < 2.50 Urine Opiates Screen None detected Acetaminophen < 15 Ur Barbiturates Screen None detected Ur Phencyclidine Scrn None detected Ur Amphetamines Screen None detected U Benzodiazepines Scrn None detected Elkins 1.86 H* 2.06 H* Urine Cocaine Screen None detected U Cannabinoids Screen None detected Serum Alcohol < 10 EKG Data: NSR, normal axis, borderline IVCD, QT mildly prolonged Assess/Plan/Problems-Billing Assessment: 33 year old woman with lithium overdose - Patient Problems (1) Intentional lithium overdose Current Visit: Yes Status: Acute Priority: High Code(s): T56.892A - TOXIC EFFECT OF OTH METALS, INTENTIONAL SELF-HARM, INIT SNOMED Code(s): 402499756 Comment: -Patient requires admission to telemetry, is at risk of fatal arrhythmias such as torsades. -QT prolongation is mild but concerning, will repeat EKG this morning -Will monitor lithium and BMP every 4 hours, give brisk hydration to keep sodium and potassium in goal range (+/- 140 and >4) (2) Suicidal behavior Current Visit: Yes Status: Acute Priority: High Code(s): R46.89 - OTHER SYMPTOMS AND SIGNS INVOLVING APPEARANCE AND BEHAVIOR SNOMED Code(s): 577168624 Comment: -Will be evaluated by psychiatry as soon as possible, appear to require psychiatric admission once cardiac situation is stabilized. -Will have one-to-one monitor. (3) PTSD (post-traumatic stress disorder) Current Visit: Yes Status: Acute Priority: Medium Code(s): F43.10 - POST- TRAUMATIC STRESS DISORDER, UNSPECIFIED SNOMED Code(s): 02906241 Comment: -Will continue other psychiatric medications, hold lithium. (4) DVT prophylaxis Current Visit: No Status: Acute Priority: Medium Code(s): LHF8177 - SNOMED Code(s): 279477730 Comment: - moderate risk due to obesity and OCPs, will have SC heparin Status and Disposition: observation on telemetry
[2018-12-06] MEDS ORDERED: NORETHINDRONE 0.35 MG PO SCH (09:00)
[2018-12-06] MEDS: FLUoxetine CAP* 20 MG PO SCH (10:49)
[2018-12-06] MEDS: ARIPiprazole TAB* 20 MG PO SCH (10:50)
[2018-12-06] MEDS: Cholecalciferol TAB* 1000 UNITS PO SCH (10:50)
[2018-12-06] MEDS: Heparin VIAL(*) 5000 UNITS/ML VIAL (FIVE THOUSAND) SUBCUT SCH ×2 (10:51→21:10)
[2018-12-06 12:27] LABS: BUN/Creatinine Ratio 11.7 (8-20); Calcium 8.9 mg/dL (8.6-10.3); EGFR Non-African American 69.5 (>60); Potassium 3.8 mmol/L (3.5-5.0)
[2018-12-06 12:58] LABS: Lithium 1.21 mmol/L (0.6-1.2)
[2018-12-06 16:24] LABS: Calcium 8.7 mg/dL (8.6-10.3); Potassium 3.8 mmol/L (3.5-5.0)
[2018-12-06 16:30] LABS: BUN/Creatinine Ratio 10.9 (8-20); EGFR African American 86.2 (>60); EGFR Non-African American 71.2 (>60)
[2018-12-06 16:44] LABS: Lithium 0.99 mmol/L (0.6-1.2)
[2018-12-06] MEDS ORDERED: Polyethylene Glycol 3350* 17 GM PACKET PO PRN (19:28)
[2018-12-06] MEDS ORDERED: Mirtazapine TAB* 15 MG PO SCH (21:00)
[2018-12-06] MEDS: Prazosin CAP* 1 MG PO SCH (21:10)
[2018-12-07 05:26] LABS: BUN/Creatinine Ratio 11.7 (8-20); Calcium 8.8 mg/dL (8.6-10.3); EGFR African American 75.6 (>60); EGFR Non-African American 62.5 (>60); Potassium 3.7 mmol/L (3.5-5.0)
[2018-12-07] MEDS: FLUoxetine CAP* 20 MG PO SCH (08:57)
[2018-12-07] MEDS: Cholecalciferol TAB* 1000 UNITS PO SCH (08:57)
[2018-12-07] MEDS: Heparin VIAL(*) 5000 UNITS/ML VIAL (FIVE THOUSAND) SUBCUT SCH (08:58)
[2018-12-07] MEDS ORDERED: PTO:Norethindrone (NF) 0.35 MG TAB PO SCH (09:00)
[2018-12-07] MEDS: Prazosin CAP* 1 MG PO SCH (09:03)
[2018-12-07] MEDS: ARIPiprazole TAB* 20 MG PO SCH (09:03)
[2018-12-07] MEDS ORDERED: Acetaminophen TAB* 325 MG PO PRN (12:26)
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
[2018-12-07 15:03] VITALS: BP 115/69
--- NOTE | 2018-12-07 23:58 | DS ---
CC: Dr. Maikol Izaguirre; Dr. Baldwin; Dr. Fabrice Aj, [facility] Psychiatry * DISCHARGE SUMMARY: DATE OF ADMISSION: 12/06/18 DATE OF DISCHARGE: 12/07/18 PRIMARY CARE PROVIDER: Dr. Maikol Izaguirre. PSYCHIATRIST: Dr. Baldwin from [employer]. DISCHARGE DIAGNOSIS: Intentional lithium overdose. SECONDARY DIAGNOSES: 1. History of previous suicidal attempts in the past. 2. History of major depression. 3. History of posttraumatic stress disorder. 4. Irritable bowel syndrome. MEDICATIONS AT DISCHARGE: Unchanged from admission and include: 1. Vitamin D3 5000 units daily. 2. Atarax 50 mg t.i.d. p.r.n. 3. [place] carbonate as previously taken at bedtime, 300 mg daily. 4. Melatonin 5 mg daily at night. 5. Minipress 2 mg daily. 6. Abilify 20 mg daily. 7. Fluoxetine 60 mg daily. 8. Ibuprofen on a p.r.n. basis. 9. Remeron 15 mg at bedtime. 10. Norethindrone 0.35 mg daily. LABORATORY DATA AND STUDIES PERFORMED DURING THE HOSPITAL STAY: Included on , sodium of 141, potassium of 3.7, chloride of 109, carbon dioxide 24, BUN 12, creatinine 1.03. The patient's TSH at admission was slightly elevated at 5.87. CBC on admission showed a white blood cell count of 9.5, hemoglobin of 12.5, hematocrit of 38, and platelets of 284. Urine drug screen was unremarkable. Serum was negative for acetaminophen, salicylates, and alcohol level. [place] level on admission was 1.87, the day prior to discharge was 0.99. CONSULTATIONS DURING THE HOSPITAL STAY: Dr. Fabrice Aj, Psychiatry at [facility]. HOSPITALIZATION COURSE: Luly Peralta is a 33-year-old female who overdosed on lithium intending self harm. She stated that she took 10 tabs of 300 mg of lithium and she wanted to hurt herself. She also took apparently several tablets of methamphetamine. The patient was observed on telemetry bed for 24 hours with no arrhythmias noted. Her basic metabolic panel that were continued to be checked during the hospital stay were basically unremarkable. The patient's lithium level normalized the night prior to discharge. The patient was seen by Dr. Aj from Psychiatry who cleared the patient for discharge. Dr. Aj recommended continuation of the patient's lithium as previously used. The patient is set up by the psychiatry social insurance analyst with ACT team referral. The patient is also to continue with Dr. Baldwin with scheduled appointment next week. The patient is also recommended to follow with Dr. Izaguirre, her primary care provider in approximately 4 to 7 days. PHYSICAL EXAMINATION: At the time of discharge, blood pressure of 116/59, heart rate of 87 and regular, respiratory rate 16, oxygen saturation 97% on room air, temperature 98.6. General: The patient is a very pleasant 33-year- old female, who is in no acute distress. Alert, awake, and oriented x3. HEENT : Head: Atraumatic, normocephalic. Eyes: Pupils are equal and reactive to light and accommodation. Oropharynx is clear. Mucosa moist. Neck: Supple. No JVD. No bruits bilaterally. Cardiovascular: Regular rate and rhythm. No murmur. Respiratory: Clear to auscultation bilaterally. Abdomen: Soft, nontender. Bowel sounds are present in all 4 quadrants. Extremities: There is no edema. Pulses are +2 bilaterally. No clubbing or cyanosis. On neuro evaluation, speech is clear. Cranial nerves II through XII are grossly intact. Motor strength is 5/5 bilaterally. Psychiatric Evaluation: Pleasant, cooperative with evaluation, oriented x3 with no evidence of anxiety or depression. Please note that this is a short summary of the patient's hospital stay. Please refer to further medical records for details. TIME SPENT: Approximately 32 minutes was spent on the patient's discharge. [id number] #: [id number] [facility]ITALMichael
== END 2018-12-07 16:55 | disposition home or self-care (01) ==
LOC: ED 02:03 → INTOOBSV 05:58 → MEDTELE 05:58 → OBSVTOIN 05:58 → ED 11:25
PROVIDERS: ADMIT Internal Medicine; ATTEND Internal Medicine
DX: T56.892A Toxic effect of other metals, intentional self-harm, initial encounter (principal); Y92.9 Unspecified place or not applicable; R45.851 Suicidal ideations; F32.9 Major depressive disorder, single episode, unspecified; F43.10 Post-traumatic stress disorder, unspecified; K58.9 Irritable bowel syndrome, unspecified; K21.9 Gastro-esophageal reflux disease without esophagitis; F60.3 Borderline personality disorder
CPT/HCPCS: 36415; 80048; 80053; 80178; 80307; 80320; 80329; 81003; 84443; 84702; 85025; 93005; 96360; 96361; 96372; 99285; A9270-GY; G0378; G0480; J1644

== ENCOUNTER 2019-01-15 12:15 | Inpatient (IN) | payer MEDICAID, OTHER ==
--- NOTE | 2019-01-15 12:33 | ED ---
Psychiatric Complaint - HPI Summary HPI Summary: Patient is a 33 y/o F presenting to ED with complaints of SI, increased thoughts of self-harm, thoughts of head-banging, and thoughts of overdosing on medications. She is on lithium which the patient claims she has been taking as prescribed. Patient also reports exacerbation of life stressors, noting that her son has been having a variety of issues at school. She notes superficial laceration to her right wrist today. Patient reports decreased appetite/PO intake and states that she has been getting around seven hours of sleep per night. PMHx of GERD, irritable bowel syndrome, scoliosis, anxiety, depression, PTSD, suicide attempt. FMHx of depression, anxiety, bipolar disorder, mood disorder. Smoking cigarettes, alcohol and substance usage are denied. On triage , pain is denied. Home medications and allergies are reviewed. - History Of Current Complaint Time Seen by Provider: 01/15/19 12:19 Hx Obtained From: Patient Hx Last Menstrual Period: 07/09/18 Onset/Duration: Still Present Timing: Constant Severity Currently: None - pain denied Character: Depressed Aggravating Factor(s): Recent Stress Alleviating Factor(s): Nothing Associated Signs And Symptoms: Positive: Appetite Change Has Suicidal: Reports: Thoughts, With A Plan, Has Prior Attempt(s) - Allergies/Home Medications Allergies/Adverse Reactions: Allergies Allergy/AdvReac Type Severity Reaction Status Date / Time bupropion [From Wellbutrin] Allergy Rash Verified 01/15/19 12:52 silver Allergy Hives/Diff. Verified 01/15/19 12:52 Breathing/I tching haloperidol AdvReac Agitation Verified 01/15/19 12:52 Home Medications: Home Medications ARIPiprazole TAB* [Abilify 15 MG TAB*] 15 mg PO DAILY 01/15/19 [History Confirmed 01/15/19] PMH/Surg Hx/FS Hx/Imm Hx Endocrine/Hematology History: Denies: Hx Diabetes, Hx Thyroid Disease, Hx Anemia Cardiovascular History: Denies: Hx Hypertension, Hx Pacemaker/ICD Respiratory History: Denies: Hx Asthma, Hx Chronic Bronchitis, Hx Pneumonia, Hx Pulmonary Embolism GI History: Reports: Hx Gastroesophageal Reflux Disease, Hx Irritable Bowel Denies: Hx Crohn's Disease, Hx Diverticulosis History: Denies: Hx Acute Renal Failure, Hx Kidney Stones Musculoskeletal History: Reports: Hx Scoliosis Denies: Hx Arthritis Comment Only: Other Musculoskeletal History - Right sprained ankle Sensory History: Reports: Hx Contacts or Glasses Denies: Hx Hearing Aid Opthamlomology History: Reports: Hx Contacts or Glasses Neurological History: Denies: Hx Headaches, Hx Seizures Psychiatric History: Reports: Hx Anxiety, Hx Depression, Hx Post Traumatic Stress Disorder, Hx Inpatient Treatment, Hx Community Mental Health Tx, Hx Suicide Attempt, Other Psychiatric Issues/Disorders - borderline personality d/o Denies: Hx Attention Deficit Hyperactivity Disorder, Hx Eating Disorder, Hx Panic Disorder, Hx Schizophrenia, Hx Bipolar Disorder, Hx of Violent Episodes Against Others, Hx Substance Abuse - Surgical History Surgery Procedure, Year, and Place: T & A - Immunization History Date of Tetanus Vaccine: UTD Date of Influenza Vaccine: NO - Family History Known Family History: Positive: Other - FHx of depression, anxiety disorders, bipolar disorders, mood disorder Negative: Cardiac Disease, Hypertension, Diabetes Family History: FHx of depression, anxiety disorders, bipolar disorders, mood disorders - Social History Alcohol Use: None Alcohol Amount: unable to assess. pt unwilling to state. Hx Substance Use: No Substance Use Type: Reports: None Hx Tobacco Use: No Smoking Status (MU): Never Smoked Tobacco Type: Cigarettes Review of Systems Negative: Fever - on vitals, temp is 98.6 F Gastrointestinal: Other - POSITIVE - DECREASED APPETITE/PO INTAKE Skin: Other - POSITIVE - SUPERFICIAL RIGHT WRIST LACERATION Psychological: Other - POSITIVE - SI All Other Systems Reviewed And Are Negative: Yes Physical Exam - Summary Physical Exam Summary: VITAL SIGNS: Reviewed. GENERAL: Patient is a well-developed and nourished female who is lying comfortable in the stretcher. Patient is not in any acute respiratory distress. HEAD AND FACE: No signs of trauma. No ecchymosis, hematomas or skull depressions. No sinus tenderness. EYES: PERRLA, EOMI x 2, No injected conjunctiva, no nystagmus. EARS: Hearing grossly intact. Ear canals and tympanic membranes are within normal limits. MOUTH: Oropharynx within normal limits. NECK: Supple, trachea is midline, no adenopathy, no JVD, no carotid bruit, no c- spine tenderness, neck with full ROM. CHEST: Symmetric, no tenderness at palpation LUNGS: Clear to auscultation bilaterally. No wheezing or crackles. CVS: Regular rate and rhythm, S1 and S2 present, no murmurs or gallops appreciated. ABDOMEN: Soft, non-tender. No signs of distention. No rebound no guarding, and no masses palpated. Bowel sounds are normal. EXTREMITIES: FROM in all major joints, no edema, no cyanosis or clubbing. NEURO: Alert and oriented x 3. No acute neurological deficits. Speech is normal and follows commands. SKIN: Dry and warm PSYCH: Depressed, quiet, anxious, shaking, and endorses thoughts of SI. No homicidal thoughts or plan. No signs of psychosis or pressure speech. No tangential speech. Triage Information Reviewed: Yes Vital Signs On Initial Exam: Initial Vitals Temp Pulse Resp BP Pulse Ox 98.6 F 87 16 143/83 97 01/15/19 12:17 01/15/19 12:17 01/15/19 12:17 01/15/19 12:17 01/15/19 12:17 Vital Signs Reviewed: Yes Diagnostics - Laboratory Result Diagrams: 01/15/19 12:46 01/15/19 12:46 Lab Statement: Any lab studies that have been ordered have been reviewed, and results considered in the medical decision making process. Re-Evaluation - Re-Evaluation First Eval Re-Evaluation Time: 12:30 Comment: Patient has been medically cleared for MHE. Course/Dx - Course Assessment/Plan: Patient is a 33 y/o F presenting to ED with complaints of SI, increased thoughts of self-harm, thoughts of head-banging, and thoughts of overdosing on medications. She is on lithium which the patient claims she has been taking as prescribed. Patient also reports exacerbation of life stressors, noting that her son has been having a variety of issues at school. Blood work w /o a significant abnormality. She is medically cleared. She is awaiting for a MHE. Patient is hemodynamically stable and A+O x 3. Patient was evaluated by Dr. Montalvo and he recommends for the patient to be admitted to this services for further workup and management. - Differential Dx/Clinical Impression Differential Diagnosis/HQI/PQRI: Positive: Depression, Suicidal Ideation Provider Diagnosis: Depression - Physician Notifications Discussed Care Of Patient With: Tarik Montalvo Time Discussed With Above Provider: 14:59 Instructed by Provider To: Other - Patient's case was reviewed by Dr. Montalvo, patient will be involuntarily admitted to [facility] psych. Discharge - Sign-Out/Discharge Documenting (check all that apply): Patient Departure - admit - Discharge Plan Condition: Good Disposition: [facility]CHIATRIC FACILITY[facility] - Billing Disposition and Condition Condition: GOOD Disposition: Psychiatric Facility [facility] - Attestation Statements Document Initiated by Brendaibabhijit: Yes Documenting Scribe: KURT MCKENZIE Provider For Whom Brendaibe is Documenting (Include Credential): CAMERON JEAN BAPTISTE MD Scribe Attestation: KURT Kyle, scribed for CAMERON JEAN BAPTISTE MD on 01/16/19 at 1054. Scribe Documentation Reviewed: Yes Provider Attestation: The documentation as recorded by the KURT pino accurately reflects the service I personally performed and the decisions made by me, CAMERON JEAN BAPTISTE MD Status of Scribe Document: Viewed
[2019-01-15 13:00] LABS: ABS Eosinophils 0.1 10^3/ul (0-0.6); ABS Lymphocytes 2.3 10^3/ul (1.0-4.8); ABS Monocytes 0.6 10^3/ul (0-0.8); ABS Neutrophils 5.2 10^3/ul (1.5-7.7); Eosinophil % 1.4 %; Hematocrit 39 % (35-47); Hemoglobin 13.5 g/dL (12.0-16.0); Mean Corpuscular HGB Conc 34 g/dL (31-36); Mean Corpuscular Hemoglobin 30 pg (27-31); Mean Corpuscular Volume 88 fL (80-97); Mean Platelet Volume 7.5 fL (7.4-10.4); Platelet Count 299 10^3/uL (150-450); Red Blood Count 4.49 10^6 /uL (3.70-4.87); Red Cell Distribution Width 13 % (10.5-15); White Blood Count 8.3 10^3/uL (3.5-10.8)
[2019-01-15 13:18] LABS: ALT 24 U/L (7-52); AST 18 U/L (13-39); Albumin 4.4 g/dL (3.2-5.2); Albumin/Globulin Ratio 1.3 (1-3); Alkaline Phosphatase 55 U/L (34-104); Anion Gap 9 mmol/L (2-11); BUN/Creatinine Ratio 12.9 (8-20); Blood Urea Nitrogen 13 mg/dL (6-24); CO2 Carbon Dioxide 25 mmol/L (22-32); Calcium 9.9 mg/dL (8.6-10.3); Chloride 106 mmol/L (101-111); EGFR African American 77.4 (>60); EGFR Non-African American 63.9 (>60); Globulin 3.3 g/dL (2-4); Glucose 99 mg/dL (70-100); Potassium 4.1 mmol/L (3.5-5.0); Sodium 140 mmol/L (135-145); Total Protein 7.7 g/dL (6.4-8.9)
[2019-01-15 13:43] LABS: Acetaminophen < 15 mcg/mL; Alcohol < 10 mg/dL (<10); Lithium 0.28 mmol/L (0.6-1.2); Salicylate < 2.50 mg/dL (<30)
[2019-01-15 13:57] LABS: TSH (Thyroid Stimulating Horm) 1.67 mcIU/mL (0.34-5.60)
[2019-01-15] MEDS ORDERED: Al Hydrox/Mg Hydrox/Simet LIQ* 30 ML UDC PO PRN (14:54)
[2019-01-15] MEDS: Lithium Carbonate TAB* 300 MG PO SCH (21:25)
[2019-01-15] MEDS: Mirtazapine TAB* 15 MG PO SCH (21:25)
[2019-01-15] MEDS: Prazosin CAP* 1 MG PO SCH (22:03)
[2019-01-16 07:31] LABS: Cholesterol 151 mg/dL; HDL Cholesterol 31.4 mg/dL; LDL Cholesterol 95 mg/dL; Triglycerides 124 mg/dL
[2019-01-16] MEDS: Cholecalciferol TAB* 1000 UNITS PO SCH (08:56)
[2019-01-16] MEDS: ARIPiprazole TAB* 20 MG PO SCH (08:56)
[2019-01-16] MEDS: FLUoxetine CAP* 20 MG PO SCH (08:56)
[2019-01-16] MEDS: Lithium Carbonate TAB* 300 MG PO SCH ×2 (08:57→20:13)
[2019-01-16] MEDS: NORETHINDRONE 0.35 MG PO SCH (08:58)
[2019-01-16] MEDS: Acetaminophen TAB* 325 MG PO PRN (08:58)
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
[2019-01-16 11:57] LABS: HCG Pregnancy < 0.60 mIU/mL
[2019-01-16 19:51] LABS: Urine Appearance Cloudy; Urine Bilirubin Negative (Negative); Urine Blood Negative (Negative); Urine Color Yellow; Urine Glucose Negative (Negative); Urine Ketones Negative (Negative); Urine Nitrite Negative (Negative); Urine Protein Negative (Negative); Urine Specific Gravity 1.021 (1.010-1.030); Urine Urobilinogen Negative (Negative)
[2019-01-16 20:09] LABS: Urine Benzodiazepine Screen None Detected (None Detect); Urine Opiates Screen None Detected (None Detect)
[2019-01-16] MEDS: Mirtazapine TAB* 15 MG PO SCH (20:14)
[2019-01-16] MEDS: Prazosin CAP* 1 MG PO SCH (20:14)
[2019-01-16] MEDS: hydrOXYzine HCL TAB* 50 MG PO PRN (20:14)
[2019-01-17] MEDS: ARIPiprazole TAB* 20 MG PO SCH (09:02)
[2019-01-17] MEDS: Lithium Carbonate TAB* 300 MG PO SCH ×2 (09:02→20:28)
[2019-01-17] MEDS: Cholecalciferol TAB* 1000 UNITS PO SCH (09:02)
[2019-01-17] MEDS: FLUoxetine CAP* 20 MG PO SCH (09:02)
[2019-01-17] MEDS: Acetaminophen TAB* 325 MG PO PRN ×2 (09:05→18:55)
[2019-01-17] MEDS: NORETHINDRONE 0.35 MG PO SCH (09:49)
[2019-01-17] MEDS: hydrOXYzine HCL TAB* 50 MG PO PRN (13:48)
--- NOTE | 2019-01-17 15:07 | PN ---
Subjective - Subjective Date of Service: 01/17/19 Service Type: [id number] Hosp care 35 min high complexity Subjective: Nursing Report: Patient was visible on unit, no chemical restraints or PRNs. Slept overnight without incident. CC: "I cant control my thoughts" Patient was seen and evaluated in the common room. She ate breakfast this morning. She reported having strong thoughts of hitting her head against the wall. She is tolerating medications without side effects. She spoke to her mother who plans to come to the unit for a meeting tomorrow. Earlier she was frightened by another peers behavior on the unit. Objective - General Observations Appears Stated Age: Yes Stature: Overweight Posture: Slumped Eye Contact: Average Behavior/Activity: WNL - Interaction Observations Attitude Towards Examiner: Cooperative Stated Mood: Dysphoric Affect: Blunted Speech Pattern/Tone: Clear Thought Process: Coherent Perception: WNL Thought Content: Obsessional Thought Process: Lethality: Passive Wish Hallucination Type: None Delusion Type: None - Cognitive Function Orientation: A&O x 4 Level of Consciousness: Awake - Medication Compliance Cooperative with Inpatient Medication Regimen: Yes - Group Participation Participates in Group Activities: Yes Assessment - Assessment Merits Inpatient Hospitalization: For Immediate Safety Clinical Impression: 33 year old female with multiple hospital admissions currently with suicidal ideation Plan - Plan Treatment Plan: Name: SAUL UGARTE Birthdate: 1985 [id number] #Patient continues to require inpatient psychiatric care # Change prozac to luvox 100mg daily for thought intrusion #Family meeting Tomorrow at 2pm # Q15 min observation #Goals Limit journal to 15 minutes Vital Signs Temp Pulse Resp BP Pulse Ox 96.7 F 67 18 119/83 100 01/17/19 07:44 01/17/19 07:44 01/17/19 10:20 01/17/19 07:44 01/17/19 07:44 Sodium 140 mmol/L (135-145) 01/15/19 12:46 Potassium 4.1 mmol/L (3.5-5.0) 01/15/19 12:46 BUN 13 mg/dL (6-24) 01/15/19 12:46 Creatinine 1.01 mg/dL (0.51-0.95) H 01/15/19 12:46 Hemoglobin A1c 5.2 % (4.0-5.6) 01/16/19 06:46 Calcium 9.9 mg/dL (8.6-10.3) 01/15/19 12:46 AST 18 U/L (13-39) 01/15/19 12:46 ALT 24 U/L (7-52) 01/15/19 12:46 Triglycerides 124 mg/dL 01/16/19 06:46 Cholesterol 151 mg/dL 01/16/19 06:46 LDL Cholesterol 95 mg/dL 01/16/19 06:46 Continued Medication Management: Continue Outpt Medication Medications: Current Medications Acetaminophen (Tylenol Tab*) 650 mg PO Q4H PRN PRN Reason: for pain; or Temp >101 F Last Admin: 01/17/19 09:05 Dose: 650 mg Al Hydrox/Mg Hydrox/Simethicone (Maalox Plus*) 30 ml PO Q4H PRN PRN Reason: INDIGESTION Aripiprazole (Abilify Tab*) 20 mg PO DAILY [facility] Last Admin: 01/17/19 09:02 Dose: 20 mg Cholecalciferol (Vitamin D Tab*) 5,000 units PO DAILY [facility] Last Admin: 01/17/19 09:02 Dose: 5,000 units Fluvoxamine Maleate (Fluvoxamine (Nf)) 100 mg PO DAILY [facility] Hydroxyzine HCl (Atarax Tab*) 50 mg PO TID PRN PRN Reason: ANXIETY Last Admin: 01/17/19 13:48 Dose: 50 mg Ibuprofen (Motrin Tab*) 600 mg PO Q4HR PRN PRN Reason: Pain [place] Carbonate ([place] Carbonate Tab*) 300 mg PO DAILY [facility] Last Admin: 01/17/19 09:02 Dose: 300 mg [place] Carbonate ([place] Carbonate Tab*) 600 mg PO BEDTIME [facility] Last Admin: 01/16/19 20:13 Dose: 600 mg Mirtazapine (Remeron Tab*) 15 mg PO BEDTIME [facility] Last Admin: 01/16/19 20:14 Dose: 15 mg Pto: Norethindrone ( Nf) [Shannon (Nf)] 0 .35 Mg 0.35 mg PO DAILY [facility] Last Admin: 01/17/19 09:49 Dose: 0.35 mg Prazosin HCl (Minipress Cap*) 2 mg PO BEDTIME [facility] Last Admin: 01/16/19 20:14 Dose: 2 mg - Discharge Plan Discharge Plan: Inpatient Hospitalization
[2019-01-17] MEDS: Prazosin CAP* 1 MG PO SCH (20:28)
[2019-01-17] MEDS: Mirtazapine TAB* 15 MG PO SCH (20:28)
--- NOTE | 2019-01-18 08:20 | PN ---
Subjective - Subjective Date of Service: 01/18/19 Service Type: 86656 Hosp care 35 min high complexity Subjective: Nursing Report: Patient seclusive no chemical restraints or PRNs. Slept overnight without incident. Attending group activities. CC: "So so Patient was seen and evaluated today in the common room. She reported that she was doing "so-so". She has a soft toy that she is using to squeeze for anxiety. Patient reported that she is tolerating medications without side effects. She continues to report severe anxiety. Patient intentionally cut her self with a spoon. Patient was anxious during family meeting while placement housing options were discussed. Patient said she is scared that she will be in trouble if she talks about things but would not verbalize what she was referring to. Objective - General Observations Appears Stated Age: Yes Stature: WNL, Overweight Posture: WNL Eye Contact: Average Behavior/Activity: WNL - Interaction Observations Attitude Towards Examiner: Cooperative Stated Mood: Anxious Affect: Blunted Speech Pattern/Tone: Delayed Thought Process: Coherent Perception: WNL Thought Content: Preoccupation/Ruminations Thought Process: Lethality: Passive Wish Hallucination Type: Denies Delusion Type: None - Cognitive Function Orientation: A&O x 4 Level of Consciousness: Awake Judgment Within Normal Limits: No - Medication Compliance Cooperative with Inpatient Medication Regimen: Yes - Group Participation Participates in Group Activities: Yes Assessment - Assessment Merits Inpatient Hospitalization: For Immediate Safety Clinical Impression: 33 year old female with multiple hospital admissions currently with suicidal ideation Plan - Plan Treatment Plan: Name: SAUL UGARTE Birthdate: 1985 [id number] #Patient continues to require inpatient psychiatric care # Luvox 150mg daily to begin tomorrow #Family meeting today took place with her mother, placement options were discussed # Q15 min observation #Goals : Eradicate suicidal ideation # Limit journal to 15 minutes # Family is considering [facility] program. The risks, benefits, and alternative treatment options were discussed as well as of the risks of refusing treatment. After this discussion and an acknowledgement of this understanding was made. A risk/ benefit assessment of treatment was considered and discussed with the patient. When comparing the risks of treatment with the dangers of not receiving treatment, the benefits of treatment outweigh the treatment risks at this time. Risks of suicidal ideation , behavioral changes, dystonia, movement disorders, cardiac conduction changes , serotonin syndrome, metabolic risks and NMS were among some of the risks discussed. Sodium 140 mmol/L (135-145) 01/15/19 12:46 Potassium 4.1 mmol/L (3.5-5.0) 01/15/19 12:46 BUN 13 mg/dL (6-24) 01/15/19 12:46 Creatinine 1.01 mg/dL (0.51-0.95) H 01/15/19 12:46 Hemoglobin A1c 5.2 % (4.0-5.6) 01/16/19 06:46 Calcium 9.9 mg/dL (8.6-10.3) 01/15/19 12:46 AST 18 U/L (13-39) 01/15/19 12:46 ALT 24 U/L (7-52) 01/15/19 12:46 Triglycerides 124 mg/dL 01/16/19 06:46 Cholesterol 151 mg/dL 01/16/19 06:46 LDL Cholesterol 95 mg/dL 01/16/19 06:46 Vital Signs Temp Pulse Resp BP Pulse Ox 97.0 F 130 18 116/79 96 01/18/19 07:57 01/18/19 07:57 01/18/19 10:28 01/18/19 07:57 01/18/19 07:57 Continued Medication Management: Start Medication Medications: Current Medications Acetaminophen (Tylenol Tab*) 650 mg PO Q4H PRN PRN Reason: for pain; or Temp >101 F Last Admin: 01/17/19 18:55 Dose: 650 mg Al Hydrox/Mg Hydrox/Simethicone (Maalox Plus*) 30 ml PO Q4H PRN PRN Reason: INDIGESTION Aripiprazole (Abilify Tab*) 20 mg PO DAILY [facility] Last Admin: 01/17/19 09:02 Dose: 20 mg Cholecalciferol (Vitamin D Tab*) 5,000 units PO DAILY [facility] Last Admin: 01/17/19 09:02 Dose: 5,000 units Fluvoxamine Maleate (Fluvoxamine (Nf)) 100 mg PO DAILY [facility] Hydroxyzine HCl (Atarax Tab*) 50 mg PO TID PRN PRN Reason: ANXIETY Last Admin: 01/17/19 13:48 Dose: 50 mg Ibuprofen (Motrin Tab*) 600 mg PO Q4HR PRN PRN Reason: Pain [place] Carbonate ([place] Carbonate Tab*) 300 mg PO DAILY [facility] Last Admin: 01/17/19 09:02 Dose: 300 mg [place] Carbonate ([place] Carbonate Tab*) 600 mg PO BEDTIME [facility] Last Admin: 01/17/19 20:28 Dose: 600 mg Mirtazapine (Remeron Tab*) 15 mg PO BEDTIME [facility] Last Admin: 01/17/19 20:28 Dose: 15 mg Pto: Norethindrone ( Nf) [Shannon (Nf)] 0 .35 Mg 0.35 mg PO DAILY [facility] Last Admin: 01/17/19 09:49 Dose: 0.35 mg Prazosin HCl (Minipress Cap*) 2 mg PO BEDTIME [facility] Last Admin: 01/17/19 20:28 Dose: 2 mg - Discharge Plan Discharge Plan: Inpatient Hospitalization
[2019-01-18] MEDS: NORETHINDRONE 0.35 MG PO SCH (08:49)
[2019-01-18] MEDS: ARIPiprazole TAB* 20 MG PO SCH (08:50)
[2019-01-18] MEDS: Cholecalciferol TAB* 1000 UNITS PO SCH (08:50)
[2019-01-18] MEDS: Lithium Carbonate TAB* 300 MG PO SCH ×2 (08:51→20:07)
[2019-01-18] MEDS ORDERED: FluvoxaMINE (NF) 50 MG TAB PO SCH (09:00)
[2019-01-18] MEDS: hydrOXYzine HCL TAB* 50 MG PO PRN ×3 (09:20→20:07)
--- NOTE | 2019-01-18 11:00 | PN ---
BSU: Group Therapy Note - Service Type Service Type: 94008 Group Psychotherapy - Cognitive Behavioral Group Therapy ( CBT):Patient was attentive and participatory in CBT programming this morning, and remained in good behavioral control. Patient expressed positive insights regarding relevant treatment interventions and goals.
[2019-01-18] MEDS: Acetaminophen TAB* 325 MG PO PRN ×2 (12:21→16:43)
[2019-01-18] MEDS: Mirtazapine TAB* 15 MG PO SCH (20:08)
[2019-01-18] MEDS: Prazosin CAP* 1 MG PO SCH (20:08)
[2019-01-19] MEDS: hydrOXYzine HCL TAB* 50 MG PO PRN ×2 (01:35→17:31)
[2019-01-19] MEDS: FLUVOXAMINE 50 MG PO SCH (08:49)
[2019-01-19] MEDS: ARIPiprazole TAB* 20 MG PO SCH (08:49)
[2019-01-19] MEDS: Lithium Carbonate TAB* 300 MG PO SCH ×2 (08:49→20:31)
[2019-01-19] MEDS: Cholecalciferol TAB* 1000 UNITS PO SCH (08:50)
[2019-01-19] MEDS: NORETHINDRONE 0.35 MG PO SCH (08:51)
--- NOTE | 2019-01-19 10:42 | PN ---
Subjective - Subjective Date of Service: 01/19/19 Service Type: 63312 Hosp care 35 min high complexity Subjective: Nursing Report: Patient was visible on unit, Attending group activities. CC: "Alright" Patient was seen and evaluated today in the common room. She reported that she is nervous about thinking of the possibility of living at a different place. She reported feeling more open today with talking about her emotional state. Yesterday she took a plastic utensil and scratched her wrist and arm. She was placed on a constant observation since the incident. She reported that the thought intrusions are not as strong today. She reported having an adequate appetite and sleep. The patient reports attending and participating in day groups. Patient reported that she is tolerating medications without side effects. She asked about having essential oils on the unit with a plastic container. Objective - General Observations Appearance: Neat Appears Stated Age: Yes Stature: WNL, Overweight Posture: WNL, Slumped Eye Contact: Average Behavior/Activity: WNL - Interaction Observations Attitude Towards Examiner: Cooperative Stated Mood: Dysphoric Affect: Blunted Speech Pattern/Tone: Clear Thought Process: Coherent Perception: WNL Thought Content: Self-Deprecatory Thought Process: Lethality: Passive Wish Hallucination Type: None Delusion Type: None - Cognitive Function Orientation: A&O x 4 Level of Consciousness: Awake Judgment Within Normal Limits: No Ability to Make Reasonable Decisions: Moderately Impaired - Medication Compliance Cooperative with Inpatient Medication Regimen: Yes - Group Participation Participates in Group Activities: Yes Assessment - Assessment Clinical Impression: 33 year old female with multiple hospital admissions currently with suicidal ideation Plan - Plan Treatment Plan: Name: SAUL UGARTE Birthdate: 1985 [id number] #Patient continues to require inpatient psychiatric care # Luvox 150mg daily #Family meeting today took place with her mother, placement options were discussed # D/C constant and begin Q15 min observation #Goals : Eradicate suicidal ideation, improve coping skills. # Limit journal to 15 minutes a day and implement mindfulness # [facility] program #B-Mod #Plan to monitor for the need of constant observation The risks, benefits, and alternative treatment options were discussed as well as of the risks of refusing treatment. After this discussion and an acknowledgement of this understanding was made. A risk/ benefit assessment of treatment was considered and discussed with the patient. When comparing the risks of treatment with the dangers of not receiving treatment, the benefits of treatment outweigh the treatment risks at this time. Risks of suicidal ideation , behavioral changes, dystonia, movement disorders, cardiac conduction changes , serotonin syndrome, metabolic risks and NMS were among some of the risks discussed. Sodium 140 mmol/L (135-145) 01/15/19 12:46 Potassium 4.1 mmol/L (3.5-5.0) 01/15/19 12:46 BUN 13 mg/dL (6-24) 01/15/19 12:46 Creatinine 1.01 mg/dL (0.51-0.95) H 01/15/19 12:46 Hemoglobin A1c 5.2 % (4.0-5.6) 01/16/19 06:46 Calcium 9.9 mg/dL (8.6-10.3) 01/15/19 12:46 AST 18 U/L (13-39) 01/15/19 12:46 ALT 24 U/L (7-52) 01/15/19 12:46 Triglycerides 124 mg/dL 01/16/19 06:46 Cholesterol 151 mg/dL 01/16/19 06:46 LDL Cholesterol 95 mg/dL 01/16/19 06:46 Vital Signs Temp Pulse Resp BP Pulse Ox 97.0 F 130 18 116/79 96 01/18/19 07:57 01/18/19 07:57 01/18/19 10:28 01/18/19 07:57 01/18/19 07:57 Continued Medication Management: Start Medication Medications: Current Medications Acetaminophen (Tylenol Tab*) 650 mg PO Q4H PRN PRN Reason: for pain; or Temp >101 F Last Admin: 01/18/19 16:43 Dose: 650 mg Al Hydrox/Mg Hydrox/Simethicone (Maalox Plus*) 30 ml PO Q4H PRN PRN Reason: INDIGESTION Aripiprazole (Abilify Tab*) 20 mg PO DAILY [facility] Last Admin: 01/19/19 08:49 Dose: 20 mg Cholecalciferol (Vitamin D Tab*) 5,000 units PO DAILY [facility] Last Admin: 01/19/19 08:50 Dose: 5,000 units Fluvoxamine Maleate (Fluvoxamine (Nf)) 150 mg PO DAILY [facility] Last Admin: 05/10/19 08:49 Dose: 150 mg Hydroxyzine HCl (Atarax Tab*) 50 mg PO TID PRN PRN Reason: ANXIETY Last Admin: 01/19/19 01:35 Dose: 50 mg Ibuprofen (Motrin Tab*) 600 mg PO Q4HR PRN PRN Reason: Pain [place] Carbonate (C[place] Carbonate Tab*) 300 mg PO DAILY [facility] Last Admin: 01/19/19 08:49 Dose: 300 mg [place] Carbonate (Crucible Carbonate Tab*) 600 mg PO BEDTIME [facility] Last Admin: 01/18/19 20:07 Dose: 600 mg Mirtazapine (Remeron Tab*) 15 mg PO BEDTIME [facility] Last Admin: 01/18/19 20:08 Dose: 15 mg Pto: Norethindrone ( Nf) [Shannon (Nf)] 0 .35 Mg 0.35 mg PO DAILY [facility] Last Admin: 01/19/19 08:51 Dose: 0.35 mg Prazosin HCl (Minipress Cap*) 2 mg PO BEDTIME [facility] Last Admin: 01/18/19 20:08 Dose: 2 mg - Discharge Plan Discharge Plan: Inpatient Hospitalization
--- NOTE | 2019-01-19 11:41 | PN ---
BSU: Group Therapy Note - Service Type Service Type: [id number] Group Psychotherapy - Cognitive Behavioral Group Therapy ( CBT):Patient attended CBT programming this morning and presented with flat affect that did not vary with discussion. Although responsive to direct prompts to respond to questions, patient did not engage in spontaneous conversation.
[2019-01-19] MEDS: Acetaminophen TAB* 325 MG PO PRN (16:48)
[2019-01-19] MEDS: Prazosin CAP* 1 MG PO SCH (20:30)
[2019-01-19] MEDS: Mirtazapine TAB* 15 MG PO SCH (20:30)
[2019-01-19] MEDS: Ibuprofen TAB* 600 MG PO PRN (20:32)
[2019-01-20] MEDS: hydrOXYzine HCL TAB* 50 MG PO PRN ×3 (00:35→20:00)
[2019-01-20] MEDS: FLUVOXAMINE 50 MG PO SCH (08:29)
[2019-01-20] MEDS: Acetaminophen TAB* 325 MG PO PRN ×2 (08:29→21:10)
[2019-01-20] MEDS: ARIPiprazole TAB* 20 MG PO SCH (08:29)
[2019-01-20] MEDS: Lithium Carbonate TAB* 300 MG PO SCH ×2 (08:29→19:59)
[2019-01-20] MEDS: NORETHINDRONE 0.35 MG PO SCH (08:30)
[2019-01-20] MEDS: Cholecalciferol TAB* 1000 UNITS PO SCH (08:30)
--- NOTE | 2019-01-20 14:07 | PN ---
Subjective - Subjective Date of Service: 01/20/19 Service Type: 00188 Hosp care 15 min low complexity Subjective: Saul is seen in weekend coverage for Dr. Aj. The patient is found in her room balled up on the floor sitting in the corner. She is tearful and reports that something upset her in a group this morning. "I don't want to talk about it." She is encouraged to open up to someone and I requested, with her approval , that her 1:1 for the day come meet with her. The patient reports that she is tolerating her medications well and denies untoward effects. She is admitting to [facility] but not actively here on the unit. Objective - General Observations Appearance: Well Groomed Appears Stated Age: Yes Stature: Overweight Posture: Slumped Eye Contact: Avoidant Behavior/Activity: WNL - Interaction Observations Attitude Towards Examiner: Cooperative Stated Mood: Dysphoric Affect: Restricted Speech Pattern/Tone: Delayed, Quiet Volume Thought Process: Coherent Perception: WNL Thought Content: WNL Thought Process: Lethality: Passive Wish Hallucination Type: None Delusion Type: None - Cognitive Function Orientation: A&O x 4 Level of Consciousness: Awake Cognition: WNL Estimated Intelligence: Normal Insight: WNL Judgment Within Normal Limits: No Ability to Make Reasonable Decisions: Mildly Impaired - Medication Compliance Cooperative with Inpatient Medication Regimen: Yes - Group Participation Participates in Group Activities: Yes Assessment - Assessment Merits Inpatient Hospitalization: For Immediate Safety, For Stabilization Inpatient DSM-V Dx: F39 Clinical Impression: 33 year old female with multiple hospital admissions currently with suicidal ideation BSU: Problem List - Patient Problems (1) Mood disorder Current Visit: Yes Status: Acute Priority: Medium Code(s): F39 - UNSPECIFIED MOOD [AFFECTIVE] DISORDER SNOMED Code(s): 10065705 Plan - Plan Treatment Plan: Name: SAUL UGARTE Birthdate: 1985 [id number] #Patient continues to require inpatient psychiatric care # Luvox 150mg daily #Family meeting today took place with her mother, placement options were discussed # D/C constant and begin Q15 min observation #Goals : Eradicate suicidal ideation, improve coping skills. # Limit journal to 15 minutes a day and implement mindfulness # [facility] program #B-Mod #Plan to monitor for the need of constant observation The risks, benefits, and alternative treatment options were discussed as well as of the risks of refusing treatment. After this discussion and an acknowledgement of this understanding was made. A risk/ benefit assessment of treatment was considered and discussed with the patient. When comparing the risks of treatment with the dangers of not receiving treatment, the benefits of treatment outweigh the treatment risks at this time. Risks of suicidal ideation , behavioral changes, dystonia, movement disorders, cardiac conduction changes , serotonin syndrome, metabolic risks and NMS were among some of the risks discussed. Sodium 140 mmol/L (135-145) 01/15/19 12:46 Potassium 4.1 mmol/L (3.5-5.0) 01/15/19 12:46 BUN 13 mg/dL (6-24) 01/15/19 12:46 Creatinine 1.01 mg/dL (0.51-0.95) H 01/15/19 12:46 Hemoglobin A1c 5.2 % (4.0-5.6) 01/16/19 06:46 Calcium 9.9 mg/dL (8.6-10.3) 01/15/19 12:46 AST 18 U/L (13-39) 01/15/19 12:46 ALT 24 U/L (7-52) 01/15/19 12:46 Triglycerides 124 mg/dL 01/16/19 06:46 Cholesterol 151 mg/dL 01/16/19 06:46 LDL Cholesterol 95 mg/dL 01/16/19 06:46 Vital Signs Temp Pulse Resp BP Pulse Ox 97.0 F 130 18 116/79 96 01/18/19 07:57 01/18/19 07:57 01/18/19 10:28 01/18/19 07:57 01/18/19 07:57 Continued Medication Management: Continue Outpt Medication Medications: Current Medications Acetaminophen (Tylenol Tab*) 650 mg PO Q4H PRN PRN Reason: for pain; or Temp >101 F Last Admin: 01/20/19 08:29 Dose: 650 mg Al Hydrox/Mg Hydrox/Simethicone (Maalox Plus*) 30 ml PO Q4H PRN PRN Reason: INDIGESTION Aripiprazole (Abilify Tab*) 20 mg PO DAILY [facility] Last Admin: 01/20/19 08:29 Dose: 20 mg Cholecalciferol (Vitamin D Tab*) 5,000 units PO DAILY [facility] Last Admin: 01/20/19 08:30 Dose: 5,000 units Fluvoxamine Maleate (Fluvoxamine (Nf)) 150 mg PO DAILY [facility] Last Admin: 01/20/19 08:29 Dose: 150 mg Hydroxyzine HCl (Atarax Tab*) 50 mg PO TID PRN PRN Reason: ANXIETY Last Admin: 01/20/19 00:35 Dose: 50 mg Ibuprofen (Motrin Tab*) 600 mg PO Q4HR PRN PRN Reason: Pain Last Admin: 01/19/19 20:32 Dose: 600 mg [place] Carbonate ([place] Carbonate Tab*) 300 mg PO DAILY [facility] Last Admin: 01/20/19 08:29 Dose: 300 mg [place] Carbonate ([place] Carbonate Tab*) 600 mg PO BEDTIME [facility] Last Admin: 01/19/19 20:31 Dose: 600 mg Mirtazapine (Remeron Tab*) 15 mg PO BEDTIME [facility] Last Admin: 01/19/19 20:30 Dose: 15 mg Pto: Norethindrone ( Nf) [Shannon (Nf)] 0 .35 Mg 0.35 mg PO DAILY [facility] Last Admin: 01/20/19 08:30 Dose: 0.35 mg Prazosin HCl (Minipress Cap*) 2 mg PO BEDTIME [facility] Last Admin: 01/19/19 20:30 Dose: 2 mg - Discharge Plan Discharge Plan: Inpatient Hospitalization
[2019-01-20] MEDS: Nystatin TOP POWDER* 15 GM BTL TOPICAL SCH ×2 (16:29→21:12)
[2019-01-20] MEDS: Prazosin CAP* 1 MG PO SCH (19:58)
[2019-01-20] MEDS: Mirtazapine TAB* 15 MG PO SCH (19:59)
[2019-01-21] MEDS: hydrOXYzine HCL TAB* 50 MG PO PRN ×3 (01:00→15:55)
[2019-01-21] MEDS: Ibuprofen TAB* 600 MG PO PRN ×3 (01:00→21:27)
[2019-01-21] MEDS: Acetaminophen TAB* 325 MG PO PRN ×2 (01:00→09:48)
[2019-01-21] MEDS: Cholecalciferol TAB* 1000 UNITS PO SCH (08:18)
[2019-01-21] MEDS: ARIPiprazole TAB* 20 MG PO SCH (08:18)
[2019-01-21] MEDS: Lithium Carbonate TAB* 300 MG PO SCH ×2 (08:18→21:27)
[2019-01-21] MEDS: FLUVOXAMINE 50 MG PO SCH (08:18)
[2019-01-21] MEDS: NORETHINDRONE 0.35 MG PO SCH (08:18)
[2019-01-21] MEDS: Nystatin TOP POWDER* 15 GM BTL TOPICAL SCH ×3 (09:04→21:27)
[2019-01-21] MEDS: Mirtazapine TAB* 15 MG PO SCH (21:27)
[2019-01-21] MEDS: Prazosin CAP* 1 MG PO SCH (21:27)
[2019-01-22] MEDS: hydrOXYzine HCL TAB* 50 MG PO PRN ×2 (01:35→16:19)
[2019-01-22] MEDS: Cholecalciferol TAB* 1000 UNITS PO SCH (08:48)
[2019-01-22] MEDS: ARIPiprazole TAB* 20 MG PO SCH (08:48)
[2019-01-22] MEDS: Lithium Carbonate TAB* 300 MG PO SCH ×2 (08:48→21:11)
[2019-01-22] MEDS: Nystatin TOP POWDER* 15 GM BTL TOPICAL SCH ×3 (08:49→21:13)
[2019-01-22] MEDS: NORETHINDRONE 0.35 MG PO SCH (08:49)
[2019-01-22] MEDS ORDERED: CMC:FluvoxaMINE (NF) 50 MG TAB PO SCH (09:00)
--- NOTE | 2019-01-22 11:34 | PN ---
Subjective - Subjective Date of Service: 01/22/19 Service Type: 17101 Hosp care 35 min high complexity Subjective: CC: " I cant stop the thoughts Patient reported that she has thoughts that she cant control which include having homicidal ideation. She said she thinks about strangling someone by their neck, and doesnt have a specific person in mind, and notes that she doesnt want to think those thoughts. She bangs her head in response to having those thoughts. Yesterday she used a utensil to cut her arm. No medical intervention was required. Objective - General Observations Appearance: Neat Appears Stated Age: Yes Stature: WNL, Overweight Posture: Slumped Eye Contact: Intense Behavior/Activity: Slowed - Interaction Observations Attitude Towards Examiner: Cooperative Stated Mood: Anxious Affect: Blunted Speech Pattern/Tone: Delayed Thought Process: Blocking Thought Content: Self-Deprecatory Thought Process: Lethality: Suicidal Planning Hallucination Type: Auditory, Command Delusion Type: Control - Cognitive Function Orientation: A&O x 4 Level of Consciousness: Awake Cognition: WNL Judgment Within Normal Limits: No Ability to Make Reasonable Decisions: Moderately Impaired - Medication Compliance Cooperative with Inpatient Medication Regimen: Yes - Group Participation Participates in Group Activities: Yes Assessment - Assessment Merits Inpatient Hospitalization: For Immediate Safety Inpatient DSM-V Dx: F39 Clinical Impression: 33 year old female with multiple hospital admissions currently with suicidal ideation Plan - Plan Treatment Plan: Name: SAUL UGARTE Birthdate: 1985 [id number] #Patient continues to require inpatient psychiatric care # D/C Luvox #Start clomipramine 50mg daily # Q15 min observation #Goals : Eradicate suicidal ideation, improve coping skills. # [employer] program #B-Mod to give one day of essential oils if no self injurious behavior # Increase lithium to 600mg BID [place] level ordered The risks, benefits, and alternative treatment options were discussed as well as of the risks of refusing treatment. After this discussion and an acknowledgement of this understanding was made. A risk/ benefit assessment of treatment was considered and discussed with the patient. When comparing the risks of treatment with the dangers of not receiving treatment, the benefits of treatment outweigh the treatment risks at this time. Risks of suicidal ideation , behavioral changes, dystonia, movement disorders, cardiac conduction changes , serotonin syndrome, metabolic risks and NMS were among some of the risks discussed. Vital Signs Temp Pulse Resp BP Pulse Ox 97.8 F 70 16 120/75 96 01/22/19 07:23 01/22/19 07:23 01/22/19 07:23 01/22/19 07:23 01/22/19 07:23 Sodium 140 mmol/L (135-145) 01/15/19 12:46 Potassium 4.1 mmol/L (3.5-5.0) 01/15/19 12:46 BUN 13 mg/dL (6-24) 01/15/19 12:46 Creatinine 1.01 mg/dL (0.51-0.95) H 01/15/19 12:46 Hemoglobin A1c 5.2 % (4.0-5.6) 01/16/19 06:46 Calcium 9.9 mg/dL (8.6-10.3) 01/15/19 12:46 AST 18 U/L (13-39) 01/15/19 12:46 ALT 24 U/L (7-52) 01/15/19 12:46 Triglycerides 124 mg/dL 01/16/19 06:46 Cholesterol 151 mg/dL 01/16/19 06:46 LDL Cholesterol 95 mg/dL 01/16/19 06:46 Continued Medication Management: Different Medication Medications: Current Medications Acetaminophen (Tylenol Tab*) 650 mg PO Q4H PRN PRN Reason: for pain; or Temp >101 F Last Admin: 01/21/19 09:48 Dose: 650 mg Al Hydrox/Mg Hydrox/Simethicone (Maalox Plus*) 30 ml PO Q4H PRN PRN Reason: INDIGESTION Aripiprazole (Abilify Tab*) 20 mg PO DAILY [facility] Last Admin: 01/22/19 08:48 Dose: 20 mg Cholecalciferol (Vitamin D Tab*) 5,000 units PO DAILY [facility] Last Admin: 01/22/19 08:48 Dose: 5,000 units Fluvoxamine Maleate (Fluvoxamine (Nf)) 200 mg PO DAILY [facility] Last Admin: 01/22/19 08:47 Dose: 200 mg Hydroxyzine HCl (Atarax Tab*) 50 mg PO TID PRN PRN Reason: ANXIETY Last Admin: 01/22/19 01:35 Dose: 50 mg Ibuprofen (Motrin Tab*) 600 mg PO Q4HR PRN PRN Reason: Pain Last Admin: 01/21/19 21:27 Dose: 600 mg [place] Carbonate ([place] Carbonate Tab*) 300 mg PO DAILY [facility] Last Admin: 01/22/19 08:48 Dose: 300 mg [place] Carbonate ([place] Carbonate Tab*) 600 mg PO BEDTIME [facility] Last Admin: 01/21/19 21:27 Dose: 600 mg Mirtazapine (Remeron Tab*) 15 mg PO BEDTIME [facility] Last Admin: 01/21/19 21:27 Dose: 15 mg Pto: Norethindrone ( Nf) [Shannon (Nf)] 0 .35 Mg 0.35 mg PO DAILY [facility] Last Admin: 01/22/19 08:49 Dose: 0.35 mg Nystatin (Nystatin Top Powder*) 1 applic TOPICAL TID [facility] Last Admin: 01/22/19 08:49 Dose: 1 applic Prazosin HCl (Minipress Cap*) 2 mg PO BEDTIME [facility] Last Admin: 01/21/19 21:27 Dose: 2 mg - Discharge Plan Discharge Plan: Inpatient Hospitalization
[2019-01-22] MEDS: Acetaminophen TAB* 325 MG PO PRN ×2 (12:32→19:02)
[2019-01-22] MEDS: Mirtazapine TAB* 15 MG PO SCH (21:11)
[2019-01-22] MEDS: Prazosin CAP* 1 MG PO SCH (21:12)
[2019-01-23] MEDS: hydrOXYzine HCL TAB* 50 MG PO PRN ×3 (01:46→20:23)
[2019-01-23] MEDS: Acetaminophen TAB* 325 MG PO PRN ×4 (02:16→20:26)
[2019-01-23] MEDS: Cholecalciferol TAB* 1000 UNITS PO SCH (08:27)
[2019-01-23] MEDS: Lithium Carbonate TAB* 300 MG PO SCH ×2 (08:27→20:24)
[2019-01-23] MEDS: ARIPiprazole TAB* 20 MG PO SCH (08:27)
[2019-01-23] MEDS: NORETHINDRONE 0.35 MG PO SCH (08:28)
--- NOTE | 2019-01-23 08:35 | PN ---
Subjective - Subjective Date of Service: 01/23/19 Service Type: 72699 Hosp care 35 min high complexity Subjective: Nursing Report: Patient was visible on unit, did not sleep overnight, Attending group activities. CC: "I has a scary dream Patient was seen and evaluated today in the common room. She reported having a nightmare that was upsetting to her. The nightmare was that she was beating her son and she woke up unable to return to sleep. She reported having a high level of anxiety. She noted that she doesnt want to hurt her son and doesnt want to think of doing that. She reported having thoughts of hurting herself but a idea on how she would do that. The patient reports attending and participating in day groups. Per nursing no behavioral issues or overnight events reported. Patient reported that she is tolerating medications. She reported feeling restless and the need to pace around. Objective - General Observations Appears Stated Age: Yes Stature: Overweight Posture: Slumped Eye Contact: Average Behavior/Activity: WNL - Interaction Observations Attitude Towards Examiner: Cooperative Stated Mood: Dysphoric Affect: Blunted Speech Pattern/Tone: Clear Thought Process: Coherent Perception: WNL Thought Content: Obsessional Thought Process: Lethality: Passive Wish, Suicidal Planning Hallucination Type: None Delusion Type: None, Thought Insertion - Cognitive Function Orientation: A&O x 4 Level of Consciousness: Awake Judgment Within Normal Limits: No - Medication Compliance Cooperative with Inpatient Medication Regimen: Yes - Group Participation Participates in Group Activities: Yes Assessment - Assessment Merits Inpatient Hospitalization: For Immediate Safety Inpatient DSM-V Dx: F39 Clinical Impression: 33 year old female with multiple hospital admissions currently with suicidal ideation Plan - Plan Treatment Plan: Name: SAUL UGARTE Birthdate: 1985 [id number] #Patient continues to require inpatient psychiatric care # D/C Luvox #clomipramine 50mg daily # Q15 min observation #Goals : Eradicate suicidal ideation, improve coping skills. # [employer] program #B-Mod to give one day of essential oils if no self injurious behavior # Increase lithium to 600mg BID #[place] level 0.45 #Decrease remeron 7.5mg qhs for sleep and abilify 15mg daily. #Start propranolol 10mg BID for restlessness # Work disability paper work completed. The risks, benefits, and alternative treatment options were discussed as well as of the risks of refusing treatment. After this discussion and an acknowledgement of this understanding was made. A risk/ benefit assessment of treatment was considered and discussed with the patient. When comparing the risks of treatment with the dangers of not receiving treatment, the benefits of treatment outweigh the treatment risks at this time. Risks of suicidal ideation , behavioral changes, dystonia, movement disorders, cardiac conduction changes , serotonin syndrome, metabolic risks and NMS were among some of the risks discussed. 01/23/19 07:38 [place] 0.45 L Continued Medication Management: Start Medication Medications: Current Medications Acetaminophen (Tylenol Tab*) 650 mg PO Q4H PRN PRN Reason: for pain; or Temp >101 F Last Admin: 01/23/19 06:20 Dose: 650 mg Al Hydrox/Mg Hydrox/Simethicone (Maalox Plus*) 30 ml PO Q4H PRN PRN Reason: INDIGESTION Aripiprazole (Abilify Tab*) 20 mg PO DAILY [facility] Last Admin: 01/23/19 08:27 Dose: 20 mg Cholecalciferol (Vitamin D Tab*) 5,000 units PO DAILY [facility] Last Admin: 01/23/19 08:27 Dose: 5,000 units Clomipramine HCl (Clomipramine (Nf)) 25 mg PO 0900 [facility] Last Admin: 01/23/19 08:28 Dose: 25 mg Hydroxyzine HCl (Atarax Tab*) 50 mg PO TID PRN PRN Reason: ANXIETY Last Admin: 01/23/19 01:46 Dose: 50 mg Ibuprofen (Motrin Tab*) 600 mg PO Q4HR PRN PRN Reason: Pain Last Admin: 01/21/19 21:27 Dose: 600 mg [place] Carbonate ([place] Carbonate Tab*) 600 mg PO BEDTIME [facility] Last Admin: 01/22/19 21:11 Dose: 600 mg [place] Carbonate ([place] Carbonate Tab*) 600 mg PO DAILY [facility] Last Admin: 01/23/19 08:27 Dose: 600 mg Mirtazapine (Remeron Tab*) 15 mg PO BEDTIME [facility] Last Admin: 01/22/19 21:11 Dose: 15 mg Pto: Norethindrone ( Nf) [Shannon (Nf)] 0 .35 Mg 0.35 mg PO DAILY [facility] Last Admin: 01/23/19 08:28 Dose: 0.35 mg Nystatin (Nystatin Top Powder*) 1 applic TOPICAL TID [facility] Last Admin: 01/22/19 21:13 Dose: 1 applic Prazosin HCl (Minipress Cap*) 2 mg PO BEDTIME [facility] Last Admin: 01/22/19 21:12 Dose: 2 mg - Discharge Plan Discharge Plan: Inpatient Hospitalization
[2019-01-23] MEDS: Nystatin TOP POWDER* 15 GM BTL TOPICAL SCH ×3 (08:40→20:25)
[2019-01-23] MEDS ORDERED: CMCS:ClomiPRAMINE (NF) 25 MG CAP PO SCH ×2 (09:00)
[2019-01-23] MEDS ORDERED: CLOMIPRAMINE 25 MG PO SCH (09:00)
[2019-01-23] MEDS: Propranolol TAB* 10 MG PO SCH ×2 (13:38→20:38)
[2019-01-23] MEDS: Prazosin CAP* 1 MG PO SCH (20:24)
[2019-01-23] MEDS: Mirtazapine TAB* 15 MG PO SCH (20:24)
[2019-01-24] MEDS: hydrOXYzine HCL TAB* 50 MG PO PRN ×3 (00:18→20:54)
[2019-01-24] MEDS: Cholecalciferol TAB* 1000 UNITS PO SCH (08:54)
[2019-01-24] MEDS: Lithium Carbonate TAB* 300 MG PO SCH ×2 (08:56→20:54)
[2019-01-24] MEDS: Propranolol TAB* 10 MG PO SCH ×2 (08:56→20:53)
[2019-01-24] MEDS: NORETHINDRONE 0.35 MG PO SCH (08:57)
[2019-01-24] MEDS: Nystatin TOP POWDER* 15 GM BTL TOPICAL SCH ×3 (08:59→21:00)
[2019-01-24] MEDS ORDERED: ARIPiprazole TAB* 15 MG PO SCH (09:00)
[2019-01-24] MEDS ORDERED: CLOMIPRAMINE 25 MG PO SCH (09:00)
--- NOTE | 2019-01-24 10:36 | PN ---
Subjective - Subjective Date of Service: 01/24/19 Service Type: 04285 Hosp care 35 min high complexity Subjective: Nursing Report: Patient required reassurance during a incident with another peer on the unit. CC: "I feel less anxious Patient was seen and evaluated today in the common room. She reported that she feels less anxious but continues to think about hurting herself. The patient reported to not pace as much. She reported that her sleep was interrupted overnight and she got up and went back to bed. She denied having recurrent nightmares. She reported having an adequate appetite. Patient reported that she is tolerating medications without side effects. She was afraid last night after hearing loud noises during a incident with another peer , and later was able to gain control of herself. Objective - General Observations Appearance: Neat Appears Stated Age: Yes Stature: Overweight Posture: Slumped Eye Contact: Average Behavior/Activity: WNL - Interaction Observations Attitude Towards Examiner: Cooperative Affect: Blunted Speech Pattern/Tone: Clear Thought Process: Coherent, Blocking Perception: WNL Thought Content: WNL, Depressive Thought Process: Lethality: Passive Wish Hallucination Type: Auditory Delusion Type: Thought Insertion - Cognitive Function Orientation: A&O x 4 Level of Consciousness: Awake Judgment Within Normal Limits: No Ability to Make Reasonable Decisions: Moderately Impaired - Medication Compliance Cooperative with Inpatient Medication Regimen: Yes - Group Participation Participates in Group Activities: Yes Assessment - Assessment Inpatient DSM-V Dx: F39 Clinical Impression: 33 year old female with multiple hospital admissions currently with suicidal ideation Plan - Plan Treatment Plan: Name: SAUL UGARTE Birthdate: 1985 [id number] #Patient continues to require inpatient psychiatric care #clomipramine 75 mg daily # Q15 min observation #Goals : Eradicate suicidal ideation, improve coping skills. # [employer] program #B-Mod to give one day of essential oils if no self injurious behavior # lithium to 600mg BID #[place] level 0.45 #Continue remeron 7.5mg qhs for sleep and abilify 15mg daily. #Continue propranolol 10mg BID for restlessness # Work disability paper work completed. The risks, benefits, and alternative treatment options were discussed as well as of the risks of refusing treatment. After this discussion and an acknowledgement of this understanding was made. A risk/ benefit assessment of treatment was considered and discussed with the patient. When comparing the risks of treatment with the dangers of not receiving treatment, the benefits of treatment outweigh the treatment risks at this time. Risks of suicidal ideation , behavioral changes, dystonia, movement disorders, cardiac conduction changes , serotonin syndrome, metabolic risks and NMS were among some of the risks discussed. Vital Signs Temp Pulse Resp BP Pulse Ox 96.6 F 70 18 128/68 97 01/24/19 07:29 01/24/19 07:29 01/24/19 07:29 01/24/19 07:29 01/24/19 07:29 01/23/19 07:38 [place] 0.45 L Continued Medication Management: Continue Outpt Medication Medications: Current Medications Acetaminophen (Tylenol Tab*) 650 mg PO Q4H PRN PRN Reason: for pain; or Temp >101 F Last Admin: 01/23/19 20:26 Dose: 650 mg Al Hydrox/Mg Hydrox/Simethicone (Maalox Plus*) 30 ml PO Q4H PRN PRN Reason: INDIGESTION Aripiprazole (Abilify Tab*) 10 mg PO DAILY [facility] Cholecalciferol (Vitamin D Tab*) 5,000 units PO DAILY [facility] Last Admin: 01/24/19 08:54 Dose: 5,000 units Clomipramine HCl (Clomipramine (Nf)) 75 mg PO 0900 [facility] Hydroxyzine HCl (Atarax Tab*) 50 mg PO TID PRN PRN Reason: ANXIETY Last Admin: 01/24/19 00:18 Dose: 50 mg [place] Carbonate ([place] Carbonate Tab*) 600 mg PO BEDTIME [facility] Last Admin: 01/23/19 20:24 Dose: 600 mg [place] Carbonate ([place] Carbonate Tab*) 600 mg PO DAILY [facility] Last Admin: 01/24/19 08:56 Dose: 600 mg Mirtazapine (Remeron Tab*) 7.5 mg PO BEDTIME [facility] Last Admin: 01/23/19 20:24 Dose: 7.5 mg Pto: Norethindrone ( Nf) [Shannon (Nf)] 0 .35 Mg 0.35 mg PO DAILY [facility] Last Admin: 01/24/19 08:57 Dose: 0.35 mg Nystatin (Nystatin Top Powder*) 1 applic TOPICAL TID [facility] Last Admin: 01/24/19 08:59 Dose: 1 applic Prazosin HCl (Minipress Cap*) 2 mg PO BEDTIME [facility] Last Admin: 01/23/19 20:24 Dose: 2 mg Propranolol HCl (Inderal Tab*) 10 mg PO BID [facility] Last Admin: 01/24/19 08:56 Dose: 10 mg - Discharge Plan Discharge Plan: Inpatient Hospitalization
[2019-01-24] MEDS: Acetaminophen TAB* 325 MG PO PRN ×2 (14:29→20:52)
[2019-01-24] MEDS: Prazosin CAP* 1 MG PO SCH (20:53)
[2019-01-24] MEDS: Mirtazapine TAB* 15 MG PO SCH (20:55)
[2019-01-25] MEDS: hydrOXYzine HCL TAB* 50 MG PO PRN ×2 (01:10→17:33)
[2019-01-25] MEDS: Acetaminophen TAB* 325 MG PO PRN ×3 (05:46→21:25)
[2019-01-25] MEDS: Propranolol TAB* 10 MG PO SCH ×2 (08:27→20:27)
[2019-01-25] MEDS: Lithium Carbonate TAB* 300 MG PO SCH ×2 (08:27→20:26)
[2019-01-25] MEDS: Cholecalciferol TAB* 1000 UNITS PO SCH (08:27)
[2019-01-25] MEDS: ARIPiprazole TAB* 5 MG PO SCH (08:27)
[2019-01-25] MEDS: Nystatin TOP POWDER* 15 GM BTL TOPICAL SCH ×3 (08:28→20:29)
[2019-01-25] MEDS: NORETHINDRONE 0.35 MG PO SCH (08:28)
[2019-01-25] MEDS ORDERED: CMC:ClomiPRAMINE (NF) 25 MG CAP PO SCH (09:00)
--- NOTE | 2019-01-25 16:05 | PN ---
Subjective - Subjective Date of Service: 01/25/19 Service Type: 62106 Hosp care 35 min high complexity Subjective: Nursing Report: Patient was visible on unit, no chemical restraints or PRNs. Slept overnight without incident. Attending group activities. CC: "I am no longer anxious Patient was seen and evaluated today in the common room. She reported that she no longer has anxiety or homicidal ideation but continues to have suicidal thoughts. The patient reported she head bangs when she has thoughts thoughts. She reported having improved sleep. The patient reports attending and participating in day groups. Per nursing no behavioral issues or overnight events reported. Patient reported that she is tolerating medications without side effects. Objective - General Observations Appearance: Disheveled Appears Stated Age: Yes Stature: Overweight Posture: Slumped Eye Contact: Average Behavior/Activity: WNL - Interaction Observations Attitude Towards Examiner: Cooperative Stated Mood: Anxious Affect: Blunted Speech Pattern/Tone: Clear Thought Process: Coherent Perception: WNL Thought Content: Self-Deprecatory Thought Process: Lethality: Passive Wish Hallucination Type: None Delusion Type: None - Cognitive Function Orientation: A&O x 4 Level of Consciousness: Awake Cognition: WNL Judgment Within Normal Limits: No Ability to Make Reasonable Decisions: Moderately Impaired - Medication Compliance Cooperative with Inpatient Medication Regimen: Yes - Group Participation Participates in Group Activities: Yes Assessment - Assessment Inpatient DSM-V Dx: F39 Clinical Impression: 33 year old female with multiple hospital admissions currently with suicidal ideation Plan - Plan Treatment Plan: Name: SAUL UGARTE Birthdate: 1985 [id number] #Patient continues to require inpatient psychiatric care # Start clomipramine 100 mg daily # Q15 min observation #Goals : Eradicate suicidal ideation, improve coping skills. # [employer] program #B-Mod to give one day of essential oils if no self injurious behavior # lithium to 600mg BID #[place] level 0.45 #Continue remeron 7.5mg qhs for sleep and abilify 10mg daily. #Continue propranolol 10mg BID for restlessness # Work disability paper work completed. Change prazosin to 1mg at 1700 and 1mg at qhs. The risks, benefits, and alternative treatment options were discussed as well as of the risks of refusing treatment. After this discussion and an acknowledgement of this understanding was made. A risk/ benefit assessment of treatment was considered and discussed with the patient. When comparing the risks of treatment with the dangers of not receiving treatment, the benefits of treatment outweigh the treatment risks at this time. Risks of suicidal ideation , behavioral changes, dystonia, movement disorders, cardiac conduction changes , serotonin syndrome, metabolic risks and NMS were among some of the risks discussed. Sodium 140 mmol/L (135-145) 01/15/19 12:46 Potassium 4.1 mmol/L (3.5-5.0) 01/15/19 12:46 BUN 13 mg/dL (6-24) 01/15/19 12:46 Creatinine 1.01 mg/dL (0.51-0.95) H 01/15/19 12:46 Hemoglobin A1c 5.2 % (4.0-5.6) 01/16/19 06:46 Calcium 9.9 mg/dL (8.6-10.3) 01/15/19 12:46 AST 18 U/L (13-39) 01/15/19 12:46 ALT 24 U/L (7-52) 01/15/19 12:46 Triglycerides 124 mg/dL 01/16/19 06:46 Cholesterol 151 mg/dL 01/16/19 06:46 LDL Cholesterol 95 mg/dL 01/16/19 06:46 Vital Signs Temp Pulse Resp BP Pulse Ox 96.8 F 65 16 108/72 99 01/25/19 07:49 01/25/19 07:49 01/25/19 07:49 01/25/19 07:49 01/25/19 07:49 Continued Medication Management: Start Medication Medications: Current Medications Acetaminophen (Tylenol Tab*) 650 mg PO Q4H PRN PRN Reason: for pain; or Temp >101 F Last Admin: 01/25/19 13:56 Dose: 650 mg Al Hydrox/Mg Hydrox/Simethicone (Maalox Plus*) 30 ml PO Q4H PRN PRN Reason: INDIGESTION Aripiprazole (Abilify Tab*) 10 mg PO DAILY [facility] Last Admin: 01/25/19 08:27 Dose: 10 mg Cholecalciferol (Vitamin D Tab*) 5,000 units PO DAILY [facility] Last Admin: 01/25/19 08:27 Dose: 5,000 units Clomipramine HCl (Clomipramine (Nf)) 100 mg PO 0900 [facility] Hydroxyzine HCl (Atarax Tab*) 50 mg PO TID PRN PRN Reason: ANXIETY Last Admin: 01/25/19 01:10 Dose: 50 mg [place] Carbonate ([place] Carbonate Tab*) 600 mg PO BEDTIME [facility] Last Admin: 01/24/19 20:54 Dose: 600 mg [place] Carbonate ([place] Carbonate Tab*) 600 mg PO DAILY [facility] Last Admin: 01/25/19 08:27 Dose: 600 mg Mirtazapine (Remeron Tab*) 7.5 mg PO BEDTIME [facility] Last Admin: 01/24/19 20:55 Dose: 7.5 mg Pto: Norethindrone ( Nf) [Shannon (Nf)] 0 .35 Mg 0.35 mg PO DAILY [facility] Last Admin: 01/25/19 08:28 Dose: 0.35 mg Nystatin (Nystatin Top Powder*) 1 applic TOPICAL TID [facility] Last Admin: 01/25/19 13:55 Dose: Not Given Prazosin HCl (Minipress Cap*) 1 mg PO BEDTIME [facility] Prazosin HCl (Minipress Cap*) 1 mg PO 1700 [facility] Propranolol HCl (Inderal Tab*) 10 mg PO BID [facility] Last Admin: 01/25/19 08:27 Dose: 10 mg - Discharge Plan Discharge Plan: Inpatient Hospitalization
[2019-01-25] MEDS: Prazosin CAP* 1 MG PO SCH ×2 (17:33→20:27)
[2019-01-25] MEDS: Mirtazapine TAB* 15 MG PO SCH (20:26)
[2019-01-26] MEDS: hydrOXYzine HCL TAB* 50 MG PO PRN (00:40)
[2019-01-26] MEDS: Acetaminophen TAB* 325 MG PO PRN (04:57)
--- NOTE | 2019-01-26 07:26 | PN ---
Subjective - Subjective Date of Service: 01/26/19 Service Type: 70616 Hosp care 35 min high complexity Subjective: Nursing Report: Patient was visible on unit, no chemical restraints or PRNs. Slept overnight without incident. Attending group activities. CC: "My anxiety is better Patient was seen and evaluated today in the common room. She reported that she no longer has anxiety or homicidal ideation but continues to have suicidal thoughts. The patient reported she continues to bang her head when she has self harming thoughts She reported having improved sleep. The patient reports attending and participating in day groups. Per nursing no behavioral issues or overnight events reported. Patient reported that she is tolerating medications without side effects. Objective - General Observations Appearance: Neat Appears Stated Age: Yes Stature: WNL Posture: WNL Eye Contact: Average Behavior/Activity: Slowed - Interaction Observations Attitude Towards Examiner: Cooperative, Anxious Stated Mood: Dysphoric Affect: Blunted Thought Process: [place] Perception: WNL Thought Content: Depressive Thought Process: Lethality: Passive Wish Hallucination Type: None Delusion Type: None - Cognitive Function Orientation: A&O x 4 Level of Consciousness: Awake Judgment Within Normal Limits: No - Medication Compliance Cooperative with Inpatient Medication Regimen: Yes - Group Participation Participates in Group Activities: Yes Assessment - Assessment Inpatient DSM-V Dx: F39 Clinical Impression: 33 year old female with multiple hospital admissions currently with suicidal ideation Plan - Plan Treatment Plan: Name: SAUL UGARTE Birthdate: 1985 [id number] #Patient continues to require inpatient psychiatric care # Start clomipramine 100 mg daily # Q15 min observation #Goals : Eradicate suicidal ideation, improve coping skills. # [employer] program #B-Mod to give one day of essential oils if no self injurious behavior # lithium to 600mg BID #[place] level 0.45 #Continue remeron 7.5mg qhs for sleep and abilify 10mg daily. #Continue propranolol 10mg BID for restlessness # Work disability paper work completed. Change prazosin to 1mg at 1700 and 1mg at qhs. The risks, benefits, and alternative treatment options were discussed as well as of the risks of refusing treatment. After this discussion and an acknowledgement of this understanding was made. A risk/ benefit assessment of treatment was considered and discussed with the patient. When comparing the risks of treatment with the dangers of not receiving treatment, the benefits of treatment outweigh the treatment risks at this time. Risks of suicidal ideation , behavioral changes, dystonia, movement disorders, cardiac conduction changes , serotonin syndrome, metabolic risks and NMS were among some of the risks discussed. Sodium 140 mmol/L (135-145) 01/15/19 12:46 Potassium 4.1 mmol/L (3.5-5.0) 01/15/19 12:46 BUN 13 mg/dL (6-24) 01/15/19 12:46 Creatinine 1.01 mg/dL (0.51-0.95) H 01/15/19 12:46 Hemoglobin A1c 5.2 % (4.0-5.6) 01/16/19 06:46 Calcium 9.9 mg/dL (8.6-10.3) 01/15/19 12:46 AST 18 U/L (13-39) 01/15/19 12:46 ALT 24 U/L (7-52) 01/15/19 12:46 Triglycerides 124 mg/dL 01/16/19 06:46 Cholesterol 151 mg/dL 01/16/19 06:46 LDL Cholesterol 95 mg/dL 01/16/19 06:46 Laboratory Results WBC 8.3 10^3/uL (3.5-10.8) 01/15/19 12:46 RBC 4.49 10^6 /uL (3.70-4.87) 01/15/19 12:46 Hgb 13.5 g/dL (12.0-16.0) 01/15/19 12:46 Hct 39 % (35-47) 01/15/19 12:46 MCV 88 fL (80-97) 01/15/19 12:46 MCH 30 pg (27-31) 01/15/19 12:46 MCHC 34 g/dL (31-36) 01/15/19 12:46 RDW 13 % (10.5-15) 01/15/19 12:46 Plt Count 299 10^3/uL (150-450) 01/15/19 12:46 MPV 7.5 fL (7.4-10.4) 01/15/19 12:46 Neut % (Auto) 63.1 % 01/15/19 12:46 Lymph % (Auto) 28.0 % 01/15/19 12:46 [place] % (Auto) 7.1 % 01/15/19 12:46 Eos % (Auto) 1.4 % 01/15/19 12:46 Baso % (Auto) 0.4 % 01/15/19 12:46 Absolute Neuts (auto) 5.2 10^3/ul (1.5-7.7) 01/15/19 12:46 Absolute Lymphs (auto) 2.3 10^3/ul (1.0-4.8) 01/15/19 12:46 Absolute Monos (auto) 0.6 10^3/ul (0-0.8) 01/15/19 12:46 Absolute Eos (auto) 0.1 10^3/ul (0-0.6) 01/15/19 12:46 Absolute Basos (auto) 0.0 10^3/ul (0-0.2) 01/15/19 12:46 Absolute Nucleated RBC 0.0 10^3/ul 01/15/19 12:46 Nucleated RBC % 0.0 01/15/19 12:46 Sodium 140 mmol/L (135-145) 01/15/19 12:46 Potassium 4.1 mmol/L (3.5-5.0) 01/15/19 12:46 Chloride 106 mmol/L (101-111) 01/15/19 12:46 Carbon Dioxide 25 mmol/L (22-32) 01/15/19 12:46 Anion Gap 9 mmol/L (2-11) 01/15/19 12:46 BUN 13 mg/dL (6-24) 01/15/19 12:46 Creatinine 1.01 mg/dL (0.51-0.95) H 01/15/19 12:46 Est GFR ( Amer) 77.4 (>60) 01/15/19 12:46 Est GFR (Non-Af Amer) 63.9 (>60) 01/15/19 12:46 BUN/Creatinine Ratio 12.9 (8-20) 01/15/19 12:46 Glucose 99 mg/dL (70-100) 01/15/19 12:46 Hemoglobin A1c 5.2 % (4.0-5.6) 01/16/19 06:46 Calcium 9.9 mg/dL (8.6-10.3) 01/15/19 12:46 Total Bilirubin 0.60 mg/dL (0.2-1.0) 01/15/19 12:46 AST 18 U/L (13-39) 01/15/19 12:46 ALT 24 U/L (7-52) 01/15/19 12:46 Alkaline Phosphatase 55 U/L (34-104) 01/15/19 12:46 Total Protein 7.7 g/dL (6.4-8.9) 01/15/19 12:46 Albumin 4.4 g/dL (3.2-5.2) 01/15/19 12:46 Globulin 3.3 g/dL (2-4) 01/15/19 12:46 Albumin/Globulin Ratio 1.3 (1-3) 01/15/19 12:46 Triglycerides 124 mg/dL 01/16/19 06:46 Cholesterol 151 mg/dL 01/16/19 06:46 LDL Cholesterol 95 mg/dL 01/16/19 06:46 HDL Cholesterol 31.4 mg/dL 01/16/19 06:46 TSH 1.67 mcIU/mL (0.34-5.60) 01/15/19 12:46 Beta HCG, Quant < 0.60 mIU/mL 01/16/19 06:46 Urine Color Yellow 01/16/19 19:30 Urine Appearance Cloudy 01/16/19 19:30 Urine pH 5.0 (5-9) 01/16/19 19:30 Ur Specific [place] 1.021 (1.010-1.030) 01/16/19 19:30 Urine Protein Negative (Negative) 01/16/19 19:30 Urine Ketones Negative (Negative) 01/16/19 19:30 Urine Blood Negative (Negative) 01/16/19 19:30 Urine Nitrate Negative (Negative) 01/16/19 19:30 Urine Bilirubin Negative (Negative) 01/16/19 19:30 Urine Urobilinogen Negative (Negative) 01/16/19 19:30 Ur Leukocyte Esterase Negative (Negative) 01/16/19 19:30 Urine Glucose Negative (Negative) 01/16/19 19:30 Salicylates < 2.50 mg/dL (<30) 01/15/19 12:46 Urine Opiates Screen None detected (None Detect) 01/16/19 19:30 Acetaminophen < 15 mcg/mL 01/15/19 12:46 Ur Barbiturates Screen None detected (None Detect) 01/16/19 19:30 Ur Phencyclidine Scrn None detected (None Detect) 01/16/19 19:30 Ur Amphetamines Screen None detected (None Detect) 01/16/19 19:30 U Benzodiazepines Scrn None detected (None Detect) 01/16/19 19:30 [place] 0.55 mmol/L (0.6-1.2) L 01/26/19 06:20 Urine Cocaine Screen None detected (None Detect) 01/16/19 19:30 U Cannabinoids Screen None detected (None Detect) 01/16/19 19:30 Serum Alcohol < 10 mg/dL (<10) 01/15/19 12:46 Continued Medication Management: Continue Outpt Medication Medications: Current Medications Acetaminophen (Tylenol Tab*) 650 mg PO Q4H PRN PRN Reason: for pain; or Temp >101 F Last Admin: 01/26/19 04:57 Dose: 650 mg Al Hydrox/Mg Hydrox/Simethicone (Maalox Plus*) 30 ml PO Q4H PRN PRN Reason: INDIGESTION Aripiprazole (Abilify Tab*) 10 mg PO DAILY [facility] Last Admin: 01/25/19 08:27 Dose: 10 mg Cholecalciferol (Vitamin D Tab*) 5,000 units PO DAILY MARYA Last Admin: 01/25/19 08:27 Dose: 5,000 units Clomipramine HCl (Clomipramine (Nf)) 100 mg PO 0900 [facility] Hydroxyzine HCl (Atarax Tab*) 50 mg PO TID PRN PRN Reason: ANXIETY Last Admin: 01/26/19 00:40 Dose: 50 mg [place] Carbonate ([place] Carbonate Tab*) 600 mg PO BEDTIME MARYA Last Admin: 01/25/19 20:26 Dose: 600 mg [place] Carbonate ([place] Carbonate Tab*) 600 mg PO DAILY [facility] Last Admin: 01/25/19 08:27 Dose: 600 mg Mirtazapine (Remeron Tab*) 7.5 mg PO BEDTIME MARYA Last Admin: 01/25/19 20:26 Dose: 7.5 mg Pto: Norethindrone ( Nf) [Shannon (Nf)] 0 .35 Mg 0.35 mg PO DAILY [facility] Last Admin: 01/25/19 08:28 Dose: 0.35 mg Nystatin (Nystatin Top Powder*) 1 applic TOPICAL TID [facility] Last Admin: 01/25/19 20:29 Dose: Not Given Prazosin HCl (Minipress Cap*) 1 mg PO BEDTIME [facility] Last Admin: 01/25/19 20:27 Dose: 1 mg Prazosin HCl (Minipress Cap*) 1 mg PO 1700 [facility] Last Admin: 01/25/19 17:33 Dose: 1 mg Propranolol HCl (Inderal Tab*) 10 mg PO BID [facility] Last Admin: 01/25/19 20:27 Dose: 10 mg - Discharge Plan Discharge Plan: Inpatient Hospitalization
[2019-01-26] MEDS: Cholecalciferol TAB* 1000 UNITS PO SCH (08:46)
[2019-01-26] MEDS: ARIPiprazole TAB* 5 MG PO SCH (08:46)
[2019-01-26] MEDS: NORETHINDRONE 0.35 MG PO SCH (08:46)
[2019-01-26] MEDS: Lithium Carbonate TAB* 300 MG PO SCH ×2 (08:46→20:27)
[2019-01-26] MEDS: Propranolol TAB* 10 MG PO SCH ×2 (08:46→20:28)
[2019-01-26] MEDS: CMCS ClomiPRAMINE (NF) 25 MG CAP PO SCH (08:47)
[2019-01-26] MEDS: Nystatin TOP POWDER* 15 GM BTL TOPICAL SCH ×3 (08:49→20:30)
--- NOTE | 2019-01-26 11:24 | PN ---
BSU: Group Therapy Note - Service Type Service Type: 69218 Group Psychotherapy - Cognitive Behavioral Group Therapy ( CBT):Patient attended CBT programming this morning and presented with flat affect that did not vary with discussion. Although responsive to direct prompts to respond to questions, patient did not engage in spontaneous conversation.
[2019-01-26] MEDS: Prazosin CAP* 1 MG PO SCH ×2 (17:06→20:28)
[2019-01-26] MEDS: Mirtazapine TAB* 15 MG PO SCH (20:28)
[2019-01-27] MEDS: Acetaminophen TAB* 325 MG PO PRN ×3 (01:05→15:25)
[2019-01-27] MEDS: hydrOXYzine HCL TAB* 50 MG PO PRN ×2 (04:17→17:05)
[2019-01-27] MEDS: Lithium Carbonate TAB* 300 MG PO SCH ×2 (08:40→20:44)
[2019-01-27] MEDS: Cholecalciferol TAB* 1000 UNITS PO SCH (08:40)
[2019-01-27] MEDS: Propranolol TAB* 10 MG PO SCH ×2 (08:41→20:47)
[2019-01-27] MEDS: ARIPiprazole TAB* 5 MG PO SCH (08:41)
[2019-01-27] MEDS: Nystatin TOP POWDER* 15 GM BTL TOPICAL SCH ×3 (08:42→20:47)
[2019-01-27] MEDS: CMCS ClomiPRAMINE (NF) 25 MG CAP PO SCH (08:42)
[2019-01-27] MEDS: NORETHINDRONE 0.35 MG PO SCH (08:43)
[2019-01-27] MEDS: Prazosin CAP* 1 MG PO SCH ×2 (17:05→20:44)
[2019-01-27] MEDS: Mirtazapine TAB* 15 MG PO SCH (20:46)
[2019-01-28] MEDS: hydrOXYzine HCL TAB* 50 MG PO PRN ×2 (03:45→20:20)
[2019-01-28] MEDS: Nystatin TOP POWDER* 15 GM BTL TOPICAL SCH ×3 (07:52→20:44)
[2019-01-28] MEDS: NORETHINDRONE 0.35 MG PO SCH (08:16)
[2019-01-28] MEDS: CMCS ClomiPRAMINE (NF) 25 MG CAP PO SCH (08:17)
[2019-01-28] MEDS: Propranolol TAB* 10 MG PO SCH ×2 (08:17→20:15)
[2019-01-28] MEDS: ARIPiprazole TAB* 5 MG PO SCH (08:17)
[2019-01-28] MEDS: Cholecalciferol TAB* 1000 UNITS PO SCH (08:17)
[2019-01-28] MEDS: Lithium Carbonate TAB* 300 MG PO SCH ×2 (08:17→20:15)
[2019-01-28] MEDS: Acetaminophen TAB* 325 MG PO PRN ×2 (11:29→17:51)
[2019-01-28] MEDS: Prazosin CAP* 1 MG PO SCH ×2 (16:56→20:16)
[2019-01-28] MEDS: Mirtazapine TAB* 15 MG PO SCH (20:16)
[2019-01-29] MEDS: Propranolol TAB* 10 MG PO SCH ×2 (08:39→20:29)
[2019-01-29] MEDS: NORETHINDRONE 0.35 MG PO SCH (08:39)
[2019-01-29] MEDS: Lithium Carbonate TAB* 300 MG PO SCH ×2 (08:39→20:29)
[2019-01-29] MEDS: Cholecalciferol TAB* 1000 UNITS PO SCH (08:40)
[2019-01-29] MEDS: ARIPiprazole TAB* 5 MG PO SCH (08:40)
[2019-01-29] MEDS: CMCS ClomiPRAMINE (NF) 25 MG CAP PO SCH (08:40)
[2019-01-29] MEDS: Nystatin TOP POWDER* 15 GM BTL TOPICAL SCH ×3 (08:42→20:32)
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
[2019-01-29] MEDS: Prazosin CAP* 1 MG PO SCH ×2 (16:50→20:29)
[2019-01-29] MEDS: Mirtazapine TAB* 15 MG PO SCH (20:30)
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
[2019-01-30] MEDS: ARIPiprazole TAB* 5 MG PO SCH (08:39)
[2019-01-30] MEDS: Cholecalciferol TAB* 1000 UNITS PO SCH (08:40)
[2019-01-30] MEDS: Lithium Carbonate TAB* 300 MG PO SCH ×2 (08:40→21:14)
[2019-01-30] MEDS: Propranolol TAB* 10 MG PO SCH ×2 (08:40→21:16)
[2019-01-30] MEDS: NORETHINDRONE 0.35 MG PO SCH (08:42)
[2019-01-30] MEDS: Nystatin TOP POWDER* 15 GM BTL TOPICAL SCH ×3 (08:42→21:19)
[2019-01-30] MEDS ORDERED: CMCS:ClomiPRAMINE (NF) 25 MG CAP PO SCH (09:00)
[2019-01-30] MEDS: Prazosin CAP* 1 MG PO SCH ×2 (17:03→21:16)
[2019-01-30] MEDS: Mirtazapine TAB* 15 MG PO SCH (21:14)
[2019-01-30] MEDS: hydrOXYzine HCL TAB* 50 MG PO PRN (21:18)
[2019-01-31] MEDS: Acetaminophen TAB* 325 MG PO PRN ×2 (06:25→21:34)
[2019-01-31 07:17] LABS: Albumin 4.2 g/dL (3.2-5.2); Albumin/Globulin Ratio 1.4 (1-3); BUN/Creatinine Ratio 24.5 (8-20); Calcium 9.6 mg/dL (8.6-10.3); EGFR African American 80.1 (>60); EGFR Non-African American 66.2 (>60); Globulin 3.1 g/dL (2-4); Potassium 3.8 mmol/L (3.5-5.0); Total Bilirubin 0.4 mg/dL (0.2-1.0); Total Protein 7.3 g/dL (6.4-8.9)
[2019-01-31] MEDS: Propranolol TAB* 10 MG PO SCH ×2 (08:30→21:29)
[2019-01-31] MEDS: Lithium Carbonate TAB* 300 MG PO SCH ×2 (08:30→21:29)
[2019-01-31] MEDS: ARIPiprazole TAB* 5 MG PO SCH (08:31)
[2019-01-31] MEDS: CMCS:ClomiPRAMINE (NF) 25 MG CAP PO SCH (08:31)
[2019-01-31] MEDS: Cholecalciferol TAB* 1000 UNITS PO SCH (08:31)
[2019-01-31] MEDS: NORETHINDRONE 0.35 MG PO SCH (08:32)
[2019-01-31] MEDS: Nystatin TOP POWDER* 15 GM BTL TOPICAL SCH ×3 (09:07→21:32)
--- NOTE | 2019-01-31 10:29 | PN ---
Subjective - Subjective Date of Service: 01/31/19 Service Type: [id number] Hosp care 35 min high complexity Subjective: Nursing Report: Patient was visible on unit, No self injury incidents. Attending group activities. CC: "Better Patient was seen and evaluated today in the common room. She slept overnight for 5-6 per her report. She had a nightmare about a past trauma in her life and woke up and was able to work through it and gain control. She reported having dry mouth. She denied intrusive thoughts or self injurious behavior. . She went on staff pass without incident. Objective - General Observations Appearance: Neat Appears Stated Age: Yes Stature: Overweight Posture: Slumped Eye Contact: Average Behavior/Activity: WNL - Interaction Observations Attitude Towards Examiner: Cooperative Stated Mood: Euthymic Affect: Blunted Speech Pattern/Tone: Clear Thought Process: Coherent Perception: WNL Thought Content: WNL Hallucination Type: None Delusion Type: None - Cognitive Function Orientation: A&O x 4 Level of Consciousness: Awake - Medication Compliance Cooperative with Inpatient Medication Regimen: Yes - Group Participation Participates in Group Activities: Yes Assessment - Assessment Inpatient DSM-V Dx: F39 Clinical Impression: 33 year old female with multiple hospital admissions currently with suicidal ideation Plan - Plan Treatment Plan: Name: SAUL UGARTE Birthdate: 1985 [id number] #Patient continues to require inpatient psychiatric care at this time # Clomipramine 100 mg daily # Q30 observation with staff pass and computer access #B-Mod to give one day of essential oils if no self injurious behavior # [place] to 600mg BID #Continue remeron 7.5mg qhs for sleep and abilify 10mg daily. #Continue propranolol 10mg BID for restlessness #Continue prazosin to 1mg at 1700 and 1mg at qhs. #Biotene for dry mouth # TCA dangers in OD discussed. Patient will need to be in a setting that includes medications to be dispensed under supervision. Possible options include [facility]. She is able to return to live with her mother upon discharge. # Family meeting or Tuesday #Tentative discharge or Tuesday #Goals : Eradicate suicidal ideation and self injury behavior The risks, benefits, and alternative treatment options were discussed as well as of the risks of refusing treatment. After this discussion and an acknowledgement of this understanding was made. A risk/ benefit assessment of treatment was considered and discussed with the patient. When comparing the risks of treatment with the dangers of not receiving treatment, the benefits of treatment outweigh the treatment risks at this time. Risks of suicidal ideation , behavioral changes, dystonia, movement disorders, cardiac conduction changes , serotonin syndrome, metabolic risks and NMS were among some of the risks discussed. 01/31/19 06:22 Sodium 138 Potassium 3.8 Chloride 106 Carbon Dioxide 27 Anion Gap 5 BUN 24 Creatinine 0.98 H Est GFR ( Amer) 80.1 Est GFR (Non-Af Amer) 66.2 BUN/Creatinine Ratio 24.5 H Glucose 91 Calcium 9.6 Total Bilirubin 0.40 AST 24 ALT 33 Alkaline Phosphatase 44 Total Protein 7.3 Albumin 4.2 Globulin 3.1 Albumin/Globulin Ratio 1.4 Continued Medication Management: Start Medication Medications: Current Medications Acetaminophen (Tylenol Tab*) 650 mg PO Q4H PRN PRN Reason: for pain; or Temp >101 F Last Admin: 01/31/19 06:25 Dose: 650 mg Al Hydrox/Mg Hydrox/Simethicone (Maalox Plus*) 30 ml PO Q4H PRN PRN Reason: INDIGESTION Aripiprazole (Abilify Tab*) 10 mg PO DAILY [facility] Last Admin: 01/31/19 08:31 Dose: 10 mg Cholecalciferol (Vitamin D Tab*) 5,000 units PO DAILY [facility] Last Admin: 01/31/19 08:31 Dose: 5,000 units Clomipramine HCl (Clomipramine (Nf)) 100 mg PO 0900 [facility] Last Admin: 01/31/19 08:31 Dose: 100 mg Hydroxyzine HCl (Atarax Tab*) 50 mg PO TID PRN PRN Reason: ANXIETY Last Admin: 01/30/19 21:18 Dose: 50 mg [place] Carbonate (L[place] Carbonate Tab*) 600 mg PO BEDTIME [facility] Last Admin: 01/30/19 21:14 Dose: 600 mg [place] Carbonate ([place] Carbonate Tab*) 600 mg PO DAILY [facility] Last Admin: 01/31/19 08:30 Dose: 600 mg Mirtazapine (Remeron Tab*) 7.5 mg PO BEDTIME [facility] Last Admin: 01/30/19 21:14 Dose: 7.5 mg Multi-Ingredient Mouthwash/Gargle (Biotene Dry Mouth Oral Rinse(Nf)) 15 ml MT . DIRECTED [facility] Pto: Norethindrone ( Nf) [Shannon (Nf)] 0 .35 Mg 0.35 mg PO DAILY [facility] Last Admin: 01/31/19 08:32 Dose: 0.35 mg Nystatin (Nystatin Top Powder*) 1 applic TOPICAL TID [facility] Last Admin: 01/31/19 09:07 Dose: Not Given Prazosin HCl (Minipress Cap*) 1 mg PO BEDTIME [facility] Last Admin: 01/30/19 21:16 Dose: 1 mg Prazosin HCl (Minipress Cap*) 1 mg PO 1700 [facility] Last Admin: 01/30/19 17:03 Dose: 1 mg Propranolol HCl (Inderal Tab*) 10 mg PO BID [facility] Last Admin: 01/31/19 08:30 Dose: 10 mg - Discharge Plan Discharge Plan: Inpatient Hospitalization
[2019-01-31] MEDS: Oral Rinse (Biotene)(NF) 237 ML or 473 ML ORAL RINSE BTL MT PRN (15:28)
[2019-01-31] MEDS: Prazosin CAP* 1 MG PO SCH ×2 (17:03→21:29)
[2019-01-31] MEDS: Mirtazapine TAB* 15 MG PO SCH (21:29)
[2019-02-01] MEDS: hydrOXYzine HCL TAB* 50 MG PO PRN ×2 (00:45→22:11)
[2019-02-01] MEDS: Nystatin TOP POWDER* 15 GM BTL TOPICAL SCH ×4 (04:50→21:40)
[2019-02-01] MEDS: Lithium Carbonate TAB* 300 MG PO SCH ×2 (08:36→21:36)
[2019-02-01] MEDS: NORETHINDRONE 0.35 MG PO SCH (08:36)
[2019-02-01] MEDS: Cholecalciferol TAB* 1000 UNITS PO SCH (08:37)
[2019-02-01] MEDS: Propranolol TAB* 10 MG PO SCH ×2 (08:37→21:38)
[2019-02-01] MEDS: CMCS:ClomiPRAMINE (NF) 25 MG CAP PO SCH (08:37)
[2019-02-01] MEDS: ARIPiprazole TAB* 5 MG PO SCH (08:38)
[2019-02-01] MEDS: Acetaminophen TAB* 325 MG PO PRN (11:01)
--- NOTE | 2019-02-01 11:19 | PN ---
BSU: Group Therapy Note - Service Type Service Type: 48914 Group Psychotherapy - Cognitive Behavioral Group Therapy ( CBT):Patient was attentive and participatory in CBT programming this morning, and remained in good behavioral control. Patient expressed positive insights regarding relevant treatment interventions and goals.
--- NOTE | 2019-02-01 13:05 | PN ---
Subjective - Subjective Date of Service: 02/01/19 Service Type: [id number] Hosp care 35 min high complexity Subjective: Nursing Report: Patient was visible on unit, Attending group activities. CC: " Fine Patient was seen and evaluated today in the common room. She said that another peer has been disturbing her.She became upset and scratched and hit herself. She reported having an adequate appetite. The patient reports attending and participating in day groups. Per staff report she has been providing feedback to staff. Patient reported that she is tolerating medications without side effects. She completed a behavioral chain analysis this morning. Objective - General Observations Appearance: Disheveled Appears Stated Age: Yes Stature: Overweight Posture: Slumped Eye Contact: Average Behavior/Activity: WNL - Interaction Observations Attitude Towards Examiner: Cooperative Stated Mood: Dysphoric Affect: Blunted Speech Pattern/Tone: Clear Thought Process: Coherent Perception: WNL Thought Content: WNL Hallucination Type: None Delusion Type: None - Cognitive Function Orientation: A&O x 4 Level of Consciousness: Awake - Medication Compliance Cooperative with Inpatient Medication Regimen: Yes - Group Participation Participates in Group Activities: Yes Assessment - Assessment Inpatient DSM-V Dx: F39 Clinical Impression: 33 year old female with multiple hospital admissions currently with suicidal ideation Plan - Plan Treatment Plan: Name: SAUL UGARTE Birthdate: 1985 [id number] #Patient continues to require inpatient psychiatric care at this time # Clomipramine 100 mg daily # Q30 observation with staff pass and computer access #B-Mod to give one day of essential oils if no self injurious behavior # [place] to 600mg BID #Continue remeron 7.5mg qhs for sleep and abilify 10mg daily. #Continue propranolol 10mg BID for restlessness #Continue prazosin to 1mg at 1700 and 1mg at qhs. #Biotene for dry mouth # TCA dangers in OD discussed. Patient will need to be in a setting that includes medications to be dispensed under supervision. She was accepted at [facility] which is available at the end of February. # Family meeting Tuesday #Completed behavioral chain analysis #Tentative discharge Tuesday orTuesday Clomipramine level results pending She can return to live with her mother. #Goals : Eradicate suicidal ideation and self injury behavior The risks, benefits, and alternative treatment options were discussed as well as of the risks of refusing treatment. After this discussion and an acknowledgement of this understanding was made. A risk/ benefit assessment of treatment was considered and discussed with the patient. When comparing the risks of treatment with the dangers of not receiving treatment, the benefits of treatment outweigh the treatment risks at this time. Risks of suicidal ideation , behavioral changes, dystonia, movement disorders, cardiac conduction changes , serotonin syndrome, metabolic risks and NMS were among some of the risks discussed. 01/31/19 02/01/19 06:22 07:22 Sodium 138 Potassium 3.8 Chloride 106 Carbon Dioxide 27 Anion Gap 5 BUN 24 Creatinine 0.98 H Est GFR ( Amer) 80.1 Est GFR (Non-Af Amer) 66.2 BUN/Creatinine Ratio 24.5 H Glucose 91 Calcium 9.6 Total Bilirubin 0.40 AST 24 ALT 33 Alkaline Phosphatase 44 Total Protein 7.3 Albumin 4.2 Globulin 3.1 Albumin/Globulin Ratio 1.4 [place] 0.55 L Continued Medication Management: Continue Outpt Medication Medications: Current Medications Acetaminophen (Tylenol Tab*) 650 mg PO Q4H PRN PRN Reason: for pain; or Temp >101 F Last Admin: 02/01/19 11:01 Dose: 650 mg Al Hydrox/Mg Hydrox/Simethicone (Maalox Plus*) 30 ml PO Q4H PRN PRN Reason: INDIGESTION Aripiprazole (Abilify Tab*) 10 mg PO DAILY [facility] Last Admin: 02/01/19 08:38 Dose: 10 mg Cholecalciferol (Vitamin D Tab*) 5,000 units PO DAILY [facility] Last Admin: 02/01/19 08:37 Dose: 5,000 units Clomipramine HCl (Clomipramine (Nf)) 100 mg PO 0900 [facility] Last Admin: 02/01/19 08:37 Dose: 100 mg Hydroxyzine HCl (Atarax Tab*) 50 mg PO TID PRN PRN Reason: ANXIETY Last Admin: 02/01/19 00:45 Dose: 50 mg [place] Carbonate ([place] Carbonate Tab*) 600 mg PO BEDTIME [facility] Last Admin: 01/31/19 21:29 Dose: 600 mg [place] Carbonate ([place] Carbonate Tab*) 600 mg PO DAILY [facility] Last Admin: 02/01/19 08:36 Dose: 600 mg Mirtazapine (Remeron Tab*) 7.5 mg PO BEDTIME [facility] Last Admin: 01/31/19 21:29 Dose: 7.5 mg Multi-Ingredient Mouthwash/Gargle (Biotene Dry Mouth Oral Rinse(Nf)) 15 ml MT FIVE TIMES DAILY PRN PRN Reason: DRY MOUTH Last Admin: 01/31/19 15:28 Dose: 15 ml Pto: Norethindrone ( Nf) [Shannon (Nf)] 0 .35 Mg 0.35 mg PO DAILY [facility] Last Admin: 02/01/19 08:36 Dose: 0.35 mg Nystatin (Nystatin Top Powder*) 1 applic TOPICAL TID [facility] Last Admin: 02/01/19 08:38 Dose: Not Given Prazosin HCl (Minipress Cap*) 1 mg PO BEDTIME [facility] Last Admin: 01/31/19 21:29 Dose: 1 mg Prazosin HCl (Minipress Cap*) 1 mg PO 1700 [facility] Last Admin: 01/31/19 17:03 Dose: 1 mg Propranolol HCl (Inderal Tab*) 10 mg PO BID [facility] Last Admin: 02/01/19 08:37 Dose: 10 mg - Discharge Plan Discharge Plan: Inpatient Hospitalization
[2019-02-01] MEDS: Oral Rinse (Biotene)(NF) 237 ML or 473 ML ORAL RINSE BTL MT PRN ×2 (14:46→21:39)
[2019-02-01] MEDS: Prazosin CAP* 1 MG PO SCH ×2 (17:12→21:38)
[2019-02-01] MEDS: Mirtazapine TAB* 15 MG PO SCH (21:37)
[2019-02-02] MEDS: hydrOXYzine HCL TAB* 50 MG PO PRN ×3 (01:40→21:17)
[2019-02-02] MEDS: Acetaminophen TAB* 325 MG PO PRN ×2 (07:24→14:08)
[2019-02-02] MEDS: ARIPiprazole TAB* 5 MG PO SCH (08:26)
[2019-02-02] MEDS: Cholecalciferol TAB* 1000 UNITS PO SCH (08:26)
[2019-02-02] MEDS: Lithium Carbonate TAB* 300 MG PO SCH ×2 (08:26→21:13)
[2019-02-02] MEDS: Propranolol TAB* 10 MG PO SCH ×2 (08:26→21:14)
[2019-02-02] MEDS: NORETHINDRONE 0.35 MG PO SCH (08:27)
[2019-02-02] MEDS: Nystatin TOP POWDER* 15 GM BTL TOPICAL SCH ×3 (08:27→21:18)
[2019-02-02] MEDS: CMCS:ClomiPRAMINE (NF) 25 MG CAP PO SCH (08:27)
--- NOTE | 2019-02-02 11:40 | PN ---
Subjective - Subjective Date of Service: 02/02/19 Service Type: 17173 Hosp care 35 min high complexity Subjective: Nursing Report: Patient was visible on unit, Attending group activities. CC: " I dont know Patient was seen and evaluated today in the common room. A family meeting took place with her mother. She is in agreement with the plan for discharge on Tuesday and said that she would feel better with having pros to engage in following discharge. She reported poor sleep overnight due to her roommate making noise. Per staff report she punched herself in the head and wrote down coping skills. She reported having an adequate appetite The patient reports attending and participating in day groups. Patient reported that she is tolerating medications without side effects. Objective - General Observations Appearance: Neat Appears Stated Age: Yes Stature: Overweight Posture: Slumped Eye Contact: Average Behavior/Activity: WNL - Interaction Observations Attitude Towards Examiner: Cooperative Stated Mood: Dysphoric Affect: Blunted Speech Pattern/Tone: Clear Thought Process: Coherent Perception: WNL Thought Content: WNL Hallucination Type: None Delusion Type: None - Cognitive Function Orientation: A&O x 4 Level of Consciousness: Awake Cognition: WNL Judgment Within Normal Limits: No - Medication Compliance Cooperative with Inpatient Medication Regimen: Yes - Group Participation Participates in Group Activities: Yes Assessment - Assessment Inpatient DSM-V Dx: F39 Clinical Impression: 33 year old female with multiple hospital admissions currently with suicidal ideation Plan - Plan Treatment Plan: Name: SAUL UGARTE Birthdate: 1985 [id number] #Patient continues to require inpatient psychiatric care at this time # Clomipramine 100 mg daily # Q30 observation with staff pass and computer access #B-Mod to give one day of essential oils if no self injurious behavior # [place] to 600mg BID #Continue remeron 7.5mg qhs for sleep and abilify 10mg daily. #Continue propranolol 10mg BID for restlessness #Continue prazosin to 1mg at 1700 and 1mg at qhs. #Biotene for dry mouth # TCA dangers in OD discussed. Patient will need to be in a setting that includes medications to be dispensed under supervision. She was accepted at [facility] which is available at the end of February. # Family meeting Tuesday #Completed behavioral chain analysis #Tentative discharge Tuesday she will engage at [facility] following discharge Clomipramine level results pending She will return to live with her mother until [facility] becomes available. # Mother plans to housekeeping supervisor and dispense medications. #Goals : Eradicate suicidal ideation and self injury behavior The risks, benefits, and alternative treatment options were discussed as well as of the risks of refusing treatment. After this discussion and an acknowledgement of this understanding was made. A risk/ benefit assessment of treatment was considered and discussed with the patient. When comparing the risks of treatment with the dangers of not receiving treatment, the benefits of treatment outweigh the treatment risks at this time. Risks of suicidal ideation , behavioral changes, dystonia, movement disorders, cardiac conduction changes , serotonin syndrome, metabolic risks and NMS were among some of the risks discussed. Continued Medication Management: Continue Outpt Medication Medications: Current Medications Acetaminophen (Tylenol Tab*) 650 mg PO Q4H PRN PRN Reason: for pain; or Temp >101 F Last Admin: 02/02/19 07:24 Dose: 650 mg Al Hydrox/Mg Hydrox/Simethicone (Maalox Plus*) 30 ml PO Q4H PRN PRN Reason: INDIGESTION Aripiprazole (Abilify Tab*) 10 mg PO DAILY [facility] Last Admin: 02/02/19 08:26 Dose: 10 mg Cholecalciferol (Vitamin D Tab*) 5,000 units PO DAILY [facility] Last Admin: 02/02/19 08:26 Dose: 5,000 units Clomipramine HCl (Clomipramine (Nf)) 100 mg PO 0900 [facility] Last Admin: 02/02/19 08:27 Dose: 100 mg Hydroxyzine HCl (Atarax Tab*) 50 mg PO TID PRN PRN Reason: ANXIETY Last Admin: 02/02/19 01:40 Dose: 50 mg [place] Carbonate ([place] Carbonate Tab*) 600 mg PO BEDTIME [facility] Last Admin: 02/01/19 21:36 Dose: 600 mg [place] Carbonate ([place] Carbonate Tab*) 600 mg PO DAILY [facility] Last Admin: 02/02/19 08:26 Dose: 600 mg Mirtazapine (Remeron Tab*) 7.5 mg PO BEDTIME [facility] Last Admin: 02/01/19 21:37 Dose: 7.5 mg Multi-Ingredient Mouthwash/Gargle (Biotene Dry Mouth Oral Rinse(Nf)) 15 ml MT FIVE TIMES DAILY PRN PRN Reason: DRY MOUTH Last Admin: 02/01/19 21:39 Dose: 15 ml Pto: Norethindrone ( Nf) [Shannon (Nf)] 0 .35 Mg 0.35 mg PO DAILY [facility] Last Admin: 02/02/19 08:27 Dose: 0.35 mg Nystatin (Nystatin Top Powder*) 1 applic TOPICAL TID [facility] Last Admin: 02/02/19 08:27 Dose: Not Given Prazosin HCl (Minipress Cap*) 1 mg PO BEDTIME [facility] Last Admin: 02/01/19 21:38 Dose: 1 mg Prazosin HCl (Minipress Cap*) 1 mg PO 1700 [facility] Last Admin: 02/01/19 17:12 Dose: 1 mg Propranolol HCl (Inderal Tab*) 10 mg PO BID [facility] Last Admin: 02/02/19 08:26 Dose: 10 mg - Discharge Plan Discharge Plan: Inpatient Hospitalization
[2019-02-02 16:46] LABS: Clomipramine 106 ng/mL
[2019-02-02] MEDS: Prazosin CAP* 1 MG PO SCH ×2 (18:58→21:14)
[2019-02-02] MEDS: Mirtazapine TAB* 15 MG PO SCH (21:13)
[2019-02-03] MEDS: hydrOXYzine HCL TAB* 50 MG PO PRN ×2 (00:53→21:26)
[2019-02-03] MEDS: CMCS:ClomiPRAMINE (NF) 25 MG CAP PO SCH (08:46)
[2019-02-03] MEDS: ARIPiprazole TAB* 5 MG PO SCH (08:47)
[2019-02-03] MEDS: NORETHINDRONE 0.35 MG PO SCH (08:47)
[2019-02-03] MEDS: Lithium Carbonate TAB* 300 MG PO SCH ×2 (08:47→20:35)
[2019-02-03] MEDS: Propranolol TAB* 10 MG PO SCH ×2 (08:47→20:35)
[2019-02-03] MEDS: Cholecalciferol TAB* 1000 UNITS PO SCH (08:47)
[2019-02-03] MEDS: Nystatin TOP POWDER* 15 GM BTL TOPICAL SCH ×3 (08:48→20:38)
[2019-02-03] MEDS: Oral Rinse (Biotene)(NF) 237 ML or 473 ML ORAL RINSE BTL MT PRN ×2 (09:22→13:52)
[2019-02-03] MEDS: Prazosin CAP* 1 MG PO SCH ×2 (16:47→20:36)
[2019-02-03] MEDS: Mirtazapine TAB* 15 MG PO SCH (20:36)
[2019-02-04] MEDS: Acetaminophen TAB* 325 MG PO PRN (06:11)
[2019-02-04] MEDS: Oral Rinse (Biotene)(NF) 237 ML or 473 ML ORAL RINSE BTL MT PRN (06:12)
[2019-02-04] MEDS: Lithium Carbonate TAB* 300 MG PO SCH ×2 (08:32→21:17)
[2019-02-04] MEDS: Propranolol TAB* 10 MG PO SCH ×2 (08:32→21:16)
[2019-02-04] MEDS: ARIPiprazole TAB* 5 MG PO SCH (08:32)
[2019-02-04] MEDS: Cholecalciferol TAB* 1000 UNITS PO SCH (08:32)
[2019-02-04] MEDS: CMCS:ClomiPRAMINE (NF) 25 MG CAP PO SCH (08:32)
[2019-02-04] MEDS: NORETHINDRONE 0.35 MG PO SCH (08:33)
[2019-02-04] MEDS: Nystatin TOP POWDER* 15 GM BTL TOPICAL SCH ×3 (08:33→21:24)
[2019-02-04] MEDS: Prazosin CAP* 1 MG PO SCH ×2 (17:32→21:17)
[2019-02-04] MEDS: hydrOXYzine HCL TAB* 50 MG PO PRN (18:47)
[2019-02-04] MEDS: Mirtazapine TAB* 15 MG PO SCH (21:18)
[2019-02-05] MEDS: Lithium Carbonate TAB* 300 MG PO SCH ×2 (08:36→21:19)
[2019-02-05] MEDS: Cholecalciferol TAB* 1000 UNITS PO SCH (08:36)
[2019-02-05] MEDS: ARIPiprazole TAB* 5 MG PO SCH (08:37)
[2019-02-05] MEDS: Propranolol TAB* 10 MG PO SCH ×2 (08:38→21:19)
[2019-02-05] MEDS: CMCS:ClomiPRAMINE (NF) 25 MG CAP PO SCH (08:38)
[2019-02-05] MEDS: NORETHINDRONE 0.35 MG PO SCH (08:39)
[2019-02-05] MEDS: Oral Rinse (Biotene)(NF) 237 ML or 473 ML ORAL RINSE BTL MT PRN (09:58)
[2019-02-05] MEDS: Nystatin TOP POWDER* 15 GM BTL TOPICAL SCH ×2 (10:36→17:13)
[2019-02-05] MEDS: hydrOXYzine HCL TAB* 50 MG PO PRN ×2 (12:35→20:35)
--- NOTE | 2019-02-05 13:09 | PN ---
Subjective - Subjective Date of Service: 02/05/19 Service Type: 43622 Hosp care 15 min low complexity Subjective: Saul is seen in Holiday coverage for Dr. Aj. She is feeling "OK" today and denies SI or thoughts of self-harm. She express a concern that perhaps propranolol is making her dizzy and hypotensive. I reviewed her vitals and her systolic BPs have been in the 100-120 range. She has no other complaints. Objective - General Observations Appearance: Well Groomed Appears Stated Age: Yes Stature: WNL Posture: WNL Eye Contact: Average Behavior/Activity: WNL - Interaction Observations Attitude Towards Examiner: Cooperative Stated Mood: Euthymic Affect: Full Speech Pattern/Tone: Clear, Appropriate, Normal Volume Thought Process: Coherent Perception: WNL Thought Content: WNL Hallucination Type: None Delusion Type: None - Cognitive Function Orientation: A&O x 4 Level of Consciousness: Awake Cognition: WNL Estimated Intelligence: Normal Insight: WNL Judgment Within Normal Limits: Yes - Medication Compliance Cooperative with Inpatient Medication Regimen: Yes - Group Participation Participates in Group Activities: Yes Assessment - Assessment Merits Inpatient Hospitalization: Consolidate Improvements, Pending Safe DC Plan Inpatient DSM-V Dx: F39 Clinical Impression: 33 year old female with multiple hospital admissions currently with suicidal ideation BSU: Problem List - Patient Problems (1) Mood disorder Current Visit: Yes Status: Acute Priority: Medium Code(s): F39 - UNSPECIFIED MOOD [AFFECTIVE] DISORDER SNOMED Code(s): 27172355 Plan - Plan Treatment Plan: Name: SAUL UGARTE Birthdate: 1985 [id number] #Patient continues to require inpatient psychiatric care at this time # Clomipramine 100 mg daily # Q30 observation with staff pass and computer access #B-Mod to give one day of essential oils if no self injurious behavior # [place] to 600mg BID #Continue remeron 7.5mg qhs for sleep and abilify 10mg daily. #Continue propranolol 10mg BID for restlessness #Continue prazosin to 1mg at 1700 and 1mg at qhs. #Biotene for dry mouth # TCA dangers in OD discussed. Patient will need to be in a setting that includes medications to be dispensed under supervision. She was accepted at [facility] which is available at the end of February. # Family meeting Fredrick #Completed behavioral chain analysis #Tentative discharge Tuesday she will engage at [facility] following discharge Clomipramine level results pending She will return to live with her mother until [facility] becomes available. # Mother plans to orange picker machine operator and dispense medications. #Goals : Eradicate suicidal ideation and self injury behavior The risks, benefits, and alternative treatment options were discussed as well as of the risks of refusing treatment. After this discussion and an acknowledgement of this understanding was made. A risk/ benefit assessment of treatment was considered and discussed with the patient. When comparing the risks of treatment with the dangers of not receiving treatment, the benefits of treatment outweigh the treatment risks at this time. Risks of suicidal ideation , behavioral changes, dystonia, movement disorders, cardiac conduction changes , serotonin syndrome, metabolic risks and NMS were among some of the risks discussed. Continued Medication Management: Different Medication Medications: Current Medications Acetaminophen (Tylenol Tab*) 650 mg PO Q4H PRN PRN Reason: for pain; or Temp >101 F Last Admin: 02/04/19 06:11 Dose: 650 mg Al Hydrox/Mg Hydrox/Simethicone (Maalox Plus*) 30 ml PO Q4H PRN PRN Reason: INDIGESTION Aripiprazole (Abilify Tab*) 10 mg PO DAILY [facility] Last Admin: 02/05/19 08:37 Dose: 10 mg Cholecalciferol (Vitamin D Tab*) 5,000 units PO DAILY [facility] Last Admin: 02/05/19 08:36 Dose: 5,000 units Clomipramine HCl (Clomipramine (Nf)) 100 mg PO 0900 [facility] Last Admin: 02/05/19 08:38 Dose: 100 mg Hydroxyzine HCl (Atarax Tab*) 50 mg PO TID PRN PRN Reason: ANXIETY Last Admin: 02/05/19 12:35 Dose: 50 mg [place] Carbonate ([place] Carbonate Tab*) 600 mg PO BEDTIME [facility] Last Admin: 02/04/19 21:17 Dose: 600 mg [place] Carbonate ([place] Carbonate Tab*) 600 mg PO DAILY [facility] Last Admin: 02/05/19 08:36 Dose: 600 mg Mirtazapine (Remeron Tab*) 7.5 mg PO BEDTIME [facility] Last Admin: 02/04/19 21:18 Dose: 7.5 mg Multi-Ingredient Mouthwash/Gargle (Biotene Dry Mouth Oral Rinse(Nf)) 15 ml MT FIVE TIMES DAILY PRN PRN Reason: DRY MOUTH Last Admin: 02/05/19 09:58 Dose: 15 ml Pto: Norethindrone ( Nf) [Shannon (Nf)] 0 .35 Mg 0.35 mg PO DAILY [facility] Last Admin: 02/05/19 08:39 Dose: 0.35 mg Nystatin (Nystatin Top Powder*) 1 applic TOPICAL TID [facility] Last Admin: 02/05/19 10:36 Dose: Not Given Prazosin HCl (Minipress Cap*) 1 mg PO BEDTIME [facility] Last Admin: 02/04/19 21:17 Dose: 1 mg Prazosin HCl (Minipress Cap*) 1 mg PO 1700 [facility] Last Admin: 02/04/19 17:32 Dose: 1 mg Propranolol HCl (Inderal Tab*) 10 mg PO BID [facility] Last Admin: 02/05/19 08:38 Dose: 10 mg - Discharge Plan Discharge Plan: Outpatient Follow Up
[2019-02-05] MEDS: Prazosin CAP* 1 MG PO SCH ×2 (17:17→21:19)
[2019-02-05] MEDS: Mirtazapine TAB* 15 MG PO SCH (21:19)
[2019-02-06] MEDS: Nystatin TOP POWDER* 15 GM BTL TOPICAL SCH ×3 (00:45→14:43)
[2019-02-06] MEDS: Lithium Carbonate TAB* 300 MG PO SCH (08:24)
[2019-02-06] MEDS: Cholecalciferol TAB* 1000 UNITS PO SCH (08:25)
[2019-02-06] MEDS: Propranolol TAB* 10 MG PO SCH (08:25)
[2019-02-06] MEDS: ARIPiprazole TAB* 5 MG PO SCH (08:25)
[2019-02-06] MEDS: CMCS:ClomiPRAMINE (NF) 25 MG CAP PO SCH (08:25)
[2019-02-06] MEDS: NORETHINDRONE 0.35 MG PO SCH (08:26)
[2019-02-06 09:30] VITALS: BP 108/72
[2019-02-06] MEDS: Oral Rinse (Biotene)(NF) 237 ML or 473 ML ORAL RINSE BTL MT PRN (09:50)
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
[2019-02-06] MEDS: hydrOXYzine HCL TAB* 50 MG PO PRN (13:13)
--- NOTE | 2019-02-06 13:16 | PN ---
BSU: Group Therapy Note - Service Type Service Type: 04089 Group Psychotherapy - Cognitive Behavioral Group Therapy ( CBT):Patient was attentive and participatory in CBT programming this morning, and remained in good behavioral control. Patient expressed positive insights regarding relevant treatment interventions and goals.
== END 2019-02-06 15:02 | disposition home or self-care (01) | DRG 753 ==
LOC: ED 12:15 → BSU 16:07
PROVIDERS: ADMIT Psychiatry & Neurology Psychiatry; ATTEND Psychiatry & Neurology Psychiatry
PROC: GZHZZZZ Group Psychotherapy (ICD-10-PCS; principal; 2019-01-18)
DX: F39 Unspecified mood [affective] disorder (principal); R45.851 Suicidal ideations; F32.9 Major depressive disorder, single episode, unspecified; F43.10 Post-traumatic stress disorder, unspecified; M41.9 Scoliosis, unspecified; F41.9 Anxiety disorder, unspecified; E66.3 Overweight; F60.3 Borderline personality disorder; K58.9 Irritable bowel syndrome, unspecified; K21.9 Gastro-esophageal reflux disease without esophagitis; Z88.8 Allergy status to other drugs, medicaments and biological substances; Z62.810 Personal history of physical and sexual abuse in childhood; Z81.8 Family history of other mental and behavioral disorders; Z91.5 Personal history of self-harm; Z68.38 Body mass index [BMI] 38.0-38.9, adult
CPT/HCPCS: 36415; 80053; 80061; 80178; 80307; 80320; 80329; 80335; 81003; 83036; 84443; 84702; 85025; 90853; 99222; 99231; 99233; 99284; A9270-GY; G0480

== ENCOUNTER 2019-02-23 12:54 | Inpatient (IN) | payer MEDICAID, OTHER ==
[2019-02-23 14:36] LABS: ABS Basophils 0.1 10^3/ul (0-0.2); ABS Eosinophils 0.3 10^3/ul (0-0.6); ABS Lymphocytes 2.2 10^3/ul (1.0-4.8); ABS Monocytes 0.8 10^3/ul (0-0.8); ABS Neutrophils 8.7 10^3/ul (1.5-7.7); Eosinophil % 2.2 %; Hematocrit 40 % (35-47); Hemoglobin 13.6 g/dL (12.0-16.0); Lymphocyte % 18.6 %; Mean Corpuscular HGB Conc 34 g/dL (31-36); Mean Corpuscular Hemoglobin 30 pg (27-31); Mean Corpuscular Volume 90 fL (80-97); Mean Platelet Volume 7.2 fL (7.4-10.4); Platelet Count 307 10^3/uL (150-450); Red Blood Count 4.48 10^6 /uL (3.70-4.87); Red Cell Distribution Width 14 % (10-15)
[2019-02-23 14:36] LABS: Urine Appearance Clear; Urine Bilirubin Negative (Negative); Urine Blood Negative (Negative); Urine Color Yellow; Urine Glucose Negative (Negative); Urine Ketones Negative (Negative); Urine Nitrite Negative (Negative); Urine Protein Negative (Negative); Urine Specific Gravity 1.017 (1.010-1.030); Urine Urobilinogen Negative (Negative)
[2019-02-23 14:54] LABS: ALT 24 U/L (7-52); AST 16 U/L (13-39); Albumin 4.4 g/dL (3.2-5.2); Albumin/Globulin Ratio 1.1 (1-3); Alkaline Phosphatase 53 U/L (34-104); Anion Gap 6 mmol/L (2-11); BUN/Creatinine Ratio 17.4 (8-20); Blood Urea Nitrogen 16 mg/dL (6-24); CO2 Carbon Dioxide 28 mmol/L (22-32); Calcium 10.2 mg/dL (8.6-10.3); Chloride 105 mmol/L (101-111); EGFR African American 86.2 (>60); EGFR Non-African American 71.2 (>60); Glucose 91 mg/dL (70-100); Potassium 4.1 mmol/L (3.5-5.0); Sodium 139 mmol/L (135-145); Total Protein 8.4 g/dL (6.4-8.9)
[2019-02-23 15:00] LABS: HCG Pregnancy < 0.60 mIU/mL
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
[2019-02-23] MEDS ORDERED: Al Hydrox/Mg Hydrox/Simet LIQ* 30 ML UDC PO PRN (15:04)
[2019-02-23 15:06] LABS: Urine Benzodiazepine Screen None Detected (None Detect); Urine Opiates Screen None Detected (None Detect)
[2019-02-23 15:10] LABS: Acetaminophen < 15 mcg/mL; Alcohol < 10 mg/dL (<10); Salicylate < 2.50 mg/dL (<30)
[2019-02-23 15:19] LABS: TSH (Thyroid Stimulating Horm) 2.18 mcIU/mL (0.34-5.60)
[2019-02-23 15:31] LABS: Lithium 1.04 mmol/L (0.6-1.2)
--- NOTE | 2019-02-23 17:08 | ED ---
Psychiatric Complaint - HPI Summary HPI Summary: Patient is a 33-year-old female who presents emergency department for psychiatric evaluation. Patient has a history of mood disorder and bipolar disorder. Patient states she is feeling more depressed recently and has been having suicidal thoughts intermittently. Patient has been admitted in the past for suicidal attempts. He denies any suicidal attempts recently. Symptoms are moderate in severity. No current modifying factors. - History Of Current Complaint Chief Complaint: EDSuicidal Time Seen by Provider: 02/23/19 13:49 Hx Obtained From: Patient Hx Last Menstrual Period: 07/09/18 - Allergies/Home Medications Allergies/Adverse Reactions: Allergies Allergy/AdvReac Type Severity Reaction Status Date / Time bupropion [From Wellbutrin] Allergy Hives Verified 02/23/19 13:45 silver Allergy Hives/Diff. Verified 02/23/19 13:36 Breathing/I tching haloperidol AdvReac Agitation Verified 02/23/19 13:36 Home Medications: Home Medications Oral Rinse (Biotene)(NF) [Biotene Dry Mouth Oral Rinse(NF)] 15 ml PO FIVE TIMES DAILY PRN 02/23/19 [History Confirmed 02/23/19] PMH/Surg Hx/FS Hx/Imm Hx Previously Healthy: Yes Endocrine/Hematology History: Denies: Hx Diabetes, Hx Thyroid Disease, Hx Anemia Cardiovascular History: Denies: Hx Hypertension, Hx Pacemaker/ICD Respiratory History: Denies: Hx Asthma, Hx Chronic Bronchitis, Hx Pneumonia, Hx Pulmonary Embolism GI History: Reports: Hx Gastroesophageal Reflux Disease, Hx Irritable Bowel Denies: Hx Crohn's Disease, Hx Diverticulosis History: Denies: Hx Acute Renal Failure, Hx Kidney Stones Musculoskeletal History: Reports: Hx Scoliosis Denies: Hx Arthritis Comment Only: Other Musculoskeletal History - Right sprained ankle Sensory History: Reports: Hx Contacts or Glasses Denies: Hx Hearing Aid Opthamlomology History: Reports: Hx Contacts or Glasses Neurological History: Denies: Hx Headaches, Hx Seizures Psychiatric History: Reports: Hx Anxiety, Hx Depression, Hx Post Traumatic Stress Disorder, Hx Inpatient Treatment, Hx Community Mental Health Tx, Hx Suicide Attempt, Other Psychiatric Issues/Disorders - borderline personality d/o Denies: Hx Attention Deficit Hyperactivity Disorder, Hx Eating Disorder - Patient denied, Hx Panic Disorder, Hx Schizophrenia, Hx Bipolar Disorder, Hx of Violent Episodes Against Others, Hx Substance Abuse - Surgical History Surgery Procedure, Year, and Place: T & A - Immunization History Date of Tetanus Vaccine: UTD Date of Influenza Vaccine: NO Infectious Disease History: No Infectious Disease History: Denies: Traveled Outside the [place] in Last 30 Days - UNKNOWN - Family History Known Family History: Positive: Other - FHx of depression, anxiety disorders, bipolar disorders, mood disorder Negative: Cardiac Disease, Hypertension, Diabetes Family History: FHx of depression, anxiety disorders, bipolar disorders, mood disorders - Social History Occupation: Unemployed Lives: With Family Alcohol Use: None Alcohol Amount: unable to assess. pt unwilling to state. Hx Substance Use: No Substance Use Type: Reports: None Hx Tobacco Use: No Smoking Status (MU): Never Smoked Tobacco Type: Cigarettes Review of Systems Constitutional: Negative Cardiovascular: Negative Respiratory: Negative Gastrointestinal: Negative Neurological: Negative Positive: Depressed All Other Systems Reviewed And Are Negative: Yes Physical Exam Triage Information Reviewed: Yes Vital Signs On Initial Exam: Initial Vitals Temp Pulse Resp BP Pulse Ox 98.5 F 86 20 117/84 96 02/23/19 13:06 02/23/19 13:06 02/23/19 13:06 02/23/19 13:06 02/23/19 13:06 Vital Signs Reviewed: Yes Appearance: Positive: Well-Nourished - Pt. sitting on the floor against wall in NAD. Cooperative. Skin: Positive: Warm, Dry Head/Face: Positive: Normal Head/Face Inspection Eyes: Positive: Normal, EOMI, ALEXANDRA Neck: Positive: Supple Neurological: Positive: Normal, CN Intact II-III Psychiatric: Positive: Depressed Diagnostics - Vital Signs Vital Signs Temp Pulse Resp BP Pulse Ox 02/23/19 13:06 98.5 F 86 20 117/84 96 - Laboratory Lab Results: Lab Results 02/23/19 02/23/19 02/23/19 Range/Units 13:20 13:20 14:31 WBC 12.0 H (3.5-10.8) 10^3/uL RBC 4.48 (3.70-4.87) 10^6 /uL Hgb 13.6 (12.0-16.0) g/dL Hct 40 (35-47) % MCV 90 (80-97) fL MCH 30 (27-31) pg MCHC 34 (31-36) g/dL RDW 14 (10-15) % Plt Count 307 (150-450) 10^3/uL MPV 7.2 L (7.4-10.4) fL Neut % (Auto) 72.3 % Lymph % (Auto) 18.6 % [place] % (Auto) 6.3 % Eos % (Auto) 2.2 % Baso % (Auto) 0.6 % Absolute Neuts (auto) 8.7 H (1.5-7.7) 10^3/ul Absolute Lymphs (auto) 2.2 (1.0-4.8) 10^3/ul Absolute Monos (auto) 0.8 (0-0.8) 10^3/ul Absolute Eos (auto) 0.3 (0-0.6) 10^3/ul Absolute Basos (auto) 0.1 (0-0.2) 10^3/ul Absolute Nucleated RBC 0.0 10^3/ul Nucleated RBC % 0.0 Sodium (135-145) mmol/L Potassium (3.5-5.0) mmol/L Chloride (101-111) mmol/L Carbon Dioxide (22-32) mmol/L Anion Gap (2-11) mmol/L BUN (6-24) mg/dL Creatinine (0.51-0.95) mg/dL Est GFR ( Amer) (>60) Est GFR (Non-Af Amer) (>60) BUN/Creatinine Ratio (8-20) Glucose (70-100) mg/dL Calcium (8.6-10.3) mg/dL Total Bilirubin (0.2-1.0) mg/dL AST (13-39) U/L ALT (7-52) U/L Alkaline Phosphatase (34-104) U/L Total Protein (6.4-8.9) g/dL Albumin (3.2-5.2) g/dL Globulin (2-4) g/dL Albumin/Globulin Ratio (1-3) TSH (0.34-5.60) mcIU/mL Beta HCG, Quant mIU/mL Urine Color Yellow Urine Appearance Clear Urine pH 7.0 (5-9) Ur Specific [place] 1.017 (1.010-1.030) Urine Protein Negative (Negative) Urine Ketones Negative (Negative) Urine Blood Negative (Negative) Urine Nitrate Negative (Negative) Urine Bilirubin Negative (Negative) Urine Urobilinogen Negative (Negative) Ur Leukocyte Esterase Negative (Negative) Urine Glucose Negative (Negative) Salicylates (<30) mg/dL Urine Opiates Screen None detected (None Detect) Acetaminophen mcg/mL Ur Barbiturates Screen None detected (None Detect) Ur Phencyclidine Scrn None detected (None Detect) Ur Amphetamines Screen None detected (None Detect) U Benzodiazepines Scrn None detected (None Detect) [place] (0.6-1.2) mmol/L Urine Cocaine Screen None detected (None Detect) U Cannabinoids Screen None detected (None Detect) Serum Alcohol (<10) mg/dL 02/23/19 Range/Units 14:31 WBC (3.5-10.8) 10^3/uL RBC (3.70-4.87) 10^6 /uL Hgb (12.0-16.0) g/dL Hct (35-47) % MCV (80-97) fL MCH (27-31) pg MCHC (31-36) g/dL RDW (10-15) % Plt Count (150-450) 10^3/uL MPV (7.4-10.4) fL Neut % (Auto) % Lymph % (Auto) % [place] % (Auto) % Eos % (Auto) % Baso % (Auto) % Absolute Neuts (auto) (1.5-7.7) 10^3/ul Absolute Lymphs (auto) (1.0-4.8) 10^3/ul Absolute Monos (auto) (0-0.8) 10^3/ul Absolute Eos (auto) (0-0.6) 10^3/ul Absolute Basos (auto) (0-0.2) 10^3/ul Absolute Nucleated RBC 10^3/ul Nucleated RBC % Sodium 139 (135-145) mmol/L Potassium 4.1 (3.5-5.0) mmol/L Chloride 105 (101-111) mmol/L Carbon Dioxide 28 (22-32) mmol/L Anion Gap 6 (2-11) mmol/L BUN 16 (6-24) mg/dL Creatinine 0.92 (0.51-0.95) mg/dL Est GFR ( Amer) 86.2 (>60) Est GFR (Non-Af Amer) 71.2 (>60) BUN/Creatinine Ratio 17.4 (8-20) Glucose 91 (70-100) mg/dL Calcium 10.2 (8.6-10.3) mg/dL Total Bilirubin 0.50 (0.2-1.0) mg/dL AST 16 (13-39) U/L ALT 24 (7-52) U/L Alkaline Phosphatase 53 (34-104) U/L Total Protein 8.4 (6.4-8.9) g/dL Albumin 4.4 (3.2-5.2) g/dL Globulin 4.0 (2-4) g/dL Albumin/Globulin Ratio 1.1 (1-3) TSH 2.18 (0.34-5.60) mcIU/mL Beta HCG, Quant < 0.60 mIU/mL Urine Color Urine Appearance Urine pH (5-9) Ur Specific [place] (1.010-1.030) Urine Protein (Negative) Urine Ketones (Negative) Urine Blood (Negative) Urine Nitrate (Negative) Urine Bilirubin (Negative) Urine Urobilinogen (Negative) Ur Leukocyte Esterase (Negative) Urine Glucose (Negative) Salicylates < 2.50 (<30) mg/dL Urine Opiates Screen (None Detect) Acetaminophen < 15 mcg/mL Ur Barbiturates Screen (None Detect) Ur Phencyclidine Scrn (None Detect) Ur Amphetamines Screen (None Detect) U Benzodiazepines Scrn (None Detect) [place] 1.04 (0.6-1.2) mmol/L Urine Cocaine Screen (None Detect) U Cannabinoids Screen (None Detect) Serum Alcohol < 10 (<10) mg/dL Result Diagrams: 02/23/19 14:31 02/23/19 14:31 Lab Statement: Any lab studies that have been ordered have been reviewed, and results considered in the medical decision making process. Course/Dx - Course Course Of Treatment: Patient presenting with depression and intermittent suicidal ideations. She was evaluated by a therapist and psychiatry was consulted. They will admit patient for further treatment. Blood work unremarkable other than mild leukocytosis. - Differential Dx/Clinical Impression Differential Diagnosis/HQI/PQRI: Positive: Anxiety, Bipolar Disorder, Depression , Suicidal Ideation Provider Diagnosis: Depression Discharge - Sign-Out/Discharge Documenting (check all that apply): Patient Departure Patient Received Moderate/Deep Sedation with Procedure: No - Discharge Plan Condition: Stable [place] [place]: Maikol Izaguirre MD [Primary Care Provider] - - Billing Disposition and Condition Condition: STABLE Disposition: Psychiatric Facility [facility]
[2019-02-23] MEDS ORDERED: Oral Rinse (Biotene)(NF) 237 ML or 473 ML ORAL RINSE BTL MT PRN (19:09)
[2019-02-23] MEDS: hydrOXYzine HCL TAB* 50 MG PO PRN (22:06)
[2019-02-23] MEDS: Propranolol TAB* 10 MG PO SCH (22:07)
[2019-02-23] MEDS: Mirtazapine TAB* 15 MG PO SCH (22:07)
[2019-02-23] MEDS: Prazosin CAP* 1 MG PO SCH (22:09)
[2019-02-23] MEDS: Lithium Carbonate TAB* 300 MG PO SCH (22:10)
[2019-02-24] MEDS: Melatonin 3 MG TAB PO SCH ×2 (09:14→20:19)
[2019-02-24] MEDS: Vitamin THERAPEUTIC TAB PO SCH (10:05)
[2019-02-24] MEDS: Cholecalciferol TAB* 1000 UNITS PO SCH (10:05)
[2019-02-24] MEDS: Propranolol TAB* 10 MG PO SCH ×2 (10:05→20:20)
[2019-02-24] MEDS: ARIPiprazole TAB* 5 MG PO SCH (10:06)
[2019-02-24] MEDS: CMCS:ClomiPRAMINE (NF) 25 MG CAP PO SCH (10:06)
[2019-02-24] MEDS: Lithium Carbonate TAB* 300 MG PO SCH ×2 (10:06→20:18)
[2019-02-24] MEDS: PTO:Norethindrone (NF) 0.35 MG TAB PO SCH (10:09)
[2019-02-24] MEDS: Prazosin CAP* 1 MG PO SCH ×2 (18:05→20:22)
[2019-02-24] MEDS: Mirtazapine TAB* 15 MG PO SCH (20:21)
[2019-02-24] MEDS: Acetaminophen TAB* 325 MG PO PRN (20:23)
[2019-02-25] MEDS: Acetaminophen TAB* 325 MG PO PRN ×2 (03:35→13:39)
[2019-02-25 08:23] LABS: HDL Cholesterol 37.4 mg/dL
[2019-02-25] MEDS: Cholecalciferol TAB* 1000 UNITS PO SCH (08:32)
[2019-02-25] MEDS: CMCS:ClomiPRAMINE (NF) 25 MG CAP PO SCH (08:32)
[2019-02-25] MEDS: ARIPiprazole TAB* 5 MG PO SCH (08:32)
[2019-02-25] MEDS: Lithium Carbonate TAB* 300 MG PO SCH ×2 (08:33→20:23)
[2019-02-25] MEDS: Propranolol TAB* 10 MG PO SCH ×2 (08:33→20:22)
[2019-02-25] MEDS: Vitamin THERAPEUTIC TAB PO SCH (08:33)
[2019-02-25] MEDS: PTO:Norethindrone (NF) 0.35 MG TAB PO SCH (08:34)
[2019-02-25] MEDS: hydrOXYzine HCL TAB* 50 MG PO PRN (11:10)
--- NOTE | 2019-02-25 19:29 | PN ---
Subjective - Subjective Date of Service: 02/25/19 Service Type: [id number] Hosp care 25 min moderate complexity Subjective: Saul was laying on the floor and reports that she feels safe on the floor. Says she is almost done with her homeworks given by Antoni Aj. Ambivalent about SI. but feels safe here. Objective - General Observations Appearance: Unkempt Appears Stated Age: Yes Stature: WNL Posture: WNL Eye Contact: Average Behavior/Activity: Slowed - Interaction Observations Attitude Towards Examiner: Cooperative Stated Mood: Dysphoric Affect: Blunted Speech Pattern/Tone: Clear, Appropriate Thought Process: Coherent, Goal Directed Perception: WNL Thought Content: WNL Thought Process: Lethality: Passive Wish Hallucination Type: None Delusion Type: None - Cognitive Function Orientation: A&O x 4 Level of Consciousness: Awake Cognition: WNL Estimated Intelligence: Normal Insight: Mostly Blames Others for Problems Judgment Within Normal Limits: No Ability to Make Reasonable Decisions: Serverely Impaired - Medication Compliance Cooperative with Inpatient Medication Regimen: Yes - Group Participation Participates in Group Activities: No Assessment - Assessment Merits Inpatient Hospitalization: For Immediate Safety, For Stabilization, Pending Safe DC Plan Plan - Plan Treatment Plan: Name: SAUL UGARTE Birthdate: 1985 [id number] Continued Medication Management: Continue Outpt Medication Medications: Current Medications Acetaminophen (Tylenol Tab*) 650 mg PO Q4H PRN PRN Reason: for pain; or Temp >101 F Last Admin: 02/25/19 13:39 Dose: 650 mg Al Hydrox/Mg Hydrox/Simethicone (Maalox Plus*) 30 ml PO Q4H PRN PRN Reason: INDIGESTION Aripiprazole (Abilify Tab*) 10 mg PO DAILY [facility] Last Admin: 02/25/19 08:32 Dose: 10 mg Cholecalciferol (Vitamin D Tab*) 5,000 units PO DAILY [facility] Last Admin: 02/25/19 08:32 Dose: 5,000 units Clomipramine HCl (Clomipramine (Nf)) 100 mg PO DAILY [facility] Last Admin: 02/25/19 08:32 Dose: 100 mg Hydroxyzine HCl (Atarax Tab*) 50 mg PO TID PRN PRN Reason: ANXIETY Last Admin: 02/25/19 11:10 Dose: 50 mg [place] Carbonate ([place] Carbonate Tab*) 600 mg PO BEDTIME [facility] Last Admin: 02/24/19 20:18 Dose: 600 mg [place] Carbonate ([place] Carbonate Tab*) 600 mg PO DAILY [facility] Last Admin: 02/25/19 08:33 Dose: 600 mg Melatonin (Melatonin) 4.5 mg PO 2100 [facility] Last Admin: 02/24/19 20:19 Dose: 4.5 mg Mirtazapine (Remeron Tab*) 7.5 mg PO BEDTIME [facility] Last Admin: 02/24/19 20:21 Dose: 7.5 mg Multi-Ingredient Mouthwash/Gargle (Biotene Dry Mouth Oral Rinse(Nf)) 15 ml MT FIVE TIMES DAILY PRN PRN Reason: DRY MOUTH Multivitamins (Theragran Tab*) 1 tab PO DAILY [facility] Last Admin: 02/25/19 08:33 Dose: 1 tab Norethindrone ([place] (Nf)) 0.35 mg PO DAILY [facility] Last Admin: 02/25/19 08:34 Dose: Not Given Prazosin HCl (Minipress Cap*) 1 mg PO 1700 [facility] Last Admin: 02/24/19 18:05 Dose: 1 mg Prazosin HCl (Minipress Cap*) 2 mg PO BEDTIME [facility] Last Admin: 02/24/19 20:22 Dose: 2 mg Propranolol HCl (Inderal Tab*) 10 mg PO BID [facility] Last Admin: 02/25/19 08:33 Dose: 10 mg - Discharge Plan Discharge Plan: Outpatient Follow Up Outpatient Program: Maurizio Aceves [facility]
[2019-02-25] MEDS: Melatonin 3 MG TAB PO SCH (20:22)
[2019-02-25] MEDS: Prazosin CAP* 1 MG PO SCH (20:22)
[2019-02-25] MEDS: Mirtazapine TAB* 15 MG PO SCH (20:23)
[2019-02-26] MEDS: hydrOXYzine HCL TAB* 50 MG PO PRN ×2 (00:05→16:51)
[2019-02-26] MEDS: Lithium Carbonate TAB* 300 MG PO SCH ×2 (08:33→21:07)
[2019-02-26] MEDS: ARIPiprazole TAB* 5 MG PO SCH (08:33)
[2019-02-26] MEDS: Propranolol TAB* 10 MG PO SCH ×2 (08:33→21:05)
[2019-02-26] MEDS: CMCS:ClomiPRAMINE (NF) 25 MG CAP PO SCH (08:34)
[2019-02-26] MEDS: Cholecalciferol TAB* 1000 UNITS PO SCH (08:34)
[2019-02-26] MEDS: Vitamin THERAPEUTIC TAB PO SCH (08:34)
[2019-02-26] MEDS: PTO:Norethindrone (NF) 0.35 MG TAB PO SCH (08:34)
--- NOTE | 2019-02-26 11:32 | PN ---
Subjective - Subjective Date of Service: 02/26/19 Service Type: [id number] Hosp care 35 min high complexity Subjective: Nursing Report: Patient was visible on unit, no chemical restraints or PRNs. Slept overnight without incident. Attending group activities. CC: "Fine Patient was seen and evaluated today in the common room. She wrote out a essay about the things she is going to work on to avoid [facility]. Some of the things included spending more time with her son. She expressed frustration about not hearing back from [facility]. She wants to have her mothers phone be connected to her medication lock box. She reported having an adequate appetite and sleep. The patient reports attending and participating in day groups. Per nursing no behavioral issues or overnight events reported. Patient reported that she is tolerating medications without side effects. Objective - General Observations Appearance: Disheveled Appears Stated Age: Yes Stature: Overweight Posture: Slumped Eye Contact: Average Behavior/Activity: WNL - Interaction Observations Attitude Towards Examiner: Cooperative Stated Mood: Dysphoric Affect: Blunted Speech Pattern/Tone: Clear Thought Process: Coherent Perception: WNL Thought Content: Self-Deprecatory Thought Process: Lethality: Passive Wish Hallucination Type: None Delusion Type: Denies - Cognitive Function Orientation: A&O x 4 Level of Consciousness: Awake - Medication Compliance Cooperative with Inpatient Medication Regimen: Yes - Group Participation Participates in Group Activities: Yes Assessment - Assessment Merits Inpatient Hospitalization: For Immediate Safety Clinical Impression: 33 year old female with a history of multiple psychiatric hospitalizations presented with suicidal ideation. Plan - Plan Treatment Plan: Name: SAUL UGARTE Birthdate: 1985 [id number] Plan #Q15 minute observation. . # The patient requires inpatient admission at this time to assure safety, receive treatment and work toward stabilization. # Collaboration with Social Work # Mother Reema [phone] # [place] level 1.04 # Patient has had multiple hospitalizations in the last year without a prolonged period of remission and requires longer term care #Behavior modification plan Sodium 139 mmol/L (135-145) 02/23/19 14:31 Potassium 4.1 mmol/L (3.5-5.0) 02/23/19 14:31 BUN 16 mg/dL (6-24) 02/23/19 14:31 Creatinine 0.92 mg/dL (0.51-0.95) 02/23/19 14:31 Hemoglobin A1c 5.0 % (4.0-5.6) 02/25/19 07:44 Calcium 10.2 mg/dL (8.6-10.3) 02/23/19 14:31 AST 16 U/L (13-39) 02/23/19 14:31 ALT 24 U/L (7-52) 02/23/19 14:31 Triglycerides 120 mg/dL 02/25/19 07:44 Cholesterol 159 mg/dL 02/25/19 07:44 LDL Cholesterol 98 mg/dL 02/25/19 07:44 Vital Signs Temp Pulse Resp BP Pulse Ox 98.2 F 96 16 116/74 97 02/26/19 08:58 02/26/19 08:58 02/26/19 12:51 02/26/19 08:58 02/26/19 08:58 Continued Medication Management: Continue Outpt Medication Medications: Current Medications Acetaminophen (Tylenol Tab*) 650 mg PO Q4H PRN PRN Reason: for pain; or Temp >101 F Last Admin: 02/25/19 13:39 Dose: 650 mg Al Hydrox/Mg Hydrox/Simethicone (Maalox Plus*) 30 ml PO Q4H PRN PRN Reason: INDIGESTION Aripiprazole (Abilify Tab*) 10 mg PO DAILY [facility] Last Admin: 02/26/19 08:33 Dose: 10 mg Cholecalciferol (Vitamin D Tab*) 5,000 units PO DAILY [facility] Last Admin: 02/26/19 08:34 Dose: 5,000 units Clomipramine HCl (Clomipramine (Nf)) 100 mg PO DAILY [facility] Last Admin: 02/26/19 08:34 Dose: 100 mg Hydroxyzine HCl (Atarax Tab*) 50 mg PO TID PRN PRN Reason: ANXIETY Last Admin: 02/26/19 00:05 Dose: 50 mg [place] Carbonate ([place] Carbonate Tab*) 600 mg PO BEDTIME [facility] Last Admin: 02/25/19 20:23 Dose: 600 mg [place] Carbonate ([place] Carbonate Tab*) 600 mg PO DAILY [facility] Last Admin: 02/26/19 08:33 Dose: 600 mg Melatonin (Melatonin) 4.5 mg PO 2100 [facility] Last Admin: 02/25/19 20:22 Dose: 4.5 mg Mirtazapine (Remeron Tab*) 7.5 mg PO BEDTIME [facility] Last Admin: 02/25/19 20:23 Dose: 7.5 mg Multi-Ingredient Mouthwash/Gargle (Biotene Dry Mouth Oral Rinse(Nf)) 15 ml MT FIVE TIMES DAILY PRN PRN Reason: DRY MOUTH Multivitamins (Theragran Tab*) 1 tab PO DAILY [facility] Last Admin: 02/26/19 08:34 Dose: 1 tab Norethindrone (Shannon (Nf)) 0.35 mg PO DAILY [facility] Last Admin: 02/26/19 08:34 Dose: Not Given Prazosin HCl (Minipress Cap*) 1 mg PO 1700 [facility] Last Admin: 02/24/19 18:05 Dose: 1 mg Prazosin HCl (Minipress Cap*) 2 mg PO BEDTIME [facility] Last Admin: 02/25/19 20:22 Dose: 2 mg Propranolol HCl (Inderal Tab*) 10 mg PO BID [facility] Last Admin: 02/26/19 08:33 Dose: 10 mg - Discharge Plan Discharge Plan: Inpatient Hospitalization
[2019-02-26] MEDS: Prazosin CAP* 1 MG PO SCH ×3 (13:33→21:05)
[2019-02-26] MEDS: Mirtazapine TAB* 15 MG PO SCH (21:05)
[2019-02-26] MEDS: Melatonin 3 MG TAB PO SCH (21:07)
[2019-02-27] MEDS: hydrOXYzine HCL TAB* 50 MG PO PRN ×2 (00:03→17:16)
[2019-02-27] MEDS: ARIPiprazole TAB* 5 MG PO SCH (08:33)
[2019-02-27] MEDS: Lithium Carbonate TAB* 300 MG PO SCH ×2 (08:33→22:48)
[2019-02-27] MEDS: Propranolol TAB* 10 MG PO SCH ×2 (08:33→22:48)
[2019-02-27] MEDS: Vitamin THERAPEUTIC TAB PO SCH (08:34)
[2019-02-27] MEDS: PTO:Norethindrone (NF) 0.35 MG TAB PO SCH (08:34)
[2019-02-27] MEDS: Cholecalciferol TAB* 1000 UNITS PO SCH (08:34)
[2019-02-27] MEDS: CMCS:ClomiPRAMINE (NF) 25 MG CAP PO SCH (08:37)
--- NOTE | 2019-02-27 12:14 | PN ---
Subjective - Subjective Date of Service: 02/27/19 Service Type: 93117 Hosp care 35 min high complexity Subjective: Nursing Report: Patient was visible on unit, no chemical restraints or PRNs. Slept overnight without incident. Attending group activities. CC: "Okay Patient was seen and evaluated today in the common room. She spoke about how she was able to endure the challenges of going to [facility] or living at home and how that would be better than going to the [facility]. If approached with stressful situations she reported using music to drone out things that would bother her, ask a staff member for help. She reported that she would be able to tolerate living at home until a opening became available with [facility]. She said taking a step back by living a [facility] would allow her to become more independent in the end and that she would be able to endure the challenges. She plans to speak to her mother and ask her to bring her control. She reported having an adequate appetite and sleep. The patient reports attending and participating in day groups. Per nursing no behavioral issues or overnight events reported. Patient reported that she is tolerating medications without side effects. She mentioned that the medications seem to be working for her. Objective - General Observations Appearance: Neat Appears Stated Age: Yes Stature: Overweight Posture: Slumped Eye Contact: Average Behavior/Activity: WNL - Interaction Observations Attitude Towards Examiner: Cooperative Stated Mood: Dysphoric Affect: Blunted Speech Pattern/Tone: Clear Thought Process: Coherent Perception: WNL Thought Content: Self-Deprecatory Hallucination Type: None Delusion Type: None - Cognitive Function Orientation: A&O x 4 Level of Consciousness: Awake Cognition: WNL - Medication Compliance Cooperative with Inpatient Medication Regimen: Yes - Group Participation Participates in Group Activities: Yes Assessment - Assessment Clinical Impression: 33 year old female with a history of multiple psychiatric hospitalizations presented with suicidal ideation. Plan - Plan Treatment Plan: Name: SAUL UGARTE Birthdate: 1985 [id number] Plan #Q30 minute observation with staff pass. # The patient requires inpatient admission at this time to assure safety, receive treatment and work toward stabilization. # Collaboration with Engineering Laboratory Technician Joanne Sol # Mother Reema [phone] # [place] level 1.04 # Patient has had 4 hospitalizations in last 6 months. To consider state hospital referral if patient continues to show inadequate response to treatment. #Behavior modification plan #Patient plans to create a plan of how she is going to deal with the challenges of living in a environment that will present triggers of stress # 2 PC Goals before discharge reduce self injurious behavior. Sodium 139 mmol/L (135-145) 02/23/19 14:31 Potassium 4.1 mmol/L (3.5-5.0) 02/23/19 14:31 BUN 16 mg/dL (6-24) 02/23/19 14:31 Creatinine 0.92 mg/dL (0.51-0.95) 02/23/19 14:31 Hemoglobin A1c 5.0 % (4.0-5.6) 02/25/19 07:44 Calcium 10.2 mg/dL (8.6-10.3) 02/23/19 14:31 AST 16 U/L (13-39) 02/23/19 14:31 ALT 24 U/L (7-52) 02/23/19 14:31 Triglycerides 120 mg/dL 02/25/19 07:44 Cholesterol 159 mg/dL 02/25/19 07:44 LDL Cholesterol 98 mg/dL 02/25/19 07:44 Vital Signs Temp Pulse Resp BP Pulse Ox 97.8 F 83 16 122/77 100 02/27/19 08:00 02/27/19 08:00 02/27/19 08:00 02/27/19 08:00 02/27/19 08:00 Continued Medication Management: Continue Outpt Medication Medications: Current Medications Acetaminophen (Tylenol Tab*) 650 mg PO Q4H PRN PRN Reason: for pain; or Temp >101 F Last Admin: 02/25/19 13:39 Dose: 650 mg Al Hydrox/Mg Hydrox/Simethicone (Maalox Plus*) 30 ml PO Q4H PRN PRN Reason: INDIGESTION Aripiprazole (Abilify Tab*) 10 mg PO DAILY [facility] Last Admin: 02/27/19 08:33 Dose: 10 mg Cholecalciferol (Vitamin D Tab*) 5,000 units PO DAILY [facility] Last Admin: 02/27/19 08:34 Dose: 5,000 units Clomipramine HCl (Clomipramine (Nf)) 100 mg PO DAILY [facility] Last Admin: 02/27/19 08:37 Dose: 100 mg Hydroxyzine HCl (Atarax Tab*) 50 mg PO TID PRN PRN Reason: ANXIETY Last Admin: 02/27/19 00:03 Dose: 50 mg [place] Carbonate ([place] Carbonate Tab*) 600 mg PO BEDTIME [facility] Last Admin: 02/26/19 21:07 Dose: 600 mg [place] Carbonate ([place] Carbonate Tab*) 600 mg PO DAILY [facility] Last Admin: 02/27/19 08:33 Dose: 600 mg Melatonin (Melatonin) 4.5 mg PO 2100 [facility] Last Admin: 02/26/19 21:07 Dose: 4.5 mg Mirtazapine (Remeron Tab*) 7.5 mg PO BEDTIME [facility] Last Admin: 02/26/19 21:05 Dose: 7.5 mg Multi-Ingredient Mouthwash/Gargle (Biotene Dry Mouth Oral Rinse(Nf)) 15 ml MT FIVE TIMES DAILY PRN PRN Reason: DRY MOUTH Multivitamins (Theragran Tab*) 1 tab PO DAILY [facility] Last Admin: 02/27/19 08:34 Dose: 1 tab Norethindrone (Shannon (Nf)) 0.35 mg PO DAILY [facility] Last Admin: 02/27/19 08:34 Dose: Not Given Prazosin HCl (Minipress Cap*) 1 mg PO 1700 [facility] Last Admin: 02/26/19 16:50 Dose: 1 mg Prazosin HCl (Minipress Cap*) 2 mg PO BEDTIME [facility] Last Admin: 02/26/19 21:05 Dose: 2 mg Propranolol HCl (Inderal Tab*) 10 mg PO BID [facility] Last Admin: 02/27/19 08:33 Dose: 10 mg - Discharge Plan Discharge Plan: Inpatient Hospitalization
[2019-02-27] MEDS: Acetaminophen TAB* 325 MG PO PRN (13:56)
[2019-02-27] MEDS: Prazosin CAP* 1 MG PO SCH ×2 (17:16→22:49)
[2019-02-27] MEDS: Melatonin 3 MG TAB PO SCH (22:49)
[2019-02-27] MEDS: Mirtazapine TAB* 15 MG PO SCH (22:50)
[2019-02-28] MEDS: hydrOXYzine HCL TAB* 50 MG PO PRN ×2 (01:25→17:25)
[2019-02-28] MEDS: Propranolol TAB* 10 MG PO SCH ×2 (08:52→20:20)
[2019-02-28] MEDS: PTO:Norethindrone (NF) 0.35 MG TAB PO SCH (08:52)
[2019-02-28] MEDS: Vitamin THERAPEUTIC TAB PO SCH (08:53)
[2019-02-28] MEDS: ARIPiprazole TAB* 5 MG PO SCH (08:53)
[2019-02-28] MEDS: Lithium Carbonate TAB* 300 MG PO SCH ×2 (08:53→20:17)
[2019-02-28] MEDS: Cholecalciferol TAB* 1000 UNITS PO SCH (08:53)
[2019-02-28] MEDS: CMCS:ClomiPRAMINE (NF) 25 MG CAP PO SCH (08:53)
--- NOTE | 2019-02-28 14:17 | PN ---
Subjective - Subjective Date of Service: 02/28/19 Service Type: 43606 Hosp care 35 min high complexity Subjective: Nursing Report: Patient was visible on unit, Poor Slept overnight, head hanging and suicidal ideation, Attending group activities. CC: "I went backwards Patient was seen and evaluated today in the common room. She spoke about how she became frustrated yesterday after a delay of having her control taken to the pharmacy for verification. She began thinking of suicide and banging her head. She was unable to sleep much overnight. Her mother visited overnight. The patient reported attending and participating in day groups. Patient reported that she is tolerating medications without side effects. Objective - General Observations Appearance: Disheveled Appears Stated Age: Yes Stature: Overweight Posture: Slumped Eye Contact: Average Behavior/Activity: Impulsive - Interaction Observations Attitude Towards Examiner: Cooperative Stated Mood: Anxious Affect: Blunted Speech Pattern/Tone: Clear Thought Process: Goal Directed Perception: WNL Thought Content: Self-Deprecatory Thought Process: Lethality: Passive Wish Hallucination Type: None Delusion Type: None - Cognitive Function Orientation: A&O x 4 Level of Consciousness: Awake Judgment Within Normal Limits: No Ability to Make Reasonable Decisions: Moderately Impaired - Medication Compliance Cooperative with Inpatient Medication Regimen: Yes - Group Participation Participates in Group Activities: Yes Assessment - Assessment Merits Inpatient Hospitalization: For Immediate Safety Clinical Impression: 33 year old female with a history of multiple psychiatric hospitalizations presented with suicidal ideation. Plan - Plan Treatment Plan: Name: SAUL UGARTE Birthdate: 1985 [id number] Plan #Q30 minute observation with staff pass. # The patient requires inpatient admission at this time to assure safety, receive treatment and work toward stabilization. # Collaboration with Produce Specialist Joanne Sol # Mother Reema [phone] # [place] level 1.04 # Patient has had 4 hospitalizations in last 6 months. Patient shows non linear response to treatment, is unable to cope with the everyday demands of life, to consider state hospitalization. Collateral from outpatient provider obtained. #Behavior modification plan #Patient plans to create a plan of how she is going to deal with the challenges of living in a environment that will present triggers of stress # 2 PC completed Goals before discharge reduce self injurious behavior. Sodium 139 mmol/L (135-145) 02/23/19 14:31 Potassium 4.1 mmol/L (3.5-5.0) 02/23/19 14:31 BUN 16 mg/dL (6-24) 02/23/19 14:31 Creatinine 0.92 mg/dL (0.51-0.95) 02/23/19 14:31 Hemoglobin A1c 5.0 % (4.0-5.6) 02/25/19 07:44 Calcium 10.2 mg/dL (8.6-10.3) 02/23/19 14:31 AST 16 U/L (13-39) 02/23/19 14:31 ALT 24 U/L (7-52) 02/23/19 14:31 Triglycerides 120 mg/dL 02/25/19 07:44 Cholesterol 159 mg/dL 02/25/19 07:44 LDL Cholesterol 98 mg/dL 02/25/19 07:44 Vital Signs Temp Pulse Resp BP Pulse Ox 97 F 80 16 112/74 100 02/28/19 08:00 02/28/19 08:00 02/28/19 12:53 02/28/19 08:00 02/28/19 08:00 Continued Medication Management: Continue Outpt Medication Medications: Current Medications Acetaminophen (Tylenol Tab*) 650 mg PO Q4H PRN PRN Reason: for pain; or Temp >101 F Last Admin: 02/27/19 13:56 Dose: 650 mg Al Hydrox/Mg Hydrox/Simethicone (Maalox Plus*) 30 ml PO Q4H PRN PRN Reason: INDIGESTION Aripiprazole (Abilify Tab*) 10 mg PO DAILY [facility] Last Admin: 02/28/19 08:53 Dose: 10 mg Cholecalciferol (Vitamin D Tab*) 5,000 units PO DAILY [facility] Last Admin: 02/28/19 08:53 Dose: 5,000 units Clomipramine HCl (Clomipramine (Nf)) 100 mg PO DAILY [facility] Last Admin: 02/28/19 08:53 Dose: 100 mg Hydroxyzine HCl (Atarax Tab*) 50 mg PO TID PRN PRN Reason: ANXIETY Last Admin: 02/28/19 01:25 Dose: 50 mg [place] Carbonate ([place] Carbonate Tab*) 600 mg PO BEDTIME [facility] Last Admin: 02/27/19 22:48 Dose: 600 mg [place] Carbonate ([place] Carbonate Tab*) 600 mg PO DAILY [facility] Last Admin: 02/28/19 08:53 Dose: 600 mg Melatonin (Melatonin) 4.5 mg PO 2100 [facility] Last Admin: 02/27/19 22:49 Dose: 4.5 mg Mirtazapine (Remeron Tab*) 7.5 mg PO BEDTIME [facility] Last Admin: 02/27/19 22:50 Dose: 7.5 mg Multi-Ingredient Mouthwash/Gargle (Biotene Dry Mouth Oral Rinse(Nf)) 15 ml MT FIVE TIMES DAILY PRN PRN Reason: DRY MOUTH Multivitamins (Theragran Tab*) 1 tab PO DAILY [facility] Last Admin: 02/28/19 08:53 Dose: 1 tab Norethindrone (Shannon (Nf)) 0.35 mg PO DAILY [facility] Last Admin: 02/28/19 08:52 Dose: 0.35 mg Prazosin HCl (Minipress Cap*) 1 mg PO 1700 [facility] Last Admin: 02/27/19 17:16 Dose: 1 mg Prazosin HCl (Minipress Cap*) 2 mg PO BEDTIME [facility] Last Admin: 02/27/19 22:49 Dose: 2 mg Propranolol HCl (Inderal Tab*) 10 mg PO BID [facility] Last Admin: 02/28/19 08:52 Dose: 10 mg - Discharge Plan Discharge Plan: Inpatient Hospitalization
[2019-02-28] MEDS: Prazosin CAP* 1 MG PO SCH ×2 (17:25→20:20)
[2019-02-28] MEDS: Melatonin 3 MG TAB PO SCH (20:18)
[2019-02-28] MEDS: Mirtazapine TAB* 15 MG PO SCH (20:19)
[2019-02-28] MEDS: Acetaminophen TAB* 325 MG PO PRN (23:38)
[2019-03-01] MEDS: Acetaminophen TAB* 325 MG PO PRN (04:53)
[2019-03-01] MEDS: hydrOXYzine HCL TAB* 50 MG PO PRN ×3 (04:54→20:52)
[2019-03-01] MEDS: ARIPiprazole TAB* 5 MG PO SCH (08:12)
[2019-03-01] MEDS: PTO:Norethindrone (NF) 0.35 MG TAB PO SCH (08:12)
[2019-03-01] MEDS: Cholecalciferol TAB* 1000 UNITS PO SCH (08:12)
[2019-03-01] MEDS: CMCS:ClomiPRAMINE (NF) 25 MG CAP PO SCH (08:12)
[2019-03-01] MEDS: Propranolol TAB* 10 MG PO SCH ×2 (08:13→20:52)
[2019-03-01] MEDS: Vitamin THERAPEUTIC TAB PO SCH (08:13)
[2019-03-01] MEDS: Lithium Carbonate TAB* 300 MG PO SCH ×2 (08:13→20:53)
--- NOTE | 2019-03-01 11:11 | PN ---
Subjective - Subjective Date of Service: 03/01/19 Service Type: [id number] Hosp care 35 min high complexity Subjective: Nursing Report: Patient was visible on unit, Poor Slept overnight, suicidal ideation, Attending group activities. CC: "I dont know Patient was seen and evaluated today in the common room. She was unsure how things are and reported not getting much sleep overnight. She is uncertain how she will deal with stressors at [facility]. She slept 3 hours last night. The patient reported attending and participating in day groups. Patient reported that she is tolerating medications without side effects. Objective - General Observations Appears Stated Age: Yes Stature: Overweight Posture: Slumped Eye Contact: Average, Intense Behavior/Activity: Slowed - Interaction Observations Attitude Towards Examiner: Anxious Stated Mood: Elevated Affect: Blunted Speech Pattern/Tone: Delayed Thought Process: Loose Associations Thought Content: Self-Deprecatory Hallucination Type: None Delusion Type: Thought Withdrawal - Cognitive Function Orientation: A&O x 4 Level of Consciousness: Awake Ability to Make Reasonable Decisions: Moderately Impaired - Medication Compliance Cooperative with Inpatient Medication Regimen: Yes - Group Participation Participates in Group Activities: Yes Assessment - Assessment Clinical Impression: 33 year old female with a history of multiple psychiatric hospitalizations presented with suicidal ideation. Plan - Plan Treatment Plan: Name: SAUL UGARTE Birthdate: 1985 [id number] Plan #Q15 minute observation and d/c staff pass. # The patient requires inpatient admission at this time to assure safety, receive treatment and work toward stabilization. # Collaboration with Leather Finisher Joanne Sol # Mother Reema [phone] # [place] level 1.04 # Patient has had 4 hospitalizations in last 6 months. Patient shows non linear response to treatment, is unable to cope with the everyday demands of life, to consider state hospitalization. Collateral from outpatient provider obtained. #Behavior modification plan #Patient plans to create a plan of how she is going to deal with the challenges of living in a environment that will present triggers of stress # 2 PC completed Goals before discharge reduce self injurious behavior. Sodium 139 mmol/L (135-145) 02/23/19 14:31 Potassium 4.1 mmol/L (3.5-5.0) 02/23/19 14:31 BUN 16 mg/dL (6-24) 02/23/19 14:31 Creatinine 0.92 mg/dL (0.51-0.95) 02/23/19 14:31 Hemoglobin A1c 5.0 % (4.0-5.6) 02/25/19 07:44 Calcium 10.2 mg/dL (8.6-10.3) 02/23/19 14:31 AST 16 U/L (13-39) 02/23/19 14:31 ALT 24 U/L (7-52) 02/23/19 14:31 Triglycerides 120 mg/dL 02/25/19 07:44 Cholesterol 159 mg/dL 02/25/19 07:44 LDL Cholesterol 98 mg/dL 02/25/19 07:44 Vital Signs Temp Pulse Resp BP Pulse Ox 98.3 F 87 16 116/77 98 03/01/19 08:00 03/01/19 08:00 03/01/19 10:49 03/01/19 08:00 03/01/19 08:00 Continued Medication Management: Continue Outpt Medication Medications: Current Medications Acetaminophen (Tylenol Tab*) 650 mg PO Q4H PRN PRN Reason: for pain; or Temp >101 F Last Admin: 03/01/19 04:53 Dose: 650 mg Al Hydrox/Mg Hydrox/Simethicone (Maalox Plus*) 30 ml PO Q4H PRN PRN Reason: INDIGESTION Aripiprazole (Abilify Tab*) 10 mg PO DAILY [facility] Last Admin: 03/01/19 08:12 Dose: 10 mg Cholecalciferol (Vitamin D Tab*) 5,000 units PO DAILY [facility] Last Admin: 03/01/19 08:12 Dose: 5,000 units Clomipramine HCl (Clomipramine (Nf)) 100 mg PO DAILY [facility] Last Admin: 03/01/19 08:12 Dose: 100 mg Hydroxyzine HCl (Atarax Tab*) 50 mg PO TID PRN PRN Reason: ANXIETY Last Admin: 03/01/19 04:55 Dose: 50 mg [place] Carbonate ([place] Carbonate Tab*) 600 mg PO BEDTIME [facility] Last Admin: 02/28/19 20:17 Dose: 600 mg [place] Carbonate ([place] Carbonate Tab*) 600 mg PO DAILY [facility] Last Admin: 03/01/19 08:13 Dose: 600 mg Melatonin (Melatonin) 4.5 mg PO 2100 [facility] Last Admin: 02/28/19 20:18 Dose: 4.5 mg Mirtazapine (Remeron Tab*) 7.5 mg PO BEDTIME [facility] Last Admin: 02/28/19 20:19 Dose: 7.5 mg Multi-Ingredient Mouthwash/Gargle (Biotene Dry Mouth Oral Rinse(Nf)) 15 ml MT FIVE TIMES DAILY PRN PRN Reason: DRY MOUTH Multivitamins (Theragran Tab*) 1 tab PO DAILY [facility] Last Admin: 03/01/19 08:13 Dose: 1 tab Norethindrone (Shannon (Nf)) 0.35 mg PO DAILY [facility] Last Admin: 03/01/19 08:12 Dose: 0.35 mg Prazosin HCl (Minipress Cap*) 1 mg PO 1700 [facility] Last Admin: 02/28/19 17:25 Dose: 1 mg Prazosin HCl (Minipress Cap*) 2 mg PO BEDTIME [facility] Last Admin: 02/28/19 20:20 Dose: 2 mg Propranolol HCl (Inderal Tab*) 10 mg PO BID [facility] Last Admin: 03/01/19 08:13 Dose: 10 mg - Discharge Plan Discharge Plan: Consider Longer Term Tx
[2019-03-01] MEDS ORDERED: hydrOXYzine HCL TAB* 50 MG PO ONE (13:13)
[2019-03-01] MEDS: Prazosin CAP* 1 MG PO SCH ×2 (17:10→20:53)
[2019-03-01] MEDS: Melatonin 3 MG TAB PO SCH (20:53)
[2019-03-01] MEDS: Mirtazapine TAB* 15 MG PO SCH (20:55)
[2019-03-01] MEDS: Nystatin CREAM* 15 GM TUBE TOPICAL SCH (21:09)
[2019-03-02] MEDS: hydrOXYzine HCL TAB* 50 MG PO PRN ×3 (04:16→21:05)
[2019-03-02] MEDS: Propranolol TAB* 10 MG PO SCH ×2 (08:36→20:59)
[2019-03-02] MEDS: Cholecalciferol TAB* 1000 UNITS PO SCH (08:36)
[2019-03-02] MEDS: Nystatin CREAM* 15 GM TUBE TOPICAL SCH ×2 (08:37→21:01)
[2019-03-02] MEDS: Vitamin THERAPEUTIC TAB PO SCH (08:37)
[2019-03-02] MEDS: CMCS:ClomiPRAMINE (NF) 25 MG CAP PO SCH (08:37)
[2019-03-02] MEDS: ARIPiprazole TAB* 5 MG PO SCH (08:37)
[2019-03-02] MEDS: Lithium Carbonate TAB* 300 MG PO SCH ×2 (08:37→20:59)
[2019-03-02] MEDS: PTO:Norethindrone (NF) 0.35 MG TAB PO SCH (08:37)
--- NOTE | 2019-03-02 12:05 | PN ---
Subjective - Subjective Date of Service: 03/02/19 Service Type: 63208 Hosp care 35 min high complexity Subjective: Nursing Report: Patient was visible on unit, Poor Slept overnight, suicidal ideation, Attending group activities. CC: "Fine Patient was seen and evaluated today in the common room. She reported not doing well and was having suicidal thoughts last night and has been using her DBT skills to fight off those urges. She is requesting Colace for constipation. The patient reported attending and participating in day groups. Objective - General Observations Appearance: Disheveled Appears Stated Age: Yes Stature: Overweight Posture: Slumped Eye Contact: Average Behavior/Activity: Slowed - Interaction Observations Attitude Towards Examiner: Cooperative Stated Mood: Dysphoric Affect: Blunted Speech Pattern/Tone: Clear Thought Process: Coherent Perception: WNL Thought Content: Self-Deprecatory Thought Process: Lethality: Passive Wish Hallucination Type: None Delusion Type: None - Cognitive Function Orientation: A&O x 4 Level of Consciousness: Awake Cognition: WNL - Medication Compliance Cooperative with Inpatient Medication Regimen: Yes - Group Participation Participates in Group Activities: Yes Assessment - Assessment Clinical Impression: 33 year old female with a history of multiple psychiatric hospitalizations presented with suicidal ideation. Plan - Plan Treatment Plan: Name: SAUL UGARTE Birthdate: 1985 [id number] Plan #Q15 minute observation # The patient requires inpatient admission at this time to assure safety, receive treatment and work toward stabilization. # Collaboration with Coverage Specialist Rn Joanne Sol # Mother Reema [phone] # [place] level 1.04 # Patient has had 4 hospitalizations in last 6 months. Patient shows non linear response to treatment, is unable to cope with the everyday demands of life, to consider state hospitalization. Collateral from outpatient provider obtained. #Behavior modification plan #Patient plans to create a plan of how she is going to deal with the challenges of living in a environment that will present triggers of stress # 2 PC completed Goals before discharge reduce self injurious behavior. Sodium 139 mmol/L (135-145) 02/23/19 14:31 Potassium 4.1 mmol/L (3.5-5.0) 02/23/19 14:31 BUN 16 mg/dL (6-24) 02/23/19 14:31 Creatinine 0.92 mg/dL (0.51-0.95) 02/23/19 14:31 Hemoglobin A1c 5.0 % (4.0-5.6) 02/25/19 07:44 Calcium 10.2 mg/dL (8.6-10.3) 02/23/19 14:31 AST 16 U/L (13-39) 02/23/19 14:31 ALT 24 U/L (7-52) 02/23/19 14:31 Triglycerides 120 mg/dL 02/25/19 07:44 Cholesterol 159 mg/dL 02/25/19 07:44 LDL Cholesterol 98 mg/dL 02/25/19 07:44 Vital Signs Temp Pulse Resp BP Pulse Ox 98.3 F 73 16 111/74 100 03/02/19 08:00 03/02/19 08:00 03/02/19 10:48 03/02/19 08:00 03/02/19 08:00 Continued Medication Management: Continue Outpt Medication Medications: Current Medications Acetaminophen (Tylenol Tab*) 650 mg PO Q4H PRN PRN Reason: for pain; or Temp >101 F Last Admin: 03/01/19 04:53 Dose: 650 mg Al Hydrox/Mg Hydrox/Simethicone (Maalox Plus*) 30 ml PO Q4H PRN PRN Reason: INDIGESTION Aripiprazole (Abilify Tab*) 10 mg PO DAILY [facility] Last Admin: 03/02/19 08:37 Dose: 10 mg Cholecalciferol (Vitamin D Tab*) 5,000 units PO DAILY [facility] Last Admin: 03/02/19 08:36 Dose: 5,000 units Clomipramine HCl (Clomipramine (Nf)) 100 mg PO DAILY [facility] Last Admin: 03/02/19 08:37 Dose: 100 mg Docusate Sodium (Colace Cap*) 200 mg PO DAILY PRN PRN Reason: CONSTIPATION Hydroxyzine HCl (Atarax Tab*) 50 mg PO TID PRN PRN Reason: ANXIETY Last Admin: 03/02/19 04:16 Dose: 50 mg [place] Carbonate ([place] Carbonate Tab*) 600 mg PO BEDTIME [facility] Last Admin: 03/01/19 20:53 Dose: 600 mg [place] Carbonate ([place] Carbonate Tab*) 600 mg PO DAILY [facility] Last Admin: 03/02/19 08:37 Dose: 600 mg Melatonin (Melatonin) 4.5 mg PO 2100 [facility] Last Admin: 03/01/19 20:53 Dose: 4.5 mg Mirtazapine (Remeron Tab*) 7.5 mg PO BEDTIME [facility] Last Admin: 03/01/19 20:55 Dose: 7.5 mg Multi-Ingredient Mouthwash/Gargle (Biotene Dry Mouth Oral Rinse(Nf)) 15 ml MT FIVE TIMES DAILY PRN PRN Reason: DRY MOUTH Multivitamins (Theragran Tab*) 1 tab PO DAILY [facility] Last Admin: 03/02/19 08:37 Dose: 1 tab Norethindrone (Shannon (Nf)) 0.35 mg PO DAILY [facility] Last Admin: 03/02/19 08:37 Dose: 0.35 mg Nystatin (Nystatin Cream*) 1 applic TOPICAL BID [facility] Last Admin: 03/02/19 08:37 Dose: 1 applic Prazosin HCl (Minipress Cap*) 1 mg PO 1700 [facility] Last Admin: 03/01/19 17:10 Dose: 1 mg Prazosin HCl (Minipress Cap*) 2 mg PO BEDTIME [facility] Last Admin: 03/01/19 20:53 Dose: 2 mg Propranolol HCl (Inderal Tab*) 10 mg PO BID [facility] Last Admin: 03/02/19 08:36 Dose: 10 mg - Discharge Plan Discharge Plan: Inpatient Hospitalization
[2019-03-02] MEDS: Docusate CAP* 100 MG PO PRN (12:23)
[2019-03-02] MEDS: Prazosin CAP* 1 MG PO SCH ×2 (17:24→20:59)
[2019-03-02] MEDS: Mirtazapine TAB* 15 MG PO SCH (20:55)
[2019-03-02] MEDS: Melatonin 3 MG TAB PO SCH (20:57)
[2019-03-03] MEDS: ARIPiprazole TAB* 5 MG PO SCH (10:42)
[2019-03-03] MEDS: PTO:Norethindrone (NF) 0.35 MG TAB PO SCH (10:42)
[2019-03-03] MEDS: Vitamin THERAPEUTIC TAB PO SCH (10:42)
[2019-03-03] MEDS: Cholecalciferol TAB* 1000 UNITS PO SCH (10:42)
[2019-03-03] MEDS: CMCS:ClomiPRAMINE (NF) 25 MG CAP PO SCH (10:42)
[2019-03-03] MEDS: Nystatin CREAM* 15 GM TUBE TOPICAL SCH ×2 (10:42→22:11)
[2019-03-03] MEDS: Lithium Carbonate TAB* 300 MG PO SCH ×2 (10:42→22:09)
[2019-03-03] MEDS: Propranolol TAB* 10 MG PO SCH ×2 (10:42→22:11)
[2019-03-03] MEDS: Prazosin CAP* 1 MG PO SCH ×2 (17:36→22:11)
[2019-03-03] MEDS: Melatonin 3 MG TAB PO SCH (22:08)
[2019-03-03] MEDS: Mirtazapine TAB* 15 MG PO SCH (22:09)
[2019-03-04] MEDS: hydrOXYzine HCL TAB* 50 MG PO PRN ×3 (02:00→20:29)
[2019-03-04] MEDS: Lithium Carbonate TAB* 300 MG PO SCH ×2 (08:27→20:25)
[2019-03-04] MEDS: PTO:Norethindrone (NF) 0.35 MG TAB PO SCH (08:27)
[2019-03-04] MEDS: Acetaminophen TAB* 325 MG PO PRN ×3 (08:27→21:56)
[2019-03-04] MEDS: Cholecalciferol TAB* 1000 UNITS PO SCH (08:27)
[2019-03-04] MEDS: CMCS:ClomiPRAMINE (NF) 25 MG CAP PO SCH (08:28)
[2019-03-04] MEDS: Vitamin THERAPEUTIC TAB PO SCH (08:28)
[2019-03-04] MEDS: ARIPiprazole TAB* 5 MG PO SCH (08:28)
[2019-03-04] MEDS: Propranolol TAB* 10 MG PO SCH ×2 (08:28→20:25)
[2019-03-04] MEDS: Nystatin CREAM* 15 GM TUBE TOPICAL SCH ×2 (08:30→20:27)
[2019-03-04] MEDS: Prazosin CAP* 1 MG PO SCH ×2 (16:41→20:24)
[2019-03-04] MEDS: Docusate CAP* 100 MG PO PRN (17:35)
[2019-03-04] MEDS: Mirtazapine TAB* 15 MG PO SCH (20:23)
[2019-03-04] MEDS: Melatonin 3 MG TAB PO SCH (20:24)
[2019-03-05] MEDS: hydrOXYzine HCL TAB* 50 MG PO PRN ×3 (03:30→23:45)
[2019-03-05] MEDS: Nystatin CREAM* 15 GM TUBE TOPICAL SCH ×2 (08:27→20:35)
[2019-03-05] MEDS: PTO:Norethindrone (NF) 0.35 MG TAB PO SCH (08:27)
[2019-03-05] MEDS: Acetaminophen TAB* 325 MG PO PRN ×2 (08:28→12:50)
[2019-03-05] MEDS: Lithium Carbonate TAB* 300 MG PO SCH ×2 (08:29→20:28)
[2019-03-05] MEDS: Docusate CAP* 100 MG PO PRN (08:29)
[2019-03-05] MEDS: Propranolol TAB* 10 MG PO SCH ×2 (08:30→20:28)
[2019-03-05] MEDS: ARIPiprazole TAB* 5 MG PO SCH (08:30)
[2019-03-05] MEDS: Vitamin THERAPEUTIC TAB PO SCH (08:30)
[2019-03-05] MEDS: Cholecalciferol TAB* 1000 UNITS PO SCH (08:30)
[2019-03-05] MEDS: CMCS:ClomiPRAMINE (NF) 25 MG CAP PO SCH (08:30)
--- NOTE | 2019-03-05 10:38 | PN ---
Subjective - Subjective Date of Service: 03/05/19 Service Type: 11204 Hosp care 35 min high complexity Subjective: Nursing Report: Patient was visible on unit, Poor Slept overnight, self injury urges, Attending group activities. CC: "Not good Patient was seen and evaluated today in her room where she was found sleeping on the floor. She reported feeling that no one understands her when she tells staff that she feels like hurting herself they take all the things away from her and is left with feeling that she did something wrong. She made abrasions on her wrist with the lotion bottle. Per staff she has suicidal thoughts over the weekend and bedding was removed. She refused medications on Tuesday. The patient did not attend group today. Objective - General Observations Appears Stated Age: Yes Stature: Overweight Posture: Slumped Eye Contact: Avoidant, Intense Behavior/Activity: Impulsive - Interaction Observations Attitude Towards Examiner: Anxious Stated Mood: Dysphoric Affect: Blunted Speech Pattern/Tone: Appropriate Thought Process: [place] Perception: WNL Thought Content: Self-Deprecatory Thought Process: Lethality: Passive Wish Hallucination Type: None Delusion Type: Control - Cognitive Function Orientation: A&O x 4 Level of Consciousness: Awake Ability to Make Reasonable Decisions: Moderately Impaired - Medication Compliance Cooperative with Inpatient Medication Regimen: Partial - Group Participation Participates in Group Activities: Partial Assessment - Assessment Clinical Impression: 33 year old female with a history of multiple psychiatric hospitalizations presented with suicidal ideation. Plan - Plan Treatment Plan: Name: SAUL UGARTE Birthdate: 1985 [id number] Plan #Q15 minute observation # The patient requires inpatient admission at this time to assure safety, receive treatment and work toward stabilization. # Collaboration with Continuous Process Tanner Rotary Drum Joanne Sol # Mother Reema [phone] # Patient has had 4 hospitalizations in last 6 months. Patient shows non linear response to treatment, is unable to cope with the everyday demands of life, and continues to be a danger to herself. Once treatment period has been met (03/09/19 ) will make referral to [facility]. #Behavior modification plan # 2 PC completed Goals before discharge reduce self injurious behavior. Vital Signs Temp Pulse Resp BP Pulse Ox 98.1 F 99 16 127/78 97 03/05/19 08:00 03/05/19 08:00 03/05/19 08:00 03/05/19 08:00 03/05/19 08:00 Sodium 139 mmol/L (135-145) 02/23/19 14:31 Potassium 4.1 mmol/L (3.5-5.0) 02/23/19 14:31 BUN 16 mg/dL (6-24) 02/23/19 14:31 Creatinine 0.92 mg/dL (0.51-0.95) 02/23/19 14:31 Hemoglobin A1c 5.0 % (4.0-5.6) 02/25/19 07:44 Calcium 10.2 mg/dL (8.6-10.3) 02/23/19 14:31 AST 16 U/L (13-39) 02/23/19 14:31 ALT 24 U/L (7-52) 02/23/19 14:31 Triglycerides 120 mg/dL 02/25/19 07:44 Cholesterol 159 mg/dL 02/25/19 07:44 LDL Cholesterol 98 mg/dL 02/25/19 07:44 Continued Medication Management: Continue Outpt Medication Medications: Current Medications Acetaminophen (Tylenol Tab*) 650 mg PO Q4H PRN PRN Reason: for pain; or Temp >101 F Last Admin: 03/05/19 08:28 Dose: 650 mg Al Hydrox/Mg Hydrox/Simethicone (Maalox Plus*) 30 ml PO Q4H PRN PRN Reason: INDIGESTION Aripiprazole (Abilify Tab*) 10 mg PO DAILY [facility] Last Admin: 03/05/19 08:30 Dose: 10 mg Cholecalciferol (Vitamin D Tab*) 5,000 units PO DAILY [facility] Last Admin: 03/05/19 08:30 Dose: 5,000 units Clomipramine HCl (Clomipramine (Nf)) 100 mg PO DAILY [facility] Last Admin: 03/05/19 08:30 Dose: 100 mg Docusate Sodium (Colace Cap*) 200 mg PO DAILY PRN PRN Reason: CONSTIPATION Last Admin: 03/05/19 08:29 Dose: 200 mg Hydroxyzine HCl (Atarax Tab*) 50 mg PO TID PRN PRN Reason: ANXIETY Last Admin: 03/05/19 03:30 Dose: 50 mg [place] Carbonate ([place] Carbonate Tab*) 600 mg PO BEDTIME [facility] Last Admin: 03/04/19 20:25 Dose: 600 mg [place] Carbonate ([place] Carbonate Tab*) 600 mg PO DAILY [facility] Last Admin: 03/05/19 08:29 Dose: 600 mg Melatonin (Melatonin) 4.5 mg PO 2100 [facility] Last Admin: 03/04/19 20:24 Dose: 4.5 mg Mirtazapine (Remeron Tab*) 7.5 mg PO BEDTIME [facility] Last Admin: 03/04/19 20:23 Dose: 7.5 mg Multi-Ingredient Mouthwash/Gargle (Biotene Dry Mouth Oral Rinse(Nf)) 15 ml MT FIVE TIMES DAILY PRN PRN Reason: DRY MOUTH Multivitamins (Theragran Tab*) 1 tab PO DAILY [facility] Last Admin: 03/05/19 08:30 Dose: 1 tab Norethindrone (Shannon (Nf)) 0.35 mg PO DAILY [facility] Last Admin: 03/05/19 08:27 Dose: 0.35 mg Nystatin (Nystatin Cream*) 1 applic TOPICAL BID [facility] Last Admin: 03/05/19 08:27 Dose: 1 applic Polyvinyl Alcohol (Polyvinyl Alcohol 1.4% Opth*) 1 drop BOTH EYES Q2H PRN PRN Reason: DRY EYE Prazosin HCl (Minipress Cap*) 1 mg PO 1700 [facility] Last Admin: 03/04/19 16:41 Dose: 1 mg Prazosin HCl (Minipress Cap*) 2 mg PO BEDTIME [facility] Last Admin: 03/04/19 20:24 Dose: 2 mg Propranolol HCl (Inderal Tab*) 10 mg PO BID [facility] Last Admin: 03/05/19 08:30 Dose: 10 mg - Discharge Plan Discharge Plan: Consider Longer Term Tx
[2019-03-05] MEDS: Prazosin CAP* 1 MG PO SCH ×2 (17:11→20:28)
[2019-03-05] MEDS: Melatonin 3 MG TAB PO SCH (20:26)
[2019-03-05] MEDS: Mirtazapine TAB* 15 MG PO SCH (20:26)
[2019-03-06] MEDS: Acetaminophen TAB* 325 MG PO PRN (04:22)
[2019-03-06] MEDS: Cholecalciferol TAB* 1000 UNITS PO SCH (08:22)
[2019-03-06] MEDS: PTO:Norethindrone (NF) 0.35 MG TAB PO SCH (08:22)
[2019-03-06] MEDS: Lithium Carbonate TAB* 300 MG PO SCH ×2 (08:22→20:24)
[2019-03-06] MEDS: CMCS:ClomiPRAMINE (NF) 25 MG CAP PO SCH (08:22)
[2019-03-06] MEDS: ARIPiprazole TAB* 5 MG PO SCH (08:23)
[2019-03-06] MEDS: Propranolol TAB* 10 MG PO SCH ×2 (08:23→20:25)
[2019-03-06] MEDS: Vitamin THERAPEUTIC TAB PO SCH (08:23)
[2019-03-06] MEDS: Nystatin CREAM* 15 GM TUBE TOPICAL SCH ×2 (08:25→21:21)
[2019-03-06] MEDS: Docusate CAP* 100 MG PO PRN (08:54)
--- NOTE | 2019-03-06 11:40 | PN ---
Subjective - Subjective Date of Service: 03/06/19 Service Type: 95510 Hosp care 35 min high complexity Subjective: Nursing Report: Patient was visible on unit, thoughts of self injurious behavior. CC: "Not sure Patient was seen and evaluated today. She expressed frustration with not knowing if she is going to her hurt herself or not. She reported that she always feels like hurting herself so when she is asked there is never a time that she says no. She wants to rethink how she responds to that question. She reported not getting good sleep overnight. She wrote a list of all the bad things that happened in her life. The patient reported that she is tolerating medications without side effects. Objective - General Observations Appears Stated Age: Yes Stature: WNL Posture: WNL, Slumped Eye Contact: Average Behavior/Activity: Slowed - Interaction Observations Attitude Towards Examiner: Cooperative Stated Mood: Dysphoric Affect: Blunted Speech Pattern/Tone: Delayed Thought Process: Coherent Perception: WNL Thought Content: Self-Deprecatory Thought Process: Lethality: Passive Wish Hallucination Type: None Delusion Type: None - Cognitive Function Orientation: A&O x 4 Level of Consciousness: Awake - Medication Compliance Cooperative with Inpatient Medication Regimen: Yes - Group Participation Participates in Group Activities: Partial Assessment - Assessment Merits Inpatient Hospitalization: For Immediate Safety Clinical Impression: 33 year old female with a history of multiple psychiatric hospitalizations presented with suicidal ideation. Plan - Plan Treatment Plan: Name: SAUL UGARTE Birthdate: 1985 [id number] Plan #Q15 minute observation # The patient requires inpatient admission at this time to assure safety, receive treatment and work toward stabilization. # Collaboration with Coil Machine Supervisor Joanne Sol # Mother Reema [phone] # Patient has had 4 hospitalizations in last 6 months. Patient shows non linear response to treatment, is unable to cope with the everyday demands of life, and continues to be a danger to herself. Once treatment period has been met (03/09/19 ) will make referral to [facility]. #Behavior modification plan # 2 PC completed Goals before discharge reduce self injurious behavior. Sodium 139 mmol/L (135-145) 02/23/19 14:31 Potassium 4.1 mmol/L (3.5-5.0) 02/23/19 14:31 BUN 16 mg/dL (6-24) 02/23/19 14:31 Creatinine 0.92 mg/dL (0.51-0.95) 02/23/19 14:31 Hemoglobin A1c 5.0 % (4.0-5.6) 02/25/19 07:44 Calcium 10.2 mg/dL (8.6-10.3) 02/23/19 14:31 AST 16 U/L (13-39) 02/23/19 14:31 ALT 24 U/L (7-52) 02/23/19 14:31 Triglycerides 120 mg/dL 02/25/19 07:44 Cholesterol 159 mg/dL 02/25/19 07:44 LDL Cholesterol 98 mg/dL 02/25/19 07:44 Vital Signs Temp Pulse Resp BP Pulse Ox 98.6 F 94 16 120/74 97 03/06/19 08:00 03/06/19 08:00 03/06/19 10:19 03/06/19 08:00 03/06/19 08:00 Continued Medication Management: Continue Outpt Medication Medications: Current Medications Acetaminophen (Tylenol Tab*) 650 mg PO Q4H PRN PRN Reason: for pain; or Temp >101 F Last Admin: 03/06/19 04:22 Dose: 650 mg Al Hydrox/Mg Hydrox/Simethicone (Maalox Plus*) 30 ml PO Q4H PRN PRN Reason: INDIGESTION Aripiprazole (Abilify Tab*) 10 mg PO DAILY [facility] Last Admin: 03/06/19 08:23 Dose: 10 mg Cholecalciferol (Vitamin D Tab*) 5,000 units PO DAILY [facility] Last Admin: 03/06/19 08:22 Dose: 5,000 units Clomipramine HCl (Clomipramine (Nf)) 100 mg PO DAILY [facility] Last Admin: 03/06/19 08:22 Dose: 100 mg Docusate Sodium (Colace Cap*) 200 mg PO DAILY PRN PRN Reason: CONSTIPATION Last Admin: 03/06/19 08:54 Dose: 200 mg Hydroxyzine HCl (Atarax Tab*) 50 mg PO TID PRN PRN Reason: ANXIETY Last Admin: 03/05/19 23:45 Dose: 50 mg [place] Carbonate ([place] Carbonate Tab*) 600 mg PO BEDTIME [facility] Last Admin: 03/05/19 20:28 Dose: 600 mg [place] Carbonate ([place] Carbonate Tab*) 600 mg PO DAILY [facility] Last Admin: 03/06/19 08:22 Dose: 600 mg Melatonin (Melatonin) 4.5 mg PO 2100 [facility] Last Admin: 03/05/19 20:26 Dose: 4.5 mg Mirtazapine (Remeron Tab*) 7.5 mg PO BEDTIME [facility] Last Admin: 03/05/19 20:26 Dose: 15 mg Multi-Ingredient Mouthwash/Gargle (Biotene Dry Mouth Oral Rinse(Nf)) 15 ml MT FIVE TIMES DAILY PRN PRN Reason: DRY MOUTH Multivitamins (Theragran Tab*) 1 tab PO DAILY [facility] Last Admin: 03/06/19 08:23 Dose: 1 tab Norethindrone (Shannon (Nf)) 0.35 mg PO DAILY [facility] Last Admin: 03/06/19 08:22 Dose: 0.35 mg Nystatin (Nystatin Cream*) 1 applic TOPICAL BID [facility] Last Admin: 03/06/19 08:25 Dose: Not Given Polyvinyl Alcohol (Polyvinyl Alcohol 1.4% Opth*) 1 drop BOTH EYES Q2H PRN PRN Reason: DRY EYE Prazosin HCl (Minipress Cap*) 1 mg PO 1700 [facility] Last Admin: 03/05/19 17:11 Dose: 1 mg Prazosin HCl (Minipress Cap*) 2 mg PO BEDTIME [facility] Last Admin: 03/05/19 20:28 Dose: 2 mg Propranolol HCl (Inderal Tab*) 10 mg PO BID [facility] Last Admin: 03/06/19 08:23 Dose: 10 mg Zolpidem Tartrate (Ambien Tab*) 5 mg PO BEDTIME PRN PRN Reason: INSOMNIA - Discharge Plan Discharge Plan: Inpatient Hospitalization
[2019-03-06] MEDS: hydrOXYzine HCL TAB* 50 MG PO PRN (12:03)
[2019-03-06] MEDS: Prazosin CAP* 1 MG PO SCH ×2 (17:37→20:24)
[2019-03-06] MEDS: Melatonin 3 MG TAB PO SCH (20:24)
[2019-03-06] MEDS: Mirtazapine TAB* 15 MG PO SCH (20:25)
[2019-03-06] MEDS: Zolpidem TAB* 5 MG PO PRN (20:26)
[2019-03-07] MEDS: hydrOXYzine HCL TAB* 50 MG PO PRN ×2 (05:54→20:00)
[2019-03-07] MEDS: Cholecalciferol TAB* 1000 UNITS PO SCH (08:29)
[2019-03-07] MEDS: Docusate CAP* 100 MG PO PRN (08:29)
[2019-03-07] MEDS: Propranolol TAB* 10 MG PO SCH ×2 (08:29→21:48)
[2019-03-07] MEDS: ARIPiprazole TAB* 5 MG PO SCH (08:32)
[2019-03-07] MEDS: Lithium Carbonate TAB* 300 MG PO SCH ×2 (08:32→21:47)
[2019-03-07] MEDS: Nystatin CREAM* 15 GM TUBE TOPICAL SCH ×2 (08:33→21:50)
[2019-03-07] MEDS: Vitamin THERAPEUTIC TAB PO SCH (08:33)
[2019-03-07] MEDS: CMCS:ClomiPRAMINE (NF) 25 MG CAP PO SCH (08:33)
[2019-03-07] MEDS: PTO:Norethindrone (NF) 0.35 MG TAB PO SCH (08:34)
--- NOTE | 2019-03-07 08:55 | PN ---
Subjective - Subjective Date of Service: 03/07/19 Service Type: 81756 Hosp care 35 min high complexity Subjective: Nursing Report: Patient was visible on unit, slept 5 hours overnight, no overnight incidents. CC: "Alright Patient was seen and evaluated today. She reported getting 5 straight hours of sleep overnight. She requesting gel pens to use on the unit. She has been compliant with medication today. The patient reported that she is tolerating medications without side effects. She went to group today. Objective - General Observations Appearance: Disheveled Appears Stated Age: Yes Stature: Overweight Posture: Slumped Eye Contact: Average Behavior/Activity: Accelerated - Interaction Observations Attitude Towards Examiner: Cooperative Stated Mood: Euthymic Affect: Blunted Speech Pattern/Tone: Clear Thought Process: Coherent Perception: WNL Thought Content: Self-Deprecatory Thought Process: Lethality: Passive Wish Hallucination Type: None Delusion Type: None - Cognitive Function Orientation: A&O x 4 Level of Consciousness: Awake - Medication Compliance Cooperative with Inpatient Medication Regimen: Yes - Group Participation Participates in Group Activities: Yes Assessment - Assessment Clinical Impression: 33 year old female with a history of multiple psychiatric hospitalizations presented with suicidal ideation. Plan - Plan Treatment Plan: Name: SAUL UGARTE Birthdate: 1985 [id number] Plan #Q15 minute observation # The patient requires inpatient admission at this time to assure safety, receive treatment and work toward stabilization. # Collaboration with Hooker Operator Joanne Sol # Mother Reema [phone] # Patient has had 4 hospitalizations in last 6 months. Patient shows non linear response to treatment, is unable to cope with the everyday demands of life, and continues to be a danger to herself. Once treatment period has been met (03/09/19 ) will make referral to [facility]. #Behavior modification plan #[place] level # 2 PC completed Goals before discharge reduce self injurious behavior. Sodium 139 mmol/L (135-145) 02/23/19 14:31 Potassium 4.1 mmol/L (3.5-5.0) 02/23/19 14:31 BUN 16 mg/dL (6-24) 02/23/19 14:31 Creatinine 0.92 mg/dL (0.51-0.95) 02/23/19 14:31 Hemoglobin A1c 5.0 % (4.0-5.6) 02/25/19 07:44 Calcium 10.2 mg/dL (8.6-10.3) 02/23/19 14:31 AST 16 U/L (13-39) 02/23/19 14:31 ALT 24 U/L (7-52) 02/23/19 14:31 Triglycerides 120 mg/dL 02/25/19 07:44 Cholesterol 159 mg/dL 02/25/19 07:44 LDL Cholesterol 98 mg/dL 02/25/19 07:44 Vital Signs Temp Pulse Resp BP Pulse Ox 98 F 85 16 115/72 97 03/07/19 07:00 03/07/19 07:00 03/07/19 07:00 03/07/19 07:00 03/07/19 07:00 Continued Medication Management: Continue Outpt Medication Medications: Current Medications Acetaminophen (Tylenol Tab*) 650 mg PO Q4H PRN PRN Reason: for pain; or Temp >101 F Last Admin: 03/06/19 04:22 Dose: 650 mg Al Hydrox/Mg Hydrox/Simethicone (Maalox Plus*) 30 ml PO Q4H PRN PRN Reason: INDIGESTION Aripiprazole (Abilify Tab*) 10 mg PO DAILY [facility] Last Admin: 03/07/19 08:32 Dose: 10 mg Cholecalciferol (Vitamin D Tab*) 5,000 units PO DAILY [facility] Last Admin: 03/07/19 08:29 Dose: 5,000 units Clomipramine HCl (Clomipramine (Nf)) 100 mg PO DAILY [facility] Last Admin: 03/07/19 08:33 Dose: 100 mg Docusate Sodium (Colace Cap*) 200 mg PO DAILY PRN PRN Reason: CONSTIPATION Last Admin: 03/07/19 08:29 Dose: 200 mg Hydroxyzine HCl (Atarax Tab*) 50 mg PO TID PRN PRN Reason: ANXIETY Last Admin: 03/07/19 05:54 Dose: 50 mg [place] Carbonate ([place] Carbonate Tab*) 600 mg PO BEDTIME [facility] Last Admin: 03/06/19 20:24 Dose: 600 mg [place] Carbonate ([place] Carbonate Tab*) 600 mg PO DAILY [facility] Last Admin: 03/07/19 08:32 Dose: 600 mg Melatonin (Melatonin) 4.5 mg PO 2100 [facility] Last Admin: 03/06/19 20:24 Dose: 4.5 mg Mirtazapine (Remeron Tab*) 7.5 mg PO BEDTIME [facility] Last Admin: 03/06/19 20:25 Dose: 7.5 mg Multi-Ingredient Mouthwash/Gargle (Biotene Dry Mouth Oral Rinse(Nf)) 15 ml MT FIVE TIMES DAILY PRN PRN Reason: DRY MOUTH Multivitamins (Theragran Tab*) 1 tab PO DAILY [facility] Last Admin: 03/07/19 08:33 Dose: 1 tab Norethindrone (Shannon (Nf)) 0.35 mg PO DAILY [facility] Last Admin: 03/07/19 08:34 Dose: 0.35 mg Nystatin (Nystatin Cream*) 1 applic TOPICAL BID [facility] Last Admin: 03/07/19 08:33 Dose: 1 applic Polyvinyl Alcohol (Polyvinyl Alcohol 1.4% Opth*) 1 drop BOTH EYES Q2H PRN PRN Reason: DRY EYE Prazosin HCl (Minipress Cap*) 1 mg PO 1700 [facility] Last Admin: 03/06/19 17:37 Dose: 1 mg Prazosin HCl (Minipress Cap*) 2 mg PO BEDTIME [facility] Last Admin: 03/06/19 20:24 Dose: 2 mg Propranolol HCl (Inderal Tab*) 10 mg PO BID [facility] Last Admin: 03/07/19 08:29 Dose: 10 mg Zolpidem Tartrate (Ambien Tab*) 5 mg PO BEDTIME PRN PRN Reason: INSOMNIA Last Admin: 03/06/19 20:26 Dose: 5 mg - Discharge Plan Discharge Plan: Inpatient Hospitalization
--- NOTE | 2019-03-07 11:46 | PN ---
BSU: Group Therapy Note - Service Type Service Type: [id number] Group Psychotherapy - Cognitive Behavioral Group Psychotherapy Note: Luly was concerned about how to speak to staff when questioned about her goals today in group. Efforts to have her articulate more substantial goal planning was met with pesimissim regarding her ability to be successful upon discharge. She continues to voice poor insight regarding personal responsibility.
[2019-03-07] MEDS: Prazosin CAP* 1 MG PO SCH ×2 (17:26→21:47)
[2019-03-07] MEDS: Mirtazapine TAB* 15 MG PO SCH (21:46)
[2019-03-07] MEDS: Melatonin 3 MG TAB PO SCH (21:47)
[2019-03-07] MEDS: Zolpidem TAB* 5 MG PO PRN (21:47)
[2019-03-08] MEDS: hydrOXYzine HCL TAB* 50 MG PO PRN ×3 (02:10→17:10)
--- NOTE | 2019-03-08 08:37 | PN ---
Subjective - Subjective Date of Service: 03/08/19 Service Type: 22829 Hosp care 35 min high complexity Subjective: Nursing Report: Patient was visible on unit, poor sleep overnight, no overnight incidents. CC: "Fine Patient was seen and evaluated today. She reported having nightmares where she was being restrained in the emergency room and has been anxious an pacing to process the anxiety. She has been compliant with medication today. The patient reported that she is tolerating medications without side effects. Patient made abrasions on her arm with a plastic cap. Objective - General Observations Appears Stated Age: Yes Stature: Overweight Posture: Slumped Eye Contact: Average Behavior/Activity: Accelerated - Interaction Observations Attitude Towards Examiner: Anxious Stated Mood: Anxious Affect: Blunted Speech Pattern/Tone: Clear Thought Process: Coherent, [place] Perception: WNL, Reexperiencing Thought Content: Self-Deprecatory Thought Process: Lethality: Passive Wish Hallucination Type: None Delusion Type: None - Cognitive Function Orientation: A&O x 4 Level of Consciousness: Awake - Medication Compliance Cooperative with Inpatient Medication Regimen: Yes - Group Participation Participates in Group Activities: Partial Assessment - Assessment Merits Inpatient Hospitalization: For Immediate Safety Clinical Impression: 33 year old female with a history of multiple psychiatric hospitalizations presented with suicidal ideation. Plan - Plan Treatment Plan: Name: SAUL UGARTE Birthdate: 1985 [id number] Plan #Q15 minute observation # The patient requires inpatient admission at this time to assure safety, receive treatment and work toward stabilization. # Collaboration with Marine Biologist Joanne Sol # Mother Reema [phone] # Patient has had 4 hospitalizations in last 6 months. Patient shows non linear response to treatment, is unable to cope with the everyday demands of life, and continues to be a danger to herself. Once treatment period has been met (03/09/19 ) will make referral to [facility]. #To find out [facility] wait time. #Behavior modification plan #[place] level # 2 PC completed Goals before discharge reduce self injurious behavior. Sodium 139 mmol/L (135-145) 02/23/19 14:31 Potassium 4.1 mmol/L (3.5-5.0) 02/23/19 14:31 BUN 16 mg/dL (6-24) 02/23/19 14:31 Creatinine 0.92 mg/dL (0.51-0.95) 02/23/19 14:31 Hemoglobin A1c 5.0 % (4.0-5.6) 02/25/19 07:44 Calcium 10.2 mg/dL (8.6-10.3) 02/23/19 14:31 AST 16 U/L (13-39) 02/23/19 14:31 ALT 24 U/L (7-52) 02/23/19 14:31 Triglycerides 120 mg/dL 02/25/19 07:44 Cholesterol 159 mg/dL 02/25/19 07:44 LDL Cholesterol 98 mg/dL 02/25/19 07:44 Vital Signs Temp Pulse Resp BP Pulse Ox 98.2 F 96 16 116/79 97 03/08/19 08:00 03/08/19 08:00 03/08/19 08:00 03/08/19 08:00 03/08/19 08:00 Continued Medication Management: Continue Outpt Medication Medications: Current Medications Acetaminophen (Tylenol Tab*) 650 mg PO Q4H PRN PRN Reason: for pain; or Temp >101 F Last Admin: 03/06/19 04:22 Dose: 650 mg Al Hydrox/Mg Hydrox/Simethicone (Maalox Plus*) 30 ml PO Q4H PRN PRN Reason: INDIGESTION Aripiprazole (Abilify Tab*) 10 mg PO DAILY [facility] Last Admin: 03/07/19 08:32 Dose: 10 mg Cholecalciferol (Vitamin D Tab*) 5,000 units PO DAILY [facility] Last Admin: 03/07/19 08:29 Dose: 5,000 units Clomipramine HCl (Clomipramine (Nf)) 100 mg PO DAILY [facility] Last Admin: 03/07/19 08:33 Dose: 100 mg Docusate Sodium (Colace Cap*) 200 mg PO DAILY PRN PRN Reason: CONSTIPATION Last Admin: 03/07/19 08:29 Dose: 200 mg Hydroxyzine HCl (Atarax Tab*) 50 mg PO TID PRN PRN Reason: ANXIETY Last Admin: 03/08/19 02:10 Dose: 50 mg [place] Carbonate ([place] Carbonate Tab*) 600 mg PO BEDTIME [facility] Last Admin: 03/07/19 21:47 Dose: 600 mg [place] Carbonate ([place] Carbonate Tab*) 600 mg PO DAILY [facility] Last Admin: 03/07/19 08:32 Dose: 600 mg Melatonin (Melatonin) 4.5 mg PO 2100 [facility] Last Admin: 03/07/19 21:47 Dose: 4.5 mg Mirtazapine (Remeron Tab*) 7.5 mg PO BEDTIME [facility] Last Admin: 03/07/19 21:46 Dose: 7.5 mg Multi-Ingredient Mouthwash/Gargle (Biotene Dry Mouth Oral Rinse(Nf)) 15 ml MT FIVE TIMES DAILY PRN PRN Reason: DRY MOUTH Multivitamins (Theragran Tab*) 1 tab PO DAILY [facility] Last Admin: 03/07/19 08:33 Dose: 1 tab Norethindrone (Shannon (Nf)) 0.35 mg PO DAILY [facility] Last Admin: 03/07/19 08:34 Dose: 0.35 mg Nystatin (Nystatin Cream*) 1 applic TOPICAL BID [facility] Last Admin: 03/07/19 21:50 Dose: Not Given Polyvinyl Alcohol (Polyvinyl Alcohol 1.4% Opth*) 1 drop BOTH EYES Q2H PRN PRN Reason: DRY EYE Prazosin HCl (Minipress Cap*) 1 mg PO 1700 [facility] Last Admin: 03/07/19 17:26 Dose: 1 mg Prazosin HCl (Minipress Cap*) 2 mg PO BEDTIME [facility] Last Admin: 03/07/19 21:47 Dose: 2 mg Propranolol HCl (Inderal Tab*) 10 mg PO BID [facility] Last Admin: 03/07/19 21:48 Dose: 10 mg Zolpidem Tartrate (Ambien Tab*) 5 mg PO BEDTIME PRN PRN Reason: INSOMNIA Last Admin: 03/07/19 21:47 Dose: 5 mg - Discharge Plan Discharge Plan: Consider Longer Term Tx
[2019-03-08] MEDS: Docusate CAP* 100 MG PO PRN (08:48)
[2019-03-08] MEDS: Propranolol TAB* 10 MG PO SCH ×2 (08:48→20:44)
[2019-03-08] MEDS: Vitamin THERAPEUTIC TAB PO SCH (08:48)
[2019-03-08] MEDS: CMCS:ClomiPRAMINE (NF) 25 MG CAP PO SCH (08:49)
[2019-03-08] MEDS: Lithium Carbonate TAB* 300 MG PO SCH ×2 (08:49→20:44)
[2019-03-08] MEDS: ARIPiprazole TAB* 5 MG PO SCH (08:50)
[2019-03-08] MEDS: Cholecalciferol TAB* 1000 UNITS PO SCH (08:50)
[2019-03-08] MEDS: PTO:Norethindrone (NF) 0.35 MG TAB PO SCH (08:52)
[2019-03-08] MEDS: Nystatin CREAM* 15 GM TUBE TOPICAL SCH ×2 (10:08→21:38)
--- NOTE | 2019-03-08 11:29 | PN ---
BSU: Group Therapy Note - Service Type Service Type: 23924 Group Psychotherapy - Cognitive Behavioral Group Therapy ( CBT):Patient was attentive and participatory in CBT programming this morning, and remained in good behavioral control. Patient expressed positive insights regarding relevant treatment interventions and goals.
[2019-03-08] MEDS: Prazosin CAP* 1 MG PO SCH ×2 (17:08→20:43)
[2019-03-08] MEDS: Zolpidem TAB* 5 MG PO PRN (20:44)
[2019-03-08] MEDS: Melatonin 3 MG TAB PO SCH (20:44)
[2019-03-08] MEDS: Mirtazapine TAB* 15 MG PO SCH (20:44)
[2019-03-09] MEDS: hydrOXYzine HCL TAB* 50 MG PO PRN (02:44)
[2019-03-09] MEDS: ARIPiprazole TAB* 5 MG PO SCH (08:34)
[2019-03-09] MEDS: Cholecalciferol TAB* 1000 UNITS PO SCH (08:34)
[2019-03-09] MEDS: Propranolol TAB* 10 MG PO SCH ×2 (08:35→22:55)
[2019-03-09] MEDS: Vitamin THERAPEUTIC TAB PO SCH (08:35)
[2019-03-09] MEDS: Lithium Carbonate TAB* 300 MG PO SCH ×2 (08:35→22:54)
[2019-03-09] MEDS: CMCS:ClomiPRAMINE (NF) 25 MG CAP PO SCH (08:35)
[2019-03-09] MEDS: Nystatin CREAM* 15 GM TUBE TOPICAL SCH ×2 (08:36→22:55)
[2019-03-09] MEDS: PTO:Norethindrone (NF) 0.35 MG TAB PO SCH (08:36)
[2019-03-09] MEDS: Docusate CAP* 100 MG PO PRN (08:38)
--- NOTE | 2019-03-09 11:15 | PN ---
Subjective - Subjective Date of Service: 03/09/19 Service Type: 26638 Hosp care 35 min high complexity Subjective: Nursing Report: Patient was visible on unit, poor sleep overnight, not attending DBT groups CC: "Not good Patient was seen and evaluated today. She reported having a rough night and was head banging and plastic bottle against her forearm. She was seen by staff clenching toy on the ground. She has been compliant with medication today. The patient reported that she is tolerating medications without side effects. Objective - General Observations Appears Stated Age: Yes Stature: Overweight Posture: Slumped Eye Contact: Average Behavior/Activity: WNL - Interaction Observations Attitude Towards Examiner: Cooperative Stated Mood: Dysphoric Affect: Blunted Speech Pattern/Tone: Clear Thought Process: Coherent Perception: WNL Thought Content: Depressive Thought Process: Lethality: Passive Wish Hallucination Type: None Delusion Type: None - Cognitive Function Orientation: A&O x 4 Level of Consciousness: Awake - Medication Compliance Cooperative with Inpatient Medication Regimen: Yes - Group Participation Participates in Group Activities: Partial Assessment - Assessment Merits Inpatient Hospitalization: For Immediate Safety Clinical Impression: 33 year old female with a history of multiple psychiatric hospitalizations presented with suicidal ideation. Plan - Plan Treatment Plan: Name: SAUL UGARTE Birthdate: 1985 [id number] Plan #Q15 minute observation # The patient requires inpatient admission at this time to assure safety, receive treatment and work toward stabilization. # Collaboration with Candy Roller Joanne Sol. # Mother Reema [phone] # Patient has had 4 hospitalizations in last 6 months. Patient shows non linear response to treatment, is unable to cope with the everyday demands of life, and continues to be a danger to herself. Once treatment period has been met (03/09/19 ) will make referral to [facility]. #Behavior modification plan to include going to DBT groups #[place] level 0.70 # 2 PC completed Goals before discharge to include reducing self injurious behavior. Sodium 139 mmol/L (135-145) 02/23/19 14:31 Potassium 4.1 mmol/L (3.5-5.0) 02/23/19 14:31 BUN 16 mg/dL (6-24) 02/23/19 14:31 Creatinine 0.92 mg/dL (0.51-0.95) 02/23/19 14:31 Hemoglobin A1c 5.0 % (4.0-5.6) 02/25/19 07:44 Calcium 10.2 mg/dL (8.6-10.3) 02/23/19 14:31 AST 16 U/L (13-39) 02/23/19 14:31 ALT 24 U/L (7-52) 02/23/19 14:31 Triglycerides 120 mg/dL 02/25/19 07:44 Cholesterol 159 mg/dL 02/25/19 07:44 LDL Cholesterol 98 mg/dL 02/25/19 07:44 Vital Signs Temp Pulse Resp BP Pulse Ox 98.1 F 91 14 141/91 97 03/09/19 08:00 03/09/19 08:00 03/09/19 08:00 03/09/19 08:00 03/09/19 08:00 Continued Medication Management: Continue Outpt Medication Medications: Current Medications Acetaminophen (Tylenol Tab*) 650 mg PO Q4H PRN PRN Reason: for pain; or Temp >101 F Last Admin: 03/06/19 04:22 Dose: 650 mg Al Hydrox/Mg Hydrox/Simethicone (Maalox Plus*) 30 ml PO Q4H PRN PRN Reason: INDIGESTION Aripiprazole (Abilify Tab*) 10 mg PO DAILY [facility] Last Admin: 03/09/19 08:34 Dose: 10 mg Cholecalciferol (Vitamin D Tab*) 5,000 units PO DAILY [facility] Last Admin: 03/09/19 08:34 Dose: 5,000 units Clomipramine HCl (Clomipramine (Nf)) 100 mg PO DAILY [facility] Last Admin: 03/09/19 08:35 Dose: 100 mg Docusate Sodium (Colace Cap*) 200 mg PO DAILY PRN PRN Reason: CONSTIPATION Last Admin: 03/09/19 08:38 Dose: 200 mg Hydroxyzine HCl (Atarax Tab*) 50 mg PO TID PRN PRN Reason: ANXIETY Last Admin: 03/09/19 02:44 Dose: 50 mg [place] Carbonate ([place] Carbonate Tab*) 600 mg PO BEDTIME [facility] Last Admin: 03/08/19 20:44 Dose: 600 mg [place] Carbonate ([place] Carbonate Tab*) 600 mg PO DAILY [facility] Last Admin: 03/09/19 08:35 Dose: 600 mg Melatonin (Melatonin) 4.5 mg PO 2100 [facility] Last Admin: 03/08/19 20:44 Dose: 4.5 mg Mirtazapine (Remeron Tab*) 7.5 mg PO BEDTIME [facility] Last Admin: 03/08/19 20:44 Dose: 7.5 mg Multi-Ingredient Mouthwash/Gargle (Biotene Dry Mouth Oral Rinse(Nf)) 15 ml MT FIVE TIMES DAILY PRN PRN Reason: DRY MOUTH Multivitamins (Theragran Tab*) 1 tab PO DAILY [facility] Last Admin: 03/09/19 08:35 Dose: 1 tab Norethindrone (Shannon (Nf)) 0.35 mg PO DAILY [facility] Last Admin: 03/09/19 08:36 Dose: 0.35 mg Nystatin (Nystatin Cream*) 1 applic TOPICAL BID [facility] Last Admin: 03/09/19 08:36 Dose: Not Given Polyvinyl Alcohol (Polyvinyl Alcohol 1.4% Opth*) 1 drop BOTH EYES Q2H PRN PRN Reason: DRY EYE Prazosin HCl (Minipress Cap*) 1 mg PO 1700 [facility] Last Admin: 03/08/19 17:08 Dose: 1 mg Prazosin HCl (Minipress Cap*) 2 mg PO BEDTIME [facility] Last Admin: 03/08/19 20:43 Dose: 2 mg Propranolol HCl (Inderal Tab*) 10 mg PO BID [facility] Last Admin: 03/09/19 08:35 Dose: 10 mg Zolpidem Tartrate (Ambien Tab*) 5 mg PO BEDTIME PRN PRN Reason: INSOMNIA Last Admin: 03/08/19 20:44 Dose: 5 mg - Discharge Plan Discharge Plan: Consider Longer Term Tx
[2019-03-09] MEDS: Prazosin CAP* 1 MG PO SCH ×2 (17:22→22:55)
[2019-03-09] MEDS: Acetaminophen TAB* 325 MG PO PRN (19:35)
[2019-03-09] MEDS: Melatonin 3 MG TAB PO SCH (22:54)
[2019-03-09] MEDS: Mirtazapine TAB* 15 MG PO SCH (22:55)
[2019-03-10] MEDS: Cholecalciferol TAB* 1000 UNITS PO SCH (08:31)
[2019-03-10] MEDS: ARIPiprazole TAB* 5 MG PO SCH (08:32)
[2019-03-10] MEDS: Propranolol TAB* 10 MG PO SCH ×2 (08:32→20:52)
[2019-03-10] MEDS: Lithium Carbonate TAB* 300 MG PO SCH ×2 (08:32→20:53)
[2019-03-10] MEDS: Vitamin THERAPEUTIC TAB PO SCH (08:32)
[2019-03-10] MEDS: PTO:Norethindrone (NF) 0.35 MG TAB PO SCH (08:33)
[2019-03-10] MEDS: CMCS:ClomiPRAMINE (NF) 25 MG CAP PO SCH (08:33)
[2019-03-10] MEDS: Docusate CAP* 100 MG PO PRN (08:34)
[2019-03-10] MEDS: Nystatin CREAM* 15 GM TUBE TOPICAL SCH ×2 (08:36→21:56)
[2019-03-10] MEDS: Prazosin CAP* 1 MG PO SCH ×2 (17:26→20:52)
[2019-03-10] MEDS: Acetaminophen TAB* 325 MG PO PRN (19:13)
[2019-03-10] MEDS: hydrOXYzine HCL TAB* 50 MG PO PRN (20:49)
[2019-03-10] MEDS: Zolpidem TAB* 5 MG PO PRN (20:49)
[2019-03-10] MEDS: Melatonin 3 MG TAB PO SCH (20:50)
[2019-03-10] MEDS: Mirtazapine TAB* 15 MG PO SCH (20:51)
[2019-03-11] MEDS: Acetaminophen TAB* 325 MG PO PRN (00:16)
[2019-03-11] MEDS: Vitamin THERAPEUTIC TAB PO SCH (08:29)
[2019-03-11] MEDS: ARIPiprazole TAB* 5 MG PO SCH (08:30)
[2019-03-11] MEDS: Lithium Carbonate TAB* 300 MG PO SCH ×2 (08:30→20:37)
[2019-03-11] MEDS: Propranolol TAB* 10 MG PO SCH ×2 (08:30→20:37)
[2019-03-11] MEDS: Cholecalciferol TAB* 1000 UNITS PO SCH (08:30)
[2019-03-11] MEDS: CMCS:ClomiPRAMINE (NF) 25 MG CAP PO SCH (08:31)
[2019-03-11] MEDS: PTO:Norethindrone (NF) 0.35 MG TAB PO SCH (08:32)
[2019-03-11] MEDS: Nystatin CREAM* 15 GM TUBE TOPICAL SCH ×2 (08:49→20:52)
[2019-03-11] MEDS: Prazosin CAP* 1 MG PO SCH ×2 (17:29→20:36)
[2019-03-11] MEDS: hydrOXYzine HCL TAB* 50 MG PO PRN ×2 (17:29→20:53)
[2019-03-11] MEDS: Mirtazapine TAB* 15 MG PO SCH (20:37)
[2019-03-11] MEDS: Melatonin 3 MG TAB PO SCH (20:38)
[2019-03-11] MEDS: Zolpidem TAB* 5 MG PO PRN (20:53)
[2019-03-12] MEDS: hydrOXYzine HCL TAB* 50 MG PO PRN ×2 (03:52→20:24)
[2019-03-12] MEDS: PTO:Norethindrone (NF) 0.35 MG TAB PO SCH (08:44)
[2019-03-12] MEDS: Vitamin THERAPEUTIC TAB PO SCH (08:44)
[2019-03-12] MEDS: ARIPiprazole TAB* 5 MG PO SCH (08:45)
[2019-03-12] MEDS: Cholecalciferol TAB* 1000 UNITS PO SCH (08:45)
[2019-03-12] MEDS: Lithium Carbonate TAB* 300 MG PO SCH ×2 (08:45→20:22)
[2019-03-12] MEDS: Propranolol TAB* 10 MG PO SCH ×2 (08:46→20:23)
[2019-03-12] MEDS: CMCS:ClomiPRAMINE (NF) 25 MG CAP PO SCH (08:46)
[2019-03-12] MEDS: Docusate CAP* 100 MG PO PRN (08:48)
[2019-03-12] MEDS: Nystatin CREAM* 15 GM TUBE TOPICAL SCH ×2 (08:49→20:19)
--- NOTE | 2019-03-12 12:36 | PN ---
Subjective - Subjective Date of Service: 03/12/19 Service Type: 35782 Hosp care 35 min high complexity Subjective: Nursing Report: Patient was visible on unit, no chemical restraints. Slept overnight without incident. Attending some group activities. CC: "so so Patient was seen and evaluated today in the common room. The patient reported that the weekend had its ups and downs. She reported having an adequate appetite and sleep. The patient reports attending and participating in some of the day groups. Patient reported that she is tolerating medications without side effects. She is inquiring about getting more privileges. She reported making abrasions on her arm with plastic blevins. Objective - General Observations Appearance: Neat Appears Stated Age: Yes Stature: WNL, Overweight Posture: Slumped Eye Contact: Intense Behavior/Activity: [place] - Interaction Observations Attitude Towards Examiner: Anxious Stated Mood: Dysphoric Affect: Blunted Speech Pattern/Tone: Clear Thought Process: Coherent Perception: WNL Thought Content: Self-Deprecatory Hallucination Type: None Delusion Type: None - Cognitive Function Orientation: A&O x 4 Level of Consciousness: Awake - Medication Compliance Cooperative with Inpatient Medication Regimen: Yes - Group Participation Participates in Group Activities: Yes Assessment - Assessment Clinical Impression: 33 year old female with a history of multiple psychiatric hospitalizations presented with suicidal ideation. Plan - Plan Treatment Plan: Name: SAUL UGARTE Birthdate: 1985 [id number] Plan #D/C Q15 minute and start Q30 minute observation # The patient requires inpatient admission at this time to assure safety, receive treatment and work toward stabilization. # Collaboration with Clarifier Operator Helper Joanne Sol. # Mother Reema [phone] # Patient has had 4 hospitalizations in last 6 months. Patient shows non linear response to treatment, is unable to cope with the everyday demands of life, and continues to be a danger to herself. #Waiting to hear back in regards to transfer to [facility]. #Behavior modification plan to include going to DBT groups #[place] level 0.70 # 2 PC completed Goals before discharge to include reducing self injurious behavior. Sodium 139 mmol/L (135-145) 02/23/19 14:31 Potassium 4.1 mmol/L (3.5-5.0) 02/23/19 14:31 BUN 16 mg/dL (6-24) 02/23/19 14:31 Creatinine 0.92 mg/dL (0.51-0.95) 02/23/19 14:31 Hemoglobin A1c 5.0 % (4.0-5.6) 02/25/19 07:44 Calcium 10.2 mg/dL (8.6-10.3) 02/23/19 14:31 AST 16 U/L (13-39) 02/23/19 14:31 ALT 24 U/L (7-52) 02/23/19 14:31 Triglycerides 120 mg/dL 02/25/19 07:44 Cholesterol 159 mg/dL 02/25/19 07:44 LDL Cholesterol 98 mg/dL 02/25/19 07:44 Vital Signs Temp Pulse Resp BP Pulse Ox 98.1 F 96 16 128/72 98 03/12/19 08:00 03/12/19 08:00 03/12/19 08:00 03/12/19 08:00 03/12/19 08:00 Continued Medication Management: Continue Outpt Medication Medications: Current Medications Acetaminophen (Tylenol Tab*) 650 mg PO Q4H PRN PRN Reason: for pain; or Temp >101 F Last Admin: 03/11/19 00:16 Dose: 650 mg Al Hydrox/Mg Hydrox/Simethicone (Maalox Plus*) 30 ml PO Q4H PRN PRN Reason: INDIGESTION Aripiprazole (Abilify Tab*) 10 mg PO DAILY [facility] Last Admin: 03/12/19 08:45 Dose: 10 mg Cholecalciferol (Vitamin D Tab*) 5,000 units PO DAILY [facility] Last Admin: 03/12/19 08:45 Dose: 5,000 units Clomipramine HCl (Clomipramine (Nf)) 100 mg PO DAILY [facility] Last Admin: 03/12/19 08:46 Dose: 100 mg Docusate Sodium (Colace Cap*) 200 mg PO DAILY PRN PRN Reason: CONSTIPATION Last Admin: 03/12/19 08:48 Dose: 200 mg Hydroxyzine HCl (Atarax Tab*) 50 mg PO TID PRN PRN Reason: ANXIETY Last Admin: 03/12/19 03:52 Dose: 50 mg [place] Carbonate ([place] Carbonate Tab*) 600 mg PO BEDTIME [facility] Last Admin: 03/11/19 20:37 Dose: 600 mg [place] Carbonate ([place] Carbonate Tab*) 600 mg PO DAILY [facility] Last Admin: 03/12/19 08:45 Dose: 600 mg Melatonin (Melatonin) 4.5 mg PO 2100 [facility] Last Admin: 03/11/19 20:38 Dose: 4.5 mg Mirtazapine (Remeron Tab*) 7.5 mg PO BEDTIME [facility] Last Admin: 03/11/19 20:37 Dose: 7.5 mg Multi-Ingredient Mouthwash/Gargle (Biotene Dry Mouth Oral Rinse(Nf)) 15 ml MT FIVE TIMES DAILY PRN PRN Reason: DRY MOUTH Multivitamins (Theragran Tab*) 1 tab PO DAILY [facility] Last Admin: 03/12/19 08:44 Dose: 1 tab Norethindrone ([place]annon (Nf)) 0.35 mg PO DAILY [facility] Last Admin: 03/12/19 08:44 Dose: 0.35 mg Nystatin (Nystatin Cream*) 1 applic TOPICAL BID [facility] Last Admin: 03/12/19 08:49 Dose: 1 applic Polyvinyl Alcohol (Polyvinyl Alcohol 1.4% Opth*) 1 drop BOTH EYES Q2H PRN PRN Reason: DRY EYE Prazosin HCl (Minipress Cap*) 1 mg PO 1700 [facility] Last Admin: 03/11/19 17:29 Dose: 1 mg Prazosin HCl (Minipress Cap*) 2 mg PO BEDTIME [facility] Last Admin: 03/11/19 20:36 Dose: 2 mg Propranolol HCl (Inderal Tab*) 10 mg PO BID [facility] Last Admin: 03/12/19 08:46 Dose: 10 mg Zolpidem Tartrate (Ambien Tab*) 5 mg PO BEDTIME PRN PRN Reason: INSOMNIA Last Admin: 03/11/19 20:53 Dose: 5 mg - Discharge Plan Discharge Plan: Consider Longer Term Tx
[2019-03-12] MEDS: Prazosin CAP* 1 MG PO SCH ×2 (17:36→20:23)
[2019-03-12] MEDS: Melatonin 3 MG TAB PO SCH (20:22)
[2019-03-12] MEDS: Mirtazapine TAB* 15 MG PO SCH (20:23)
[2019-03-12] MEDS: Acetaminophen TAB* 325 MG PO PRN (20:24)
[2019-03-12] MEDS: Zolpidem TAB* 5 MG PO PRN (20:24)
[2019-03-13] MEDS: Acetaminophen TAB* 325 MG PO PRN ×3 (00:46→18:06)
[2019-03-13] MEDS: Propranolol TAB* 10 MG PO SCH ×2 (08:18→21:38)
[2019-03-13] MEDS: ARIPiprazole TAB* 5 MG PO SCH (08:18)
[2019-03-13] MEDS: Vitamin THERAPEUTIC TAB PO SCH (08:18)
[2019-03-13] MEDS: Lithium Carbonate TAB* 300 MG PO SCH ×2 (08:18→21:37)
[2019-03-13] MEDS: Cholecalciferol TAB* 1000 UNITS PO SCH (08:19)
[2019-03-13] MEDS: PTO:Norethindrone (NF) 0.35 MG TAB PO SCH (08:19)
[2019-03-13] MEDS: CMCS:ClomiPRAMINE (NF) 25 MG CAP PO SCH (08:19)
[2019-03-13] MEDS: Nystatin CREAM* 15 GM TUBE TOPICAL SCH ×2 (08:21→21:48)
--- NOTE | 2019-03-13 11:08 | PN ---
Subjective - Subjective Date of Service: 03/13/19 Service Type: 01238 Hosp care 35 min high complexity Subjective: Nursing Report: Patient was visible on unit, no chemical restraints. Slept overnight without incident. Attending some of the group activities. CC: "Alright Patient was seen and evaluated today in the common room. The patient reported no recent incidents of self injury. She did not cut or head bang. She made a sleeping confines and slept on the floor overnight. She reported having an adequate appetite this morning. Per nursing no behavioral issues or overnight events reported. Patient reported that she is tolerating medications without side effects. Objective - General Observations Appears Stated Age: Yes Stature: Overweight Posture: Slumped Eye Contact: Average Behavior/Activity: WNL - Interaction Observations Attitude Towards Examiner: Cooperative Stated Mood: Dysphoric Affect: Blunted Speech Pattern/Tone: Clear Thought Process: Coherent Perception: WNL Thought Content: Self-Deprecatory Hallucination Type: None Delusion Type: None - Cognitive Function Orientation: A&O x 4 Level of Consciousness: Awake - Medication Compliance Cooperative with Inpatient Medication Regimen: Yes - Group Participation Participates in Group Activities: Partial Assessment - Assessment Clinical Impression: 33 year old female with a history of multiple psychiatric hospitalizations presented with suicidal ideation. Plan - Plan Treatment Plan: Name: SAUL UGARTE Birthdate: 1985 [id number] Plan #Q30 minute observation with computer privileges # The patient requires inpatient admission at this time to assure safety, receive treatment and work toward stabilization. # Collaboration with Collection Teller Joanne Sol. # Mother Reema [phone] # Patient has had 4 hospitalizations in last 6 months. Patient shows non linear response to treatment, and is unable to cope with the everyday demands of life, and continues to be a danger to herself. # [facility] is in the process of reviewing. #Encourage attendance to DBT groups #[place] level 0.70 # 2 PC completed Goals before discharge to include reducing self injurious behavior. Sodium 139 mmol/L (135-145) 02/23/19 14:31 Potassium 4.1 mmol/L (3.5-5.0) 02/23/19 14:31 BUN 16 mg/dL (6-24) 02/23/19 14:31 Creatinine 0.92 mg/dL (0.51-0.95) 02/23/19 14:31 Hemoglobin A1c 5.0 % (4.0-5.6) 02/25/19 07:44 Calcium 10.2 mg/dL (8.6-10.3) 02/23/19 14:31 AST 16 U/L (13-39) 02/23/19 14:31 ALT 24 U/L (7-52) 02/23/19 14:31 Triglycerides 120 mg/dL 02/25/19 07:44 Cholesterol 159 mg/dL 02/25/19 07:44 LDL Cholesterol 98 mg/dL 02/25/19 07:44 Vital Signs Temp Pulse Resp BP Pulse Ox 97.8 F 98 16 112/66 97 03/13/19 08:00 03/13/19 08:00 03/13/19 08:00 03/13/19 08:00 03/13/19 08:00 Continued Medication Management: Continue Outpt Medication Medications: Current Medications Acetaminophen (Tylenol Tab*) 650 mg PO Q4H PRN PRN Reason: for pain; or Temp >101 F Last Admin: 03/13/19 06:44 Dose: 650 mg Al Hydrox/Mg Hydrox/Simethicone (Maalox Plus*) 30 ml PO Q4H PRN PRN Reason: INDIGESTION Aripiprazole (Abilify Tab*) 10 mg PO DAILY [facility] Last Admin: 03/13/19 08:18 Dose: 10 mg Cholecalciferol (Vitamin D Tab*) 5,000 units PO DAILY [facility] Last Admin: 03/13/19 08:19 Dose: 5,000 units Clomipramine HCl (Clomipramine (Nf)) 100 mg PO DAILY [facility] Last Admin: 03/13/19 08:19 Dose: 100 mg Docusate Sodium (Colace Cap*) 200 mg PO DAILY PRN PRN Reason: CONSTIPATION Last Admin: 03/12/19 08:48 Dose: 200 mg Hydroxyzine HCl (Atarax Tab*) 50 mg PO TID PRN PRN Reason: ANXIETY Last Admin: 03/12/19 20:24 Dose: 50 mg [place] Carbonate ([place] Carbonate Tab*) 600 mg PO BEDTIME [facility] Last Admin: 03/12/19 20:22 Dose: 600 mg [place] Carbonate ([place] Carbonate Tab*) 600 mg PO DAILY [facility] Last Admin: 03/13/19 08:18 Dose: 600 mg Melatonin (Melatonin) 4.5 mg PO 2100 [facility] Last Admin: 03/12/19 20:22 Dose: 4.5 mg Mirtazapine (Remeron Tab*) 7.5 mg PO BEDTIME [facility] Last Admin: 03/12/19 20:23 Dose: 7.5 mg Multi-Ingredient Mouthwash/Gargle (Biotene Dry Mouth Oral Rinse(Nf)) 15 ml MT FIVE TIMES DAILY PRN PRN Reason: DRY MOUTH Multivitamins (Theragran Tab*) 1 tab PO DAILY [facility] Last Admin: 03/13/19 08:18 Dose: 1 tab Norethindrone (Shannon (Nf)) 0.35 mg PO DAILY [facility] Last Admin: 03/13/19 08:19 Dose: 0.35 mg Nystatin (Nystatin Cream*) 1 applic TOPICAL BID [facility] Last Admin: 03/13/19 08:21 Dose: Not Given Polyvinyl Alcohol (Polyvinyl Alcohol 1.4% Opth*) 1 drop BOTH EYES Q2H PRN PRN Reason: DRY EYE Prazosin HCl (Minipress Cap*) 1 mg PO 1700 [facility] Last Admin: 03/12/19 17:36 Dose: 1 mg Prazosin HCl (Minipress Cap*) 2 mg PO BEDTIME [facility] Last Admin: 03/12/19 20:23 Dose: 2 mg Propranolol HCl (Inderal Tab*) 10 mg PO BID [facility] Last Admin: 03/13/19 08:18 Dose: 10 mg Zolpidem Tartrate (Ambien Tab*) 5 mg PO BEDTIME PRN PRN Reason: INSOMNIA Last Admin: 03/12/19 20:24 Dose: 5 mg - Discharge Plan Discharge Plan: Inpatient Hospitalization
[2019-03-13] MEDS: Prazosin CAP* 1 MG PO SCH ×2 (17:10→21:36)
[2019-03-13] MEDS: hydrOXYzine HCL TAB* 50 MG PO PRN ×3 (18:07→21:49)
[2019-03-13] MEDS: Melatonin 3 MG TAB PO SCH (21:35)
[2019-03-13] MEDS: Mirtazapine TAB* 15 MG PO SCH (21:38)
[2019-03-13] MEDS: Zolpidem TAB* 5 MG PO PRN (21:42)
[2019-03-14] MEDS: Vitamin THERAPEUTIC TAB PO SCH (08:34)
[2019-03-14] MEDS: PTO:Norethindrone (NF) 0.35 MG TAB PO SCH (08:34)
[2019-03-14] MEDS: Propranolol TAB* 10 MG PO SCH ×2 (08:34→20:45)
[2019-03-14] MEDS: Lithium Carbonate TAB* 300 MG PO SCH ×2 (08:34→20:44)
[2019-03-14] MEDS: Cholecalciferol TAB* 1000 UNITS PO SCH (08:35)
[2019-03-14] MEDS: ARIPiprazole TAB* 5 MG PO SCH (08:36)
[2019-03-14] MEDS: CMCS:ClomiPRAMINE (NF) 25 MG CAP PO SCH (09:07)
[2019-03-14] MEDS: Nystatin CREAM* 15 GM TUBE TOPICAL SCH ×2 (09:07→21:08)
[2019-03-14] MEDS ORDERED: LORazepam TAB(*) 1 MG PO ONE (12:03)
--- NOTE | 2019-03-14 14:57 | PN ---
Subjective - Subjective Date of Service: 03/14/19 Service Type: 29622 Hosp care 35 min high complexity Subjective: Nursing Report: Patient was visible on unit, no chemical restraints. Slept overnight without incident. Attending some of the group activities. CC: "Fine Patient was seen and evaluated today in the common room. The patient reported no recent incidents of self injury or head banging. She was having anxiety earlier and received ativan 1mg. She reported having an adequate appetite this morning. Per nursing no behavioral issues or overnight events reported. Patient reported that she is tolerating medications without side effects. Objective - General Observations Appearance: Neat Appears Stated Age: Yes Stature: Overweight Posture: Slumped Eye Contact: Average Behavior/Activity: Peculiar - Interaction Observations Attitude Towards Examiner: Cooperative Stated Mood: Dysphoric Affect: Blunted Speech Pattern/Tone: Clear Thought Process: Coherent Perception: WNL Thought Content: Self-Deprecatory Hallucination Type: None Delusion Type: None - Cognitive Function Orientation: A&O x 4 Level of Consciousness: Awake - Medication Compliance Cooperative with Inpatient Medication Regimen: Yes - Group Participation Participates in Group Activities: Partial Assessment - Assessment Clinical Impression: 33 year old female with a history of multiple psychiatric hospitalizations presented with suicidal ideation. Plan - Plan Treatment Plan: Name: SAUL UGARTE Birthdate: 1985 [id number] Plan #Q30 minute observation with staff pass # The patient requires inpatient admission at this time to assure safety, receive treatment and work toward stabilization. # Collaboration with Nuclear Reactor Technician Joanne Sol. # Mother Reema [phone] # Patient has had 4 hospitalizations in last 6 months. Patient shows non linear response to treatment, and is unable to cope with the everyday demands of life, and continues to be a danger to herself. # [facility] is in the process of reviewing. #Encourage attendance to DBT groups #[place] level 0.70 # 2 PC completed Goals before discharge to include reducing self injurious behavior. Sodium 139 mmol/L (135-145) 02/23/19 14:31 Potassium 4.1 mmol/L (3.5-5.0) 02/23/19 14:31 BUN 16 mg/dL (6-24) 02/23/19 14:31 Creatinine 0.92 mg/dL (0.51-0.95) 02/23/19 14:31 Hemoglobin A1c 5.0 % (4.0-5.6) 02/25/19 07:44 Calcium 10.2 mg/dL (8.6-10.3) 02/23/19 14:31 AST 16 U/L (13-39) 02/23/19 14:31 ALT 24 U/L (7-52) 02/23/19 14:31 Triglycerides 120 mg/dL 02/25/19 07:44 Cholesterol 159 mg/dL 02/25/19 07:44 LDL Cholesterol 98 mg/dL 02/25/19 07:44 Vital Signs Temp Pulse Resp BP Pulse Ox 98 F 82 16 119/75 97 03/14/19 08:40 03/14/19 08:40 03/14/19 12:42 03/14/19 08:40 03/14/19 08:40 Continued Medication Management: Continue Outpt Medication Medications: Current Medications Acetaminophen (Tylenol Tab*) 650 mg PO Q4H PRN PRN Reason: for pain; or Temp >101 F Last Admin: 03/13/19 18:06 Dose: 650 mg Al Hydrox/Mg Hydrox/Simethicone (Maalox Plus*) 30 ml PO Q4H PRN PRN Reason: INDIGESTION Aripiprazole (Abilify Tab*) 10 mg PO DAILY [facility] Last Admin: 03/14/19 08:36 Dose: 10 mg Cholecalciferol (Vitamin D Tab*) 5,000 units PO DAILY [facility] Last Admin: 03/14/19 08:35 Dose: 5,000 units Clomipramine HCl (Clomipramine (Nf)) 100 mg PO DAILY [facility] Last Admin: 03/14/19 09:07 Dose: 100 mg Docusate Sodium (Colace Cap*) 200 mg PO DAILY PRN PRN Reason: CONSTIPATION Last Admin: 03/12/19 08:48 Dose: 200 mg Hydroxyzine HCl (Atarax Tab*) 50 mg PO TID PRN PRN Reason: ANXIETY Last Admin: 03/13/19 21:49 Dose: 50 mg [place] Carbonate ([place] Carbonate Tab*) 600 mg PO BEDTIME [facility] Last Admin: 03/13/19 21:37 Dose: 600 mg [place] Carbonate ([place] Carbonate Tab*) 600 mg PO DAILY [facility] Last Admin: 03/14/19 08:34 Dose: 600 mg Melatonin (Melatonin) 4.5 mg PO 2100 [facility] Last Admin: 03/13/19 21:35 Dose: 4.5 mg Mirtazapine (Remeron Tab*) 7.5 mg PO BEDTIME [facility] Last Admin: 03/13/19 21:38 Dose: 7.5 mg Multi-Ingredient Mouthwash/Gargle (Biotene Dry Mouth Oral Rinse(Nf)) 15 ml MT FIVE TIMES DAILY PRN PRN Reason: DRY MOUTH Multivitamins (Theragran Tab*) 1 tab PO DAILY [facility] Last Admin: 03/14/19 08:34 Dose: 1 tab Norethindrone (Shannon (Nf)) 0.35 mg PO DAILY [facility] Last Admin: 03/14/19 08:34 Dose: 0.35 mg Nystatin (Nystatin Cream*) 1 applic TOPICAL BID [facility] Last Admin: 03/14/19 09:07 Dose: Not Given Polyvinyl Alcohol (Polyvinyl Alcohol 1.4% Opth*) 1 drop BOTH EYES Q2H PRN PRN Reason: DRY EYE Prazosin HCl (Minipress Cap*) 1 mg PO 1700 [facility] Last Admin: 03/13/19 17:10 Dose: 1 mg Prazosin HCl (Minipress Cap*) 2 mg PO BEDTIME [facility] Last Admin: 03/13/19 21:36 Dose: 2 mg Propranolol HCl (Inderal Tab*) 10 mg PO BID [facility] Last Admin: 03/14/19 08:34 Dose: 10 mg Zolpidem Tartrate (Ambien Tab*) 5 mg PO BEDTIME PRN PRN Reason: INSOMNIA Last Admin: 03/13/19 21:42 Dose: 5 mg - Discharge Plan Discharge Plan: Consider Longer Term Tx
[2019-03-14] MEDS: Prazosin CAP* 1 MG PO SCH ×2 (17:08→20:42)
[2019-03-14] MEDS: hydrOXYzine HCL TAB* 50 MG PO PRN (20:42)
[2019-03-14] MEDS: Zolpidem TAB* 5 MG PO PRN (20:42)
[2019-03-14] MEDS: Mirtazapine TAB* 15 MG PO SCH (20:43)
[2019-03-14] MEDS: Melatonin 3 MG TAB PO SCH (20:44)
[2019-03-15] MEDS: Acetaminophen TAB* 325 MG PO PRN ×2 (02:31→23:07)
[2019-03-15] MEDS: Vitamin THERAPEUTIC TAB PO SCH (08:46)
[2019-03-15] MEDS: Lithium Carbonate TAB* 300 MG PO SCH ×2 (08:47→23:08)
[2019-03-15] MEDS: CMCS:ClomiPRAMINE (NF) 25 MG CAP PO SCH (08:48)
[2019-03-15] MEDS: ARIPiprazole TAB* 5 MG PO SCH (08:48)
[2019-03-15] MEDS: Cholecalciferol TAB* 1000 UNITS PO SCH (08:50)
[2019-03-15] MEDS: Propranolol TAB* 10 MG PO SCH ×2 (08:50→23:09)
[2019-03-15] MEDS: Nystatin CREAM* 15 GM TUBE TOPICAL SCH ×2 (08:51→22:50)
[2019-03-15] MEDS: PTO:Norethindrone (NF) 0.35 MG TAB PO SCH (08:52)
[2019-03-15] MEDS: hydrOXYzine HCL TAB* 50 MG PO PRN ×2 (11:13→23:08)
[2019-03-15] MEDS: Prazosin CAP* 1 MG PO SCH ×2 (16:32→23:08)
[2019-03-15] MEDS: Zolpidem TAB* 5 MG PO PRN (23:08)
[2019-03-15] MEDS: Mirtazapine TAB* 15 MG PO SCH (23:09)
[2019-03-15] MEDS: Melatonin 3 MG TAB PO SCH (23:09)
[2019-03-16] MEDS: Acetaminophen TAB* 325 MG PO PRN ×3 (05:05→23:29)
[2019-03-16] MEDS: ARIPiprazole TAB* 5 MG PO SCH (08:27)
[2019-03-16] MEDS: Cholecalciferol TAB* 1000 UNITS PO SCH (08:27)
[2019-03-16] MEDS: PTO:Norethindrone (NF) 0.35 MG TAB PO SCH (08:28)
[2019-03-16] MEDS: Lithium Carbonate TAB* 300 MG PO SCH ×2 (08:28→20:22)
[2019-03-16] MEDS: Vitamin THERAPEUTIC TAB PO SCH (08:28)
[2019-03-16] MEDS: CMCS:ClomiPRAMINE (NF) 25 MG CAP PO SCH (08:28)
[2019-03-16] MEDS: Propranolol TAB* 10 MG PO SCH ×2 (08:28→20:23)
[2019-03-16] MEDS: Nystatin CREAM* 15 GM TUBE TOPICAL SCH ×2 (08:51→20:44)
[2019-03-16] MEDS ORDERED: LORazepam TAB(*) 1 MG ONE (10:43)
--- NOTE | 2019-03-16 11:15 | PN ---
Subjective - Subjective Date of Service: 03/16/19 Service Type: [id number] Hosp care 35 min high complexity Subjective: rsing Report: Patient was visible on unit, no chemical restraints. Poor overnight. Head banging. CC: "Upset Patient was seen and evaluated today in the common room. The patient reported head banging and felt distressed about having to switch rooms. She said that her stress level is overwhelming. She received ativan 1mg. Patient reported that she is tolerating medications without side effects. Objective - General Observations Appearance: Disheveled Appears Stated Age: Yes Stature: Overweight Posture: Slumped Eye Contact: Avoidant Behavior/Activity: Impulsive - Interaction Observations Attitude Towards Examiner: Anxious Stated Mood: Anxious Affect: Blunted Speech Pattern/Tone: Appropriate Thought Process: Coherent Perception: WNL Thought Content: Self-Deprecatory Thought Process: Lethality: Passive Wish Hallucination Type: None Delusion Type: None - Cognitive Function Orientation: A&O x 4 Level of Consciousness: Awake Ability to Make Reasonable Decisions: Moderately Impaired - Medication Compliance Cooperative with Inpatient Medication Regimen: Yes - Group Participation Participates in Group Activities: Partial Assessment - Assessment Clinical Impression: 33 year old female with a history of multiple psychiatric hospitalizations presented with suicidal ideation. Plan - Plan Treatment Plan: Name: SAUL UGARTE Birthdate: 1985 [id number] Plan #Q15 minute observation d/c staff pass and q30 min observation # The patient requires inpatient admission at this time to assure safety, receive treatment and work toward stabilization. # Collaboration with Sticker Machine Operator Joanne Sol. #[facility] evaluation expected today # Mother Reema [phone] # Patient has had 4 hospitalizations in last 6 months. Patient shows non linear response to treatment, and is unable to cope with the everyday demands of life, and continues to be a danger to herself. # [facility] accepted patient and will update next week about the date of transfer. #Encourage attendance to DBT groups #[place] level 0.70 level was increased at admission due to recent overdose of lithium. # Naltrexone 50mg daily for self harming #Abilify increased to 15mg daily # 2 PC completed Goals before discharge to include reducing self injurious behavior. Sodium 139 mmol/L (135-145) 02/23/19 14:31 Potassium 4.1 mmol/L (3.5-5.0) 02/23/19 14:31 BUN 16 mg/dL (6-24) 02/23/19 14:31 Creatinine 0.92 mg/dL (0.51-0.95) 02/23/19 14:31 Hemoglobin A1c 5.0 % (4.0-5.6) 02/25/19 07:44 Calcium 10.2 mg/dL (8.6-10.3) 02/23/19 14:31 AST 16 U/L (13-39) 02/23/19 14:31 ALT 24 U/L (7-52) 02/23/19 14:31 Triglycerides 120 mg/dL 02/25/19 07:44 Cholesterol 159 mg/dL 02/25/19 07:44 LDL Cholesterol 98 mg/dL 02/25/19 07:44 Vital Signs Temp Pulse Resp BP Pulse Ox 98.5 F 88 18 106/80 98 03/16/19 08:00 03/16/19 08:00 03/16/19 11:09 03/16/19 08:00 03/16/19 08:00 Continued Medication Management: Continue Outpt Medication Medications: Current Medications Acetaminophen (Tylenol Tab*) 650 mg PO Q4H PRN PRN Reason: for pain; or Temp >101 F Last Admin: 03/16/19 05:05 Dose: 650 mg [place] Hydrox/Mg Hydrox/Simethicone (Maalox Plus*) 30 ml PO Q4H PRN PRN Reason: INDIGESTION Aripiprazole (Abilify Tab*) 10 mg PO DAILY [facility] Last Admin: 03/16/19 08:27 Dose: 10 mg Cholecalciferol (Vitamin D Tab*) 5,000 units PO DAILY [facility] Last Admin: 03/16/19 08:27 Dose: 5,000 units Clomipramine HCl (Clomipramine (Nf)) 100 mg PO DAILY [facility] Last Admin: 03/16/19 08:28 Dose: 100 mg Docusate Sodium (Colace Cap*) 200 mg PO DAILY PRN PRN Reason: CONSTIPATION Last Admin: 03/12/19 08:48 Dose: 200 mg Hydroxyzine HCl (Atarax Tab*) 50 mg PO TID PRN PRN Reason: ANXIETY Last Admin: 03/15/19 23:08 Dose: 50 mg [place] Carbonate ([place] Carbonate Tab*) 600 mg PO BEDTIME [facility] Last Admin: 03/15/19 23:08 Dose: 600 mg [place] Carbonate ([place] Carbonate Tab*) 600 mg PO DAILY [facility] Last Admin: 03/16/19 08:28 Dose: 600 mg Melatonin (Melatonin) 4.5 mg PO 2100 [facility] Last Admin: 03/15/19 23:09 Dose: 4.5 mg Mirtazapine (Remeron Tab*) 7.5 mg PO BEDTIME [facility] Last Admin: 03/15/19 23:09 Dose: 15 mg Multi-Ingredient Mouthwash/Gargle (Biotene Dry Mouth Oral Rinse(Nf)) 15 ml MT FIVE TIMES DAILY PRN PRN Reason: DRY MOUTH Multivitamins (Theragran Tab*) 1 tab PO DAILY [facility] Last Admin: 03/16/19 08:28 Dose: 1 tab Norethindrone (Shannon (Nf)) 0.35 mg PO DAILY [facility] Last Admin: 03/16/19 08:28 Dose: 0.35 mg Nystatin (Nystatin Cream*) 1 applic TOPICAL BID [facility] Last Admin: 03/16/19 08:51 Dose: Not Given Polyvinyl Alcohol (Polyvinyl Alcohol 1.4% Opth*) 1 drop BOTH EYES Q2H PRN PRN Reason: DRY EYE Prazosin HCl (Minipress Cap*) 1 mg PO 1700 [facility] Last Admin: 03/15/19 16:32 Dose: Not Given Prazosin HCl (Minipress Cap*) 2 mg PO BEDTIME [facility] Last Admin: 03/15/19 23:08 Dose: 2 mg Propranolol HCl (Inderal Tab*) 10 mg PO BID [facility] Last Admin: 03/16/19 08:28 Dose: 10 mg Zolpidem Tartrate (Ambien Tab*) 5 mg PO BEDTIME PRN PRN Reason: INSOMNIA Last Admin: 03/15/19 23:08 Dose: 5 mg - Discharge Plan Discharge Plan: Consider Longer Term Tx
[2019-03-16] MEDS: hydrOXYzine HCL TAB* 50 MG PO PRN (16:11)
[2019-03-16] MEDS: Prazosin CAP* 1 MG PO SCH ×2 (17:15→20:23)
[2019-03-16] MEDS: Melatonin 3 MG TAB PO SCH (20:23)
[2019-03-16] MEDS: Mirtazapine TAB* 15 MG PO SCH (20:24)
[2019-03-16] MEDS: Zolpidem TAB* 5 MG PO PRN (20:27)
[2019-03-17] MEDS: ARIPiprazole TAB* 15 MG PO SCH (08:32)
[2019-03-17] MEDS: Naltrexone TAB* 50 MG TAB PO SCH (08:33)
[2019-03-17] MEDS: Cholecalciferol TAB* 1000 UNITS PO SCH (08:33)
[2019-03-17] MEDS: CMCS:ClomiPRAMINE (NF) 25 MG CAP PO SCH (08:33)
[2019-03-17] MEDS: Propranolol TAB* 10 MG PO SCH ×2 (08:33→20:58)
[2019-03-17] MEDS: Lithium Carbonate TAB* 300 MG PO SCH ×2 (08:33→20:57)
[2019-03-17] MEDS: PTO:Norethindrone (NF) 0.35 MG TAB PO SCH (08:34)
[2019-03-17] MEDS: Nystatin CREAM* 15 GM TUBE TOPICAL SCH ×2 (08:36→21:00)
[2019-03-17] MEDS: Vitamin THERAPEUTIC TAB PO SCH (08:37)
[2019-03-17] MEDS: hydrOXYzine HCL TAB* 50 MG PO PRN ×2 (13:41→20:57)
[2019-03-17] MEDS: Prazosin CAP* 1 MG PO SCH ×2 (17:10→20:57)
[2019-03-17] MEDS: Zolpidem TAB* 5 MG PO PRN (20:57)
[2019-03-17] MEDS: Melatonin 3 MG TAB PO SCH (20:58)
[2019-03-17] MEDS: Mirtazapine TAB* 15 MG PO SCH (20:58)
[2019-03-17] MEDS: Artificial Tears* 15 ML BTL BOTH EYES PRN (21:02)
[2019-03-18] MEDS: Naltrexone TAB* 50 MG TAB PO SCH (08:19)
[2019-03-18] MEDS: Cholecalciferol TAB* 1000 UNITS PO SCH (08:19)
[2019-03-18] MEDS: ARIPiprazole TAB* 15 MG PO SCH (08:19)
[2019-03-18] MEDS: Lithium Carbonate TAB* 300 MG PO SCH ×2 (08:19→20:31)
[2019-03-18] MEDS: Propranolol TAB* 10 MG PO SCH ×2 (08:20→20:31)
[2019-03-18] MEDS: PTO:Norethindrone (NF) 0.35 MG TAB PO SCH (08:20)
[2019-03-18] MEDS: CMCS:ClomiPRAMINE (NF) 25 MG CAP PO SCH (08:20)
[2019-03-18] MEDS: Vitamin THERAPEUTIC TAB PO SCH (08:24)
[2019-03-18] MEDS: Nystatin CREAM* 15 GM TUBE TOPICAL SCH ×2 (08:24→20:34)
[2019-03-18] MEDS: Artificial Tears* 15 ML BTL BOTH EYES PRN ×2 (15:51→20:34)
[2019-03-18] MEDS: Prazosin CAP* 1 MG PO SCH ×2 (17:27→20:31)
[2019-03-18] MEDS: hydrOXYzine HCL TAB* 50 MG PO PRN (20:31)
[2019-03-18] MEDS: Melatonin 3 MG TAB PO SCH (20:31)
[2019-03-18] MEDS: Zolpidem TAB* 5 MG PO PRN (20:31)
[2019-03-18] MEDS: Mirtazapine TAB* 15 MG PO SCH (20:32)
[2019-03-19] MEDS: hydrOXYzine HCL TAB* 50 MG PO PRN ×3 (01:47→21:08)
[2019-03-19] MEDS: Acetaminophen TAB* 325 MG PO PRN ×2 (06:07→15:23)
[2019-03-19] MEDS: PTO:Norethindrone (NF) 0.35 MG TAB PO SCH (08:41)
[2019-03-19] MEDS: Cholecalciferol TAB* 1000 UNITS PO SCH (08:42)
[2019-03-19] MEDS: CMCS:ClomiPRAMINE (NF) 25 MG CAP PO SCH (08:42)
[2019-03-19] MEDS: Propranolol TAB* 10 MG PO SCH ×2 (08:42→21:08)
[2019-03-19] MEDS: Naltrexone TAB* 50 MG TAB PO SCH (08:42)
[2019-03-19] MEDS: ARIPiprazole TAB* 15 MG PO SCH (08:43)
[2019-03-19] MEDS: Vitamin THERAPEUTIC TAB PO SCH (08:43)
[2019-03-19] MEDS: Lithium Carbonate TAB* 300 MG PO SCH ×2 (08:43→21:05)
--- NOTE | 2019-03-19 11:12 | PN ---
Subjective - Subjective Date of Service: 03/19/19 Service Type: 60865 Hosp care 35 min high complexity Subjective: Nursing Report: Patient was visible on unit, no chemical restraints, Poor Sleep overnight. CC: "Stressed out Patient was seen and evaluated in the common room. The patient reported head banging. She reported feeling stressed out and did not sleep overnight. Reported having diminished appetite. She is requesting for her son to come to the unit. Objective - General Observations Appearance: Disheveled Appears Stated Age: Yes Stature: Overweight Posture: Slumped Eye Contact: Average Behavior/Activity: Accelerated - Interaction Observations Attitude Towards Examiner: Cooperative Stated Mood: Dysphoric Affect: Blunted Speech Pattern/Tone: Clear Thought Process: Coherent Perception: WNL Thought Content: Self-Deprecatory Thought Process: Lethality: Passive Wish Hallucination Type: None Delusion Type: None - Cognitive Function Orientation: A&O x 4 Level of Consciousness: Awake - Medication Compliance Cooperative with Inpatient Medication Regimen: Yes - Group Participation Participates in Group Activities: Partial Assessment - Assessment Merits Inpatient Hospitalization: For Immediate Safety Clinical Impression: 33 year old female with a history of multiple psychiatric hospitalizations presented with suicidal ideation. Plan - Plan Treatment Plan: Name: SAUL UGARTE Birthdate: 1985 [id number] Plan #Q15 minute observation # The patient requires inpatient admission at this time to assure safety, receive treatment and work toward stabilization. # Collaboration with Mold Laminator Joanne Sol. #[facility] evaluation completed # Mother Reema [phone] # Patient has had 4 hospitalizations in last 6 months. Patient shows non linear response to treatment, and is unable to cope with the everyday demands of life, and continues to be a danger to herself. # [facility] accepted patient. Expect date of transfer this week. #Encourage attendance to DBT groups #[place] level 0.70 level was increased at admission due to recent overdose of lithium. # Naltrexone 50mg daily for self harming #Abilify 15mg daily # 2 PC completed Goals before discharge to include reducing self injurious behavior. Sodium 139 mmol/L (135-145) 02/23/19 14:31 Potassium 4.1 mmol/L (3.5-5.0) 02/23/19 14:31 BUN 16 mg/dL (6-24) 02/23/19 14:31 Creatinine 0.92 mg/dL (0.51-0.95) 02/23/19 14:31 Hemoglobin A1c 5.0 % (4.0-5.6) 02/25/19 07:44 Calcium 10.2 mg/dL (8.6-10.3) 02/23/19 14:31 AST 16 U/L (13-39) 02/23/19 14:31 ALT 24 U/L (7-52) 02/23/19 14:31 Triglycerides 120 mg/dL 02/25/19 07:44 Cholesterol 159 mg/dL 02/25/19 07:44 LDL Cholesterol 98 mg/dL 02/25/19 07:44 Vital Signs Temp Pulse Resp BP Pulse Ox 98.2 F 86 16 99/78 97 03/19/19 08:00 03/19/19 08:00 03/19/19 08:00 03/19/19 08:00 03/19/19 08:00 Continued Medication Management: Continue Outpt Medication Medications: Current Medications Acetaminophen (Tylenol Tab*) 650 mg PO Q4H PRN PRN Reason: for pain; or Temp >101 F Last Admin: 03/19/19 06:07 Dose: 650 mg Al Hydrox/Mg Hydrox/Simethicone (Maalox Plus*) 30 ml PO Q4H PRN PRN Reason: INDIGESTION Aripiprazole (Abilify Tab*) 15 mg PO DAILY [facility] Last Admin: 03/19/19 08:43 Dose: 15 mg Cholecalciferol (Vitamin D Tab*) 5,000 units PO DAILY [facility] Last Admin: 03/19/19 08:42 Dose: 5,000 units Clomipramine HCl (Clomipramine (Nf)) 100 mg PO DAILY [facility] Last Admin: 03/19/19 08:42 Dose: 100 mg Docusate Sodium (Colace Cap*) 200 mg PO DAILY PRN PRN Reason: CONSTIPATION Last Admin: 03/12/19 08:48 Dose: 200 mg Hydroxyzine HCl (Atarax Tab*) 50 mg PO TID PRN PRN Reason: ANXIETY Last Admin: 03/19/19 01:47 Dose: 50 mg [place] Carbonate ([place] Carbonate Tab*) 600 mg PO BEDTIME [facility] Last Admin: 03/18/19 20:31 Dose: 600 mg [place] Carbonate ([place] Carbonate Tab*) 600 mg PO DAILY [facility] Last Admin: 03/19/19 08:43 Dose: 600 mg Melatonin (Melatonin) 4.5 mg PO 2100 [facility] Last Admin: 03/18/19 20:31 Dose: 4.5 mg Mirtazapine (Remeron Tab*) 7.5 mg PO BEDTIME [facility] Last Admin: 03/18/19 20:32 Dose: 7.5 mg Multi-Ingredient Mouthwash/Gargle (Biotene Dry Mouth Oral Rinse(Nf)) 15 ml MT FIVE TIMES DAILY PRN PRN Reason: DRY MOUTH Multivitamins (Theragran Tab*) 1 tab PO DAILY [facility] Last Admin: 03/19/19 08:43 Dose: Not Given Naltrexone HCl (Naltrexone Tab*) 50 mg PO DAILY [facility]; Protocol Last Admin: 03/19/19 08:42 Dose: 50 mg Norethindrone (Shannon (Nf)) 0.35 mg PO DAILY [facility] Last Admin: 03/19/19 08:41 Dose: 0.35 mg Nystatin (Nystatin Cream*) 1 applic TOPICAL BID [facility] Last Admin: 03/18/19 20:34 Dose: 1 applic Polyvinyl Alcohol (Polyvinyl Alcohol 1.4% Opth*) 1 drop BOTH EYES Q2H PRN PRN Reason: DRY EYE Last Admin: 03/18/19 20:34 Dose: 1 drop Prazosin HCl (Minipress Cap*) 1 mg PO 1700 [facility] Last Admin: 03/18/19 17:27 Dose: 1 mg Prazosin HCl (Minipress Cap*) 2 mg PO BEDTIME [facility] Last Admin: 03/18/19 20:31 Dose: 2 mg Propranolol HCl (Inderal Tab*) 10 mg PO BID [facility] Last Admin: 03/19/19 08:42 Dose: 10 mg Zolpidem Tartrate (Ambien Tab*) 5 mg PO BEDTIME PRN PRN Reason: INSOMNIA Last Admin: 03/18/19 20:31 Dose: 5 mg - Discharge Plan Discharge Plan: Inpatient Hospitalization
[2019-03-19] MEDS: Nystatin CREAM* 15 GM TUBE TOPICAL SCH ×2 (15:11→21:07)
[2019-03-19] MEDS: Ondansetron TAB* 4 MG PO PRN (17:33)
[2019-03-19] MEDS: Prazosin CAP* 1 MG PO SCH ×2 (17:33→21:07)
[2019-03-19] MEDS: Mirtazapine TAB* 15 MG PO SCH (21:06)
[2019-03-19] MEDS: Melatonin 3 MG TAB PO SCH (21:06)
[2019-03-19] MEDS: Zolpidem TAB* 5 MG PO PRN (21:08)
[2019-03-20] MEDS: Acetaminophen TAB* 325 MG PO PRN ×2 (02:35→20:35)
[2019-03-20] MEDS: hydrOXYzine HCL TAB* 50 MG PO PRN ×3 (02:36→20:36)
[2019-03-20] MEDS: Artificial Tears* 15 ML BTL BOTH EYES PRN ×3 (02:37→20:37)
[2019-03-20] MEDS: CMCS:ClomiPRAMINE (NF) 25 MG CAP PO SCH (09:16)
[2019-03-20] MEDS: Lithium Carbonate TAB* 300 MG PO SCH ×2 (09:16→20:36)
[2019-03-20] MEDS: ARIPiprazole TAB* 15 MG PO SCH (09:17)
[2019-03-20] MEDS: Cholecalciferol TAB* 1000 UNITS PO SCH (09:17)
[2019-03-20] MEDS: Ondansetron TAB* 4 MG PO PRN ×2 (09:17→20:36)
[2019-03-20] MEDS: PTO:Norethindrone (NF) 0.35 MG TAB PO SCH (09:17)
[2019-03-20] MEDS: Naltrexone TAB* 50 MG TAB PO SCH (09:17)
[2019-03-20] MEDS: Propranolol TAB* 10 MG PO SCH ×2 (09:17→20:35)
[2019-03-20] MEDS: Nystatin CREAM* 15 GM TUBE TOPICAL SCH ×2 (09:18→20:37)
[2019-03-20] MEDS: Vitamin THERAPEUTIC TAB PO SCH (09:18)
--- NOTE | 2019-03-20 14:17 | PN ---
Subjective - Subjective Date of Service: 03/20/19 Service Type: [id number] Hosp care 35 min high complexity Subjective: Nursing Report: Patient was visible on unit, poor sleep overnight, head banging. CC: "Horrible Patient was seen and evaluated in the common room. She reported head banging and poor appetite and sleep. She reported getting a new roommate overnight that caused her to be stressed out. Objective - General Observations Appearance: Disheveled Appears Stated Age: Yes Stature: Overweight Posture: Slumped Eye Contact: Intense Behavior/Activity: Peculiar - Interaction Observations Attitude Towards Examiner: Cooperative Stated Mood: Dysphoric Affect: Blunted Speech Pattern/Tone: Delayed Thought Process: Coherent, [place] Perception: WNL Thought Content: Self-Deprecatory Thought Process: Lethality: Passive Wish Hallucination Type: None Delusion Type: None - Cognitive Function Orientation: A&O x 4 Level of Consciousness: Awake Judgment Within Normal Limits: No Ability to Make Reasonable Decisions: Serverely Impaired - Medication Compliance Cooperative with Inpatient Medication Regimen: Yes - Group Participation Participates in Group Activities: Partial Assessment - Assessment Merits Inpatient Hospitalization: For Immediate Safety Clinical Impression: 33 year old female with a history of multiple psychiatric hospitalizations presented with suicidal ideation. Plan - Plan Treatment Plan: Name: SAUL UGARTE Birthdate: 1985 [id number] Plan #Q15 minute observation # The patient requires inpatient admission at this time to assure safety, receive treatment and work toward stabilization. # Collaboration with Merchandise Flow Team Leader Joanne Sol. #[facility] evaluation completed # Mother Reema [phone] # Patient has had 4 hospitalizations in last 6 months. Patient shows non linear response to treatment, and is unable to cope with the everyday demands of life, and continues to be a danger to herself. # [facility] accepted patient. Expected date of Transfer #Encourage attendance to DBT groups #[place] level 0.70 level was increased at admission due to recent overdose of lithium. # Naltrexone 50mg daily for self harming #Abilify 15mg daily # Ambien 10mg at night # 2 PC completed Goals before discharge to include reducing self injurious behavior. Sodium 139 mmol/L (135-145) 02/23/19 14:31 Potassium 4.1 mmol/L (3.5-5.0) 02/23/19 14:31 BUN 16 mg/dL (6-24) 02/23/19 14:31 Creatinine 0.92 mg/dL (0.51-0.95) 02/23/19 14:31 Hemoglobin A1c 5.0 % (4.0-5.6) 02/25/19 07:44 Calcium 10.2 mg/dL (8.6-10.3) 02/23/19 14:31 AST 16 U/L (13-39) 02/23/19 14:31 ALT 24 U/L (7-52) 02/23/19 14:31 Triglycerides 120 mg/dL 02/25/19 07:44 Cholesterol 159 mg/dL 02/25/19 07:44 LDL Cholesterol 98 mg/dL 02/25/19 07:44 Vital Signs Temp Pulse Resp BP Pulse Ox 98.3 F 79 18 124/77 99 03/20/19 08:00 03/20/19 08:00 03/20/19 08:00 03/20/19 08:00 03/20/19 08:00 Continued Medication Management: Continue Outpt Medication Medications: Current Medications Acetaminophen (Tylenol Tab*) 650 mg PO Q4H PRN PRN Reason: for pain; or Temp >101 F Last Admin: 03/20/19 02:35 Dose: 650 mg Al Hydrox/Mg Hydrox/Simethicone (Maalox Plus*) 30 ml PO Q4H PRN PRN Reason: INDIGESTION Aripiprazole (Abilify Tab*) 15 mg PO DAILY [facility] Last Admin: 03/20/19 09:17 Dose: 15 mg Cholecalciferol (Vitamin D Tab*) 5,000 units PO DAILY [facility] Last Admin: 03/20/19 09:17 Dose: 5,000 units Clomipramine HCl (Clomipramine (Nf)) 100 mg PO DAILY [facility] Last Admin: 03/20/19 09:16 Dose: 100 mg Docusate Sodium (Colace Cap*) 200 mg PO DAILY PRN PRN Reason: CONSTIPATION Last Admin: 03/12/19 08:48 Dose: 200 mg Hydroxyzine HCl (Atarax Tab*) 50 mg PO TID PRN PRN Reason: ANXIETY Last Admin: 03/20/19 09:16 Dose: 50 mg [place] Carbonate ([place] Carbonate Tab*) 600 mg PO BEDTIME [facility] Last Admin: 03/19/19 21:05 Dose: 600 mg [place] Carbonate ([place] Carbonate Tab*) 600 mg PO DAILY [facility] Last Admin: 03/20/19 09:16 Dose: 600 mg Melatonin (Melatonin) 4.5 mg PO 2100 [facility] Last Admin: 03/19/19 21:06 Dose: 4.5 mg Mirtazapine (Remeron Tab*) 7.5 mg PO BEDTIME [facility] Last Admin: 03/19/19 21:06 Dose: 7.5 mg Multi-Ingredient Mouthwash/Gargle (Biotene Dry Mouth Oral Rinse(Nf)) 15 ml MT FIVE TIMES DAILY PRN PRN Reason: DRY MOUTH Multivitamins (Theragran Tab*) 1 tab PO DAILY [facility] Last Admin: 03/20/19 09:18 Dose: Not Given Naltrexone HCl (Naltrexone Tab*) 50 mg PO DAILY [facility]; Protocol Last Admin: 03/20/19 09:17 Dose: 50 mg Norethindrone (Shannon (Nf)) 0.35 mg PO DAILY [facility] Last Admin: 03/20/19 09:17 Dose: 0.35 mg Nystatin (Nystatin Cream*) 1 applic TOPICAL BID [facility] Last Admin: 03/20/19 09:18 Dose: Not Given Ondansetron HCl (Zofran Tab*) 4 mg PO Q8H PRN PRN Reason: NAUSEA Last Admin: 03/20/19 09:17 Dose: 4 mg Polyvinyl Alcohol (Polyvinyl Alcohol 1.4% Opth*) 1 drop BOTH EYES Q2H PRN PRN Reason: DRY EYE Last Admin: 03/20/19 02:37 Dose: 1 drop Prazosin HCl (Minipress Cap*) 1 mg PO 1700 [facility] Last Admin: 03/19/19 17:33 Dose: 1 mg Prazosin HCl (Minipress Cap*) 2 mg PO BEDTIME [facility] Last Admin: 03/19/19 21:07 Dose: 2 mg Propranolol HCl (Inderal Tab*) 10 mg PO BID [facility] Last Admin: 03/20/19 09:17 Dose: 10 mg Zolpidem Tartrate (Ambien Tab*) 10 mg PO BEDTIME PRN PRN Reason: INSOMNIA Last Admin: 03/19/19 21:08 Dose: 10 mg - Discharge Plan Discharge Plan: Consider Longer Term Tx
[2019-03-20] MEDS: Prazosin CAP* 1 MG PO SCH ×2 (17:55→20:34)
[2019-03-20] MEDS: Zolpidem TAB* 5 MG PO PRN (20:35)
[2019-03-20] MEDS: Melatonin 3 MG TAB PO SCH (20:35)
[2019-03-20] MEDS: Mirtazapine TAB* 15 MG PO SCH (20:36)
[2019-03-21] MEDS: Acetaminophen TAB* 325 MG PO PRN ×2 (00:11→15:51)
[2019-03-21] MEDS: Propranolol TAB* 10 MG PO SCH ×2 (08:47→21:30)
[2019-03-21] MEDS: Vitamin THERAPEUTIC TAB PO SCH (08:47)
[2019-03-21] MEDS: Nystatin CREAM* 15 GM TUBE TOPICAL SCH ×2 (08:47→21:58)
[2019-03-21] MEDS: Cholecalciferol TAB* 1000 UNITS PO SCH (08:48)
[2019-03-21] MEDS: PTO:Norethindrone (NF) 0.35 MG TAB PO SCH (08:48)
[2019-03-21] MEDS: Naltrexone TAB* 50 MG TAB PO SCH (08:48)
[2019-03-21] MEDS: Lithium Carbonate TAB* 300 MG PO SCH ×2 (08:48→21:27)
[2019-03-21] MEDS: ARIPiprazole TAB* 15 MG PO SCH (08:48)
[2019-03-21] MEDS: CMCS:ClomiPRAMINE (NF) 25 MG CAP PO SCH (08:49)
[2019-03-21] MEDS: Docusate CAP* 100 MG PO PRN (10:08)
--- NOTE | 2019-03-21 12:00 | PN ---
Subjective - Subjective Date of Service: 03/21/19 Service Type: 67346 Hosp care 35 min high complexity Subjective: Nursing Report: Patient was visible on unit, head banging, Attending some group activities. CC: "Terrible Patient was seen and evaluated in the common room. She is requesting to have her son visit the unit. She is anxious about leaving tomorrow and going to the [facility] hospital. She reported getting a few hours of sleep last night. She reported having a diminished appetite. Objective - General Observations Appearance: Disheveled Appears Stated Age: Yes Stature: Overweight Posture: Slumped Eye Contact: Avoidant Behavior/Activity: Impulsive - Interaction Observations Attitude Towards Examiner: Anxious Stated Mood: Dysphoric Affect: Blunted Speech Pattern/Tone: Clear Thought Process: Impoverished, [place] Thought Content: Self-Deprecatory Thought Process: Lethality: Passive Wish Hallucination Type: None Delusion Type: Denies - Cognitive Function Orientation: A&O x 4 Level of Consciousness: Awake Judgment Within Normal Limits: No - Medication Compliance Cooperative with Inpatient Medication Regimen: Yes - Group Participation Participates in Group Activities: Partial Assessment - Assessment Merits Inpatient Hospitalization: For Immediate Safety Clinical Impression: 33 year old female with a history of multiple psychiatric hospitalizations presented with suicidal ideation. Plan - Plan Treatment Plan: Name: SAUL UGARTE Birthdate: 1985 [id number] Plan #Q15 minute observation # The patient requires inpatient admission at this time to assure safety, receive treatment and work toward stabilization. # Collaboration with [employer] Joanne Sol. #[facility] evaluation completed # Mother Reema [phone] # Patient has had 4 hospitalizations in last 6 months. Patient shows non linear response to treatment, and is unable to cope with the everyday demands of life, and continues to be a danger to herself. # [facility] accepted patient. Expected date of Transfer #Encourage attendance to DBT groups #[place] level 0.70 level was increased at admission due to recent overdose of lithium. # Naltrexone 50mg daily for self harming #Abilify 15mg daily # Ambien 10mg at night # 2 PC completed Goals before discharge to include reducing self injurious behavior. Sodium 139 mmol/L (135-145) 02/23/19 14:31 Potassium 4.1 mmol/L (3.5-5.0) 02/23/19 14:31 BUN 16 mg/dL (6-24) 02/23/19 14:31 Creatinine 0.92 mg/dL (0.51-0.95) 02/23/19 14:31 Hemoglobin A1c 5.0 % (4.0-5.6) 02/25/19 07:44 Calcium 10.2 mg/dL (8.6-10.3) 02/23/19 14:31 AST 16 U/L (13-39) 02/23/19 14:31 ALT 24 U/L (7-52) 02/23/19 14:31 Triglycerides 120 mg/dL 02/25/19 07:44 Cholesterol 159 mg/dL 02/25/19 07:44 LDL Cholesterol 98 mg/dL 02/25/19 07:44 Vital Signs Temp Pulse Resp BP Pulse Ox 97.9 F 85 16 116/67 97 03/21/19 08:00 03/21/19 08:00 03/21/19 08:00 03/21/19 08:00 03/21/19 08:00 Continued Medication Management: Continue Outpt Medication Medications: Current Medications Acetaminophen (Tylenol Tab*) 650 mg PO Q4H PRN PRN Reason: for pain; or Temp >101 F Last Admin: 03/21/19 00:11 Dose: 650 mg Al Hydrox/Mg Hydrox/Simethicone (Maalox Plus*) 30 ml PO Q4H PRN PRN Reason: INDIGESTION Aripiprazole (Abilify Tab*) 15 mg PO DAILY [facility] Last Admin: 03/21/19 08:48 Dose: 15 mg Cholecalciferol (Vitamin D Tab*) 5,000 units PO DAILY [facility] Last Admin: 03/21/19 08:48 Dose: 5,000 units Clomipramine HCl (Clomipramine (Nf)) 100 mg PO DAILY [facility] Last Admin: 03/21/19 08:49 Dose: 100 mg Docusate Sodium (Colace Cap*) 200 mg PO DAILY PRN PRN Reason: CONSTIPATION Last Admin: 03/21/19 10:08 Dose: 200 mg Hydroxyzine HCl (Atarax Tab*) 50 mg PO TID PRN PRN Reason: ANXIETY Last Admin: 03/20/19 20:36 Dose: 50 mg [place] Carbonate ([place] Carbonate Tab*) 600 mg PO BEDTIME [facility] Last Admin: 03/20/19 20:36 Dose: 600 mg [place] Carbonate ([place] Carbonate Tab*) 600 mg PO DAILY [facility] Last Admin: 03/21/19 08:48 Dose: 600 mg Melatonin (Melatonin) 4.5 mg PO 2100 [facility] Last Admin: 03/20/19 20:35 Dose: 4.5 mg Mirtazapine (Remeron Tab*) 7.5 mg PO BEDTIME [facility] Last Admin: 03/20/19 20:36 Dose: 7.5 mg Multi-Ingredient Mouthwash/Gargle (Biotene Dry Mouth Oral Rinse(Nf)) 15 ml MT FIVE TIMES DAILY PRN PRN Reason: DRY MOUTH Multivitamins (Theragran Tab*) 1 tab PO DAILY [facility] Last Admin: 03/21/19 08:47 Dose: 1 tab Naltrexone HCl (Naltrexone Tab*) 50 mg PO DAILY [facility]; Protocol Last Admin: 03/21/19 08:48 Dose: 50 mg Norethindrone (Shannon (Nf)) 0.35 mg PO DAILY [facility] Last Admin: 03/21/19 08:48 Dose: 0.35 mg Nystatin (Nystatin Cream*) 1 applic TOPICAL BID [facility] Last Admin: 03/21/19 08:47 Dose: Not Given Ondansetron HCl (Zofran Tab*) 4 mg PO Q8H PRN PRN Reason: NAUSEA Last Admin: 03/20/19 20:36 Dose: 4 mg Polyvinyl Alcohol (Polyvinyl Alcohol 1.4% Opth*) 1 drop BOTH EYES Q2H PRN PRN Reason: DRY EYE Last Admin: 03/20/19 20:37 Dose: 1 drop Prazosin HCl (Minipress Cap*) 1 mg PO 1700 [facility] Last Admin: 03/20/19 17:55 Dose: 1 mg Prazosin HCl (Minipress Cap*) 2 mg PO BEDTIME [facility] Last Admin: 03/20/19 20:34 Dose: 2 mg Propranolol HCl (Inderal Tab*) 10 mg PO BID [facility] Last Admin: 03/21/19 08:47 Dose: 10 mg Zolpidem Tartrate (Ambien Tab*) 10 mg PO BEDTIME PRN PRN Reason: INSOMNIA Last Admin: 03/20/19 20:35 Dose: 10 mg - Discharge Plan Discharge Plan: Inpatient Hospitalization
[2019-03-21] MEDS: hydrOXYzine HCL TAB* 50 MG PO PRN ×3 (12:41→21:30)
[2019-03-21] MEDS: Prazosin CAP* 1 MG PO SCH ×2 (17:33→21:30)
[2019-03-21] MEDS: Artificial Tears* 15 ML BTL BOTH EYES PRN (17:34)
[2019-03-21] MEDS: Melatonin 3 MG TAB PO SCH (21:27)
[2019-03-21] MEDS: Mirtazapine TAB* 15 MG PO SCH (21:29)
[2019-03-21] MEDS: Zolpidem TAB* 5 MG PO PRN (21:31)
[2019-03-22] MEDS: Acetaminophen TAB* 325 MG PO PRN (03:04)
[2019-03-22] MEDS: hydrOXYzine HCL TAB* 50 MG PO PRN ×2 (03:05→11:20)
[2019-03-22] MEDS: ARIPiprazole TAB* 15 MG PO SCH (08:23)
[2019-03-22] MEDS: Cholecalciferol TAB* 1000 UNITS PO SCH (08:23)
[2019-03-22] MEDS: Lithium Carbonate TAB* 300 MG PO SCH (08:23)
[2019-03-22] MEDS: Propranolol TAB* 10 MG PO SCH (08:23)
[2019-03-22] MEDS: PTO:Norethindrone (NF) 0.35 MG TAB PO SCH (08:24)
[2019-03-22] MEDS: CMCS:ClomiPRAMINE (NF) 25 MG CAP PO SCH (08:24)
[2019-03-22] MEDS: Vitamin THERAPEUTIC TAB PO SCH (08:24)
[2019-03-22] MEDS: Naltrexone TAB* 50 MG TAB PO SCH (08:24)
[2019-03-22 08:33] VITALS: BP 117/70
[2019-03-22] MEDS ORDERED: Diazepam TAB(*) 10 MG PO ONE (08:59)
[2019-03-22] MEDS: Nystatin CREAM* 15 GM TUBE TOPICAL SCH (09:42)
[2019-03-22] MEDS: Ondansetron TAB* 4 MG PO PRN (11:20)
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
== END 2019-03-22 12:32 | DRG 754 ==
LOC: ED 12:54 → BSU 17:00
PROVIDERS: ADMIT Psychiatry & Neurology Psychiatry; ATTEND Psychiatry & Neurology Psychiatry
PROC: GZHZZZZ Group Psychotherapy (ICD-10-PCS; principal; 2019-03-08)
DX: F32.9 Major depressive disorder, single episode, unspecified (principal); R45.851 Suicidal ideations; F43.10 Post-traumatic stress disorder, unspecified; F60.3 Borderline personality disorder; Z62.810 Personal history of physical and sexual abuse in childhood; K58.9 Irritable bowel syndrome, unspecified; K21.9 Gastro-esophageal reflux disease without esophagitis; F42.9 Obsessive-compulsive disorder, unspecified; E66.3 Overweight; K59.00 Constipation, unspecified; M41.9 Scoliosis, unspecified; F41.9 Anxiety disorder, unspecified; Z56.0 Unemployment, unspecified; Z91.410 Personal history of adult physical and sexual abuse; Z91.5 Personal history of self-harm; Z81.8 Family history of other mental and behavioral disorders; Z88.8 Allergy status to other drugs, medicaments and biological substances; Z91.048 Other nonmedicinal substance allergy status; Z68.39 Body mass index [BMI] 39.0-39.9, adult
CPT/HCPCS: 36415; 80053; 80061; 80178; 80307; 80320; 80329; 81003; 83036; 84443; 84702; 85025; 90853; 93005; 99222; 99232; 99233; 99238; 99285; A9270-GY; G0480

== ENCOUNTER 2019-07-16 16:15 | Emergency (ER) | payer MEDICAID, OTHER ==
--- NOTE | 2019-07-16 16:25 | ED ---
Psychiatric Complaint - HPI Summary HPI Summary: Patient is a 33 y/o F presenting to [facility] via EMS for SI. The patient had an appointment with her counselor today. She states that this appointment went "pretty bad" and reports that she was not able to contract for safety. As a result, the patient's counselor called EMS and patient was brought to [facility] for MHE. Patient reports Hx of self-harm and notes that she had cut her wrists two days ago. She notes multiple previous visits to [facility] for psychiatric reasons. Patient states that she is on multiple medications. Home medications and allergies are reviewed. - History Of Current Complaint Time Seen by Provider: 07/16/19 16:18 Hx Obtained From: Patient Hx Last Menstrual Period: 07/09/18 Onset/Duration: Still Present Timing: Constant Character: Depressed Has Suicidal: Reports: Thoughts, Demonstrates Gesture - Allergies/Home Medications Allergies/Adverse Reactions: Allergies Allergy/AdvReac Type Severity Reaction Status Date / Time bupropion [From Wellbutrin] Allergy Hives Verified 02/23/19 19:18 silver Allergy Hives/Diff. Verified 02/23/19 19:18 Breathing/I tching haloperidol AdvReac Agitation Verified 02/23/19 19:18 Home Medications: Home Medications Cholecalciferol TAB* [Vitamin D TAB*] 2,000 units PO DAILY 07/16/19 [History Confirmed 07/16/19] ClomiPRAMINE (NF) [Clomipramine (NF)] 50 mg PO 0900 07/16/19 [History Confirmed 07/16/19] Clomipramine (NF) 50 mg PO BEDTIME 07/16/19 [History Confirmed 07/16/19] [place] Carbonate [[place] Carbonate 600 mg cap] 600 mg PO BID 07/16/19 [ History Confirmed 07/16/19] Melatonin (NF) 3 mg PO DAILY 07/16/19 [History Confirmed 07/16/19] Mirtazapine TAB* [Remeron TAB*] 7.5 mg PO BEDTIME 07/16/19 [History Confirmed ] Norethindrone (NF) [Shannon (NF)] 0.35 mg PO DAILY 07/16/19 [History Confirmed 07/16/19] hydrOXYzine HCL TAB* [Atarax 25 MG TAB*] 50 mg PO TID PRN 07/16/19 [History Confirmed 07/16/19] PMH/Surg Hx/FS Hx/Imm Hx Endocrine/Hematology History: Denies: Hx Diabetes, Hx Thyroid Disease, Hx Anemia Cardiovascular History: Denies: Hx Hypertension, Hx Pacemaker/ICD Respiratory History: Denies: Hx Asthma, Hx Chronic Bronchitis, Hx Pneumonia, Hx Pulmonary Embolism GI History: Reports: Hx Gastroesophageal Reflux Disease, Hx Irritable Bowel Denies: Hx Crohn's Disease, Hx Diverticulosis History: Denies: Hx Acute Renal Failure, Hx Kidney Stones Musculoskeletal History: Reports: Hx Scoliosis Denies: Hx Arthritis Comment Only: Other Musculoskeletal History - Right sprained ankle Sensory History: Reports: Hx Contacts or Glasses Denies: Hx Hearing Aid Opthamlomology History: Reports: Hx Contacts or Glasses Neurological History: Denies: Hx Headaches, Hx Seizures Psychiatric History: Reports: Hx Anxiety, Hx Depression, Hx Post Traumatic Stress Disorder, Hx Inpatient Treatment, Hx Community Mental Health Tx, Hx Suicide Attempt, Other Psychiatric Issues/Disorders - borderline personality d/o Denies: Hx Attention Deficit Hyperactivity Disorder, Hx Eating Disorder - Patient denied, Hx Panic Disorder, Hx Schizophrenia, Hx Bipolar Disorder, Hx of Violent Episodes Against Others, Hx Substance Abuse - Surgical History Surgery Procedure, Year, and Place: T & A - Immunization History Date of Tetanus Vaccine: UTD Date of Influenza Vaccine: NO - Family History Known Family History: Positive: Other - FHx of depression, anxiety disorders, bipolar disorders, mood disorder Negative: Cardiac Disease, Hypertension, Diabetes Family History: FHx of depression, anxiety disorders, bipolar disorders, mood disorders - Social History Alcohol Use: None Alcohol Amount: unable to assess. pt unwilling to state. Hx Substance Use: No Substance Use Type: Reports: None Hx Tobacco Use: No Smoking Status (MU): Never Smoked Tobacco Type: Cigarettes Review of Systems Negative: Fever - on vitals, temp is 98 F Psychological: Other - positive - SI All Other Systems Reviewed And Are Negative: Yes Physical Exam - Summary Physical Exam Summary: Appearance: The patient is well-nourished in no acute distress and in no acute pain. Skin: The skin is warm and dry, and skin color reflects adequate perfusion. HEENT: The head is normocephalic and atraumatic. The pupils are equal and reactive. The conjunctivae are clear and without drainage. Nares are patent and without drainage. Mouth reveals moist mucous membranes, and the throat is without erythema and exudate. The external ears are intact. The ear canals are patent and without drainage. The tympanic membranes are intact. Neck: The neck is supple with full range of motion and non-tender. There are no carotid bruits. There is no neck vein distension. Respiratory: Chest is non-tender. Lungs are clear to auscultation and breath sounds are symmetrical and equal. Cardiovascular: Heart is regular rate and rhythm. There is no murmur or rub auscultated. There is no peripheral edema and pulses are symmetrical and equal. Abdomen: The abdomen is soft and non-tender. There are normal bowel sounds heard in all four quadrants and there is no organomegaly palpated. Musculoskeletal: There is no back tenderness noted. Extremities are non-tender with full range of motion. There is good capillary refill. There is no peripheral edema or calf tenderness elicited. Neurological: Patient is alert and oriented to person, place and time. The patient has symmetrical motor strength in all four extremities. Cranial nerves are grossly intact. Deep tendon reflexes are symmetrical and equal in all four extremities. Psychiatric: The patient has a withdrawn and flat affect, possibly tending to internal stimuli. Triage Information Reviewed: Yes Vital Signs On Initial Exam: Initial Vitals Temp Pulse Resp BP Pulse Ox 98.0 F 99 16 127/83 100 07/16/19 16:17 07/16/19 16:17 07/16/19 16:17 07/16/19 16:17 07/16/19 16:17 Vital Signs Reviewed: Yes Procedures - Sedation Patient Received Moderate/Deep Sedation with Procedure: No Diagnostics - Laboratory Result Diagrams: 07/16/19 16:54 07/16/19 16:54 Lab Statement: Any lab studies that have been ordered have been reviewed, and results considered in the medical decision making process. Course/Dx - Course Course Of Treatment: She was medically cleared here in the emergency department and underwent a mental health eval. They felt she was safe for discharge and arranged follow-up. - Differential Dx/Clinical Impression Provider Diagnosis: PTSD (post-traumatic stress disorder) - Physician Notifications Discussed Care Of Patient With: Marcin Huston Time Discussed With Above Provider: 18:32 Instructed by Provider To: Other - district gauger Dee reports that the patient' s case has been reviewed by Dr. Huston. Patient will be discharged to home. Discharge ED - Sign-Out/Discharge Documenting (check all that apply): Patient Departure - discharge - Discharge Plan Condition: Stable Disposition: HOME Patient Education Materials: Depression (DC), Anxiety (ED) Referrals: Maikol Izaguirre MD [Primary Care Provider] - - Billing Disposition and Condition Condition: STABLE Disposition: Home - Attestation Statements Document Initiated by Sherin: Yes Documenting Scribe: KURT MCKENZIE Provider For Whom Sherin is Documenting (Include Credential): TOMMIE VILLEGAS MD Scribe Attestation: KURT Kyle, scribed for TOMMIE VILLEGAS MD on 07/16/19 at 2101. Scribe Documentation Reviewed: Yes Provider Attestation: The documentation as recorded by the KURT pino accurately reflects the service I personally performed and the decisions made by me, TOMMIE VILLEGAS MD Status of Scribe Document: Viewed
[2019-07-16 16:53] LABS: Urine Appearance Clear; Urine Bilirubin Negative (Negative); Urine Blood Negative (Negative); Urine Color Straw; Urine Glucose Negative (Negative); Urine Ketones Negative (Negative); Urine Nitrite Negative (Negative); Urine Protein Negative (Negative); Urine Specific Gravity 1.006 (1.010-1.030); Urine Urobilinogen Negative (Negative)
[2019-07-16 16:59] LABS: ABS Basophils 0.1 10^3/ul (0-0.2); ABS Eosinophils 0.3 10^3/ul (0-0.6); ABS Lymphocytes 2.9 10^3/ul (1.0-4.8); ABS Monocytes 0.8 10^3/ul (0-0.8); ABS Neutrophils 6.9 10^3/ul (1.5-7.7); Eosinophil % 2.6 %; Hematocrit 38 % (35-47); Lymphocyte % 26.5 %; Mean Corpuscular HGB Conc 34 g/dL (31-36); Mean Corpuscular Hemoglobin 32 pg (27-31); Mean Corpuscular Volume 92 fL (80-97); Mean Platelet Volume 7.3 fL (7.4-10.4); Nucleated Red Blood Cells % 0.1; Platelet Count 296 10^3/uL (150-450); Red Blood Count 4.12 10^6 /uL (3.70-4.87); Red Cell Distribution Width 13 % (10-15)
[2019-07-16 17:26] LABS: HCG Pregnancy < 0.60 mIU/mL
[2019-07-16 17:35] LABS: TSH (Thyroid Stimulating Horm) 3.28 mcIU/mL (0.34-5.60)
[2019-07-16 17:35] LABS: Urine Benzodiazepine Screen None Detected (None Detect); Urine Opiates Screen None Detected (None Detect)
[2019-07-16 17:41] LABS: ALT 15 U/L (7-52); AST 12 U/L (13-39); Albumin/Globulin Ratio 1.2 (1-3); Alkaline Phosphatase 55 U/L (34-104); Anion Gap 7 mmol/L (2-11); BUN/Creatinine Ratio 16.7 (8-20); Blood Urea Nitrogen 13 mg/dL (6-24); CO2 Carbon Dioxide 25 mmol/L (22-32); Calcium 9.2 mg/dL (8.6-10.3); Chloride 106 mmol/L (101-111); EGFR African American 104.2 (>60); EGFR Non-African American 86.1 (>60); Globulin 3.4 g/dL (2-4); Glucose 91 mg/dL (70-100); Potassium 3.8 mmol/L (3.5-5.0); Sodium 138 mmol/L (135-145); Total Protein 7.4 g/dL (6.4-8.9)
[2019-07-16 17:43] LABS: Acetaminophen < 15 mcg/mL; Alcohol < 10 mg/dL (<10); Salicylate < 2.50 mg/dL (<30)
[2019-07-16 18:28] LABS: Lithium 0.49 mmol/L (0.6-1.2)
[2019-07-16 19:12] VITALS: BP 123/72
== END 2019-07-16 18:50 | disposition home or self-care (01) ==
LOC: ED 16:15
DX: F43.10 Post-traumatic stress disorder, unspecified (principal); R45.851 Suicidal ideations; F32.9 Major depressive disorder, single episode, unspecified; Z79.899 Other long term (current) drug therapy; Z88.8 Allergy status to other drugs, medicaments and biological substances; Z91.09 Other allergy status, other than to drugs and biological substances
CPT/HCPCS: 36415; 80053; 80178; 80307; 80320; 80329; 81003; 84443; 84702; 85025; 99284; G0480

== ENCOUNTER 2019-07-24 23:44 | Emergency (ER) | payer MEDICARE, OTHER ==
[2019-07-24] MEDS ORDERED: NS 0.9% 1000 ML** 1,000 ML IV ONE (23:55)
--- NOTE | 2019-07-24 23:56 | ED ---
Substance Abuse/Use - HPI Summary HPI Summary: Patient is a 33 y/o F presenting to the ED brought in on a 941 for a chief complaint of overdose at around 22:20 on 07/24/19. Patient took 30 pills of 200 mg ibuprofen, chlomipromine 200 mg, hydroxyzine 100 mg, melatonin 6 mg, prozosin 4 mg, remeron 15 mg, and lithium 1200 mg in an attempt to self-harm. Patient denies HI, SI, attempts, fever, myalgia, or headache. Patient also admits to banging her head on objects and cutting herself. Patient states she self-harmed due to flashbacks and hallucinations she was having. Patient admits attempts in the past. LNMP was in June 2019. Patient has a PMHx of IBS, scoliosis, and MH problems, and a PSHx of tonsillectomy at 7 y/o. Patient denies tobacco, alcohol, or drug use. Allergies noted. - History Of Current Complaint Stated Complaint: 941 PSYCH PER EMS Time Seen by Provider: 07/24/19 23:53 Hx Obtained From: Patient Hx Last Menstrual Period: 07/09/18 Ingestion History: Type/Name Of Drug - 30 pills of 200 mg ibuprofen, chlomipromine 200 mg, hydroxyzine 100 mg, melatonin 6 mg, prozosin 4 mg, remeron 15 mg, and lithium 1200 mg, Approximate Time Of Ingestion - 22:20 on 08/30 Overdose Characteristics: Oral Timing Of Abuse: Binge Use Severity Initially: Moderate Severity Currently: Moderate Aggravating Factor(s): Nothing Alleviating Factor(s): Nothing Associated Signs And Symptoms: Hallucinating, Intentional Ingestion, Other: - Negative HI, SI, attempt, fever, myalgia, or headache Related Hx: Suicidal: Prior Attempt(s), Possible Multi Drug Ingestion - Allergies/Home Medications Allergies/Adverse Reactions: Allergies Allergy/AdvReac Type Severity Reaction Status Date / Time bupropion [From Wellbutrin] Allergy Hives Verified 02/23/19 19:18 silver Allergy Hives/Diff. Verified 02/23/19 19:18 Breathing/I tching haloperidol AdvReac Agitation Verified 02/23/19 19:18 PMH/Surg Hx/FS Hx/Imm Hx Previously Healthy: Yes Endocrine/Hematology History: Denies: Hx Diabetes, Hx Thyroid Disease, Hx Anemia Cardiovascular History: Denies: Hx Hypertension, Hx Pacemaker/ICD Respiratory History: Denies: Hx Asthma, Hx Chronic Bronchitis, Hx Pneumonia, Hx Pulmonary Embolism GI History: Reports: Hx Gastroesophageal Reflux Disease, Hx Irritable Bowel Denies: Hx Crohn's Disease, Hx Diverticulosis History: Denies: Hx Acute Renal Failure, Hx Kidney Stones Musculoskeletal History: Reports: Hx Scoliosis Denies: Hx Arthritis Comment Only: Other Musculoskeletal History - Right sprained ankle Sensory History: Reports: Hx Contacts or Glasses Denies: Hx Legally Blind, Hx Deafness, Hx Hearing Aid Opthamlomology History: Reports: Hx Contacts or Glasses Denies: Hx Legally Blind EENT History: Denies: Hx Deafness Neurological History: Denies: Hx Headaches, Hx Seizures Psychiatric History: Reports: Hx Anxiety, Hx Depression, Hx Post Traumatic Stress Disorder, Hx Inpatient Treatment, Hx Community Mental Health Tx, Hx Suicide Attempt, Other Psychiatric Issues/Disorders - borderline personality d/o Denies: Hx Attention Deficit Hyperactivity Disorder, Hx Eating Disorder - Patient denied, Hx Panic Disorder, Hx Schizophrenia, Hx Bipolar Disorder, Hx of Violent Episodes Against Others, Hx Substance Abuse - Surgical History Surgical History: Yes Surgery Procedure, Year, and Place: T & A - Immunization History Date of Tetanus Vaccine: UTD Date of Influenza Vaccine: NO Infectious Disease History: No - Family History Known Family History: Positive: Other - FHx of depression, anxiety disorders, bipolar disorders, mood disorder Negative: Cardiac Disease, Hypertension, Diabetes Family History: FHx of depression, anxiety disorders, bipolar disorders, mood disorders - Social History Occupation: Unemployed Lives: With Family Alcohol Use: None Alcohol Amount: unable to assess. pt unwilling to state. Hx Substance Use: No Substance Use Type: Reports: None Hx Tobacco Use: No Smoking Status (MU): Never Smoked Tobacco Type: Cigarettes Review of Systems - ROS Summary Review of Systems Summary: ARIPiprazole TAB* [Abilify 15 MG TAB*] 15 mg PO DAILY tab 03/22/19 [Rx Confirmed 07/16/19] Docusate CAP* [Colace Cap*] 200 mg PO DAILY PRN cap 03/22/19 [Rx Confirmed 12/29] Naltrexone TAB* 50 mg PO DAILY tab 03/22/19 [Rx Confirmed 07/16/19] Prazosin CAP* [Minipress CAP*] 1 mg PO 1700 cap 03/22/19 [Rx Confirmed 07/16/19 ] Prazosin CAP* [Minipress CAP*] 2 mg PO BEDTIME cap 03/22/19 [Rx Confirmed 07/16] Vitamin THERAPEUTIC TAB* [Theragran TAB*] 1 tab PO DAILY tab 03/22/19 [Rx Confirmed 07/16/19] Cholecalciferol TAB* [Vitamin D TAB*] 2,000 units PO DAILY 07/16/19 [History Confirmed 07/16/19] ClomiPRAMINE (NF) [Clomipramine (NF)] 50 mg PO 0900 07/16/19 [History Confirmed 07/16/19] Clomipramine (NF) 50 mg PO BEDTIME 07/16/19 [History Confirmed 07/16/19] [place] Carbonate [[place] Carbonate 600 mg cap] 600 mg PO BID 07/16/19 [ History Confirmed 07/16/19] Melatonin (NF) 3 mg PO DAILY 07/16/19 [History Confirmed 07/16/19] Mirtazapine TAB* [Remeron TAB*] 7.5 mg PO BEDTIME 07/16/19 [History Confirmed ] Norethindrone (NF) [Shannon (NF)] 0.35 mg PO DAILY 07/16/19 [History Confirmed 07/16/19] hydrOXYzine HCL TAB* [Atarax 25 MG TAB*] 50 mg PO TID PRN 07/16/19 [History Confirmed 07/16/19] Negative: Fever Negative: Myalgia Negative: Headache Positive: Other - Positive multiple drug ingestion, hallucinations, self-harm; negative HI, SI, attempt All Other Systems Reviewed And Are Negative: Yes Physical Exam - Summary Physical Exam Summary: General: Well-developed, Well-nourished FEMALE. No acute distress. HEENT: Normocephalic, Atraumatic. Eyes: Conjuctiva normal, PERRL. Ears: TMs within normal limits. Nares: (-) discharge, (-) erythema. Oropharynx: Clear, mucous membranes moist, (-) exudates. Neck: Soft, FROM, (-) lymphadenopathy, (-) thyromegaly, (-) JVD. Cardiovascular: Normal sinus rhythm, (-) murmur. Lungs: Clear to auscultation bilaterally (-) wheezes, (-) rales, (-) rhonchi. Abdomen: Soft, non-tender, non-distended, (-) organomegaly, normal bowel sounds. Back: (-) CVA tenderness Extremities: No edema. Skin: Warm, dry, (-) rash. Neuro: Alert and oriented x3, no focal deficits. Psychiatric: Mood normal, flat affect, vapid stare. Triage Information Reviewed: Yes Vital Signs Reviewed: Yes Procedures - Sedation Patient Received Moderate/Deep Sedation with Procedure: No Diagnostics - Laboratory Result Diagrams: 07/25/19 00:19 07/25/19 00:19 Lab Statement: Any lab studies that have been ordered have been reviewed, and results considered in the medical decision making process. - EKG 00:58 Cardiac Rate: NL - 99 BPM EKG Rhythm: Sinus Rhythm ST Segment: Normal Ectopy: None Summary of EKG Findings: EKG at 00:58 reveals normal sinus rhythm with rate of 99 BPM, no acute changes, no ischemic changes, no STEMI. This EKG was reviewed and interpreted by Dr. Epstein. 02:19 Cardiac Rate: NL - 96 BPM EKG Rhythm: Sinus Rhythm ST Segment: Normal Ectopy: None Summary of EKG Findings: EKG at 02:19 reveals normal sinus rhythm with rate of 96 BPM, no acute changes, no ischemic changes, no STEMI. This EKG was reviewed and interpreted by Dr. Epstein. Re-Evaluation - Re-Evaluation First Re-Evaluation Time: 00:55 Change: Unchanged Comment: At 00:55, patient is awaiting medical clearance for a MH evaluation. Second Re-Evaluation Time: 01:05 Change: Unchanged Comment: Poison Control Center recommends a lithium level now, and every 2 hours until a drop shows. Normal saline, EKG initial and repeat EKG in 2 hours, making sure QTc is not greater than 500 and if it is give Mg. Third Re-Evaluation Time: 04:25 Change: Unchanged Comment: At 04:25, patient is medically cleared for a MH evaluation. Course/Dx - Course Course Of Treatment: 33-year-old female brought in for overdose. Patient states tonight she was having flashbacks and was smashing things at her apartment. He was self harming and took extra pills tonight to try to get rid of the pain. She denies any suicidal ideation. She states she took about 30 ibuprofen and a double dose of her nighttime medications. Poison control was contacted and their recommendations are noted. [place] level started coming down and patient was cleared for mental health evaluation. Signed out at change of shift awaiting mental health evaluation. - Diagnoses Provider Diagnoses: Overdose, Mood disorder Discharge ED - Sign-Out/Discharge Documenting (check all that apply): Sign-Out Patient Signing out patient TO: Rachana Reyez - 07:00 on 07/25/19 - Discharge Plan Condition: Stable Referrals: Maikol Izaguirre MD [Primary Care Provider] - - Billing Disposition and Condition Condition: STABLE - Attestation Statements Document Initiated by Scribe: Yes Documenting Scribe: Silvina Stahl Provider For Whom Scribe is Documenting (Include Credential): Jailyn Epstein MD Scribe Attestation: Silvina Kyle, scribed for Jailyn Epstein MD on 07/25/19 at 0631. Scribe Documentation Reviewed: Yes Provider Attestation: The documentation as recorded by the Silvina pino accurately reflects the service I personally performed and the decisions made by me, Jailyn Epstein MD Status of Scribe Document: Viewed
[2019-07-25 00:28] LABS: ABS Basophils 0.1 10^3/ul (0-0.2); ABS Eosinophils 0.2 10^3/ul (0-0.6); ABS Lymphocytes 2.3 10^3/ul (1.0-4.8); ABS Monocytes 0.8 10^3/ul (0-0.8); ABS Neutrophils 8.1 10^3/ul (1.5-7.7); Eosinophil % 1.8 %; Hematocrit 35 % (35-47); Hemoglobin 11.9 g/dL (12.0-16.0); Mean Corpuscular HGB Conc 34 g/dL (31-36); Mean Corpuscular Hemoglobin 31 pg (27-31); Mean Corpuscular Volume 91 fL (80-97); Mean Platelet Volume 7.2 fL (7.4-10.4); Nucleated Red Blood Cells % 0.1; Platelet Count 270 10^3/uL (150-450); Red Blood Count 3.84 10^6 /uL (3.70-4.87); Red Cell Distribution Width 12 % (10-15); White Blood Count 11.5 10^3/uL (3.5-10.8)
[2019-07-25 00:42] LABS: Urine Appearance Cloudy; Urine Bacteria 1+ (Absent); Urine Bilirubin Negative (Negative); Urine Blood 3+ (Negative); Urine Color Yellow; Urine Glucose Negative (Negative); Urine Ketones Negative (Negative); Urine Nitrite Negative (Negative); Urine Protein Negative (Negative); Urine Red Blood Cell 2+(6-10/hpf) (Absent); Urine Specific Gravity 1.003 (1.010-1.030); Urine Squamous Epithelial Cell Present (Absent); Urine Urobilinogen Negative (Negative); Urine White Blood Cell Trace(0-5/hpf) (Absent)
[2019-07-25 00:44] LABS: Urine Benzodiazepine Screen None Detected (None Detect); Urine Opiates Screen None Detected (None Detect)
[2019-07-25 00:47] LABS: ALT 96 U/L (7-52); AST 49 U/L (13-39); Albumin/Globulin Ratio 1.2 (1-3); Alkaline Phosphatase 56 U/L (34-104); Anion Gap 8 mmol/L (2-11); BUN/Creatinine Ratio 17.7 (8-20); Blood Urea Nitrogen 17 mg/dL (6-24); CO2 Carbon Dioxide 23 mmol/L (22-32); Calcium 9.4 mg/dL (8.6-10.3); Chloride 106 mmol/L (101-111); EGFR Non-African American 67.8 (>60); Globulin 3.3 g/dL (2-4); Glucose 105 mg/dL (70-100); Potassium 3.7 mmol/L (3.5-5.0); Sodium 137 mmol/L (135-145); Total Protein 7.3 g/dL (6.4-8.9)
[2019-07-25 00:53] LABS: Acetaminophen < 15 mcg/mL; Alcohol < 10 mg/dL (<10); HCG Pregnancy < 0.60 mIU/mL; Salicylate < 2.50 mg/dL (<30)
[2019-07-25 01:07] LABS: TSH (Thyroid Stimulating Horm) 4.49 mcIU/mL (0.34-5.60)
[2019-07-25 01:54] LABS: Lithium 0.79 mmol/L (0.6-1.2)
--- NOTE | 2019-07-25 07:11 | ED ---
Progress - Progress Note Progress Note: Pt is a signout from Dr. Epstein at 0700 on 07/25/19 pending MHE and disposition. - Results/Orders Results/Orders: EKG at 0736 shows NSR at 94bpm with no significant change from prior. QTc is 483 compared with prior EKG at 219. ED physician has reviewed and interpreted this EKG. We can stop monitoring the pt via EKG if the QTc is >500, which it is. Re-Evaluation - Re-Evaluation First Re-Evaluation Time: 00:55 Change: Unchanged Comment: At 00:55, patient is awaiting medical clearance for a MH evaluation. Second Re-Evaluation Time: 01:05 Change: Unchanged Comment: Poison Control Center recommends a lithium level now, and every 2 hours until a drop shows. Normal saline, EKG initial and repeat EKG in 2 hours, making sure QTc is not greater than 500 and if it is give Mg. Third Re-Evaluation Time: 04:25 Change: Unchanged Comment: At 04:25, patient is medically cleared for a MH evaluation. 4th Re-Evaluation Time: 07:29 Change: Unchanged Comment: EKG ordered to monitor QTc. - minimal improved from earlier <500 both EKG 5th Re-Evaluation Time: 08:58 Change: Improved Comment: Pt can be d/c'ed per Dr. Aj with dx of mood disorder. He is familiar with pt. Pt has follow-up plan Course/Dx - Diagnoses Provider Diagnoses: Mood disorder Discharge ED - Sign-Out/Discharge Documenting (check all that apply): Patient Departure, Receiving Sign-Out Receiving patient FROM: Jailyn Epstein - Discharge Plan Condition: Stable Disposition: HOME Referrals: Maikol Izaguirre MD [Primary Care Provider] - - Billing Disposition and Condition Condition: STABLE Disposition: Home - Attestation Statements Document Initiated by Scribe: Yes Documenting Scribe: Tea Riley Provider For Whom Sherin is Documenting (Include Credential): Rachana Reyez MD. Scribe Attestation: Tea Kyle, scribed for Rachana Reyez MD. on 07/25/19 at 0912. Scribe Documentation Reviewed: Yes Provider Attestation: The documentation as recorded by the Tea pino accurately reflects the service I personally performed and the decisions made by me, Rachana Reyez MD. Status of Scribe Document: Viewed
[2019-07-25 08:04] VITALS: BP 118/83
--- NOTE | 2019-07-25 08:57 | PN ---
ED Psychiatric Progress Note Date of Service: 07/25/19 Subjective: 33 year old with borderline personality disorder and recent discharge from [facility] is well known to this contract technical writer. The patient was brought to [facility] following overdose of ibuprofen. She reported her reason for overdosing was feeling lonely. She is currently not suicidal and is future orientated about seeing her son. She wants to live for her son. No recent substance abuse. Patient is living at [facility] and reported being happy with her current living situation. Denied access to firearms. She reported no changes in sleep or appetite. The patient denied suicidal and or homicidal ideation intent or plan. The patient denied auditory and/ or visual hallucinations. Objective: APPEARANCE : 33 year old female who appears stated age. Patient is not malodourous, and appears to have fair hygiene and grooming. BEHAVIOR: Cooperative , calm EYE CONTACT: Fair PSYCHOMOTOR ACTIVITY: No psychomotor agitation or retardation. MOVEMENTS: No abnormal movements observed. SPEECH : Normal rate, rhythm, volume and tone. MOOD : "Fine " AFFECT : Type is euthymic, Mood Congruent THOUGHT PROCESS: Formulated and organized in a logical, linear goal directed manner. No flight of ideas, neologism (made up words) , perseveration , tangential , loose associations , or circumstantiality. THOUGHT CONTENT: no delusions, obsessions, phobias or preoccupations. PERCEPTION: No current auditory or visual hallucinations. Doesnt appear to be responding to internal cues. No evidence of depersonalization , de-realization, or illusions SUICIDALITY Denied suicidal ideation, intent or plan. HOMICIDALITY Denied homicidal ideation, intent or plan. Insight/judgment: Poor insight and judgment ORIENTATION: Oriented to self, location, and time. Assessment: 33 year old with chronic self injurious behavior and borderline personality disorder and recent discharge from [facility]. This patient is well known to this contract technical writer, and she is currently not suicidal. Plan: Patient can be discharged home and plans to follow up at [facility] program and [facility]. Patient has failed many inpatient hospitalizations interventions and has chronic self injurious behaviors. Risk factors: , Age, single, history of mental illness. Prior history of a suicide attempt. Trauma history. Protective factors: Currently no suicidal ideation, intent or plan, has children , stable living situation. Has social/ family support system. No history of service. Currently no feelings of hopelessness, not in an occupation of social isolation, doesnt have multiple medical conditions, no family history of suicide, doesnt have access to firearms. Doesnt have command hallucinations and or psychotic features at this time. No current substance abuse. No current alcohol abuse. Not an anniversary of a loss of a loved one. No changes in relationship status, housing, job, or school. Currently future orientated. Patient engaged in treatment and compliant with medication. Sodium 137 mmol/L (135-145) 07/25/19 00:19 Potassium 3.7 mmol/L (3.5-5.0) 07/25/19 00:19 BUN 17 mg/dL (6-24) 07/25/19 00:19 Creatinine 0.96 mg/dL (0.51-0.95) H 07/25/19 00:19 Calcium 9.4 mg/dL (8.6-10.3) 07/25/19 00:19 AST 49 U/L (13-39) H 07/25/19 00:19 ALT 96 U/L (7-52) H 07/25/19 00:19 Vital Signs Temp Pulse Resp BP Pulse Ox 97.8 F 95 16 118/83 98 07/25/19 07:45 07/25/19 07:45 07/25/19 07:45 07/25/19 07:45 07/25/19 07:45 Lab Results - Entire Visit 07/25/19 07/25/19 07/25/19 03:37 01:36 00:19 WBC RBC Hgb Hct MCV MCH MCHC RDW Plt Count MPV Neut % (Auto) Lymph % (Auto) [place] % (Auto) Eos % (Auto) Baso % (Auto) Absolute Neuts (auto) Absolute Lymphs (auto) Absolute Monos (auto) Absolute Eos (auto) Absolute Basos (auto) Absolute Nucleated RBC Nucleated RBC % Sodium Potassium Chloride Carbon Dioxide Anion Gap BUN Creatinine Est GFR ( Amer) Est GFR (Non-Af Amer) BUN/Creatinine Ratio Glucose Lactic Acid 1.4 Calcium Total Bilirubin AST ALT Alkaline Phosphatase Total Protein Albumin Globulin Albumin/Globulin Ratio TSH Beta HCG, Quant Urine Color Urine Appearance Urine pH Ur Specific [place] Urine Protein Urine Ketones Urine Blood Urine Nitrate Urine Bilirubin Urine Urobilinogen Ur Leukocyte Esterase Urine WBC (Auto) Urine RBC (Auto) Ur Squamous Epith Cells Urine Bacteria Urine Glucose Salicylates Urine Opiates Screen Acetaminophen Ur Barbiturates Screen Ur Phencyclidine Scrn Ur Amphetamines Screen U Benzodiazepines Scrn [place] 0.70 0.84 Urine Cocaine Screen U Cannabinoids Screen Serum Alcohol 07/25/19 07/25/19 07/24/19 00:19 00:19 23:49 WBC 11.5 H RBC 3.84 Hgb 11.9 L Hct 35 MCV 91 MCH 31 MCHC 34 RDW 12 Plt Count 270 MPV 7.2 L Neut % (Auto) 70.2 Lymph % (Auto) 20.0 [place] % (Auto) 7.2 Eos % (Auto) 1.8 Baso % (Auto) 0.8 Absolute Neuts (auto) 8.1 H Absolute Lymphs (auto) 2.3 Absolute Monos (auto) 0.8 Absolute Eos (auto) 0.2 Absolute Basos (auto) 0.1 Absolute Nucleated RBC 0.0 Nucleated RBC % 0.1 Sodium 137 Potassium 3.7 Chloride 106 Carbon Dioxide 23 Anion Gap 8 BUN 17 Creatinine 0.96 H Est GFR ( Amer) 82.0 Est GFR (Non-Af Amer) 67.8 BUN/Creatinine Ratio 17.7 Glucose 105 H Lactic Acid Calcium 9.4 Total Bilirubin 0.30 AST 49 H ALT 96 H Alkaline Phosphatase 56 Total Protein 7.3 Albumin 4.0 Globulin 3.3 Albumin/Globulin Ratio 1.2 TSH 4.49 Beta HCG, Quant < 0.60 Urine Color Urine Appearance Urine pH Ur Specific [place] Urine Protein Urine Ketones Urine Blood Urine Nitrate Urine Bilirubin Urine Urobilinogen Ur Leukocyte Esterase Urine WBC (Auto) Urine RBC (Auto) Ur Squamous Epith Cells Urine Bacteria Urine Glucose Salicylates < 2.50 Urine Opiates Screen None detected Acetaminophen < 15 Ur Barbiturates Screen None detected Ur Phencyclidine Scrn None detected Ur Amphetamines Screen None detected U Benzodiazepines Scrn None detected [place] 0.79 Urine Cocaine Screen None detected U Cannabinoids Screen None detected Serum Alcohol < 10 07/24/19 23:49 WBC RBC Hgb Hct MCV MCH MCHC RDW Plt Count MPV Neut % (Auto) Lymph % (Auto) [place] % (Auto) Eos % (Auto) Baso % (Auto) Absolute Neuts (auto) Absolute Lymphs (auto) Absolute Monos (auto) Absolute Eos (auto) Absolute Basos (auto) Absolute Nucleated RBC Nucleated RBC % Sodium Potassium Chloride Carbon Dioxide Anion Gap BUN Creatinine Est GFR ( Amer) Est GFR (Non-Af Amer) BUN/Creatinine Ratio Glucose Lactic Acid Calcium Total Bilirubin AST ALT Alkaline Phosphatase Total Protein Albumin Globulin Albumin/Globulin Ratio TSH Beta HCG, Quant Urine Color Yellow Urine Appearance Cloudy Urine pH 7.0 Ur Specific [place] 1.003 L Urine Protein Negative Urine Ketones Negative Urine Blood 3+ A Urine Nitrate Negative Urine Bilirubin Negative Urine Urobilinogen Negative Ur Leukocyte Esterase Trace A Urine WBC (Auto) Trace(0-5/hpf) Urine RBC (Auto) 2+(6-10/hpf) A Ur Squamous Epith Cells Present A Urine Bacteria 1+ A Urine Glucose Negative Salicylates Urine Opiates Screen Acetaminophen Ur Barbiturates Screen Ur Phencyclidine Scrn Ur Amphetamines Screen U Benzodiazepines Scrn [place] Urine Cocaine Screen U Cannabinoids Screen Serum Alcohol
== END 2019-07-25 09:18 | disposition home or self-care (01) ==
LOC: ED 23:44
DX: F39 Unspecified mood [affective] disorder (principal); T65.91XA Toxic effect of unspecified substance, accidental (unintentional), initial encounter; K21.9 Gastro-esophageal reflux disease without esophagitis; F41.9 Anxiety disorder, unspecified; F32.9 Major depressive disorder, single episode, unspecified; F43.10 Post-traumatic stress disorder, unspecified; Z91.5 Personal history of self-harm; Z79.899 Other long term (current) drug therapy
CPT/HCPCS: 36415; 80053; 80178; 80307; 80320; 80329; 81003; 81015; 83605; 84443; 84702; 85025; 87086; 93005; 96360; 99285; G0480

== ENCOUNTER 2020-03-26 22:25 | Inpatient (IN) ==
[2020-03-26] MEDS ORDERED: Charcoal 50 gm/Sorbitol 50 gm/240 ml BTL PO ONE (22:42)
[2020-03-26] MEDS: NS 0.9% 1000 ml BAG 1,000 ML IV ONE ×2 (23:13→23:54)
[2020-03-26 23:25] LABS: ABS Basophils 0.1 10^3/ul (0-0.2); ABS Eosinophils 0.3 10^3/ul (0-0.6); ABS Lymphocytes 4.1 10^3/ul (1.0-4.8); ABS Monocytes 1.5 10^3/ul (0-0.8); Eosinophil % 1.9 %; Hematocrit 36 % (35-47); Hemoglobin 12.6 g/dL (12.0-16.0); Lymphocyte % 25.5 %; Mean Corpuscular HGB Conc 35 g/dL (31-36); Mean Corpuscular Hemoglobin 32 pg (27-31); Mean Corpuscular Volume 90 fL (80-97); Mean Platelet Volume 7.4 fL (7.4-10.4); Nucleated Red Blood Cells % 0.1; Platelet Count 408 10^3/uL (150-450); Red Blood Count 3.99 10^6 /uL (3.70-4.87); Red Cell Distribution Width 14 % (10-15); White Blood Count 15.9 10^3/uL (3.5-10.8)
[2020-03-26 23:47] LABS: ALT 46 U/L (7-52); AST 26 U/L (13-39); Albumin 4.5 g/dL (3.2-5.2); Albumin/Globulin Ratio 1.3 (1-3); Alkaline Phosphatase 57 U/L (34-104); Anion Gap 16 mmol/L (2-11); BUN/Creatinine Ratio 11.5 (8-20); Blood Urea Nitrogen 14 mg/dL (6-24); CO2 Carbon Dioxide 18 mmol/L (22-32); Calcium 9.7 mg/dL (8.6-10.3); Chloride 105 mmol/L (101-111); EGFR African American 61.8 (>60); EGFR Non-African American 51.1 (>60); Globulin 3.4 g/dL (2-4); Glucose 126 mg/dL (70-100); Potassium 3.8 mmol/L (3.5-5.0); Sodium 139 mmol/L (135-145); Total Protein 7.9 g/dL (6.4-8.9)
[2020-03-26 23:52] LABS: HCG Pregnancy < 0.60 mIU/mL
[2020-03-27 00:39] LABS: Urine Appearance Cloudy; Urine Bilirubin Negative (Negative); Urine Blood Negative (Negative); Urine Color Yellow; Urine Glucose Negative (Negative); Urine Ketones Negative (Negative); Urine Nitrite Negative (Negative); Urine Protein Negative (Negative); Urine Specific Gravity 1.025 (1.010-1.030); Urine Urobilinogen Negative (Negative)
[2020-03-27 00:40] LABS: Lithium 0.85 mmol/L (0.6-1.2)
[2020-03-27 00:45] LABS: Alcohol, S < 10 mg/dL (<10); Salicylate < 2.50 mg/dL (<30)
[2020-03-27 00:49] LABS: Acetaminophen 99 mcg/mL
[2020-03-27 00:52] LABS: Urine Benzodiazepine Screen None Detected (None Detect); Urine Cannabinoids Screen None Detected (None Detect); Urine Opiates Screen None Detected (None Detect)
[2020-03-27 01:06] LABS: TSH Ultra Thyroid Stim Horm 6.46 mcIU/mL (0.34-5.60)
[2020-03-27] MEDS ORDERED: NS 0.9% 1000 ml BAG 1,000 ML IV ONE (01:11)
[2020-03-27] MEDS ORDERED: Al Hydrox/Mg Hydrox/Simet LIQ 30 ML UDC PO PRN (07:33)
[2020-03-27] MEDS: Vitamin THERAPEUTIC TAB PO SCH (11:08)
[2020-03-27] MEDS: PTO: Norethindrone 0.35 mg TAB (NF) PO SCH (11:36)
[2020-03-28 07:52] LABS: HDL Cholesterol 31.2 mg/dL
[2020-03-28] MEDS: Vitamin THERAPEUTIC TAB PO SCH (08:52)
[2020-03-28] MEDS: PTO: Norethindrone 0.35 mg TAB (NF) PO SCH (12:42)
[2020-03-28] MEDS ORDERED: NON FORMULARY RESPIRATORY MED 1 DOSE MISC PO SCH (13:00)
[2020-03-28] MEDS: PENICILLIN VK 500 MG PO SCH ×3 (13:47→20:28)
[2020-03-29] MEDS: PTO: Norethindrone 0.35 mg TAB (NF) PO SCH (08:47)
[2020-03-29] MEDS: PENICILLIN VK 500 MG PO SCH ×4 (08:47→20:45)
[2020-03-29] MEDS: Vitamin THERAPEUTIC TAB PO SCH (08:48)
[2020-03-30] MEDS: Vitamin THERAPEUTIC TAB PO SCH (09:02)
[2020-03-30] MEDS: PENICILLIN VK 500 MG PO SCH ×4 (09:04→22:14)
[2020-03-30] MEDS: PTO: Norethindrone 0.35 mg TAB (NF) PO SCH (09:05)
[2020-03-31] MEDS: Vitamin THERAPEUTIC TAB PO SCH (08:48)
[2020-03-31] MEDS: PENICILLIN VK 500 MG PO SCH ×4 (08:49→20:18)
[2020-03-31] MEDS: PTO: Norethindrone 0.35 mg TAB (NF) PO SCH (08:49)
[2020-04-01] MEDS: PTO: Norethindrone 0.35 mg TAB (NF) PO SCH (08:33)
[2020-04-01] MEDS: PENICILLIN VK 500 MG PO SCH ×4 (08:33→20:27)
[2020-04-01] MEDS: Vitamin THERAPEUTIC TAB PO SCH (08:34)
[2020-04-01] MEDS: Senna TAB 8.6 mg TAB PO PRN (12:48)
[2020-04-02] MEDS: PTO: Norethindrone 0.35 mg TAB (NF) PO SCH (09:12)
[2020-04-02] MEDS: PENICILLIN VK 500 MG PO SCH ×4 (09:13→21:17)
[2020-04-02] MEDS: Vitamin THERAPEUTIC TAB PO SCH (09:18)
[2020-04-02] MEDS: Psyllium PAK PO PRN ×2 (09:22→21:22)
[2020-04-02] MEDS: Senna TAB 8.6 mg TAB PO PRN (12:22)
[2020-04-03] MEDS: PTO: Norethindrone 0.35 mg TAB (NF) PO SCH (09:08)
[2020-04-03] MEDS: PENICILLIN VK 500 MG PO SCH ×4 (09:08→21:47)
[2020-04-03] MEDS: Vitamin THERAPEUTIC TAB PO SCH (09:09)
[2020-04-03] MEDS: Senna TAB 8.6 mg TAB PO PRN (12:23)
[2020-04-04] MEDS: PTO: Norethindrone 0.35 mg TAB (NF) PO SCH (09:12)
[2020-04-04] MEDS: PENICILLIN VK 500 MG PO SCH ×4 (09:12→21:12)
[2020-04-04] MEDS: Vitamin THERAPEUTIC TAB PO SCH (09:13)
[2020-04-05] MEDS: Vitamin THERAPEUTIC TAB PO SCH (09:21)
[2020-04-05] MEDS: PTO: Norethindrone 0.35 mg TAB (NF) PO SCH (16:15)
[2020-04-06] MEDS: PTO: Norethindrone 0.35 mg TAB (NF) PO SCH (08:40)
[2020-04-06] MEDS: Vitamin THERAPEUTIC TAB PO SCH (08:40)
[2020-04-07] MEDS: PTO: Norethindrone 0.35 mg TAB (NF) PO SCH (08:36)
[2020-04-07] MEDS: Vitamin THERAPEUTIC TAB PO SCH (08:38)
[2020-04-07 09:58] VITALS: BP 108/70
== END 2020-04-07 10:30 | disposition home or self-care (01) | DRG 881 ==
LOC: ED 22:25 → BSU 03-27 06:57
PROVIDERS: ADMIT Psychiatry & Neurology Psychiatry; ATTEND Psychiatry & Neurology Psychiatry

== ENCOUNTER 2021-03-18 12:19 | Inpatient (IN) ==
[2021-03-18 12:54] LABS: Urine Appearance Cloudy; Urine Bilirubin Negative (Negative); Urine Blood Negative (Negative); Urine Color Yellow; Urine Glucose Negative (Negative); Urine Ketones Negative (Negative); Urine Nitrite Negative (Negative); Urine Protein Negative (Negative); Urine Specific Gravity 1.009 (1.002-1.030); Urine Urobilinogen Negative (Negative)
[2021-03-18 12:58] LABS: ABS Basophils 0.1 10^3/ul (0-0.2); ABS Eosinophils 0.2 10^3/ul (0-0.6); ABS Lymphocytes 3.1 10^3/ul (1.0-4.8); ABS Monocytes 0.8 10^3/ul (0-0.8); ABS Neutrophils 5.1 10^3/ul (1.5-7.7); Eosinophil % 1.7 %; Hematocrit 38 % (35-47); Hemoglobin 12.9 g/dL (12.0-16.0); Lymphocyte % 33.6 %; Mean Corpuscular HGB Conc 34 g/dL (31-36); Mean Corpuscular Hemoglobin 30 pg (27-31); Mean Corpuscular Volume 89 fL (80-97); Mean Platelet Volume 7.5 fL (7.4-10.4); Platelet Count 307 10^3/uL (150-450); Red Blood Count 4.25 10^6 /uL (3.70-4.87); Red Cell Distribution Width 13 % (10-15); White Blood Count 9.1 10^3/uL (3.5-10.8)
[2021-03-18 12:58] LABS: Urine Bacteria 1+ (Absent); Urine Red Blood Cell Trace(0-2/hpf) (Absent); Urine Squamous Epithelial Cell Present (Absent); Urine White Blood Cell Trace(0-5/hpf) (Absent)
[2021-03-18 13:13] LABS: Urine Benzodiazepine Screen None Detected (None Detect); Urine Cannabinoids Screen None Detected (None Detect); Urine Opiates Screen None Detected (None Detect)
[2021-03-18 13:16] LABS: ALT 34 U/L (7-52); AST 22 U/L (13-39); Albumin 4.1 g/dL (3.2-5.2); Albumin/Globulin Ratio 1.2 (1-3); Alkaline Phosphatase 51 U/L (35-149); Anion Gap 8 mmol/L (2-11); Blood Urea Nitrogen 8 mg/dL (6-24); CO2 Carbon Dioxide 22 mmol/L (22-32); Calcium 9.5 mg/dL (8.6-10.3); Chloride 108 mmol/L (101-111); EGFR African American 89.5 (>60); Globulin 3.3 g/dL (2-4); Glucose 107 mg/dL (70-100); Potassium 3.6 mmol/L (3.5-5.0); Sodium 138 mmol/L (135-145); Total Protein 7.4 g/dL (6.4-8.9)
[2021-03-18 13:21] LABS: HCG Pregnancy < 0.60 mIU/mL
[2021-03-18 13:46] LABS: Acetaminophen < 15 mcg/mL; Alcohol, S < 10 mg/dL (<10); Lithium 0.18 mmol/L (0.6-1.2); Salicylate < 2.50 mg/dL (<30)
[2021-03-18 13:57] LABS: TSH Ultra Thyroid Stim Horm 1.89 mcIU/mL (0.34-5.60)
[2021-03-18] MEDS ORDERED: Al Hydrox/Mg Hydrox/Simet LIQ 30 ML UDC PO PRN (16:53)
[2021-03-18] MEDS ORDERED: Senna TAB 8.6 mg TAB PO PRN (16:55)
[2021-03-18] MEDS ORDERED: Albuterol HFA INHALER 8 gm MDI INH PRN (16:55)
[2021-03-18] MEDS ORDERED: LORazepam 2 mg VIAL 1 ml IM ONE (16:59)
[2021-03-18] MEDS ORDERED: Lorazepam PYXIS KEY PRN (16:59)
[2021-03-18] MEDS: Fluticasone NASAL SPRAY 50MCG 16 gm SPRAY BTL INTRANASAL SCH (20:40)
[2021-03-19] MEDS: Multivitamins/Minerals TAB PO SCH (08:37)
[2021-03-19] MEDS: Cholecalciferol (VIT D3) 1,000 unit TAB PO SCH (08:37)
[2021-03-19] MEDS: PTO: Norethindrone 0.35 mg TAB (NF) PO SCH (08:38)
[2021-03-19] MEDS ORDERED: Calcium Polycarbophil 625mg TB PO SCH ×2 (09:00→15:00)
[2021-03-19] MEDS ORDERED: Fluoxetine 40 mg CAP (NF) PO SCH (09:00)
[2021-03-19] MEDS ORDERED: Naltrexone INJ 380 MG IM ONE (14:58)
[2021-03-19] MEDS: Fluticasone NASAL SPRAY 50MCG 16 gm SPRAY BTL INTRANASAL SCH (20:37)
[2021-03-20] MEDS: Cholecalciferol (VIT D3) 1,000 unit TAB PO SCH (08:46)
[2021-03-20] MEDS: Multivitamins/Minerals TAB PO SCH (08:46)
[2021-03-20] MEDS: LINACLOTIDE 145 MG PO SCH (12:55)
[2021-03-20] MEDS: PTO: Norethindrone 0.35 mg TAB (NF) PO SCH ×2 (14:57→21:51)
[2021-03-20] MEDS: Fluticasone NASAL SPRAY 50MCG 16 gm SPRAY BTL INTRANASAL SCH (21:53)
[2021-03-21 08:35] LABS: HDL Cholesterol 33.7 mg/dL
[2021-03-21] MEDS: Multivitamins/Minerals TAB PO SCH (08:57)
[2021-03-21] MEDS: Cholecalciferol (VIT D3) 1,000 unit TAB PO SCH (08:57)
[2021-03-21] MEDS: LINACLOTIDE 145 MG PO SCH (08:58)
[2021-03-21] MEDS: PTO: Norethindrone 0.35 mg TAB (NF) PO SCH (21:43)
[2021-03-21] MEDS: Fluticasone NASAL SPRAY 50MCG 16 gm SPRAY BTL INTRANASAL SCH (21:44)
[2021-03-22] MEDS: Cholecalciferol (VIT D3) 1,000 unit TAB PO SCH (08:36)
[2021-03-22] MEDS: LINACLOTIDE 145 MG PO SCH (08:37)
[2021-03-22] MEDS: Multivitamins/Minerals TAB PO SCH (08:37)
[2021-03-22] MEDS: Fluticasone NASAL SPRAY 50MCG 16 gm SPRAY BTL INTRANASAL SCH (21:47)
[2021-03-22] MEDS: PTO: Norethindrone 0.35 mg TAB (NF) PO SCH ×2 (21:49→22:15)
[2021-03-23] MEDS: Cholecalciferol (VIT D3) 1,000 unit TAB PO SCH (08:53)
[2021-03-23] MEDS: Multivitamins/Minerals TAB PO SCH (08:54)
[2021-03-23] MEDS: LINACLOTIDE 145 MG PO SCH (08:55)
[2021-03-23] MEDS: Fluticasone NASAL SPRAY 50MCG 16 gm SPRAY BTL INTRANASAL SCH (20:11)
[2021-03-23] MEDS: PTO: Norethindrone 0.35 mg TAB (NF) PO SCH (20:16)
[2021-03-24] MEDS: LINACLOTIDE 145 MG PO SCH (08:52)
[2021-03-24] MEDS: Cholecalciferol (VIT D3) 1,000 unit TAB PO SCH (08:53)
[2021-03-24] MEDS: Multivitamins/Minerals TAB PO SCH (08:53)
[2021-03-24 16:44] VITALS: BP 107/61
== END 2021-03-24 17:03 | disposition home or self-care (01) | DRG 882 ==
LOC: ED 12:19 → BSU 18:13
PROVIDERS: ADMIT Psychiatry & Neurology Psychiatry; ATTEND Psychiatry & Neurology Psychiatry

== ENCOUNTER 2021-03-30 14:12 | Inpatient (IN) ==
[2021-03-30] MEDS ORDERED: Lorazepam PYXIS KEY PRN ×3 (14:29→16:05)
[2021-03-30] MEDS ORDERED: LORazepam 2 mg VIAL 1 ml IM ONE ×3 (14:29→16:05)
[2021-03-30] MEDS ORDERED: diPHENhydraMINE IV 50 MG/ML 1 ml VIAL (BENADRYL) IM ONE (14:30)
[2021-03-30] MEDS ORDERED: Ketamine HCL 50 mg/ml 10 ml VIAL (500 MG) IM ONE (17:32)
[2021-03-30] MEDS ORDERED: Midazolam 2 mg/2 ml VIAL 1 mg/ml 2 ml VIAL (2 mg) IV SLOW PU ONE (17:36)
[2021-03-30 17:48] LABS: ABS Lymphocytes 2.1 10^3/ul (1.0-4.8); ABS Monocytes 0.6 10^3/ul (0-0.8); Eosinophil % 0.1 %; Hematocrit 38 % (35-47); Hemoglobin 12.9 g/dL (12.0-16.0); Lymphocyte % 19.8 %; Mean Corpuscular HGB Conc 34 g/dL (31-36); Mean Corpuscular Hemoglobin 31 pg (27-31); Mean Corpuscular Volume 89 fL (80-97); Mean Platelet Volume 7.4 fL (7.4-10.4); Platelet Count 317 10^3/uL (150-450); Red Blood Count 4.22 10^6 /uL (3.70-4.87); Red Cell Distribution Width 13 % (10-15); White Blood Count 10.7 10^3/uL (3.5-10.8)
[2021-03-30 18:05] LABS: ALT 41 U/L (7-52); AST 29 U/L (13-39); Albumin 4.4 g/dL (3.2-5.2); Albumin/Globulin Ratio 1.4 (1-3); Alkaline Phosphatase 46 U/L (35-149); Anion Gap 11 mmol/L (2-11); Blood Urea Nitrogen 9 mg/dL (6-24); CO2 Carbon Dioxide 19 mmol/L (22-32); Calcium 9.4 mg/dL (8.6-10.3); Chloride 108 mmol/L (101-111); EGFR Non-African American 69.4 (>60); Globulin 3.1 g/dL (2-4); Glucose 108 mg/dL (70-100); Potassium 3.7 mmol/L (3.5-5.0); Sodium 138 mmol/L (135-145); Total Protein 7.5 g/dL (6.4-8.9)
[2021-03-30 18:11] LABS: HCG Pregnancy < 0.60 mIU/mL
[2021-03-30] MEDS ORDERED: NS 0.9% 1000 ml BAG 1,000 ML IV ONE (18:18)
[2021-03-30] MEDS ORDERED: D5W IV ONE ×3 (18:32)
[2021-03-30] MEDS ORDERED: ACETYLCYSTEINE IV ONE ×3 (18:32)
[2021-03-30 18:33] LABS: Acetaminophen < 15 mcg/mL; Alcohol, S < 10 mg/dL (<10); Salicylate < 2.50 mg/dL (<30)
[2021-03-30 19:13] LABS: Urine Appearance Cloudy; Urine Bilirubin Negative (Negative); Urine Blood Negative (Negative); Urine Color Yellow; Urine Glucose Negative (Negative); Urine Ketones Negative (Negative); Urine Nitrite Negative (Negative); Urine Protein Negative (Negative); Urine Specific Gravity 1.031 (1.002-1.030); Urine Urobilinogen Negative (Negative)
[2021-03-30 19:15] LABS: Creatine Kinase 329 U/L (10-223)
[2021-03-30 19:21] LABS: Urine Benzodiazepine Screen Presumptive Positive (None Detect); Urine Cannabinoids Screen None Detected (None Detect); Urine Opiates Screen None Detected (None Detect)
[2021-03-30 19:33] LABS: Urine Amorphous Crystals Present (Absent); Urine Bacteria 1+ (Absent); Urine Red Blood Cell Trace(0-2/hpf) (Absent); Urine Squamous Epithelial Cell Present (Absent); Urine White Blood Cell Trace(0-5/hpf) (Absent)
[2021-03-30 22:23] LABS: TSH Ultra Thyroid Stim Horm 1.38 mcIU/mL (0.34-5.60)
[2021-03-30 22:25] LABS: Free T4 0.85 ng/dL (0.61-1.12)
[2021-03-31] MEDS ORDERED: Al Hydrox/Mg Hydrox/Simet LIQ 30 ML UDC PO PRN (09:03)
[2021-03-31] MEDS ORDERED: Senna TAB 8.6 mg TAB PO PRN (09:05)
[2021-03-31] MEDS ORDERED: Albuterol HFA INHALER 8 gm MDI INH PRN ×2 (09:05→11:49)
[2021-03-31] MEDS ORDERED: chlorproMAZINE 50 mg TAB (NF strength) PO PRN (09:08)
[2021-03-31] MEDS ORDERED: NORETHINDRONE 0.35 MG PO SCH ×2 (09:15→11:00)
[2021-03-31] MEDS ORDERED: LINACLOTIDE 145 MCG PO SCH (09:15)
[2021-03-31] MEDS ORDERED: Calcium Polycarbophil 625mg TB PO SCH (10:00)
[2021-03-31] MEDS ORDERED: Cholecalciferol (VIT D3) 1,000 unit TAB PO SCH (10:00)
[2021-03-31] MEDS: Vitamin THERAPEUTIC TAB PO SCH (10:42)
[2021-03-31] MEDS: LINACLOTIDE 145 MCG PO SCH (16:43)
[2021-03-31] MEDS ORDERED: Fluticasone NASAL SPRAY 50MCG 16 gm SPRAY BTL INTRANASAL SCH (21:00)
[2021-03-31] MEDS: Fluticasone NASAL SPRAY 50MCG 16 gm SPRAY BTL INTRANASAL SCH (21:15)
[2021-03-31] MEDS: NORETHINDRONE 0.35 MG PO SCH (21:15)
[2021-04-01] MEDS: Cholecalciferol (VIT D3) 1,000 unit TAB PO SCH (08:50)
[2021-04-01] MEDS: Vitamin THERAPEUTIC TAB PO SCH (08:50)
[2021-04-01] MEDS: Calcium Polycarbophil 625mg TB PO SCH (08:51)
[2021-04-01] MEDS: LINACLOTIDE 145 MCG PO SCH (08:53)
[2021-04-01] MEDS: Sulfamethox/Trimethoprim DS TAB 800/160 mg PO SCH ×2 (13:59→21:44)
[2021-04-01] MEDS: Lithium Carbonate ER 450mg TAB PO SCH (21:42)
[2021-04-01] MEDS: NORETHINDRONE 0.35 MG PO SCH (21:46)
[2021-04-01] MEDS: Fluticasone NASAL SPRAY 50MCG 16 gm SPRAY BTL INTRANASAL SCH (21:47)
[2021-04-02] MEDS: Calcium Polycarbophil 625mg TB PO SCH (08:25)
[2021-04-02] MEDS: Sulfamethox/Trimethoprim DS TAB 800/160 mg PO SCH ×2 (08:25→20:08)
[2021-04-02] MEDS: Vitamin THERAPEUTIC TAB PO SCH (08:26)
[2021-04-02] MEDS: Cholecalciferol (VIT D3) 1,000 unit TAB PO SCH (08:26)
[2021-04-02] MEDS: LINACLOTIDE 145 MCG PO SCH (08:50)
[2021-04-02 09:00] VITALS: BP 133/83
[2021-04-02] MEDS: NORETHINDRONE 0.35 MG PO SCH (20:09)
[2021-04-02] MEDS: Lithium Carbonate ER 450mg TAB PO SCH (20:09)
[2021-04-02] MEDS: Fluticasone NASAL SPRAY 50MCG 16 gm SPRAY BTL INTRANASAL SCH (20:10)
[2021-04-03] MEDS: Cholecalciferol (VIT D3) 1,000 unit TAB PO SCH (07:27)
[2021-04-03] MEDS: LINACLOTIDE 145 MCG PO SCH (07:27)
[2021-04-03] MEDS: Vitamin THERAPEUTIC TAB PO SCH (07:27)
[2021-04-03] MEDS: Calcium Polycarbophil 625mg TB PO SCH (07:29)
[2021-04-03] MEDS: Sulfamethox/Trimethoprim DS TAB 800/160 mg PO SCH (07:29)
[2021-04-03] MEDS ORDERED: Sulfamethox/Trimethoprim DS TAB 800/160 mg PO ONE (11:16)
== END 2021-04-03 16:00 | disposition home or self-care (01) | DRG 882 ==
LOC: ED 14:12 → BSU 03-31 11:47
PROVIDERS: ADMIT Psychiatry & Neurology Psychiatry; ATTEND Psychiatry & Neurology Psychiatry

== ENCOUNTER 2021-08-17 11:11 | Inpatient (IN) ==
[2021-08-17 12:22] LABS: ABS Basophils 0.1 10^3/ul (0-0.2); ABS Eosinophils 0.2 10^3/ul (0-0.6); ABS Lymphocytes 2.2 10^3/ul (1.0-4.8); ABS Monocytes 0.6 10^3/ul (0-0.8); ABS Neutrophils 5.8 10^3/ul (1.5-7.7); Eosinophil % 2.1 %; Hematocrit 39 % (35-47); Hemoglobin 13.3 g/dL (12.0-16.0); Mean Corpuscular HGB Conc 34 g/dL (31-36); Mean Corpuscular Hemoglobin 30 pg (27-31); Mean Corpuscular Volume 89 fL (80-97); Mean Platelet Volume 7.5 fL (7.4-10.4); Nucleated Red Blood Cells % 0.1; Platelet Count 300 10^3/uL (150-450); Red Blood Count 4.36 10^6 /uL (3.70-4.87); Red Cell Distribution Width 13 % (10-15); White Blood Count 8.9 10^3/uL (3.5-10.8)
[2021-08-17 12:26] LABS: Urine Appearance Clear; Urine Bilirubin Negative (Negative); Urine Blood Negative (Negative); Urine Color Yellow; Urine Glucose Negative (Negative); Urine Ketones Negative (Negative); Urine Nitrite Negative (Negative); Urine Protein Negative (Negative); Urine Urobilinogen Negative (Negative)
[2021-08-17 12:47] LABS: HCG Pregnancy 0.61 mIU/mL
[2021-08-17 13:02] LABS: ALT 33 U/L (7-52); AST 20 U/L (13-39); Albumin 4.3 g/dL (3.2-5.2); Albumin/Globulin Ratio 1.3 (1-3); Alkaline Phosphatase 50 U/L (35-149); Anion Gap 8 mmol/L (2-11); Blood Urea Nitrogen 9 mg/dL (6-24); CO2 Carbon Dioxide 23 mmol/L (22-32); Calcium 9.5 mg/dL (8.6-10.3); Chloride 107 mmol/L (101-111); Globulin 3.3 g/dL (2-4); Glucose 101 mg/dL (70-100); Potassium 3.7 mmol/L (3.5-5.0); Sodium 138 mmol/L (135-145); Total Protein 7.6 g/dL (6.4-8.9); eGFR CKD-EPI 83.8 (>60)
[2021-08-17 13:03] LABS: Urine Benzodiazepine Screen None Detected (None Detect); Urine Cannabinoids Screen None Detected (None Detect); Urine Opiates Screen None Detected (None Detect)
[2021-08-17 13:10] LABS: TSH Ultra Thyroid Stim Horm 1.52 mcIU/mL (0.34-5.60)
[2021-08-17] MEDS ORDERED: Al Hydrox/Mg Hydrox/Simet LIQ 30 ML UDC PO PRN (13:25)
[2021-08-17 13:30] LABS: Acetaminophen < 15 mcg/mL; Alcohol, S < 13 mg/dL (<13); Salicylate < 2.50 mg/dL (<30)
[2021-08-17 14:37] LABS: Rapid COVID-19 Molecular Undetected (Undetected)
[2021-08-17] MEDS: Lithium Carbonate ER 450mg TAB PO SCH (21:00)
[2021-08-18 07:11] LABS: HDL Cholesterol 32.3 mg/dL
[2021-08-18] MEDS: Cholecalciferol (VIT D3) 1,000 unit TAB PO SCH (08:38)
[2021-08-18] MEDS: Lithium Carbonate ER 450mg TAB PO SCH ×2 (08:39→20:30)
[2021-08-18] MEDS: Multivitamins/Minerals TAB PO SCH (08:40)
[2021-08-18] MEDS: LINACLOTIDE 145 MG PO SCH ×2 (08:41→08:43)
[2021-08-18] MEDS: PTO: Norethindrone 0.35 mg TAB (NF) PO SCH ×2 (08:41→08:44)
[2021-08-19] MEDS: Cholecalciferol (VIT D3) 1,000 unit TAB PO SCH (08:23)
[2021-08-19] MEDS: Lithium Carbonate ER 450mg TAB PO SCH ×2 (08:23→21:28)
[2021-08-19] MEDS: Multivitamins/Minerals TAB PO SCH (08:24)
[2021-08-19] MEDS: PTO: Norethindrone 0.35 mg TAB (NF) PO SCH (09:02)
[2021-08-19] MEDS: LINACLOTIDE 145 MG PO SCH (09:02)
[2021-08-19] MEDS: Albuterol HFA INHALER 8 gm MDI INH PRN (21:24)
[2021-08-20] MEDS: LINACLOTIDE 145 MG PO SCH (07:27)
[2021-08-20] MEDS: PTO: Norethindrone 0.35 mg TAB (NF) PO SCH (08:11)
[2021-08-20] MEDS: Lithium Carbonate ER 450mg TAB PO SCH ×2 (08:13→21:14)
[2021-08-20] MEDS: Cholecalciferol (VIT D3) 1,000 unit TAB PO SCH (08:13)
[2021-08-20] MEDS: Multivitamins/Minerals TAB PO SCH (08:13)
[2021-08-21 08:01] VITALS: BP 114/76
[2021-08-21] MEDS: Lithium Carbonate ER 450mg TAB PO SCH (08:27)
[2021-08-21] MEDS: Cholecalciferol (VIT D3) 1,000 unit TAB PO SCH (08:27)
[2021-08-21] MEDS: Multivitamins/Minerals TAB PO SCH (08:28)
[2021-08-21] MEDS: PTO: Norethindrone 0.35 mg TAB (NF) PO SCH (08:30)
[2021-08-21] MEDS: LINACLOTIDE 145 MG PO SCH (08:31)
[2021-08-21] MEDS: Albuterol HFA INHALER 8 gm MDI INH PRN (10:32)
== END 2021-08-21 11:56 | disposition home or self-care (01) | DRG 883 ==
LOC: ED 11:11 → EDHOLD 13:25 → BSU 18:54
PROVIDERS: ADMIT Psychiatry & Neurology Psychiatry; ATTEND Psychiatry & Neurology Psychiatry

== ENCOUNTER 2021-10-05 16:48 | Inpatient (IN) ==
[2021-10-05 18:14] LABS: ABS Basophils 0.1 10^3/ul (0-0.2); ABS Eosinophils 0.2 10^3/ul (0-0.6); ABS Lymphocytes 2.1 10^3/ul (1.0-4.8); ABS Monocytes 0.6 10^3/ul (0-0.8); ABS Neutrophils 7.4 10^3/ul (1.5-7.7); Eosinophil % 1.5 %; Hematocrit 37 % (35-47); Hemoglobin 12.7 g/dL (12.0-16.0); Lymphocyte % 19.9 %; Mean Corpuscular HGB Conc 35 g/dL (31-36); Mean Corpuscular Hemoglobin 30 pg (27-31); Mean Corpuscular Volume 87 fL (80-97); Mean Platelet Volume 7.4 fL (7.4-10.4); Platelet Count 338 10^3/uL (150-450); Red Blood Count 4.21 10^6 /uL (3.70-4.87); Red Cell Distribution Width 13 % (10-15); White Blood Count 10.3 10^3/uL (3.5-10.8)
[2021-10-05 18:22] LABS: Urine Appearance Clear; Urine Bilirubin Negative (Negative); Urine Blood Negative (Negative); Urine Color Yellow; Urine Glucose Negative (Negative); Urine Ketones Negative (Negative); Urine Nitrite Negative (Negative); Urine Protein Negative (Negative); Urine Specific Gravity 1.009 (1.002-1.030); Urine Urobilinogen Negative (Negative)
[2021-10-05 18:28] LABS: ALT 30 U/L (7-52); AST 19 U/L (13-39); Albumin 4.3 g/dL (3.2-5.2); Albumin/Globulin Ratio 1.3 (1-3); Alkaline Phosphatase 48 U/L (35-149); Anion Gap 6 mmol/L (2-11); Blood Urea Nitrogen 8 mg/dL (6-24); CO2 Carbon Dioxide 23 mmol/L (22-32); Calcium 9.2 mg/dL (8.6-10.3); Chloride 110 mmol/L (101-111); Globulin 3.3 g/dL (2-4); Glucose 109 mg/dL (70-100); Potassium 3.6 mmol/L (3.5-5.0); Sodium 139 mmol/L (135-145); Total Protein 7.6 g/dL (6.4-8.9); Urine Benzodiazepine Screen None Detected (None Detect); Urine Cannabinoids Screen None Detected (None Detect); Urine Opiates Screen None Detected (None Detect); eGFR CKD-EPI 96.2 (>60)
[2021-10-05 18:34] LABS: HCG Pregnancy < 0.60 mIU/mL
[2021-10-05 18:42] LABS: Acetaminophen < 15 mcg/mL; Lithium 0.53 mmol/L (0.6-1.2); Salicylate < 2.50 mg/dL (<30)
[2021-10-05 18:45] LABS: TSH Ultra Thyroid Stim Horm 2.38 mcIU/mL (0.34-5.60)
[2021-10-05 18:57] LABS: Alcohol, S < 13 mg/dL (<13)
[2021-10-06] MEDS ORDERED: Al Hydrox/Mg Hydrox/Simet LIQ 30 ML UDC PO PRN (01:08)
[2021-10-06] MEDS: Cholecalciferol (VIT D3) 1,000 unit TAB PO SCH (09:23)
[2021-10-06] MEDS: Lithium Carbonate ER 450mg TAB PO SCH ×2 (09:23→20:40)
[2021-10-06] MEDS: CMCS: LINACLOTIDE 72 MCG CAP (NF) PO SCH (09:23)
[2021-10-06] MEDS: Vitamin THERAPEUTIC TAB PO SCH (09:24)
[2021-10-06] MEDS: PTO: Norethindrone 0.35 mg TAB (NF) PO SCH (20:42)
[2021-10-07] MEDS: Cholecalciferol (VIT D3) 1,000 unit TAB PO SCH (08:59)
[2021-10-07] MEDS: Vitamin THERAPEUTIC TAB PO SCH (08:59)
[2021-10-07] MEDS: CMCS: LINACLOTIDE 72 MCG CAP (NF) PO SCH (08:59)
[2021-10-07] MEDS: Lithium Carbonate ER 450mg TAB PO SCH ×2 (09:00→21:40)
[2021-10-07] MEDS: Albuterol HFA INHALER 8 gm MDI INH PRN (20:23)
[2021-10-07] MEDS: PTO: Norethindrone 0.35 mg TAB (NF) PO SCH (21:39)
[2021-10-08 07:16] LABS: HDL Cholesterol 33.4 mg/dL
[2021-10-08] MEDS: Vitamin THERAPEUTIC TAB PO SCH (07:53)
[2021-10-08] MEDS: Cholecalciferol (VIT D3) 1,000 unit TAB PO SCH (07:53)
[2021-10-08] MEDS: Lithium Carbonate ER 450mg TAB PO SCH ×2 (07:53→20:52)
[2021-10-08] MEDS: CMCS: LINACLOTIDE 72 MCG CAP (NF) PO SCH (07:54)
[2021-10-08] MEDS: PTO: Norethindrone 0.35 mg TAB (NF) PO SCH (20:53)
[2021-10-09 07:58] VITALS: BP 106/74
[2021-10-09] MEDS: CMCS: LINACLOTIDE 72 MCG CAP (NF) PO SCH (08:25)
[2021-10-09] MEDS: Lithium Carbonate ER 450mg TAB PO SCH (08:26)
[2021-10-09] MEDS: Vitamin THERAPEUTIC TAB PO SCH (08:27)
[2021-10-09] MEDS: Cholecalciferol (VIT D3) 1,000 unit TAB PO SCH (08:28)
[2021-10-09] MEDS: Albuterol HFA INHALER 8 gm MDI INH PRN (13:02)
== END 2021-10-09 18:42 | disposition home or self-care (01) | DRG 882 ==
LOC: ED 16:48 → BSU 10-06 02:25
PROVIDERS: ADMIT Psychiatry & Neurology Psychiatry; ATTEND Psychiatry & Neurology Psychiatry

== ENCOUNTER 2022-02-10 14:00 | Inpatient (IN) ==
[2022-02-10] MEDS ORDERED: Al Hydrox/Mg Hydrox/Simet LIQ 30 ML UDC PO PRN (15:57)
[2022-02-10] MEDS ORDERED: Albuterol HFA INHALER 8 gm MDI INH PRN (15:59)
[2022-02-10 16:41] LABS: ABS Eosinophils 0.1 10^3/ul (0-0.6); ABS Lymphocytes 2.1 10^3/ul (1.0-4.8); ABS Monocytes 0.5 10^3/ul (0-0.8); ABS Neutrophils 7.4 10^3/ul (1.5-7.7); Eosinophil % 0.9 %; Hematocrit 36 % (35-47); Hemoglobin 12.3 g/dL (12.0-16.0); Lymphocyte % 20.4 %; Mean Corpuscular HGB Conc 34 g/dL (31-36); Mean Corpuscular Hemoglobin 31 pg (27-31); Mean Corpuscular Volume 89 fL (80-97); Mean Platelet Volume 7.3 fL (7.4-10.4); Platelet Count 322 10^3/uL (150-450); Red Cell Distribution Width 13 % (10-15); White Blood Count 10.1 10^3/uL (3.5-10.8)
[2022-02-10 16:51] LABS: Urine Appearance Cloudy; Urine Bacteria 1+ (Absent); Urine Bilirubin Negative (Negative); Urine Blood 3+ (Negative); Urine Glucose Negative (Negative); Urine Ketones Negative (Negative); Urine Nitrite Negative (Negative); Urine Protein 1+(30 mg/dL) (Negative); Urine Red Blood Cell 3+(>10/hpf) (Absent); Urine Specific Gravity 1.005 (1.002-1.030); Urine Squamous Epithelial Cell Present (Absent); Urine Urobilinogen Negative (Negative); Urine White Blood Cell 2+(11-20/hpf) (Absent)
[2022-02-10 17:16] LABS: Urine Benzodiazepine Screen None Detected (None Detect); Urine Cannabinoids Screen None Detected (None Detect); Urine Opiates Screen None Detected (None Detect)
[2022-02-10 17:21] LABS: ALT 32 U/L (7-52); AST 22 U/L (13-39); Acetaminophen < 15 mcg/mL; Albumin 4.4 g/dL (3.2-5.2); Albumin/Globulin Ratio 1.5 (1-3); Alcohol, S < 13 mg/dL (<13); Alkaline Phosphatase 55 U/L (35-149); Anion Gap 7 mmol/L (2-11); Blood Urea Nitrogen 7 mg/dL (6-24); CO2 Carbon Dioxide 24 mmol/L (22-32); Calcium 9.5 mg/dL (8.6-10.3); Chloride 109 mmol/L (101-111); Glucose 87 mg/dL (70-100); Lithium 0.59 mmol/L (0.6-1.2); Potassium 3.9 mmol/L (3.5-5.0); Salicylate < 2.50 mg/dL (<30); Sodium 140 mmol/L (135-145); Total Protein 7.4 g/dL (6.4-8.9); eGFR CKD-EPI 87.2 (>60)
[2022-02-10 17:35] LABS: TSH Ultra Thyroid Stim Horm 0.73 mcIU/mL (0.34-5.60)
[2022-02-10 18:03] LABS: Urine Color Red
[2022-02-10 20:27] LABS: HCG Pregnancy < 0.60 mIU/mL
[2022-02-10] MEDS: Lithium Carbonate ER 450mg TAB PO SCH (20:45)
[2022-02-11] MEDS: Lithium Carbonate ER 450mg TAB PO SCH ×2 (08:34→21:12)
[2022-02-11] MEDS: Multivitamins/Minerals TAB PO SCH (08:35)
[2022-02-11] MEDS: Cholecalciferol (VIT D3) 1,000 unit TAB PO SCH (08:35)
[2022-02-11 08:45] LABS: HDL Cholesterol 32.3 mg/dL
[2022-02-11] MEDS ORDERED: LINACLOTIDE 290 MCG PO SCH (09:00)
[2022-02-11] MEDS: [UNRECOGNIZED DRUG - REMARK] PO SCH (21:14)
[2022-02-12] MEDS: Multivitamins/Minerals TAB PO SCH (09:16)
[2022-02-12] MEDS: Lithium Carbonate ER 450mg TAB PO SCH ×2 (09:17→20:20)
[2022-02-12] MEDS: Cholecalciferol (VIT D3) 1,000 unit TAB PO SCH (09:17)
[2022-02-12] MEDS: PTO: Linaclotide 290 mcg CAP (NF) PO SCH (09:19)
[2022-02-12] MEDS ORDERED: Butalb/Acetamin/Caff TAB 325-50-40MG PO ONE (11:08)
[2022-02-12] MEDS: [UNRECOGNIZED DRUG - REMARK] PO SCH (20:34)
[2022-02-13] MEDS: Lithium Carbonate ER 450mg TAB PO SCH ×2 (08:17→20:52)
[2022-02-13] MEDS: Cholecalciferol (VIT D3) 1,000 unit TAB PO SCH (08:17)
[2022-02-13] MEDS: Multivitamins/Minerals TAB PO SCH (08:17)
[2022-02-13] MEDS: PTO: Linaclotide 290 mcg CAP (NF) PO SCH (08:20)
[2022-02-13] MEDS: Senna TAB 8.6 mg TAB PO SCH (20:53)
[2022-02-13] MEDS: [UNRECOGNIZED DRUG - REMARK] PO SCH (20:55)
[2022-02-14] MEDS: Cholecalciferol (VIT D3) 1,000 unit TAB PO SCH (08:50)
[2022-02-14] MEDS: Lithium Carbonate ER 450mg TAB PO SCH ×2 (08:50→21:42)
[2022-02-14] MEDS: Multivitamins/Minerals TAB PO SCH (08:51)
[2022-02-14] MEDS: Senna TAB 8.6 mg TAB PO SCH ×2 (08:51→21:46)
[2022-02-14] MEDS: PTO: Linaclotide 290 mcg CAP (NF) PO SCH ×2 (08:55→20:10)
[2022-02-14] MEDS ORDERED: NORETHINDRONE 0.35 MG PO SCH (21:00)
[2022-02-15] MEDS: PTO: Linaclotide 290 mcg CAP (NF) PO SCH (07:40)
[2022-02-15] MEDS: Lithium Carbonate ER 450mg TAB PO SCH (07:41)
[2022-02-15] MEDS: Senna TAB 8.6 mg TAB PO SCH (07:42)
[2022-02-15] MEDS: Cholecalciferol (VIT D3) 1,000 unit TAB PO SCH (07:42)
[2022-02-15] MEDS: Multivitamins/Minerals TAB PO SCH (07:42)
[2022-02-15 08:19] VITALS: BP 115/59
== END 2022-02-15 13:38 | disposition home or self-care (01) | DRG 882 ==
LOC: ED 14:00 → BSU 15:57
PROVIDERS: ADMIT Psychiatry & Neurology Psychiatry; ATTEND Psychiatry & Neurology Psychiatry

== ENCOUNTER 2022-10-06 10:21 | Inpatient (IN) ==
[2022-10-06] MEDS ORDERED: Lactated Ringers 1000 ml BAG 1,000 ML IV ONE ×2 (10:37→16:55)
[2022-10-06] MEDS ORDERED: Charcoal ACTIVATED 50 GM/240 ML BTL PO ONE (11:02)
[2022-10-06 11:07] LABS: ABS Eosinophils 0.1 10^3/ul (0-0.6); ABS Lymphocytes 2.2 10^3/ul (1.0-4.8); ABS Monocytes 0.6 10^3/ul (0-0.8); ABS Neutrophils 5.9 10^3/ul (1.5-7.7); Eosinophil % 0.9 %; Hematocrit 37 % (35-47); Hemoglobin 12.5 g/dL (12.0-16.0); Lymphocyte % 25.7 %; Mean Corpuscular HGB Conc 34 g/dL (31-36); Mean Corpuscular Hemoglobin 30 pg (27-31); Mean Corpuscular Volume 89 fL (80-97); Mean Platelet Volume 7.4 fL (7.4-10.4); Platelet Count 301 10^3/uL (150-450); Red Blood Count 4.19 10^6 /uL (3.70-4.87); Red Cell Distribution Width 13 % (10-15); White Blood Count 8.8 10^3/uL (3.5-10.8)
[2022-10-06 11:51] LABS: ALT 22 U/L (7-52); AST 16 U/L (13-39); Albumin 4.2 g/dL (3.2-5.2); Albumin/Globulin Ratio 1.4 (1-3); Alcohol, S < 13 mg/dL (<13); Alkaline Phosphatase 62 U/L (35-149); Anion Gap 10 mmol/L (2-11); Blood Urea Nitrogen 13 mg/dL (6-24); CO2 Carbon Dioxide 22 mmol/L (22-32); Calcium 9.3 mg/dL (8.6-10.3); Chloride 104 mmol/L (101-111); Creatinine, Serum 0.87 mg/dL (0.51-0.95); Globulin 2.9 g/dL (2-4); Glucose 141 mg/dL (70-100); Potassium 3.4 mmol/L (3.5-5.0); Sodium 136 mmol/L (135-145); Total Protein 7.1 g/dL (6.4-8.9)
[2022-10-06 11:57] LABS: HCG Pregnancy < 0.60 mIU/mL
[2022-10-06 11:59] LABS: Acetaminophen 79 mcg/mL
[2022-10-06 12:06] LABS: TSH Ultra Thyroid Stim Horm 5.05 mcIU/mL (0.34-5.60)
[2022-10-06 12:27] LABS: Urine Appearance Clear; Urine Bilirubin Negative (Negative); Urine Blood Negative (Negative); Urine Color Straw; Urine Glucose Negative (Negative); Urine Ketones Negative (Negative); Urine Nitrite Negative (Negative); Urine Protein Negative (Negative); Urine Specific Gravity 1.009 (1.002-1.030); Urine Urobilinogen Negative (Negative)
[2022-10-06 12:37] LABS: Urine Benzodiazepine Screen None Detected (None Detect); Urine Cannabinoids Screen None Detected (None Detect); Urine Opiates Screen None Detected (None Detect)
[2022-10-06 12:47] LABS: Salicylate 17.9 mg/dL (<30)
[2022-10-06 14:59] LABS: Lithium 1.93 mmol/L (0.6-1.2)
[2022-10-06] MEDS ORDERED: NS 0.9% 1000 ml BAG 1,000 ML IV ONE ×2 (16:55→16:58)
[2022-10-06 18:46] LABS: Creatinine, Serum 0.92 mg/dL (0.51-0.95); eGFR CKD-EPI 83.3 (>60)
[2022-10-06 19:28] LABS: Urine Appearance Clear; Urine Bilirubin Negative (Negative); Urine Blood Negative (Negative); Urine Color Yellow; Urine Glucose Negative (Negative); Urine Ketones Negative (Negative); Urine Nitrite Negative (Negative); Urine Protein Negative (Negative); Urine Specific Gravity 1.016 (1.002-1.030); Urine Urobilinogen Negative (Negative)
[2022-10-06] MEDS ORDERED: Lorazepam PYXIS KEY ONE (19:31)
[2022-10-06] MEDS ORDERED: LORazepam 2 mg VIAL 1 ml ONE (19:31)
[2022-10-06 19:35] LABS: Hepatitis B Surface Antigen Nonreactive (Nonreactive)
[2022-10-06 19:38] LABS: Calcium 8.2 mg/dL (8.6-10.3); Creatinine, Serum 0.89 mg/dL (0.51-0.95); Potassium 3.4 mmol/L (3.5-5.0); eGFR CKD-EPI 86.7 (>60)
[2022-10-06 19:41] LABS: Lithium 2.57 mmol/L (0.6-1.2)
[2022-10-06 19:52] LABS: Hepatitis B Surface Ab Not Immune (Immune)
[2022-10-06] MEDS ORDERED: LORazepam 2 mg VIAL 1 ml IV PUSH ONE ×2 (20:41→21:52)
[2022-10-06] MEDS ORDERED: Lorazepam PYXIS KEY PRN ×2 (20:41→21:52)
[2022-10-06] MEDS: Heparin 5000 UNITS/ML 1 mL VIAL SUBCUT SCH (21:29)
[2022-10-06] MEDS: Lactated Ringers 1000 ml BAG 1,000 ML IV SCH (21:37)
[2022-10-06 22:12] LABS: Calcium 8.4 mg/dL (8.6-10.3); Creatinine, Serum 0.78 mg/dL (0.51-0.95); Potassium 3.5 mmol/L (3.5-5.0); eGFR CKD-EPI 101.5 (>60)
[2022-10-07] MEDS ORDERED: Heparin 1,000 UNIT/ML 10 ml (10,000 UNITS) CATHLAB/DIALYSIS DIALYSIS ONE (01:00)
[2022-10-07 02:57] LABS: Calcium 8.2 mg/dL (8.6-10.3); Creatinine, Serum 0.72 mg/dL (0.51-0.95); Lithium 0.68 mmol/L (0.6-1.2); Potassium 3.2 mmol/L (3.5-5.0); eGFR CKD-EPI 111.8 (>60)
[2022-10-07] MEDS ORDERED: Lactated Ringers 1000 ml BAG 1,000 ML IV SCH (03:00)
[2022-10-07] MEDS ORDERED: Potassium Chlor 20 meq TAB.ER PO ONE ×2 (03:06→07:57)
[2022-10-07] MEDS: Albuterol HFA INHALER 8 gm MDI INH PRN (05:22)
[2022-10-07 05:45] LABS: ABS Basophils 0.1 10^3/ul (0-0.2); ABS Eosinophils 0.2 10^3/ul (0-0.6); ABS Lymphocytes 2.1 10^3/ul (1.0-4.8); ABS Monocytes 0.5 10^3/ul (0-0.8); ABS Neutrophils 5.7 10^3/ul (1.5-7.7); Hematocrit 33 % (35-47); Hemoglobin 11.1 g/dL (12.0-16.0); Mean Corpuscular HGB Conc 33 g/dL (31-36); Mean Corpuscular Hemoglobin 30 pg (27-31); Mean Corpuscular Volume 89 fL (80-97); Mean Platelet Volume 7.4 fL (7.4-10.4); Nucleated Red Blood Cells % 0.1; Platelet Count 235 10^3/uL (150-450); Red Blood Count 3.74 10^6 /uL (3.70-4.87); Red Cell Distribution Width 14 % (10-15); White Blood Count 8.5 10^3/uL (3.5-10.8)
[2022-10-07 06:17] LABS: Calcium 8.2 mg/dL (8.6-10.3); Creatinine, Serum 0.9 mg/dL (0.51-0.95); Lithium 0.7 mmol/L (0.6-1.2); Potassium 3.6 mmol/L (3.5-5.0); eGFR CKD-EPI 85.5 (>60)
[2022-10-07] MEDS: Heparin 5000 UNITS/ML 1 mL VIAL SUBCUT SCH (06:43)
[2022-10-07] MEDS: Mometasone 220 MCG MDI INH SCH ×2 (07:12→18:52)
[2022-10-07] MEDS: Lactated Ringers 1000 ml BAG 1,000 ML IV SCH (08:28)
[2022-10-07] MEDS: Polyethylene Glycol 3350 17 GM PACKET PO SCH ×3 (08:54→21:08)
[2022-10-07] MEDS ORDERED: Senna TAB 8.6 mg TAB PO ONE (08:56)
[2022-10-07] MEDS: ZOLMITRIPTAN 5 MG SL PRN (09:13)
[2022-10-07 09:20] LABS: Magnesium 1.7 mg/dL (1.9-2.7)
[2022-10-07] MEDS ORDERED: Magnesium Sulfate 2 gm BAG 2 GM/50 ML BAG IVPB ONE (09:39)
[2022-10-07 10:40] LABS: Activated Partial Thrombo Time 34.2 seconds (26.0-38.0); INR 1.14 (0.88-1.18)
[2022-10-07 11:19] LABS: Albumin 3.4 g/dL (3.2-5.2); Albumin/Globulin Ratio 1.3 (1-3); Direct Bilirubin 0.1 mg/dL (0.03-0.18); Globulin 2.6 g/dL (2-4); Indirect Bilirubin 0.4 mg/dL (0.3-1.0); Total Bilirubin 0.5 mg/dL (0.2-1.0)
[2022-10-07] MEDS: NORETHINDRONE 0.35 MG PO SCH (11:41)
[2022-10-07] MEDS ORDERED: Al Hydrox/Mg Hydrox/Simet LIQ 30 ML UDC PO PRN (13:00)
[2022-10-07] MEDS ORDERED: Lorazepam PYXIS KEY ONE (16:23)
[2022-10-07 16:35] LABS: Lithium 0.55 mmol/L (0.6-1.2)
[2022-10-07 18:46] LABS: Acetaminophen < 15 mcg/mL
[2022-10-07] MEDS ORDERED: PTO: Linaclotide 290 mcg CAP (NF) PO SCH (22:00)
[2022-10-07] MEDS: PTO: Linaclotide 290 mcg CAP (NF) PO SCH (22:21)
[2022-10-08 04:29] LABS: ABS Eosinophils 0.2 10^3/ul (0-0.6); ABS Lymphocytes 2.4 10^3/ul (1.0-4.8); ABS Monocytes 0.7 10^3/ul (0-0.8); ABS Neutrophils 5.9 10^3/ul (1.5-7.7); Eosinophil % 2.4 %; Hematocrit 33 % (35-47); Hemoglobin 10.8 g/dL (12.0-16.0); Mean Corpuscular HGB Conc 33 g/dL (31-36); Mean Corpuscular Hemoglobin 30 pg (27-31); Mean Corpuscular Volume 89 fL (80-97); Mean Platelet Volume 7.1 fL (7.4-10.4); Platelet Count 229 10^3/uL (150-450); Red Blood Count 3.68 10^6 /uL (3.70-4.87); Red Cell Distribution Width 14 % (10-15); White Blood Count 9.3 10^3/uL (3.5-10.8)
[2022-10-08 05:01] LABS: Calcium 8.7 mg/dL (8.6-10.3); Creatinine, Serum 0.83 mg/dL (0.51-0.95); HDL Cholesterol 33.9 mg/dL; Potassium 3.9 mmol/L (3.5-5.0); eGFR CKD-EPI 94.2 (>60)
[2022-10-08] MEDS ORDERED: Lorazepam PYXIS KEY PRN (06:27)
[2022-10-08] MEDS ORDERED: LORazepam 2 mg VIAL 1 ml IV PUSH ONE (06:28)
[2022-10-08] MEDS ORDERED: Lorazepam PYXIS KEY ONE (06:30)
[2022-10-08] MEDS ORDERED: LORazepam 2 mg VIAL 1 ml ONE (06:30)
[2022-10-08] MEDS: Mometasone 220 MCG MDI INH SCH ×2 (06:51→19:55)
[2022-10-08] MEDS: NORETHINDRONE 0.35 MG PO SCH (08:01)
[2022-10-08] MEDS: Lithium Carbonate ER 450mg TAB PO SCH ×2 (08:02→20:01)
[2022-10-08] MEDS: ZOLMITRIPTAN 5 MG SL PRN ×2 (08:03→22:51)
[2022-10-08] MEDS: Polyethylene Glycol 3350 17 GM PACKET PO SCH ×2 (10:07→20:01)
[2022-10-08] MEDS ORDERED: Polyethylene Glycol 3350 17 GM PACKET PO PRN (11:56)
[2022-10-08] MEDS: PTO: Linaclotide 290 mcg CAP (NF) PO SCH (19:59)
[2022-10-09 07:47] LABS: ABS Basophils 0.1 10^3/ul (0-0.2); ABS Eosinophils 0.3 10^3/ul (0-0.6); ABS Lymphocytes 2.5 10^3/ul (1.0-4.8); ABS Monocytes 0.8 10^3/ul (0-0.8); ABS Neutrophils 9.3 10^3/ul (1.5-7.7); Hematocrit 39 % (35-47); Hemoglobin 12.7 g/dL (12.0-16.0); Lymphocyte % 19.2 %; Mean Corpuscular HGB Conc 33 g/dL (31-36); Mean Corpuscular Hemoglobin 29 pg (27-31); Mean Corpuscular Volume 90 fL (80-97); Mean Platelet Volume 7.4 fL (7.4-10.4); Platelet Count 267 10^3/uL (150-450); Red Blood Count 4.35 10^6 /uL (3.70-4.87); Red Cell Distribution Width 14 % (10-15); White Blood Count 12.8 10^3/uL (3.5-10.8)
[2022-10-09 08:15] LABS: Calcium 9.7 mg/dL (8.6-10.3); Creatinine, Serum 0.97 mg/dL (0.51-0.95); eGFR CKD-EPI 78.1 (>60)
[2022-10-09] MEDS: Lithium Carbonate ER 450mg TAB PO SCH ×2 (08:38→21:05)
[2022-10-09] MEDS: Mometasone 220 MCG MDI INH SCH ×2 (08:39→21:08)
[2022-10-09] MEDS: NORETHINDRONE 0.35 MG PO SCH (08:39)
[2022-10-09] MEDS: Polyethylene Glycol 3350 17 GM PACKET PO SCH ×2 (08:39→21:07)
[2022-10-09] MEDS: ZOLMITRIPTAN 5 MG SL PRN (15:44)
[2022-10-09] MEDS: PTO: Linaclotide 290 mcg CAP (NF) PO SCH (21:05)
[2022-10-10 06:14] LABS: ABS Eosinophils 0.2 10^3/ul (0-0.6); ABS Lymphocytes 2.4 10^3/ul (1.0-4.8); ABS Monocytes 0.6 10^3/ul (0-0.8); ABS Neutrophils 6.1 10^3/ul (1.5-7.7); Eosinophil % 2.1 %; Hematocrit 37 % (35-47); Hemoglobin 12.3 g/dL (12.0-16.0); Lymphocyte % 25.9 %; Mean Corpuscular HGB Conc 33 g/dL (31-36); Mean Corpuscular Hemoglobin 30 pg (27-31); Mean Corpuscular Volume 90 fL (80-97); Mean Platelet Volume 7.4 fL (7.4-10.4); Platelet Count 257 10^3/uL (150-450); Red Blood Count 4.12 10^6 /uL (3.70-4.87); Red Cell Distribution Width 14 % (10-15); White Blood Count 9.4 10^3/uL (3.5-10.8)
[2022-10-10 06:40] LABS: Calcium 9.3 mg/dL (8.6-10.3); Creatinine, Serum 0.87 mg/dL (0.51-0.95); Potassium 3.9 mmol/L (3.5-5.0)
[2022-10-10] MEDS: Mometasone 220 MCG MDI INH SCH ×2 (08:54→19:38)
[2022-10-10] MEDS: Polyethylene Glycol 3350 17 GM PACKET PO SCH ×2 (08:56→19:37)
[2022-10-10] MEDS: Lithium Carbonate ER 450mg TAB PO SCH ×2 (08:58→19:28)
[2022-10-10] MEDS: NORETHINDRONE 0.35 MG PO SCH (11:09)
[2022-10-10] MEDS: PTO: Linaclotide 290 mcg CAP (NF) PO SCH (19:30)
[2022-10-11] MEDS: ZOLMITRIPTAN 5 MG SL PRN (05:17)
[2022-10-11] MEDS: Polyethylene Glycol 3350 17 GM PACKET PO SCH ×2 (08:45→20:59)
[2022-10-11] MEDS: Lithium Carbonate ER 450mg TAB PO SCH ×2 (08:47→21:12)
[2022-10-11] MEDS: Mometasone 220 MCG MDI INH SCH ×2 (09:47→19:51)
[2022-10-11] MEDS: NORETHINDRONE 0.35 MG PO SCH ×2 (09:48→21:30)
[2022-10-11] MEDS: Albuterol HFA INHALER 8 gm MDI INH PRN (15:17)
[2022-10-11] MEDS: PTO: Linaclotide 290 mcg CAP (NF) PO SCH (20:58)
[2022-10-11] MEDS ORDERED: LITHIUM CARBONATE 450 MG PO SCH (21:00)
[2022-10-12] MEDS: Lithium Carbonate ER 450mg TAB PO SCH ×2 (08:46→21:01)
[2022-10-12] MEDS: Mometasone 220 MCG MDI INH SCH ×2 (09:13→19:19)
[2022-10-12] MEDS: Polyethylene Glycol 3350 17 GM PACKET PO SCH ×2 (09:14→21:02)
[2022-10-12] MEDS: NORETHINDRONE 0.35 MG PO SCH (09:15)
[2022-10-12] MEDS: PTO: Linaclotide 290 mcg CAP (NF) PO SCH (21:01)
[2022-10-13] MEDS: Polyethylene Glycol 3350 17 GM PACKET PO SCH ×2 (07:54→21:45)
[2022-10-13] MEDS: Mometasone 220 MCG MDI INH SCH ×2 (08:34→21:34)
[2022-10-13] MEDS: Lithium Carbonate ER 450mg TAB PO SCH ×2 (08:35→21:45)
[2022-10-13] MEDS: NORETHINDRONE 0.35 MG PO SCH (08:36)
[2022-10-13] MEDS: PTO: Linaclotide 290 mcg CAP (NF) PO SCH (08:43)
[2022-10-13] MEDS: ZOLMITRIPTAN 5 MG SL PRN (09:21)
[2022-10-13] MEDS: Albuterol HFA INHALER 8 gm MDI INH PRN (16:56)
[2022-10-14] MEDS: Mometasone 220 MCG MDI INH SCH ×2 (08:46→18:01)
[2022-10-14] MEDS: Lithium Carbonate ER 450mg TAB PO SCH ×2 (08:47→21:30)
[2022-10-14] MEDS: NORETHINDRONE 0.35 MG PO SCH (08:47)
[2022-10-14] MEDS: PTO: Linaclotide 290 mcg CAP (NF) PO SCH (08:52)
[2022-10-14] MEDS: Polyethylene Glycol 3350 17 GM PACKET PO SCH ×2 (08:55→21:57)
[2022-10-14] MEDS ORDERED: Linaclotide 290 mcg CAP (NF) PO SCH (09:00)
[2022-10-14] MEDS: ZOLMITRIPTAN 5 MG SL PRN (15:05)
[2022-10-15] MEDS: ZOLMITRIPTAN 5 MG SL PRN ×2 (05:10→15:49)
[2022-10-15] MEDS: Lithium Carbonate ER 450mg TAB PO SCH ×2 (08:10→20:55)
[2022-10-15] MEDS: Mometasone 220 MCG MDI INH SCH ×2 (08:11→20:57)
[2022-10-15] MEDS: Polyethylene Glycol 3350 17 GM PACKET PO SCH (08:11)
[2022-10-15] MEDS: NORETHINDRONE 0.35 MG PO SCH (08:12)
[2022-10-15] MEDS: PTO: Linaclotide 290 mcg CAP (NF) PO SCH (08:12)
[2022-10-16] MEDS: Mometasone 220 MCG MDI INH SCH ×2 (08:54→20:58)
[2022-10-16] MEDS: Lithium Carbonate ER 450mg TAB PO SCH ×2 (08:54→20:55)
[2022-10-16] MEDS: NORETHINDRONE 0.35 MG PO SCH (08:54)
[2022-10-16] MEDS: PTO: Linaclotide 290 mcg CAP (NF) PO SCH (08:55)
[2022-10-17] MEDS: Mometasone 220 MCG MDI INH SCH ×2 (08:56→19:08)
[2022-10-17] MEDS: Lithium Carbonate ER 450mg TAB PO SCH ×2 (08:58→20:24)
[2022-10-17] MEDS: PTO: Linaclotide 290 mcg CAP (NF) PO SCH ×2 (08:58→09:00)
[2022-10-17] MEDS: NORETHINDRONE 0.35 MG PO SCH (08:59)
[2022-10-17] MEDS: Albuterol HFA INHALER 8 gm MDI INH PRN (16:54)
[2022-10-17] MEDS: ZOLMITRIPTAN 5 MG SL PRN (23:04)
[2022-10-18] MEDS: Mometasone 220 MCG MDI INH SCH (08:33)
[2022-10-18] MEDS: NORETHINDRONE 0.35 MG PO SCH (08:34)
[2022-10-18] MEDS: PTO: Linaclotide 290 mcg CAP (NF) PO SCH (08:35)
[2022-10-18] MEDS: Lithium Carbonate ER 450mg TAB PO SCH (08:37)
[2022-10-18 08:43] VITALS: BP 105/65
== END 2022-10-18 12:57 | disposition home or self-care (01) | DRG 918 ==
LOC: ED 10:21 → ICU 19:16 → BSU 10-08 10:10
PROVIDERS: ADMIT Internal Medicine Critical Care Medicine; ATTEND Student in an Organized Health Care Education/Training Program

== ENCOUNTER 2023-01-28 10:21 | Inpatient (IN) ==
[2023-01-28 11:30] LABS: ABS Eosinophils 0.1 10^3/uL (0.0-0.5); ABS Lymphocytes 2.4 10^3/uL (1.0-4.8); ABS Monocytes 0.8 10^3/uL (0.0-0.9); ABS Neutrophils 7.9 10^3/uL (1.5-7.6); Eosinophil % 1.3 %; Hematocrit 36.7 % (35-45); Hemoglobin 12.2 g/dL (11.5-14.3); Lymphocyte % 21.2 %; Mean Corpuscular Hemoglobin 28.7 pg (27-33); Mean Corpuscular Hgb Conc 33.3 g/dL (31-36); Mean Platelet Volume 7.3 fL (7.5-11.2); Platelet Count 344 10^3/uL (150-450); Red Blood Count 4.27 10^6/uL (3.63-4.92); Red Cell Distribution Width 14.5 % (12-17); White Blood Count 11.3 10^3/uL (3.8-11.8)
[2023-01-28 11:38] LABS: Urine Appearance Clear; Urine Bilirubin Negative (Negative); Urine Blood Negative (Negative); Urine Color Yellow; Urine Glucose Negative (Negative); Urine Ketones Negative (Negative); Urine Nitrite Negative (Negative); Urine Protein Negative (Negative); Urine Specific Gravity 1.008 (1.002-1.030); Urine Urobilinogen Negative (Negative)
[2023-01-28 11:47] LABS: Urine Benzodiazepine Screen None Detected (None Detect); Urine Cannabinoids Screen None Detected (None Detect); Urine Opiates Screen None Detected (None Detect)
[2023-01-28 12:04] LABS: ALT 22 U/L (7-52); AST 17 U/L (13-39); Acetaminophen < 15 mcg/mL; Albumin 4.2 g/dL (3.2-5.2); Albumin/Globulin Ratio 1.3 (1-3); Alcohol, S < 13 mg/dL (<13); Alkaline Phosphatase 62 U/L (35-149); Anion Gap 7 mmol/L (2-16); Blood Urea Nitrogen 9 mg/dL (6-24); CO2 Carbon Dioxide 23 mmol/L (22-32); Calcium 9.1 mg/dL (8.6-10.3); Chloride 108 mmol/L (101-111); Creatinine, Serum 0.88 mg/dL (0.51-0.95); Globulin 3.2 g/dL (2-4); Glucose 103 mg/dL (70-100); Lithium 0.68 mmol/L (0.6-1.2); Potassium 4.1 mmol/L (3.5-5.0); Salicylate < 2.50 mg/dL (<30); Sodium 138 mmol/L (135-145); Total Protein 7.4 g/dL (6.4-8.9); eGFR CKD-EPI 87.8 (>60)
[2023-01-28 12:10] LABS: HCG Pregnancy < 0.60 mIU/mL
[2023-01-28] MEDS ORDERED: Al Hydrox/Mg Hydrox/Simet LIQ 30 ML UDC PO PRN (12:28)
[2023-01-28] MEDS ORDERED: NF: RIMEGEPANT SULFATE 75 MG ODT TAB (NF) PO PRN (12:29)
[2023-01-28] MEDS ORDERED: Albuterol HFA INHALER 8 gm MDI INH PRN (12:29)
[2023-01-28] MEDS: Mometasone 220 MCG MDI INH SCH (20:17)
[2023-01-28] MEDS: Lithium Carbonate ER 450mg TAB PO SCH (20:19)
[2023-01-29 08:34] LABS: HDL Cholesterol 29.9 mg/dL
[2023-01-29] MEDS: Lithium Carbonate ER 450mg TAB PO SCH ×2 (08:36→20:53)
[2023-01-29] MEDS: Mometasone 220 MCG MDI INH SCH ×2 (08:40→18:19)
[2023-01-29] MEDS ORDERED: LINACLOTIDE 290 MCG PO SCH (09:00)
[2023-01-29] MEDS: PTO: Norethindrone 0.35 mg TAB (NF) PO SCH (10:41)
[2023-01-30] MEDS: Lithium Carbonate ER 450mg TAB PO SCH ×2 (08:23→20:32)
[2023-01-30] MEDS: PTO: Norethindrone 0.35 mg TAB (NF) PO SCH (08:25)
[2023-01-30] MEDS: Mometasone 220 MCG MDI INH SCH ×2 (08:28→20:33)
[2023-01-30] MEDS: PTO: Linaclotide 290 mcg CAP (NF) PO SCH (08:29)
[2023-01-30] MEDS: Clotrimazole 1% VAGINAL CREAM 45 GM VAGINAL SCH (14:03)
[2023-01-31] MEDS: Lithium Carbonate ER 450mg TAB PO SCH ×2 (07:44→20:39)
[2023-01-31] MEDS: Clotrimazole 1% VAGINAL CREAM 45 GM VAGINAL SCH (07:44)
[2023-01-31] MEDS: Mometasone 220 MCG MDI INH SCH ×2 (07:45→20:41)
[2023-01-31] MEDS: PTO: Norethindrone 0.35 mg TAB (NF) PO SCH (07:46)
[2023-01-31] MEDS: PTO: Linaclotide 290 mcg CAP (NF) PO SCH (08:24)
[2023-02-01] MEDS: PTO: Norethindrone 0.35 mg TAB (NF) PO SCH (08:19)
[2023-02-01] MEDS: Lithium Carbonate ER 450mg TAB PO SCH ×2 (08:19→20:33)
[2023-02-01] MEDS: Clotrimazole 1% VAGINAL CREAM 45 GM VAGINAL SCH (08:22)
[2023-02-01] MEDS: CMCS:LINACLOTIDE 72 MCG CAP (NF) PO SCH (09:51)
[2023-02-01] MEDS: Mometasone 220 MCG MDI INH SCH ×2 (09:52→20:34)
[2023-02-02] MEDS: Mometasone 220 MCG MDI INH SCH ×2 (08:17→21:12)
[2023-02-02] MEDS: CMCS:LINACLOTIDE 72 MCG CAP (NF) PO SCH (08:20)
[2023-02-02] MEDS: PTO: Norethindrone 0.35 mg TAB (NF) PO SCH (08:21)
[2023-02-02] MEDS: Clotrimazole 1% VAGINAL CREAM 45 GM VAGINAL SCH (08:26)
[2023-02-02] MEDS: Lithium Carbonate ER 450mg TAB PO SCH ×2 (08:27→21:23)
[2023-02-03] MEDS: Lithium Carbonate ER 450mg TAB PO SCH (08:03)
[2023-02-03] MEDS: CMCS:LINACLOTIDE 72 MCG CAP (NF) PO SCH (08:04)
[2023-02-03] MEDS: Clotrimazole 1% VAGINAL CREAM 45 GM VAGINAL SCH (08:04)
[2023-02-03] MEDS: Mometasone 220 MCG MDI INH SCH (08:05)
[2023-02-03] MEDS: PTO: Norethindrone 0.35 mg TAB (NF) PO SCH (08:06)
[2023-02-03 08:46] VITALS: BP 102/59
== END 2023-02-03 17:45 | disposition home or self-care (01) | DRG 883 ==
LOC: ED 10:21 → EDHOLD 12:28 → BSU 14:20
PROVIDERS: ADMIT Psychiatry & Neurology Psychiatry; ATTEND Student in an Organized Health Care Education/Training Program

== ENCOUNTER 2023-05-10 12:29 | Inpatient (IN) ==
[2023-05-10] MEDS ORDERED: Al Hydrox/Mg Hydrox/Simet LIQ 30 ML UDC PO PRN (15:09)
[2023-05-10] MEDS ORDERED: PTO:RIMEGEPANT SULFATE 75 MG ODT TAB (NF) PO PRN (15:11)
[2023-05-10 18:38] LABS: Lithium 0.73 mmol/L (0.6-1.2)
[2023-05-10] MEDS: Lithium Carbonate ER 450mg TAB PO SCH (20:15)
[2023-05-10] MEDS: Mometasone 220 MCG MDI INH SCH (20:16)
[2023-05-10 21:32] LABS: HCG Pregnancy < 0.60 mIU/mL
[2023-05-11] MEDS: Mometasone 220 MCG MDI INH SCH ×2 (08:30→21:24)
[2023-05-11] MEDS: Lithium Carbonate ER 450mg TAB PO SCH (08:31)
[2023-05-11] MEDS: Multivitamins/Minerals TAB PO SCH (08:31)
[2023-05-11] MEDS: NORETHINDRONE 0.35 MG PO SCH (09:15)
[2023-05-12] MEDS: Multivitamins/Minerals TAB PO SCH (08:37)
[2023-05-12] MEDS: Mometasone 220 MCG MDI INH SCH (08:38)
[2023-05-12] MEDS: NORETHINDRONE 0.35 MG PO SCH (08:38)
[2023-05-12 08:45] LABS: HDL Cholesterol 35.2 mg/dL
[2023-05-13] MEDS: Mometasone 220 MCG MDI INH SCH ×3 (01:10→20:59)
[2023-05-13] MEDS: Multivitamins/Minerals TAB PO SCH (09:53)
[2023-05-13] MEDS: Butalb/Acetamin/Caff TAB 325-50-40MG PO PRN ×2 (11:24→17:42)
[2023-05-13] MEDS: NORETHINDRONE 0.35 MG PO SCH (15:20)
[2023-05-14] MEDS: Mometasone 220 MCG MDI INH SCH ×2 (09:07→20:28)
[2023-05-14] MEDS: Multivitamins/Minerals TAB PO SCH (09:09)
[2023-05-14] MEDS: NORETHINDRONE 0.35 MG PO SCH (09:10)
[2023-05-15] MEDS: Mometasone 220 MCG MDI INH SCH ×2 (07:28→20:22)
[2023-05-15] MEDS: Multivitamins/Minerals TAB PO SCH (08:46)
[2023-05-15] MEDS: NORETHINDRONE 0.35 MG PO SCH (08:46)
[2023-05-16] MEDS: NORETHINDRONE 0.35 MG PO SCH (09:35)
[2023-05-16] MEDS: Multivitamins/Minerals TAB PO SCH (09:35)
[2023-05-16] MEDS: Mometasone 220 MCG MDI INH SCH ×2 (09:38→20:37)
[2023-05-16] MEDS: Butalb/Acetamin/Caff TAB 325-50-40MG PO PRN (10:08)
[2023-05-17] MEDS: Multivitamins/Minerals TAB PO SCH (09:03)
[2023-05-17] MEDS: Mometasone 220 MCG MDI INH SCH ×2 (09:07→20:51)
[2023-05-17] MEDS: NORETHINDRONE 0.35 MG PO SCH (09:09)
[2023-05-18] MEDS: Multivitamins/Minerals TAB PO SCH (08:32)
[2023-05-18] MEDS: NORETHINDRONE 0.35 MG PO SCH (08:33)
[2023-05-18 09:06] VITALS: BP 110/70
[2023-05-18] MEDS: Mometasone 220 MCG MDI INH SCH (09:21)
== END 2023-05-18 11:50 | disposition home or self-care (01) | DRG 883 ==
LOC: ED 12:29 → EDHOLD 15:09 → BSU 18:44
PROVIDERS: ADMIT Psychiatry & Neurology Psychiatry; ATTEND Psychiatry & Neurology Psychiatry

== ENCOUNTER 2023-09-06 13:15 | Inpatient (IN) ==
[2023-09-06 15:33] LABS: ABS Eosinophils 0.2 10^3/uL (0.0-0.5); ABS Lymphocytes 2.4 10^3/uL (1.0-4.8); ABS Monocytes 0.7 10^3/uL (0.0-0.9); ABS Neutrophils 6.6 10^3/uL (1.5-7.6); Eosinophil % 1.7 %; Hematocrit 38.5 % (35-45); Hemoglobin 12.8 g/dL (11.5-14.3); Lymphocyte % 24.4 %; Mean Corpuscular Hemoglobin 27.6 pg (27-33); Mean Corpuscular Hgb Conc 33.2 g/dL (31-36); Mean Corpuscular Volume 83.3 fL (80-97); Mean Platelet Volume 7.5 fL (7.5-11.2); Platelet Count 312 10^3/uL (150-450); Red Blood Count 4.62 10^6/uL (3.63-4.92); Red Cell Distribution Width 15.4 % (12-17); White Blood Count 9.9 10^3/uL (3.8-11.8)
[2023-09-06 15:51] LABS: ALT 16 U/L (7-52); AST 14 U/L (13-39); Albumin 4.3 g/dL (3.2-5.2); Albumin/Globulin Ratio 1.3 (1-3); Alkaline Phosphatase 63 U/L (35-149); Anion Gap 5 mmol/L (2-16); Blood Urea Nitrogen 15 mg/dL (6-24); CO2 Carbon Dioxide 27 mmol/L (22-32); Calcium 9.5 mg/dL (8.6-10.3); Chloride 106 mmol/L (101-111); Creatinine, Serum 0.83 mg/dL (0.51-0.95); Globulin 3.4 g/dL (2-4); Glucose 93 mg/dL (70-100); Sodium 138 mmol/L (135-145); Total Bilirubin 0.4 mg/dL (0.2-1.0); Total Protein 7.7 g/dL (6.4-8.9); eGFR CKD-EPI 93.6 (>60)
[2023-09-06 15:57] LABS: HCG Pregnancy < 0.60 mIU/mL
[2023-09-06 16:03] LABS: Urine Benzodiazepine Screen None Detected (None Detect); Urine Cannabinoids Screen None Detected (None Detect); Urine Opiates Screen None Detected (None Detect)
[2023-09-06 16:04] LABS: Acetaminophen < 15 mcg/mL; Alcohol, S < 13 mg/dL (<13); Salicylate < 2.50 mg/dL (<30)
[2023-09-06] MEDS ORDERED: Al Hydrox/Mg Hydrox/Simet LIQ 30 ML UDC PO PRN (16:18)
[2023-09-06 16:20] LABS: TSH Ultra Thyroid Stim Horm 1.78 mcIU/mL (0.34-5.60)
[2023-09-06] MEDS ORDERED: Butalb/Acetamin/Caff TAB 325-50-40MG PO PRN (16:30)
[2023-09-07] MEDS: Vitamin THERAPEUTIC TAB PO SCH (08:35)
[2023-09-07] MEDS: Mometasone 220 MCG MDI INH SCH ×2 (08:37→20:27)
[2023-09-07] MEDS ORDERED: PTO:RIMEGEPANT SULFATE 75 MG ODT TAB (NF) PO SCH ×2 (09:00→12:00)
[2023-09-07] MEDS ORDERED: CMC:LINACLOTIDE 72 MCG CAP (NF) PO SCH (09:00)
[2023-09-07] MEDS ORDERED: Albuterol HFA INHALER 8 gm MDI INH PRN (11:25)
[2023-09-07] MEDS ORDERED: NORETHINDRONE 0.35 MG PO SCH (12:00)
[2023-09-07] MEDS ORDERED: PTO:RIMEGEPANT SULFATE 75 MG ODT TAB (NF) PO PRN (13:53)
[2023-09-07] MEDS: NORETHINDRONE 0.35 MG PO SCH (20:26)
[2023-09-08 08:16] LABS: HDL Cholesterol 31.5 mg/dL
[2023-09-08] MEDS: Vitamin THERAPEUTIC TAB PO SCH (08:22)
[2023-09-08] MEDS: Mometasone 220 MCG MDI INH SCH ×2 (08:22→21:12)
[2023-09-08] MEDS: Linaclotide 290 mcg CAP (NF) PO SCH (08:25)
[2023-09-08] MEDS: NORETHINDRONE 0.35 MG PO SCH (21:10)
[2023-09-09] MEDS: Mometasone 220 MCG MDI INH SCH (07:32)
[2023-09-09 07:58] VITALS: BP 111/68
[2023-09-09] MEDS: Vitamin THERAPEUTIC TAB PO SCH (08:31)
[2023-09-09] MEDS: Linaclotide 290 mcg CAP (NF) PO SCH (08:31)
== END 2023-09-09 15:55 | disposition home or self-care (01) | DRG 883 ==
LOC: ED 13:15 → EDHOLD 16:18 → BSU 17:36
PROVIDERS: ADMIT Psychiatry & Neurology Psychiatry; ATTEND Psychiatry & Neurology Psychiatry

== ENCOUNTER 2024-06-19 09:33 | Inpatient (IN) ==
[2024-06-19 10:57] LABS: ABS Eosinophils 0.1 10^3/uL (0.0-0.5); ABS Lymphocytes 2.2 10^3/uL (1.0-4.8); ABS Monocytes 0.7 10^3/uL (0.0-0.9); ABS Neutrophils 7.9 10^3/uL (1.5-7.6); Eosinophil % 0.6 %; Hematocrit 40.1 % (35-45); Hemoglobin 13.5 g/dL (11.5-14.3); Lymphocyte % 20.4 %; Mean Corpuscular Hemoglobin 28.7 pg (27-33); Mean Corpuscular Hgb Conc 33.6 g/dL (31-36); Mean Corpuscular Volume 85.5 fL (80-97); Mean Platelet Volume 7.3 fL (7.5-11.2); Platelet Count 342 10^3/uL (150-450); Red Blood Count 4.69 10^6/uL (3.63-4.92); Red Cell Distribution Width 14.1 % (12-17); White Blood Count 10.9 10^3/uL (3.8-11.8)
[2024-06-19 10:59] LABS: Urine Appearance Turbid; Urine Bilirubin Negative (Negative); Urine Blood 3+ (Negative); Urine Color Yellow; Urine Glucose Negative (Negative); Urine Ketones Negative (Negative); Urine Nitrite Negative (Negative); Urine Protein Negative (Negative); Urine Specific Gravity 1.016 (1.002-1.030); Urine Urobilinogen Negative (Negative)
[2024-06-19 11:08] LABS: Urine Bacteria Absent /HPF (Absent); Urine Red Blood Cell Trace(0-2/hpf) /HPF (0-Trace); Urine Squamous Epithelial Cell Present /HPF (Absent); Urine White Blood Cell Trace(0-5/hpf) /HPF (0-Trace)
[2024-06-19 11:25] LABS: Urine Benzodiazepine Screen None Detected (None Detect); Urine Cannabinoids Screen None Detected (None Detect); Urine Opiates Screen None Detected (None Detect)
[2024-06-19 11:44] LABS: ALT 18 U/L (7-52); AST 13 U/L (13-39); Acetaminophen < 15 mcg/mL; Albumin 4.3 g/dL (3.2-5.2); Albumin/Globulin Ratio 1.3 (1-3); Alcohol, S < 13 mg/dL (<13); Alkaline Phosphatase 65 U/L (35-149); Anion Gap 5 mmol/L (2-16); Blood Urea Nitrogen 11 mg/dL (6-24); CO2 Carbon Dioxide 29 mmol/L (22-32); Calcium 9.4 mg/dL (8.6-10.3); Chloride 104 mmol/L (101-111); Creatinine, Serum 0.83 mg/dL (0.51-0.95); Globulin 3.4 g/dL (2-4); Glucose 98 mg/dL (70-100); Potassium 4.5 mmol/L (3.5-5.0); Salicylate < 2.50 mg/dL (<30); Sodium 138 mmol/L (135-145); Total Bilirubin 0.5 mg/dL (0.2-1.0); Total Protein 7.7 g/dL (6.4-8.9); eGFR CKD-EPI 93.6 (>60)
[2024-06-19 11:54] LABS: TSH Ultra Thyroid Stim Horm 1.49 mcIU/mL (0.34-5.60)
[2024-06-19] MEDS ORDERED: Al Hydrox/Mg Hydrox/Simet LIQ 30 ML UDC PO PRN (16:27)
[2024-06-19] MEDS: NORETHINDRONE 0.35 MG PO SCH (22:02)
[2024-06-19] MEDS: PTO: RIMEGEPANT SULFATE 75 MG ODT TAB (NF) PO PRN (22:02)
[2024-06-20] MEDS: Multivitamins/Minerals TAB PO SCH (09:26)
[2024-06-20] MEDS: PTO:Linaclotide 290 mcg CAP (NF) PO SCH (11:08)
[2024-06-20] MEDS: Mometasone 220 MCG MDI INH SCH (11:08)
[2024-06-22 08:32] LABS: HDL Cholesterol 33.1 mg/dL
[2024-06-23] MEDS: Fluticasone NASAL SPRAY 50MCG 16 gm SPRAY BTL BOTH NARES SCH (22:11)
[2024-06-24] MEDS: ERENUMAB AOOE 140 MG SUBCUT ONE (10:01)
[2024-06-24] MEDS: Benzocaine/Menthol LOZ PO PRN (15:07)
[2024-06-25] MEDS: Influenza Vaccine *TRI* 2024-25* 0.5 ML SYRINGE IM ONE (10:32)
[2024-06-25 15:48] LABS: Prolactin 11.5 ng/mL (1.0-25.0)
[2024-06-25 16:33] LABS: HCG Pregnancy < 0.60 mIU/mL
[2024-06-25] MEDS: Magnesium Sulfate CRYSTAL 454 GM BOX TOPICAL SCH (17:40)
[2024-06-26 10:22] VITALS: BP 109/73
== END 2024-06-26 17:43 | disposition home or self-care (01) | DRG 883 ==
LOC: ED 09:33 → EDHOLD 16:27 → BSU 19:30
PROVIDERS: ADMIT Psychiatry & Neurology Psychiatry; ATTEND Psychiatry & Neurology Psychiatry

== ENCOUNTER 2024-10-12 10:23 | Inpatient (IN) ==
[2024-10-12 13:24] LABS: ABS Basophils 0.1 10^3/uL (0.0-0.1); ABS Eosinophils 0.1 10^3/uL (0.0-0.5); ABS Lymphocytes 2.7 10^3/uL (1.0-4.8); ABS Monocytes 0.5 10^3/uL (0.0-0.9); ABS Neutrophils 5.8 10^3/uL (1.5-7.6); Eosinophil % 0.8 %; Hematocrit 37.2 % (35-45); Hemoglobin 12.5 g/dL (11.5-14.3); Lymphocyte % 29.3 %; Mean Corpuscular Hemoglobin 29.5 pg (27-33); Mean Corpuscular Hgb Conc 33.6 g/dL (31-36); Mean Corpuscular Volume 87.8 fL (80-97); Mean Platelet Volume 7.2 fL (7.5-11.2); Platelet Count 273 10^3/uL (150-450); Red Blood Count 4.23 10^6/uL (3.63-4.92); Red Cell Distribution Width 13.8 % (12-17); White Blood Count 9.1 10^3/uL (3.8-11.8)
[2024-10-12 13:25] LABS: Urine Appearance Clear; Urine Bilirubin Negative (Negative); Urine Blood Negative (Negative); Urine Color Colorless; Urine Glucose Negative (Negative); Urine Ketones Negative (Negative); Urine Nitrite Negative (Negative); Urine Protein Negative (Negative); Urine Specific Gravity 1.007 (1.002-1.030); Urine Urobilinogen Negative (Negative)
[2024-10-12 13:52] LABS: Urine Benzodiazepine Screen None Detected (None Detect); Urine Cannabinoids Screen None Detected (None Detect); Urine Opiates Screen None Detected (None Detect)
[2024-10-12 14:10] LABS: ALT 34 U/L (7-52); AST 22 U/L (13-39); Acetaminophen < 15 mcg/mL; Albumin 4.1 g/dL (3.5-5.7); Albumin/Globulin Ratio 1.5 (1-3); Alcohol, S < 13 mg/dL (<13); Alkaline Phosphatase 49 U/L (35-149); Anion Gap 8 mmol/L (2-16); Blood Urea Nitrogen 10 mg/dL (6-24); CO2 Carbon Dioxide 24 mmol/L (22-32); Calcium 9.5 mg/dL (8.6-10.3); Chloride 106 mmol/L (101-111); Creatinine, Serum 0.72 mg/dL (0.51-0.95); Globulin 2.7 g/dL (2-4); Glucose 86 mg/dL (70-100); Potassium 3.9 mmol/L (3.5-5.0); Salicylate < 2.50 mg/dL (<30); Sodium 138 mmol/L (135-145); Total Bilirubin 0.7 mg/dL (0.2-1.0); Total Protein 6.8 g/dL (6.4-8.9); eGFR CKD-EPI 110.4 (>60)
[2024-10-12 14:15] LABS: HCG Pregnancy < 0.60 mIU/mL
[2024-10-12 14:24] LABS: TSH Ultra Thyroid Stim Horm 2.29 mcIU/mL (0.34-5.60)
[2024-10-12] MEDS ORDERED: Al Hydrox/Mg Hydrox/Simet LIQ 30 ML UDC PO PRN (20:38)
[2024-10-12] MEDS: Albuterol HFA INHALER 8 gm MDI INH PRN (22:19)
[2024-10-13 08:05] LABS: HDL Cholesterol 38.4 mg/dL
[2024-10-13] MEDS: PTO: Norethindrone 0.35 mg TAB (NF) PO SCH (09:35)
[2024-10-13] MEDS: Vitamin THERAPEUTIC TAB PO SCH (09:35)
[2024-10-13] MEDS: PTO: Linaclotide 290 mcg CAP (NF) PO SCH (09:35)
[2024-10-13] MEDS: Clotrimazole 1% VAGINAL CREAM 45 GM VAGINAL SCH (19:42)
[2024-10-18] MEDS: RIMEGEPANT 75 MG PO PRN (07:41)
[2024-10-19 08:39] VITALS: BP 97/65
== END 2024-10-19 12:15 | disposition home or self-care (01) | DRG 918 ==
LOC: ED 10:23 → EDHOLD 19:18 → BSU 20:36
PROVIDERS: ADMIT Psychiatry & Neurology Psychiatry; ATTEND Student in an Organized Health Care Education/Training Program